=== PATIENT | female | born 1940 | race Caucasian/White ===

== ENCOUNTER → 2017-01-16 | Outpatient (CLI) | payer OTHER ==
[2017-01-16 20:17] LABS: CREATININE FOR GFR 1.25 MG/DL (0.55-1.02); GLOMERULAR FILTRATION RATE 44.5 (>39)
== END ==
LOC: M SMT 14:29
PROVIDERS: ATTEND Urology
DX: Z85.528 Personal history of other malignant neoplasm of kidney (principal)

== ENCOUNTER → 2017-02-27 | Outpatient (CLI) | payer OTHER ==
--- NOTE | 2017-02-28 10:35 | REP ---
PET/CT: HISTORY: Restaging renal carcinoma. Status post left nephrectomy 2012. 2 cm mass right lung. Question of thoracic spine lesion at T3. Comparison CT study chest, abdomen and pelvis January 29, 2017. Among the reported findings is a spiculated right upper lobe lung lesion. TECHNIQUE: 69 minutes following the intravenous injection of a 11.4 mCi dose of F-18 FDG, three-dimensional PET scintigraphy is acquired from the skull base to the proximal thighs. Triplanar noncontrast CT scanning is acquired through the same anatomic range for attenuation correction, and image registration with scan parameters optimized to minimize radiation exposure to the patient. PET scintigraphy and CT datasets were fused and displayed on a workstation with multiplanar and projection display capability. PET/CT FINDINGS: Head and neck FDG distribution pattern is unremarkable. The right upper lobe perihilar lung lesion shows no discernible at FDG accumulation, maximum standard uptake value is less than one. There is no abnormal hypermetabolic uptake in the thorax. The irregular right perihilar nodular density persists unchanged. There is a hiatal hernia. No abnormal adrenal uptake is seen. Normal hepatic, right renal, and gastrointestinal and bladder uptake are seen. No abnormal hypermetabolic focus is seen in the abdomen. No abnormal skeletal hypermetabolic uptake is seen. No focus of increased uptake is seen in the T3 vertebral body. The radiolucent area described on recent chest CT study shows no visible FDG accumulation. This area appears to contain fatty marrow on accompanying CT. IMPRESSION: Negative PET CT study. The patient status post left nephrectomy. The spiculated density in the right upper perihilar region shows no discernible PET activity. Follow-up chest CT study is recommended in 3-4 months. There is no evidence to suggest skeletal metastatic disease. Signed by Simone Holloway MD 02/28/2017 02:09 P
== END ==
LOC: M PLARAD 14:22
PROVIDERS: ATTEND Urology
DX: C64.9 Malignant neoplasm of unspecified kidney, except renal pelvis (principal); R91.1 Solitary pulmonary nodule
CPT/HCPCS: 78816; A9552

== ENCOUNTER → 2017-03-21 | Outpatient (CLI) | payer OTHER ==
--- NOTE | 2017-03-21 12:32 | REPMRS ---
Patient History The patient states she has not had a clinical breast exam in over a year. Patient is postmenopausal and has history of other cancer at age 72. Family history of prostate cancer in father at age 88. Digital Woman Screen Mammo: March 21, 2017 - Exam #: [id number] Bilateral CC and MLO view(s) were taken. Technologist: Chiara Renae, Technologist Prior study comparison: December 08, 2015, digital woman screen mammo performed at [facility] to [facility]. August 14, 2013, digital woman screen mammo performed at [facility] to [facility]. FINDINGS: There are scattered fibroglandular densities. There has been no change in the appearance of the mammogram from the prior studies. There is a mild amount of residual fibroglandular tissue which is fairly symmetric. There is no interval development of dominant mass, architectural distortion, or clustered microcalcification suggestive of malignancy. ASSESSMENT: BI-RADS/ACR category 1 mammogram. Negative. Recommendation Routine screening mammogram in 1 year (for women over age 40). This mammogram was interpreted with the aid of an FDA-approved computer-aided dectection system. Electronically Signed By: Edwin Magana MD 03/21/17 [id number]
--- NOTE | 2017-03-26 10:09 | DEXA ---
AP SPINE L1 - L4 1.214 0.2 1.9 LT FEMUR TOTAL 0.995 -0.1 1.7 RT FEMUR TOTAL 0.934 -0.6 1.2 TOTAL BODY TOTAL OTHER DUAL FEMUR FRAX* ASSESSMENT Risk factors: None. 10 year probability of fracture Major osteoporotic fracture 11.7 % Hip fracture 2.5 % COMMENTS: Normal bone densitometry of the spine. Normal bone densitometry of the left hip. There is low bone density of the right hip. The increased density of the spine does represent a significant change. The decreased density of the left hip does represent a significant change. The decreased density of the right hip does represent a significant change. The density of the spine has increased 5.7% since the initial exam on 1999. The spine density has increased 7.5% since the most recent exam on 01/04/2015. The density of the left hip has decreased 11.3% since the initial exam on 1999. The density of the left hip has decreased 3.4% since the most recent exam on . The density of the right hip has decreased 11.6% since the initial exam on 08/02. The density of the right hip has decreased 6.6% since the most recent exam on . FOLLOW-UP: Recommendation for the next bone density exam: 2 years. ROCIO
== END ==
LOC: M WHC 10:57
PROVIDERS: ATTEND Internal Medicine
DX: Z12.31 Encounter for screening mammogram for malignant neoplasm of breast (principal); Z13.820 Encounter for screening for osteoporosis; M85.80 Other specified disorders of bone density and structure, unspecified site; Z78.0 Asymptomatic menopausal state; Z85.9 Personal history of malignant neoplasm, unspecified; Z80.42 Family history of malignant neoplasm of prostate
CPT/HCPCS: 77080; G0202

== ENCOUNTER → 2017-08-20 | Outpatient (REF) | payer OTHER | LOC: M LAB REF 13:18 | PROVIDERS: ATTEND Internal Medicine | DX: E21.3 Hyperparathyroidism, unspecified (principal) ==

== ENCOUNTER 2017-11-14 12:02 | Day surgery (SDC) | payer OTHER ==
[2017-11-14] MEDS: NS 1,000 ML IV (12:15)
== END 2017-11-14 15:19 | disposition home or self-care (01) ==
LOC: M OPP 12:02
DX: Z12.11 Encounter for screening for malignant neoplasm of colon (principal); Z86.010 Personal history of colon polyps; K64.0 First degree hemorrhoids; K57.30 Diverticulosis of large intestine without perforation or abscess without bleeding; R10.13 Epigastric pain; R12 Heartburn; K44.9 Diaphragmatic hernia without obstruction or gangrene; I10 Essential (primary) hypertension; E78.5 Hyperlipidemia, unspecified; E21.3 Hyperparathyroidism, unspecified; K21.9 Gastro-esophageal reflux disease without esophagitis; M19.90 Unspecified osteoarthritis, unspecified site; Z78.0 Asymptomatic menopausal state; R09.82 Postnasal drip; R06.83 Snoring; Z85.528 Personal history of other malignant neoplasm of kidney; Z90.5 Acquired absence of kidney; Z87.19 Personal history of other diseases of the digestive system; Z88.8 Allergy status to other drugs, medicaments and biological substances; Z88.5 Allergy status to narcotic agent; Z88.1 Allergy status to other antibiotic agents; Z79.82 Long term (current) use of aspirin; Z79.899 Other long term (current) drug therapy; Z80.42 Family history of malignant neoplasm of prostate; Z80.7 Family history of other malignant neoplasms of lymphoid, hematopoietic and related tissues
CPT/HCPCS: G0105

== ENCOUNTER → 2018-02-11 | Outpatient (CLI) | payer OTHER ==
[2018-02-11 14:09] LABS: ANION GAP 6 MEQ/L (8-16); BLOOD UREA NITROGEN 27 MG/DL (7-18); CALCIUM LEVEL 10.5 MG/DL (8.8-10.2); CARBON DIOXIDE LEVEL 27 MEQ/L (21-32); CHLORIDE LEVEL 107 MEQ/L (98-107); CREATININE FOR GFR 1.16 MG/DL (0.55-1.30); GLOMERULAR FILTRATION RATE 48.4 (>39); GLUCOSE, FASTING 100 MG/DL (70-100); POTASSIUM SERUM 4.9 MEQ/L (3.5-5.1); SODIUM LEVEL 140 MEQ/L (136-145)
== END ==
LOC: M SMT 10:46
DX: Z85.528 Personal history of other malignant neoplasm of kidney (principal)
CPT/HCPCS: 80048

== ENCOUNTER → 2018-03-05 | Outpatient (REF) | payer OTHER ==
[2018-03-05 13:42] LABS: PTH INTACT 110.4 PG/ML (18.5-88.0)
== END ==
LOC: M LAB REF 12:40
DX: E21.3 Hyperparathyroidism, unspecified (principal)
CPT/HCPCS: 83970

== ENCOUNTER → 2018-05-16 | Outpatient (CLI) | payer OTHER | LOC: M WHC 08:06 | DX: Z12.31 Encounter for screening mammogram for malignant neoplasm of breast (principal); M85.80 Other specified disorders of bone density and structure, unspecified site | CPT/HCPCS: 77067 ==

== ENCOUNTER → 2018-06-13 | Outpatient (CLI) | payer OTHER | LOC: M WHC 13:52 | DX: M85.80 Other specified disorders of bone density and structure, unspecified site (principal); Z78.0 Asymptomatic menopausal state | CPT/HCPCS: 77080 ==

== ENCOUNTER → 2018-09-23 | Outpatient (REF) | payer OTHER ==
[~2018-09-23] MED LIST: ASPI1TAB PO; BRIN1OPH OU; FISH1000 PO; LATA5OPD OU; LEVO25TA5 PO; MULT1TAB10 PO; OMEP40CA2 PO; REFRSOL OP; SIMV40TA2 PO; TYLE325T5 PO; VALS80TA PO; VITA100067 PO; VITA500T PO
== END ==
LOC: M LAB REF 12:10
PROVIDERS: ATTEND Internal Medicine
DX: E21.3 Hyperparathyroidism, unspecified (principal)

== ENCOUNTER → 2018-09-25 | Outpatient (REF) | payer OTHER | LOC: M LAB REF 16:32 | PROVIDERS: ATTEND Internal Medicine | DX: D72.828 Other elevated white blood cell count (principal) ==

== ENCOUNTER → 2019-01-03 | Outpatient (REF) | payer OTHER ==
[2019-01-03 15:45] LABS: APPEARANCE, URINE CLEAR (CLEAR); BACTERIA, URINE AUTO NEGATIVE (NEGATIVE); BILIRUBIN, URINE AUTO NEGATIVE (NEGATIVE); BLOOD, URINE BLOOD NEGATIVE (NEGATIVE); COLOR, URINE YELLOW (YELLOW); GLUCOSE, URINE (UA) AUTO NEGATIVE (NEGATIVE); KETONE, URINE AUTO NEGATIVE (NEGATIVE); LEUKOCYTE ESTERASE, URINE AUTO NEGATIVE (NEGATIVE); NITRITE, URINE AUTO NEGATIVE (NEGATIVE); PROTEIN, URINE AUTO NEGATIVE (NEGATIVE); RBC, URINE AUTO 0 /HPF (0-3); SPECIFIC GRAVITY URINE AUTO 1.009 (1.002-1.035); SQUAMOUS EPITHELIAL CELL UR AU 0 /HPF (0-6); UROBILINOGEN, URINE AUTO 0.2 mg/dL (0.0-2.0); WBC, URINE AUTO 0 /HPF (0-3)
== END ==
LOC: M LAB REF 15:29
PROVIDERS: ATTEND Physician Assistant
DX: N39.0 Urinary tract infection, site not specified (principal)

== ENCOUNTER 2019-01-26 23:13 | Inpatient (IN) | payer MEDICARE ==
[~2019-01-26] VITALS: Ht 160 cm; Wt 65.1 kg
[~2019-01-26 23:13] MED LIST changes: -ASPI1TAB PO; +ASPI81TA26 PO; +LATA0.0013 OU; -LATA5OPD OU; -OMEP40CA2 PO; +OMEP40CA97 PO; -REFRSOL OP; +REFRSOL OU; -SIMV40TA2 PO; +SIMV40TA20 PO
[2019-01-27] VITALS (7 sets, daily range): BP systolic 116–147; BP diastolic 70–97
[2019-01-27] MEDS ORDERED: MORPHINE 4 MG/ML 1ML VIAL/SYRINGE (J2270) IV ONE (01:00)
[2019-01-27] MEDS ORDERED: NS 1,000 ML IV ONE (01:00)
[2019-01-27] MEDS ORDERED: ONDANSETRON 4MG/2ML VIAL (J2405) IV ONE (01:00)
[2019-01-27 01:22] LABS: BASO # 0.1 10^3/uL (0.0-0.2); BASO % 0.6 % (0.0-1.0); EOS # 0.2 10^3/uL (0.0-0.50); EOS % 0.9 % (0.0-3.0); HEMATOCRIT 49.4 % (36.0-47.0); HEMOGLOBIN 15.6 g/dl (12.0-15.5); LYMPH # 1.3 10^3/uL (1.5-4.5); LYMPH % 6.2 % (24.0-44.0); MEAN CORPUSCULAR HEMOGLOBIN 27.4 pg (27.0-33.0); MEAN CORPUSCULAR HGB CONC 31.6 g/dl (32.0-36.5); MEAN CORPUSCULAR VOLUME 86.8 fl (80.0-96.0); MONO # 0.8 10^3/uL (0.0-0.8); NEUTROPHILS # 18.1 10^3/uL (1.8-7.7); NEUTROPHILS % 87.8 % (36.0-66.0); PLATELET COUNT, AUTOMATED 500 10^3/uL (150-450); RED BLOOD COUNT 5.69 10^6/uL (4.00-5.40); WHITE BLOOD COUNT 20.7 10^3/uL (4.0-10.0)
[2019-01-27 02:06] LABS: ALBUMIN 4.6 GM/DL (3.2-5.2); BILIRUBIN,DIRECT 0.2 MG/DL (0.0-0.2); BILIRUBIN,TOTAL 1.2 MG/DL (0.2-1.0); CALCIUM LEVEL 10.8 MG/DL (8.8-10.2); CREATININE FOR GFR 1.08 MG/DL (0.55-1.30); GLOMERULAR FILTRATION RATE 52.4 (>39); POTASSIUM SERUM 4.5 MEQ/L (3.5-5.1); TOTAL PROTEIN 8.1 GM/DL (6.4-8.2)
[2019-01-27] MEDS ORDERED: ISOVUE-370 76% 100ML VIAL (Q9967) As Ordered ONE (02:15)
[2019-01-27] MEDS: HYDROMORPHONE HCL 0.5 MG/ 0.5 ML SYRINGE (J1170 PER 1) IV PRN ×4 (02:35→23:51)
--- NOTE | 2019-01-27 03:35 | REPVR ---
EXAM: CT Abdomen and Pelvis With Contrast EXAM DATE/TIME: 01/27/2019 2:16 AM CLINICAL HISTORY: 78 years old, female; Abdominal pain; Patient HX: Upper abd pain TECHNIQUE: Imaging protocol: Axial computed tomography images of the abdomen and pelvis with intravenous contrast. Coronal and sagittal reformatted images were created and reviewed. Radiation optimization: All CT scans at this facility use at least one of these dose optimization techniques: automated exposure control; mA and/or kV adjustment per patient size (includes targeted exams where dose is matched to clinical indication); or iterative reconstruction. Contrast material: ISO 370; Contrast volume: 100 ml; Contrast route: IV; COMPARISON: No relevant prior studies available. FINDINGS: Lungs: Atelectasis in the medial bilateral lower medial lungs, left greater than right likely secondary to large hiatal hernia protrusion of the stomach in the thoracic cavity. Heart: Heart appears to be shifted more anteriorly in the mediastinum and the stomach isn't abutting the posterior margin of the heart. ABDOMEN: Liver: Diffuse fatty infiltration of the liver. Gallbladder and bile ducts: Normal. No calcified stones. No ductal dilation. Pancreas: Normal. No ductal dilation. Spleen: Normal. No splenomegaly. Adrenals: Normal. No mass. Kidneys and ureters: Status post left nephrectomy. Left renal fossa is otherwise unremarkable. Right kidney is unremarkable. Stomach and bowel: Large hiatal hernia with most of the stomach in the thoracic cavity. Fluid filled distended stomach. Small bowel and colon are unremarkable. Appendix: No evidence of appendicitis. PELVIS: Bladder: Unremarkable as visualized. Reproductive: Unremarkable as visualized. ABDOMEN and PELVIS: Intraperitoneal space: Normal. No free air. No significant fluid collection. Bones/joints: Dextroscoliosis of the lumbar spine with degenerative changes. Soft tissues: Unremarkable. Vasculature: Atherosclerosis of aorta and its branches. Lymph nodes: Normal. No enlarged lymph nodes. IMPRESSION: Large hiatal hernia with most of the stomach in the thoracic cavity. Fluid filled distended stomach. Electronically signed by: Elisa Claudio On 01/27/2019 03:34:45 AM
[2019-01-27] MEDS ORDERED: fentaNYL 100 MCG/2 ML INJECTION (J3010) IV ONE (04:00)
[2019-01-27] MEDS ORDERED: METOCLOPRAMIDE INJ 10MG/2ML VIAL (J2765) IV ONE (04:00)
--- NOTE | 2019-01-27 04:37 | REPVR ---
EXAM: US Abdomen Limited, Right Upper Quadrant EXAM DATE/TIME: 01/27/2019 4:22 AM CLINICAL HISTORY: 78 years old, female; Abdominal pain; Acute; Additional info: Ruq, epigastric pain TECHNIQUE: Imaging protocol: Real-time ultrasound of the abdomen with image documentation. Examination was focused on the right upper quadrant. COMPARISON: CT ABD/PEL W/IV CONTRAST ONLY 01/27/2019 2:16 AM FINDINGS: Liver: Normal. No masses. Gallbladder: Normal. No gallstones. There is no gallbladder wall thickening. Common bile duct: Normal measuring 6.9 mm. No stones. No dilation. Pancreas: Not visualized secondary to overlying bowel gas shadow. Right kidney: Normal measuring 10.9 cm.. No mass. No hydronephrosis. IMPRESSION: No acute findings. Electronically signed by: Elisa Claudio On 01/27/2019 04:36:45 AM
[2019-01-27] MEDS ORDERED: MULT-40 PO (05:27)
[2019-01-27] MEDS ORDERED: ACE65ERTAB PO (05:27)
[2019-01-27] MEDS ORDERED: C 50TAB PO (05:27)
[2019-01-27] MEDS ORDERED: XALA0.007 OU (05:27)
[2019-01-27] MEDS ORDERED: VITA100016 PO (05:27)
[2019-01-27] MEDS ORDERED: LR 1,000 ML IV SCH (06:26)
[2019-01-27] MEDS ORDERED: MORPHINE 4 MG/ML 1ML VIAL/SYRINGE (J2270) IV PRN (06:30)
[2019-01-27] MEDS: MORPHINE 4 MG/ML 1ML VIAL/SYRINGE (J2270) IV PRN ×3 (07:39→12:02)
--- NOTE | 2019-01-27 07:55 | REP ---
Portable chest x-ray: Single view. History: Check NG tube position. Comparison is made with imaging from CT study done earlier this date. Findings: Nasogastric tube is seen entering the left upper quadrant of the abdomen. A very large hiatal hernia persists. Patient is rotated somewhat to the left. Pleural angles are sharp. No definite infiltrate. Impression: NG tube enters left upper quadrant of the abdomen. Large hiatal hernia. Electronically Signed by Simone Holloway MD 01/27/2019 07:48 A
[2019-01-27] MEDS: PANTOPRAZOLE 40MG INJ (PROTONIX) (C9113) IV SCH (08:36)
[2019-01-27] MEDS: LR 1,000 ML IV SCH ×2 (08:38→13:55)
[2019-01-27 10:39] LABS: BLOOD UREA NITROGEN 24 MG/DL (7-18); CALCIUM LEVEL 9.7 MG/DL (8.8-10.2); CARBON DIOXIDE LEVEL 27 MEQ/L (21-32); CHLORIDE LEVEL 111 MEQ/L (98-107); CREATININE FOR GFR 0.92 MG/DL (0.55-1.30); GLOMERULAR FILTRATION RATE > 60.0 (>39); GLUCOSE, FASTING 135 MG/DL (70-100); SODIUM LEVEL 144 MEQ/L (136-145)
[2019-01-27 10:44] LABS: BASO % 0.2 % (0.0-1.0); EOS % 0.1 % (0.0-3.0); HEMATOCRIT 44.6 % (36.0-47.0); HEMOGLOBIN 14.3 g/dl (12.0-15.5); LYMPH # 0.6 10^3/uL (1.5-4.5); LYMPH % 3.4 % (24.0-44.0); MEAN CORPUSCULAR HEMOGLOBIN 28.4 pg (27.0-33.0); MEAN CORPUSCULAR HGB CONC 32.1 g/dl (32.0-36.5); MEAN CORPUSCULAR VOLUME 88.5 fl (80.0-96.0); MONO # 0.4 10^3/uL (0.0-0.8); MONO % 2.4 % (0.0-5.0); NEUTROPHILS # 16.8 10^3/uL (1.8-7.7); NEUTROPHILS % 93.1 % (36.0-66.0); PLATELET COUNT, AUTOMATED 459 10^3/uL (150-450); RED BLOOD COUNT 5.04 10^6/uL (4.00-5.40)
[2019-01-27] MEDS: ONDANSETRON 4MG/2ML VIAL (J2405) IV PRN (12:39)
[2019-01-27] MEDS ORDERED: HYDROMORPHONE HCL 0.5 MG/ 0.5 ML SYRINGE (J1170 PER 1) IV PRN ×2 (13:45→15:45)
[2019-01-27] MEDS ORDERED: ACETAMINOPHEN *IV* 1,000 MG in IV 1 EA IV ONE (17:00)
[2019-01-27 20:03] LABS: HEMATOCRIT 51.2 % (36.0-47.0); HEMOGLOBIN 16.2 g/dl (12.0-15.5); MEAN CORPUSCULAR HEMOGLOBIN 28.3 pg (27.0-33.0); MEAN CORPUSCULAR HGB CONC 31.6 g/dl (32.0-36.5); MEAN CORPUSCULAR VOLUME 89.4 fl (80.0-96.0); PLATELET COUNT, AUTOMATED 503 10^3/uL (150-450); RED BLOOD COUNT 5.73 10^6/uL (4.00-5.40); WHITE BLOOD COUNT 18.2 10^3/uL (4.0-10.0)
[2019-01-27 20:24] LABS: ALBUMIN 3.5 GM/DL (3.2-5.2); BILIRUBIN,TOTAL 1.4 MG/DL (0.2-1.0); CALCIUM LEVEL 9.7 MG/DL (8.8-10.2); CREATININE FOR GFR 1.01 MG/DL (0.55-1.30); GLOMERULAR FILTRATION RATE 56.6 (>39); MB/CK RELATIVE INDEX 3.39 (< OR =4); TOTAL PROTEIN 6.5 GM/DL (6.4-8.2); TROPONIN I 0.02 NG/ML (< 0.10)
[2019-01-27] MEDS ORDERED: ALBUTEROL SULFATE 2.5 MG/0.5 ML INH NEB SOLN NEB ONE (21:15)
[2019-01-27 21:25] LABS: ABG BASE EXCESS -1.6 (-2.0-2.0); ABG O2 SATURATION 91.5 % (95.0-99.0); ABG PARTIAL PRESSURE CO2 43.6 mmHg (35.0-45.0); ABG PARTIAL PRESSURE O2 61.7 mmHg (75.0-100.0); ABG TOTAL CO2 25.4 MEQ/L (23.0-31.0); ABG pH (ARTERIAL) 7.359 UNITS (7.350-7.450)
--- NOTE | 2019-01-27 21:45 | REPVR ---
EXAM: XR Chest, 2 Views EXAM DATE/TIME: 01/27/2019 8:17 PM CLINICAL HISTORY: 78 years old, female; Signs and symptoms; Shortness of breath; Additional info: SOB TECHNIQUE: Imaging protocol: XR of the chest, 2 views. COMPARISON: CR Chest, 1 view 01/27/2019 7:14 AM FINDINGS: Tubes, catheters and devices: NG tube terminating in the stomach. Lungs: Bilateral lower lobe airspace opacities, right greater than left representing Pneumonia. Pleural space: Unremarkable. No pleural effusion. No pneumothorax. Heart/Mediastinum: Unremarkable. No cardiomegaly. Bones/joints: Unremarkable. Other findings: DJD. IMPRESSION: Bilateral lower lobe airspace opacities, right greater than left representing Pneumonia. Electronically signed by: Elisa Claudio On 01/27/2019 21:45:02 PM
--- NOTE | 2019-01-27 23:13 | REPVR ---
EXAM: US Duplex Bilateral Lower Extremity Veins EXAM DATE/TIME: 01/27/2019 11:07 PM CLINICAL HISTORY: 78 years old, female; Signs and symptoms; Other: SOB; Additional info: R/O dvt TECHNIQUE: Imaging protocol: Real-time duplex ultrasound of the Bilateral Lower Extremities with 2-D tillman scale, color Doppler flow and spectral waveform analysis. Complete exam focused on the bilateral lower extremity veins. COMPARISON: No relevant prior studies available. FINDINGS: Right deep veins: Unremarkable. The common femoral, femoral, proximal profunda femoral and popliteal veins are patent without thrombus. Normal Doppler waveforms. Normal compressibility and/or augmentation response. Right superficial veins: Saphenofemoral junction is patent without thrombus. Left deep veins: Unremarkable. The common femoral, femoral, proximal profunda femoral and popliteal veins are patent without thrombus. Normal Doppler waveforms. Normal compressibility and/or augmentation response. Left superficial veins: Saphenofemoral junction is patent without thrombus. Soft tissues: Unremarkable. IMPRESSION: No acute findings. No evidence of deep vein thrombosis. Electronically signed by: Elisa Claudio On 01/27/2019 23:13:21 PM
[2019-01-28] VITALS (12 sets, daily range): BP systolic 81–147; BP diastolic 55–93; O2SAT 87–93
[2019-01-28] MEDS: AMPICILLIN SOD/SULBACTAM SOD 3 GM in D5W MINI-BAG PLUS 100 ML IV SCH ×2 (00:17→05:19)
[2019-01-28] MEDS: propofoL 1,000 MG in IV 1 EA IV SCH (00:42)
[2019-01-28 02:30] LABS: MB/CK RELATIVE INDEX 3.42 (< OR =4); TROPONIN I 0.02 NG/ML (< 0.10)
[2019-01-28] MEDS: HYDROMORPHONE HCL 0.5 MG/ 0.5 ML SYRINGE (J1170 PER 1) IV PRN (02:54)
--- NOTE | 2019-01-28 05:00 | CR.PDOC ---
General Date of Consultation: Jan 27, 2019 Attending Physician: Jani Light Consultation REASON FOR CONSULTATION/CHIEF COMPLAINT: . Acute Hypoxia HISTORY OF PRESENT ILLNESS: . 78-year-old female with past medical history of hypertension, dyslipidemia, GERD, and hypothyroidism presented to the ER with a chief complaint of abdominal pain which started after dinner on 01/26/19. In the ER, she was found to have a large hiatal hernia with an acute gastric volvulus. The surgical service admitted the patient for further intervention and management. This evening (01/27/19) the patient developed worsening hypoxia and was noted to require 15 L of oxygen via a nonrebreather. The hospitalist service was consulted for further evaluation of hypoxia. ALLERGIES: Please see below. HOME MEDICATIONS: Please see below. PAST MEDICAL HISTORY: As noted above PHYSICAL EXAMINATION: VITAL SIGNS: Please see below. GENERAL APPEARANCE: . Awake, alert, in mild distress 2/2 abd pain HEENT: . Normocephalic, atraumatic, +NG Tube RESPIRATORY: . Diminished breath sounds bilaterally CARDIOVASCULAR: . Tachycardic, normal S1, S2 ABDOMEN: . Distended, tender to palpation in the supraumbilical area. EXTREMITIES: . No erythema, no tenderness LABORATORY DATA: Please see below. ASSESSMENT/PLAN: Hypoxic Respiratory Failure Multifactorial in Etiology; CXR notable for Bilateral lower lobe opacities guest experience representative of pneumonia. In addition, the patient also has a large hiatal hernia and gastric volvulus which is causing her pain/discomfort requiring dilaudid. Consequently this has caused the patient to have significant atelectasis with shunting. I did discuss the case and review the imaging with Dr. Rosario of Pulmonary via telephone as well---At this time we will start the patient on Unasyn for aspiration pneumonia coverage, lung expansive therapy with ez pap and incentive spirometry as tolerated. It is less likely that the patient has a pulmonary embolus. She is not stable enough for a CTA chest at this time in any case. U/S lower extremities negative for DVT. We have started the patient on Heparin SC for DVT prophylaxis. We will transfer the patient to PCU for closer monitoring--Dr. Hinojosa called and updated about the patient's clinical condition and recommendations. Large Hiatal Hernia with Acute Gastric Volvulus Management as per general surgery Hypothyroidism Levothyroxine IV ordered GERD IV Protonix Hx of HTN, Dyslipidemia Meds held 2/2 NPO status DVT Prophylaxis Heparin SC Vital Signs/I&O Vital Signs Date Time Temp Pulse Resp B/P (MAP) Pulse Ox O2 Delivery O2 Flow Rate FiO2 01/28/19 02:54 18 01/28/19 00:00 15.0 01/27/19 23:56 97.3 103 116/76 (89) 92 01/27/19 09:45 Nasal Cannula I&O- Last 24 Hours up to 6 AM 01/28/19 06:00 Intake Total 1520 ml Output Total 1375 ml Balance 145 ml Laboratory Data Labs 24H Laboratory Tests 2 01/27/19 10:03: Immature Granulocyte % (Auto) 0.8, White Blood Count 18.0H, Red Blood Count 5.04, Hemoglobin 14.3, Hematocrit 44.6, Mean Corpuscular Volume 88.5, Mean Corpuscular Hemoglobin 28.4, Mean Corpuscular Hemoglobin Concent 32.1, Red Cell Distribution Width 16.1H, Platelet Count 459H, Neutrophils (%) (Auto) 93.1H, Lymphocytes (%) (Auto) 3.4L, Monocytes (%) (Auto) 2.4, Eosinophils (%) (Auto) 0.1, Basophils (%) (Auto) 0.2, Neutrophils # (Auto) 16.8H, Lymphocytes # (Auto) 0.6L, Monocytes # (Auto) 0.4, Eosinophils # (Auto) 0.0, Basophils # (Auto) 0.0, Nucleated Red Blood Cells % (auto) 0.0, Anion Gap 6L, Glomerular Filtration Rate > 60.0, Lactic Acid Level 1.1, Blood Urea Nitrogen 24H, Creatinine 0.92, Sodium Level 144, Potassium Level 4.0, Chloride Level 111H, Carbon Dioxide Level 27, Calcium Level 9.7 01/27/19 19:46: Nucleated Red Blood Cells % (auto) 0.0, Anion Gap 5L, Glomerular Filtration Rate 56.6, Lactic Acid Level 1.8, Blood Urea Nitrogen 21H, Creatinine 1.01, Sodium Level 143, Potassium Level 4.0, Chloride Level 111H, Carbon Dioxide Level 27, Calcium Level 9.7, Aspartate Amino Transf (AST/SGOT) 26, Alanine Aminotransferase (ALT/SGPT) 23, Total Creatine Kinase 283H, Alkaline Phosphatase 96, Total Bilirubin 1.4H, Total Protein 6.5, Albumin 3.5#, Creatine Kinase MB 10.0H, Creatine Kinase MB Relative Index 3.39, Troponin I 0.02, AG-[id number]-[id number]-Type Natriuretic Peptide 1689H, Albumin/Globulin Ratio 1.17 01/27/19 21:08: Blood Gas Bicarbonate Standard 23.0, Arterial Blood pH 7.359, Arterial Blood Partial Pressure CO2 43.6, Arterial Blood Partial Pressure O2 61.7L, Arterial Blood Total CO2 25.4, Arterial Blood HCO3 24.0, Arterial Blood Base Excess -1.6, Arterial Blood Oxygen Saturation 91.5L 01/28/19 01:59: Total Creatine Kinase 316H, Creatine Kinase MB 11.0H, Creatine Kinase MB Relative Index 3.42, Troponin I 0.02 CBC/BMP Laboratory Tests 01/27/19 10:03 Red Blood Count 5.04, Mean Corpuscular Volume 88.5, Mean Corpuscular Hemoglobin 28.4, Mean Corpuscular Hemoglobin Concent 32.1, Red Cell Distribution Width 16.1 H, Neutrophils (%) (Auto) 93.1 H, Lymphocytes (%) (Auto) 3.4 L, Monocytes (%) (Auto) 2.4, Eosinophils (%) (Auto) 0.1, Basophils (%) (Auto) 0.2, Neutrophils # (Auto) 16.8 H, Lymphocytes # (Auto) 0.6 L, Monocytes # (Auto) 0.4, Eosinophils # (Auto) 0.0, Basophils # (Auto) 0.0, Calcium Level 9.7 01/27/19 19:46 Red Blood Count 5.73 H, Mean Corpuscular Volume 89.4, Mean Corpuscular Hemoglobin 28.3, Mean Corpuscular Hemoglobin Concent 31.6 L, Red Cell Distribution Width 16.6 H, Calcium Level 9.7, Aspartate Amino Transf (AST/SGOT) 26, Alanine Aminotransferase (ALT/SGPT) 23, Total Creatine Kinase 283 H, Alkaline Phosphatase 96, Total Bilirubin 1.4 H, Total Protein 6.5, Albumin 3.5 # Microbiology Microbiology 01/27/19 Urine Culture, Received Pending Allergies Coded Allergies: brimonidine (Verified Allergy, Unknown, 01/27/19) codeine (Verified Allergy, Unknown, 01/27/19) dorzolamide (Verified Allergy, Unknown, from cosopt, 01/27/19) erythromycin base (Verified Allergy, Unknown, 01/27/19) timolol (Verified Allergy, Unknown, 01/27/19) NSAIDS (Non-Steroidal Anti-Inflamma (Verified Adverse Reaction, Unknown, AVOID DUE TO ONE KIDNEY, 01/27/19) Home Medications Scheduled Ascorbic Acid (Vitamin C) 500 Mg Tablet, 500 MG PO DAILY, (Reported) Aspirin (Aspirin EC) 81 Mg Tab, 81 MG PO DAILY, (Reported) Brinzolamide (Azopt) 200 Drop/10 Ml Susp, 1 DROP OU BID, (Reported) Cholecalciferol (Vitamin D3) (Vitamin D3) 1,000 Unit Tablet, 2,000 UNIT PO DAILY, (Reported) Latanoprost (Xalatan) 2.5 Ml Drops, 1 DROP OU QPM, (Reported) Levothyroxine Sodium (Levothyroxine Sodium) 25 Mcg Tab, 25 MCG PO DAILY, (Reported) Multivitamin (Multivitamins) 1 Each Tablet, 1 TAB PO DAILY, (Reported) [place]-3 Fatty Acids/Fish Oil (Fish Oil 1,000 mg Capsule) 1,000 Mg Cap, 1,000 MG PO BID, (Reported) Omeprazole (Omeprazole) 40 Mg Cap, 40 MG PO DAILY, (Reported) Simvastatin (Simvastatin) 40 Mg Tab, 40 MG PO QHS, (Reported) Valsartan/Hydrochlorothiazide (Valsartan-Hctz 80-12.5 mg Tab) 1 Tab Tab, 1 TAB PO DAILY, (Reported) Scheduled PRN Acetaminophen (Acetaminophen ER) 650 Mg Tablet.er, 650 MG PO TID PRN for PAIN, (Reported) Carboxymethyl/Glycerin/Poly80 (Refresh Optive Advanced Drops) 1 Asya Asya, 1 DROP OU PRN PRN for DRY EYES, (Reported) JS KATHLEEN MD Jan 28, 2019 05:00
[2019-01-28] MEDS: HEPARIN SOD (PORCINE) 5000 UNITS/ML VIAL SQ SCH ×3 (05:18→20:49)
[2019-01-28] MEDS: LR 1,000 ML IV SCH (05:18)
[2019-01-28 06:13] LABS: HEMATOCRIT 49.4 % (36.0-47.0); HEMOGLOBIN 15.5 g/dl (12.0-15.5); MEAN CORPUSCULAR HEMOGLOBIN 28.1 pg (27.0-33.0); MEAN CORPUSCULAR HGB CONC 31.4 g/dl (32.0-36.5); MEAN CORPUSCULAR VOLUME 89.5 fl (80.0-96.0); PLATELET COUNT, AUTOMATED 465 10^3/uL (150-450); RED BLOOD COUNT 5.52 10^6/uL (4.00-5.40)
[2019-01-28 06:29] LABS: WHITE BLOOD COUNT 32.3 10^3/uL (4.0-10.0)
[2019-01-28 06:34] LABS: LYMPHOCYTES 3 % (16-52); METAMYELOCYTES 1 % (0-0); MONOCYTES 2 % (0-8); NEUTROPHILS 92 % (35-75); PLATELET ESTIMATE INCREASED (NORMAL)
[2019-01-28 06:35] LABS: ANISOCYTOSIS 1+
[2019-01-28 06:36] LABS: CALCIUM LEVEL 9.9 MG/DL (8.8-10.2); CREATININE FOR GFR 1.01 MG/DL (0.55-1.30); GLOMERULAR FILTRATION RATE 56.6 (>39); POTASSIUM SERUM 3.6 MEQ/L (3.5-5.1)
[2019-01-28 06:37] LABS: ALBUMIN 3.2 GM/DL (3.2-5.2); BILIRUBIN,TOTAL 1.4 MG/DL (0.2-1.0); TOTAL PROTEIN 6.2 GM/DL (6.4-8.2)
[2019-01-28] MEDS ORDERED: NS 1,000 ML IV SCH (07:30)
[2019-01-28] MEDS: ONDANSETRON 4MG/2ML VIAL (J2405) IV PRN (07:50)
--- NOTE | 2019-01-28 08:06 | REP ---
Portable chest x-ray: Single view. History: Leukocytosis. Comparison study: January 27, 2019. Findings: A very large hiatal hernia is seen. There is an infiltrate with air bronchograms in the right base. Pulmonary vasculature is cephalized. Marked cardiomegaly is again seen. There is blunting of the pleural angles indicating bilateral effusions. Impression: Fairly large right lower lobe infiltrate. Some increased density is suggested that on the left as well. Small bilateral effusions. Cardiomegaly and hiatal hernia. NG tube to the left upper quadrant. Electronically Signed by Simone Holloway MD 01/28/2019 09:00 A
--- NOTE | 2019-01-28 08:30 | HPE ---
DATE OF ADMISSION: 01/27/2019 REASON FOR CONSULTATION: Gastric volvulus. HISTORY OF PRESENT ILLNESS: The patient is a 78-year-old woman who presented to the emergency department at 11:13 p.m. on 01/26/2019 complaining of severe pain with some nausea. The patient reports that the discomfort had started shortly after eating dinner at about 5:30 in the evening. It had been worsening over the course of the evening into the night. She had significant nausea but has had only some fairly nonproductive episodes of dry heaves. She reports having a diagnosis of a hiatal hernia but has not had any problems with this previously. She does have her gallbladder. She was evaluated with some basic laboratory studies, which were fairly unrevealing, but did show an elevated white blood cell count up to 20,000. Her laboratory studies showed basically normal electrolytes with a BUN of 35 and a creatinine of 1.08. She had a CT scan of the abdomen and pelvis obtained. which revealed a very large hiatal hernia with much of the stomach up into the left lower chest. The examination suggested an approximately 180 degree rotation of the stomach along a transverse axis up into the chest. There appeared to be some compression of the gastric outlet. The stomach was fluid-filled and appeared quite distended. Her left kidney was surgically absent. There was no evidence of free fluid or free air. She had a gallbladder ultrasound obtained, which was normal. I was consulted and my impression is that the patient has an acute herniation of the stomach with some degree of gastric volvulus. A nasogastric tube was successfully placed in the emergency department to try to decompress the stomach. She is now admitted for continued management of her large hiatal hernia with what appears to be a gastric volvulus. ALLERGIES: The patient reports allergies to ERYTHROMYCIN and there are several eye drops that have been irritating. She lists NONSTEROIDAL ANTI-INFLAMMATORIES because she was advised to avoid regular use of these given that she has only one kidney. MEDICATIONS: On admission include: - acetaminophen 650 mg by mouth three times daily as needed for pain - vitamin C 500 mg by mouth daily - aspirin 81 mg daily - brinzolamide drops 1 drop in both eyes twice daily - Refresh Optive Advanced drops 1 drop in each eye as needed for dry eyes - vitamin D3 1000 unit tablets 2 tablets daily - Xalatan 2.5 eye drops 1 drop in both eyes daily at bedtime - levothyroxine 25 mcg by mouth daily - multivitamin daily - [place]-3 fatty acids 1000 mg capsules one twice a day - omeprazole 40 mg by mouth daily - simvastatin 40 mg daily at bedtime - valsartan/hydrochlorothiazide 80/12.5 mg tablets 1 tablet daily PAST SURGICAL HISTORY: The patient has had bilateral cataract extractions. She has had a number of endoscopic exams by Dr. Sarkar. Most recently, she had an esophagogastroduodenoscopy (EGD) and colonoscopy on 11/14/2017. The colonoscopy was for a history of colonic polyps and revealed diverticulosis and some nonbleeding internal hemorrhoids, but there were no new polyps seen. Her upper endoscopy reported a regular Z-line 33 cm in the incisors with a large hiatal hernia present. The patient reports having undergone a hysterectomy and believes her appendix was removed at the same time. She had a laparoscopic left nephrectomy for renal cell carcinoma in 2012. MEDICAL HISTORY: Her primary provider is Dr. Shahid Coker. She has a history of glaucoma. She has a history of hypertension and high cholesterol. She has had some gastroesophageal reflux disease. She does apparently have a history of hyperparathyroidism. FAMILY HISTORY: Noncontributory. SOCIAL HISTORY: The patient is a nonsmoker and denies any significant alcohol intake. REVIEW OF SYSTEMS: The patient denies any recent chest pain or palpitations. She has had no cough, wheezing or sputum production. She denies any history of transient ischemic attack (TIA) or stroke or seizure. She has had no history of deep venous thrombosis (DVT) or pulmonary embolus. She denies any dysuria or hematuria. She has had no melena or hematochezia. Before the evening of 01/27/2019, she was having no abdominal discomfort. She has no new bone or joint issues. PHYSICAL EXAMINATION: In the emergency department show that the patient's most recent vital signs revealed her to be afebrile with pulse of 87, blood pressure of 131/77, respirations of 18 and an oxygen saturation of 89-94. She appears quite uncomfortable, holding her upper abdomen. Skin is warm and dry. Sclerae are anicteric. Mucous membranes are moist. Neck is supple without mass or bruit. Heart exam shows a regular rhythm of about 90. The lungs are clear to auscultation bilaterally. The abdomen is somewhat obese. She is not particularly distended. She does have some tenderness high in the epigastrium. There is no definite mass appreciated. She does have some bowel sounds present, though they seem reduced. There is no evident hernia. The abdomen lower down is soft and without significant tenderness. Extremities show palpable radial and pedal pulses. Her laboratory studies reveal a white count of 21,000, hemoglobin of 16, hematocrit of 49 and platelet count of 500,000. Her differential shows 88% neutrophils, 6% lymphocytes and 4% monocytes. Chemistry profile showed a sodium of 143, potassium 4.5, chloride 107, CO2 of 28, BUN of 35, creatinine 1.08 and a glucose of 152. Her calcium is 10.8. Total bilirubin is slightly elevated at 1.2. Her alkaline phosphatase is 119 and her other LFTs are normal. She had a urinalysis that showed specific gravity 1.023 and was not strongly suggestive of a urinary tract infection. I reviewed her gallbladder ultrasound report, which indicated no acute gallbladder problem. Her abdominal CT I also reviewed personally. She has the majority of her stomach within the chest. This appears to be compressing some of the surrounding lung. There appears to be a rotation of approximately 180 degrees up into the chest. 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 The stomach is certainly distended. There is no evidence of free fluid or free air and the wall of the stomach does not appear particularly thickened. IMPRESSION: The patient has had acute onset of severe epigastric pain following a meal on the evening of 01/27/2019. Her CT scan shows a very large hiatal hernia containing much of her stomach with I believe some degree of volvulus. She does have an elevated white blood cell count but she is not tachycardiac. A lactic acid obtained after my exam was normal of 1.1. I do not believe there is any evidence of ischemia. PLAN: A nasogastric tube was inserted in the emergency department and has been draining small amounts of turbid fluid. She will receive analgesics as necessary. I have counseled the patient that there is no evidence for a gastric infarction but the nasogastric tube is required to try to decompress the stomach somewhat. I will monitor her closely for any signs of deterioration. I do not believe she requires antibiotics at this time. She has received a bolus of fluid and her IV fluid will be continued and her urine output monitored. My hope is that her stomach will decompress with the nasogastric (NG) tube and perhaps naturally as well, allowing the stomach to return largely to the abdomen. I do believe she should have surgery for her hiatal hernia prior to discharge from the hospital and I have informed her of this. ROCIO
[2019-01-28 08:36] LABS: CPK CREATINE PHOSPHOKINASE 320 U/L (26-192); MB/CK RELATIVE INDEX 3.19 (< OR =4); TROPONIN I < 0.02 NG/ML (< 0.10)
--- NOTE | 2019-01-28 09:03 | REP ---
CT abdomen without contrast: History: Possible gastric infarction. Findings: A nasogastric tube is seen entering A large hiatal hernia. Distal esophagus is dilated and fluid-filled and the GE junction appears to be patulous. The body of the stomach is noted to be within the hiatal hernia transmitted through a broad appearing diaphragmatic defect. The entire stomach is dilated and filled with fluid. The NG tube terminates in the abdominal portion of the stomach which appears to be a portion of the upper body. The gastroesophageal junction appears to be within the chest. The region of the pylorus and antrum are narrowed. The proximal duodenum is largely empty. There is no definite gastric wall pneumatosis. There is a small quantity of fluid adjacent to the superior spleen in the left sub diaphragmatic region. This is quite tiny. There are bilateral small pleural effusions. There are extensive infiltrates in the lower lobes of the lungs with air bronchograms. No hepatic or splenic lesion is seen. The gallbladder lumen is opacified by previously injected intravenous contrast. The left kidney appears to be surgically absent. The right kidney is unremarkable. No pancreatic abnormality is seen. There is no mid abdominal ascites. Resting: Very large hiatal hernia containing a good portion of the dilated stomach. The gastric outlet appears to be compressed at the diaphragmatic hernia defect. No gastric wall pneumatosis is seen. There is a very small quantity of ascitic fluid adjacent to the superior margin of the spleen. No other ascites. Bilateral lower lobe infiltrates are seen extensively. Status post left nephrectomy. Electronically Signed by Simone Holloway MD 01/28/2019 08:54 A
--- NOTE | 2019-01-28 09:17 | REP ---
CT CHEST WITHOUT CONTRAST: HISTORY: Possible gastric infarction. Comparison chest CT study is from February 15, 2018. CT FINDINGS: A nasogastric tube is seen coursing through a fluid dilated esophagus. A large hiatal hernia is seen containing much of the stomach which is also fluid distended. The gastric outlet appears compressed by the diaphragmatic hiatus. There are extensive bilateral lower lobe and right upper lobe infiltrates producing perihilar opacities with air bronchograms consistent with pneumonia. A small amount of left pleural fluid and very small amount of right pleural fluid are also evident. Mild cardiac enlargement is observed. The heart appears to be compressed somewhat by the hiatal hernia as well. There is a small quantity of pericardial fluid. Vascular calcification is seen in the left coronary artery distribution. IMPRESSION: Nasogastric tube seen in place. Despite this, the stomach and the esophagus remain fluid dilated. There is a large hiatal hernia containing much of the stomach within the chest. This appears to compress the gastric outlet as well as the heart. There is a small quantity of pericardial and left pleural fluid. Extensive bilateral lower lobe pneumonia is seen. There is some consolidation in the upper lobe on the right as well. Right middle lobe consolidation is also present. Electronically Signed by Simone Holloway MD 01/28/2019 08:25 P
[2019-01-28] MEDS: PIPERACILLIN/TAZOBACTAM SOD 3.375 GM in D5W MINI-BAG PLUS 50 ML IV SCH ×3 (09:51→21:52)
[2019-01-28] MEDS: LEVOTHYROXINE 100 MCG (0.1MG) VIAL IV SCH (09:51)
[2019-01-28] MEDS: PANTOPRAZOLE 40MG INJ (PROTONIX) (C9113) IV SCH (09:51)
[2019-01-28] MEDS ORDERED: BUPIVACAINE HCL 0.25% 30 ML VIAL As Ordered ONE (10:41)
--- NOTE | 2019-01-28 11:11 | IPN ---
DATE OF SERVICE: 01/28/2019 HISTORY: The patient was admitted yesterday with an incarcerated large hiatal hernia containing much of her stomach. She had epigastric pain, but it was possible to pass a nasogastric (NG) tube. Her electrolytes were normal, and her lactic acid was also normal. We elected to take a nonoperative approach to try to decompress her stomach in hopes that this would reduce spontaneously with a plan to correct her hernia surgically later this week. Overnight, she required increased oxygen. She continued to need narcotics for her pain, so she was moved to the progressive care unit, and a hospitalist consult was obtained. She was started on Zosyn for possible aspiration. VITAL SIGNS: The patient has remained afebrile throughout this period since hospitalization. Her pulse has ranged from the mid 80s to the low 100s overnight. Her blood pressure is good. Her oxygenation has ranged from the mid 80s to the low 90s on supplemental oxygen currently at 10-15 liters of oxygen (O2) by nasal cannula. INTAKE AND OUTPUT: She had 1000 of urine output yesterday but had nothing recorded this morning. Her NG tube had 375 yesterday and only 175 today. Her intravenous (IV) fluid is not well recorded. PHYSICAL EXAMINATION: The patient still appears somewhat anxious and uncomfortable. She is holding an emesis bag close at all times. Her NG tube has a small amount of dark material in the tubing and in the canister. She appears to be breathing acceptably. Heart examination shows her to have a pulse of about 90-100. Lung sounds are diminished at the bases. Her abdomen still has some bowel sounds, but she is tender still in the epigastrium. LABORATORY STUDIES: This morning show a white count of 32,000 with a differential count showing 92% neutrophils, 2 bands, and 3 lymphocytes. Hemoglobin is 16 with a hematocrit of 49, and the platelet count is 465,000. Her chemistry profile today showed sodium 145, potassium 3.6, chloride 112, CO2 of 25, BUN of 23, creatinine 1.0, and a glucose of 186. Total bilirubin is minimally elevated at 1.4. Other LFTs are normal. She had a cardiac injury profile this morning that showed a troponin of less than 0.02. I had a lactic acid level ordered and this came back mildly elevated at 2.8. I ordered a CT scan of the chest and abdomen today to reevaluate her gastric volvulus. This showed persistence of her very large hiatal hernia containing much of the stomach. The stomach remained quite dilated. There is no pneumatosis seen in the gastric wall. A small amount of fluid was noted free in the abdomen adjacent to the spleen. She had a very dense infiltrate in the right lower lobe and a lesser infiltrate in the left lower lobe of the lung. IMPRESSION: The patient this morning continues with significant epigastric pain. Feels nauseous persistently. Her white count is elevated significantly from yesterday with a marked left shift. Her lactic acid is also up today from normal yesterday. Her chemistries are quite normal. Her complete blood count (CBC) shows some hemoconcentration again despite her IV fluid. The CT scan shows persistence of her markedly distended stomach within her large hiatal hernia. I am impressed by the amount of pneumonia that we see on the CT scan of the chest. I did speak with Dr. Rosario of pulmonary, who apparently had been asked to review her chest x-ray last night for the hospitalist. She agreed to see the patient in consultation; and at this point, she has actually seen her and feels that the right lower lobe infiltrate is likely from aspiration and possibly the left lower lobe, as well. My concern is that she may have infarcted part of her stomach, and I believe that we must go look urgently and see if this is the case. Dr. Rosario seems to be in agreement with this plan. PLAN: The patient will be taken urgently to the operating room for laparoscopy, possible laparotomy. We may find that her stomach is partly or wholly ischemic, and she may require a significant gastric resection. The patient was counseled regarding this. Whether we will be able to repair her hiatal hernia, it may be problematic given the amount of distention of this area and the likely acute inflammation. I counseled the patient regarding the plan for surgery, and she is in agreement with the plan. ROCIO
[2019-01-28] MEDS ORDERED: PHENYLEPHRINE INJ 10MG/ML VIAL (J2370) As Ordered ONE (11:24)
[2019-01-28] MEDS ORDERED: ONDANSETRON 4MG/2ML VIAL (J2405) As Ordered ONE (12:37)
[2019-01-28] MEDS ORDERED: ROCURONIUM BROMIDE 50 MG/5 ML VIAL As Ordered ONE (12:37)
[2019-01-28] MEDS ORDERED: GLYCOPYRROLATE INJ 0.2 MG/ML 2 ML VIAL As Ordered ONE (12:37)
[2019-01-28] MEDS ORDERED: ETOMIDATE INJ 20MG/10ML VIAL As Ordered ONE (12:37)
[2019-01-28] MEDS ORDERED: KETOROLAC 60 MG/2 ML VIAL (J1885) As Ordered ONE (12:37)
[2019-01-28] MEDS ORDERED: LIDOCAINE 2% INJ 100 MG/5 ML SDV (FOR ANES.) As Ordered ONE (12:37)
[2019-01-28] MEDS ORDERED: propofoL 200 MG/20 ML VIAL As Ordered ONE (12:37)
[2019-01-28] MEDS ORDERED: NEOSTIGMINE 10 MG/10 ML VIAL (J2710) As Ordered ONE (12:37)
[2019-01-28] MEDS ORDERED: fentaNYL 250 MCG/5 ML INJECTION (J3010) As Ordered ONE (12:37)
[2019-01-28] MEDS ORDERED: dexameTHASONE 4 MG/ML 1ML VIAL (J1100) As Ordered ONE (12:37)
[2019-01-28] MEDS ORDERED: MIDAZOLAM INJ 2 MG/2 ML VIAL (J2250) As Ordered ONE ×2 (12:37→16:24)
[2019-01-28] MEDS ORDERED: METOCLOPRAMIDE INJ 10MG/2ML VIAL (J2765) As Ordered ONE (12:37)
[2019-01-28] MEDS ORDERED: CALCIUM CHLORIDE 10% 1 GM/10 ML SYR As Ordered ONE (12:44)
[2019-01-28] MEDS ORDERED: SODIUM BICARBONATE 8.4% INJ 50 ML SYRINGE As Ordered ONE (13:24)
[2019-01-28] MEDS ORDERED: VASOPRESSIN INJ 20 UNITS/ML VIAL As Ordered ONE (13:33)
[2019-01-28 15:43] LABS: ABG BASE EXCESS -0.8 (-2.0-2.0); ABG HCO3 24.8 MEQ/L (22.0-26.0); ABG O2 SATURATION 90.1 % (95.0-99.0); ABG PARTIAL PRESSURE CO2 44.4 mmHg (35.0-45.0); ABG PARTIAL PRESSURE O2 60.4 mmHg (75.0-100.0); ABG STANDARD HCO3 23.7 MEQ/L (22.0-26.0); ABG TOTAL CO2 26.2 MEQ/L (23.0-31.0); ABG pH (ARTERIAL) 7.365 UNITS (7.350-7.450)
[2019-01-28] MEDS ORDERED: REFRIGERATOR IV KEYS XX PRN (15:45)
[2019-01-28] MEDS ORDERED: MIDAZOLAM HCL 100 MG in D5W 80 ML IV SCH (15:45)
[2019-01-28] MEDS ORDERED: fentaNYL 100 MCG/2 ML INJECTION (J3010) As Ordered ONE (15:54)
[2019-01-28] MEDS: fentaNYL 100 MCG/2 ML INJECTION (J3010) IV PRN ×3 (15:56→16:53)
[2019-01-28] MEDS ORDERED: ONDANSETRON 4MG/2ML VIAL (J2405) IV PRN (16:00)
[2019-01-28] MEDS ORDERED: MEPERIDINE INJ 25 MG/ML VIAL (J2175) IV PRN (16:00)
[2019-01-28] MEDS ORDERED: PERCOCET 5MG/325MG TAB PO PRN (16:00)
[2019-01-28] MEDS ORDERED: LR 1,000 ML IV SCH (16:00)
[2019-01-28] MEDS ORDERED: METOCLOPRAMIDE INJ 10MG/2ML VIAL (J2765) IV PRN (16:00)
[2019-01-28 16:15] LABS: HEMATOCRIT 41.8 % (36.0-47.0); MEAN CORPUSCULAR HEMOGLOBIN 28.5 pg (27.0-33.0); MEAN CORPUSCULAR HGB CONC 31.8 g/dl (32.0-36.5); MEAN CORPUSCULAR VOLUME 89.5 fl (80.0-96.0); RED BLOOD COUNT 4.67 10^6/uL (4.00-5.40); WHITE BLOOD COUNT 12.4 10^3/uL (4.0-10.0)
[2019-01-28 16:29] LABS: BLOOD UREA NITROGEN 22 MG/DL (7-18); CALCIUM LEVEL 9.9 MG/DL (8.8-10.2); CARBON DIOXIDE LEVEL 28 MEQ/L (21-32); CHLORIDE LEVEL 113 MEQ/L (98-107); CPK CREATINE PHOSPHOKINASE 224 U/L (26-192); CREATININE FOR GFR 0.87 MG/DL (0.55-1.30); GLOMERULAR FILTRATION RATE > 60.0 (>39); GLUCOSE, FASTING 149 MG/DL (70-100); MB/CK RELATIVE INDEX 2.81 (< OR =4); POTASSIUM SERUM 3.7 MEQ/L (3.5-5.1); SODIUM LEVEL 147 MEQ/L (136-145); TROPONIN I 0.02 NG/ML (< 0.10)
[2019-01-28] MEDS ORDERED: MIDAZOLAM INJ 2 MG/2 ML VIAL (J2250) IV ONE (16:45)
[2019-01-28 16:59] LABS: HEMOGLOBIN 13.3 g/dl (12.0-15.5)
[2019-01-28 17:00] LABS: PLATELET COUNT, AUTOMATED 334 10^3/uL (150-450)
[2019-01-28 17:06] LABS: LYMPHOCYTES 2 % (16-52); METAMYELOCYTES 5 % (0-0); MONOCYTES 4 % (0-8); NEUTROPHILS 72 % (35-75)
[2019-01-28 17:16] LABS: PLATELET ESTIMATE NORMAL (NORMAL)
--- NOTE | 2019-01-28 18:06 | REP ---
REASON: Assess recent nasogastric tube placement. COMPARISON: 01/27/2019 A nasogastric tube is seen coursing the esophagus. The proximal port is at the level of the distal esophagus proximal to the gastroesophageal junction. The tip of the nasogastric tube is at the level of the gastroesophageal junction. There is an endotracheal tube now seen the tip of which is in satisfactory position at the level of the aortic knob. There are diffuse bilateral air space opacities, right greater than left and significantly worsened when compared to the prior examination of 01/28/2019 obtained at 7:01 am. The heart is not enlarged and there is no change in the osseous structure. IMPRESSION: 1. Nasogastric tube as described above. This should be advanced. 2. Endotracheal tube in satisfactory position. 3. Diffuse bilateral but right greater than left air space opacities. Followup is recommended. 4. Other findings as described above. Electronically Signed by Cortes Morgan DO 01/29/2019 11:56 A
[2019-01-28] MEDS: IPRATROPIUM 0.5MG/ALBUTEROL 2.5MG INH SOL UD 3ML (DUONEB)(J7620) NEB SCH ×2 (20:05→23:42)
[2019-01-28 20:37] LABS: ABG BASE EXCESS 3.2 (-2.0-2.0); ABG HCO3 27.1 MEQ/L (22.0-26.0); ABG O2 SATURATION 91.7 % (95.0-99.0); ABG PARTIAL PRESSURE O2 57.5 mmHg (75.0-100.0); ABG STANDARD HCO3 27.2 MEQ/L (22.0-26.0); ABG TOTAL CO2 28.3 MEQ/L (23.0-31.0)
[2019-01-28] MEDS: CHLORHEXIDINE GLUCONATE 0.12 % 15ML UDC (PERIDEX ORAL RINSE) MT SCH (20:49)
[2019-01-28] MEDS: MORPHINE 4 MG/ML 1ML VIAL/SYRINGE (J2270) IV PRN (20:50)
--- NOTE | 2019-01-28 21:19 | ECGEPIP ---
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
--- NOTE | 2019-01-28 21:34 | CCN ---
DATE: 01/28/2019 NOTE: Asked by Dr. Light to evaluate Ms. Humphrey for acute respiratory failure leading to mechanical ventilation. I met Ms. Humphrey this morning for an abnormal chest x-ray, which already showed signs of aspiration pneumonitis/pneumonia secondary to a large hiatal hernia. She went to surgery this morning and had a laparoscopic reduction and repair of her hiatal hernia/gastric volvulus with placement of a gastrostomy tube (G-tube). There was no obvious ischemia/infarction. However, she was found to have gastric contents in her airways after intubation, representing further aspiration. She did well intraoperatively and only briefly required phenylephrine. IV input was 350 mL of crystalloid, output was urine 800, 350 gastric, and 20 mL estimated blood loss. She did not require any transfusions. OBJECTIVE: PHYSICAL EXAMINATION: General: Ms. Humphrey is lying in bed in no acute distress. She is sedated. She is synchronous with the ventilator. Vital Signs: Temperature 96.8, pulse 95, respiratory rate 21, blood pressure 122/67 with a mean arterial pressure (MAP) of 85, SpO2 92% on a FiO2 of 0.7. HEENT: Anicteric. Pupils pinpoint. Nares: Patent bilaterally. Nasogastric (NG) tube in place. Oropharynx: Endotracheal (ET) tube in place. Moist mucosa. Neck: Supple, without jugular venous distention (JVD), without thyromegaly or masses. Trachea is midline. Lymphs: Without cervical or supraclavicular lymphadenopathy. Lungs: Symmetric excursion. Good air entry. Bilateral crackles, essentially all the way up on the right and in the base at the left. Normal I:E. No rhonchi or wheeze. No accessory muscle usage or retractions. Cardiovascular: Regular rate and rhythm with a normal S1, S2. No murmur, rub, or gallop appreciated. Abdomen: Absent bowel sounds, soft, dressing clean and dry, G-tube in place and draining. Extremities: Cool but good perfusion. Without clubbing, cyanosis or edema. Palpable pedal pulses bilaterally. LABORATORY DATA: Her last intraoperative arterial blood gas was 7.365/44/60 with a measured saturation of 90%, base excess of 0.8. I do not know how much oxygen that was drawn on. Chemistry showed sodium 147, potassium 3.7, chloride 113, bicarbonate 28, anion gap 6, BUN 22, creatinine 0.8, glucose 149, calcium 9.9, CK 224, CK-MB 6.0, troponin I 0.02, lactate 3.0. CBC showed a hemoglobin of 13.3, hematocrit 41.8, platelet count 334,000, white blood cell count 12,400 with a differential of 72% neutrophils, 17% bands, 2% lymphocytes. I reviewed her chest x-ray postoperatively. That showed a significant increase in right-sided air space disease. There was also increased air space disease on the left, including the left upper lobe region. The diaphragms were sharp. The ET tube was in acceptable position. The NG tube proximal port was in the esophagus (I spoke to Dr. Light, and it has been advanced). IMPRESSION: 1. Hypoxemic respiratory failure secondary to aspiration pneumonia/pneumonitis leading to mechanical ventilation. 2. Bilateral infiltrates secondary to aspiration pneumonitis/pneumonia. I am concerned with the potential for developing acute respiratory distress syndrome. 3. Postoperative day 0 status post laparoscopic reduction and repair of intrathoracic hiatal hernia/gastric volvulus with placement of G-tube. 4. Hypertension at baseline. 5. Hypothyroidism. 6. One kidney. RECOMMENDATIONS: 1. Will continue supportive care. 2. She is currently on a tidal volume of 400, and I would reduce that to 370 which is her 7 mL per kg predicted weight tidal volume. I want to take her to the lung protective strategy. 3. At bedside, I tried PEEP of 5, 8 and 10. Going up on the PEEP actually decreased her SpO2 likely because of the asymmetry of the infiltrates. 4. Will use propofol for sedation with as needed Versed and morphine. 5. Given her infiltrates and my concern for worsening lung injury, will need to be very diligent about maintaining lung protective strategy, including possible permissive hypercapnia and permissive hypoxemia. I discussed this with Dr. Light. Her 4 mL per kg tidal volume would be 210 mL, her 5 mL would be 262 mL, her 6 mL is 314 mL, her 7 mL is 367 mL, and her 8 mL per kg predicted weight tidal volume is 419 mL per the lung protective strategy. CRITICAL CARE TIME: 35 minutes not including procedure time. [facility]
--- NOTE | 2019-01-28 21:47 | IPNPDOC ---
Date Seen The patient was seen on 01/28/19. Progress Note SUBJECTIVE: Dr. Rosario was consulted by surgery due to her high requirement of oxygen therapy prior to surgery. Patient underwent evaluation by pulmonary finished goods inspector. Patient planned for surgical intervention by the surgical team. Patient stable and agreeable to the plan mentioned above during my encounter earlier today. OBJECTIVE PHYSICAL EXAMINATION: VITAL SIGNS: Please see below. GENERAL APPEARANCE: Awake, alert, in mild distress 2/2 abd pain HEENT: Normocephalic, atraumatic, +NG Tube RESPIRATORY: Diminished breath sounds bilaterally CARDIOVASCULAR: Tachycardic, normal S1, S2 ABDOMEN: Distended, tender to palpation in the supraumbilical area. EXTREMITIES: No erythema, no tenderness LABORATORY DATA, IMAGING STUDIES, MICROBIOLOGY: Please see below. ASSESSMENT AND PLAN: 78-year-old female with past medical history of hypertension, dyslipidemia, GERD, and hypothyroidism presented to the ER with a chief complaint of abdominal pain which started after dinner on 01/26/19. In the ER, she was found to have a large hiatal hernia with an acute gastric volvulus. The surgical service admitted the patient for further intervention and management. This evening (01/27/19) the patient developed worsening hypoxia and was noted to require 15 L of oxygen via a nonrebreather. The hospitalist service was consulted for further evaluation of hypoxia. Hypoxic Respiratory Failure -aspiration pneumonia/pneumonitis leading to mechanical ventilation and Bilateral infiltrates secondary to aspiration pneumonitis/pneumonia -Further treatment as per ICU Dr. Rosario, intubated post surgery -abx as per ICU Large hiatal hernia and acute gastric volvulus -laparoscopy and possible laparotomy with Dr. Light Hypothyroidism Levothyroxine GERD IV Protonix Hx of HTN, Dyslipidemia Resume Meds as needed DVT Prophylaxis per sx DISPOSITION: [when acute issues resolve]. VS, I&O, 24H, Fishbone Vital Signs/I&O Vital Signs Date Time Temp Pulse Resp B/P (MAP) Pulse Ox O2 Delivery O2 Flow Rate FiO2 01/28/19 21:00 96 122/60 (87) 91 70 81/74 01/28/19 20:50 32 01/28/19 20:00 99.3 01/28/19 08:00 15.0 01/28/19 05:00 Nasal Cannula I&O- Last 24 Hours up to 6 AM0 01/28/19 06:00 Intake Total 1720 ml Output Total 1375 ml Balance 345 ml Laboratory Data 24H LABS Laboratory Tests 2 01/28/19 01:59: Total Creatine Kinase 316H, Creatine Kinase MB 11.0H, Creatine Kinase MB Relative Index 3.42, Troponin I 0.02, Procalcitonin 5.03 01/28/19 05:29: White Blood Count 32.3*H, Red Blood Count 5.52H, Hemoglobin 15.5, Hematocrit 49.4H, Mean Corpuscular Volume 89.5, Mean Corpuscular Hemoglobin 28.1, Mean Corpuscular Hemoglobin Concent 31.4L, Red Cell Distribution Width 16.6H, Platelet Count 465H, Neutrophils # (Auto) , Nucleated Red Blood Cells % (auto) 0.0, Neutrophils 92H, Band Neutrophils 2, Lymphocytes (Manual) 3L, Monocytes (Manual) 2, Metamyelocytes 1H, Platelet Estimate INCREASED, Anisocytosis 1+, Anion Gap 8, Glomerular Filtration Rate 56.6, Blood Urea Nitrogen 23H, Creatinine 1.01, Sodium Level 145, Potassium Level 3.6, Chloride Level 112H, Carbon Dioxide Level 25, Calcium Level 9.9, Aspartate Amino Transf (AST/SGOT) 30, Alanine Aminotransferase (ALT/SGPT) 22, Alkaline Phosphatase 76, Total Bilirubin 1.4H, Total Protein 6.2L, Albumin 3.2, Albumin/Globulin Ratio 1.07 01/28/19 07:39: Total Creatine Kinase 320H, Creatine Kinase MB 10.0H, Creatine Kinase MB Relative Index 3.19, Troponin I < 0.02, Lactic Acid Level 2.8*H 01/28/19 15:17: Blood Gas Bicarbonate Standard 23.7, Arterial Blood pH 7.365, Arterial Blood Partial Pressure CO2 44.4, Arterial Blood Partial Pressure O2 60.4L, Arterial Blood Total CO2 26.2, Arterial Blood HCO3 24.8, Arterial Blood Base Excess -0.8, Arterial Blood Oxygen Saturation 90.1L 01/28/19 15:50: Nucleated Red Blood Cells % (auto) 0.2H, Neutrophils 72, Band Neutrophils 17H, Lymphocytes (Manual) 2L, Monocytes (Manual) 4, Metamyelocytes 5H, Platelet Estimate NORMAL, Red Blood Cell Morphology NORMAL, Anion Gap 6L, Glomerular Filtration Rate > 60.0, Lactic Acid Level 3.0*H, Blood Urea Nitrogen 22H, Creatinine 0.87, Sodium Level 147H, Potassium Level 3.7, Chloride Level 113H, Carbon Dioxide Level 28, Calcium Level 9.9, Total Creatine Kinase 224H, Creatine Kinase MB 6.0H, Creatine Kinase MB Relative Index 2.81, Troponin I 0.02 01/28/19 20:07: Blood Gas Bicarbonate Standard 27.2H, Arterial Blood pH 7.460H, Arterial Blood Partial Pressure CO2 39.0, Arterial Blood Partial Pressure O2 57.5L, Arterial Blood Total CO2 28.3, Arterial Blood HCO3 27.1H, Arterial Blood Base Excess 3.2H, Arterial Blood Oxygen Saturation 91.7L 01/28/19 20:21: Lactic Acid Followup at 4 Hours 3.7*H CBC/BMP Laboratory Tests 01/28/19 05:29 Red Blood Count 5.52 H, Mean Corpuscular Volume 89.5, Mean Corpuscular Hemog lobin 28.1, Mean Corpuscular Hemoglobin Concent 31.4 L, Red Cell Distribution Width 16.6 H, Neutrophils # (Auto) , Calcium Level 9.9, Aspartate Amino Transf (AST/SGOT) 30, Alanine Aminotransferase (ALT/SGPT) 22, Alkaline Phosphatase 76, Total Bilirubin 1.4 H, Total Protein 6.2 L, Albumin 3.2 01/28/19 15:50 Red Blood Count 4.67, Mean Corpuscular Volume 89.5, Mean Corpuscular Hemoglobin 28.5, Mean Corpuscular Hemoglobin Concent 31.8 L, Red Cell Distribution Width 16.6 H, Calcium Level 9.9, Total Creatine Kinase 224 H Microbiology Microbiology 01/27/19 Urine Culture - Final, Complete ESTRADA RANKIN MD Jan 28, 2019 21:47
[2019-01-28] MEDS: MIDAZOLAM INJ 2 MG/2 ML VIAL (J2250) IV PRN ×2 (22:15→23:31)
[2019-01-29] VITALS (26 sets, daily range): BP systolic 86–135; BP diastolic 46–69; O2SAT 91–96
[2019-01-29] MEDS: MIDAZOLAM INJ 2 MG/2 ML VIAL (J2250) IV PRN ×3 (00:17→23:02)
[2019-01-29 00:45] LABS: MB/CK RELATIVE INDEX 2.14 (< OR =4); TROPONIN I 0.12 NG/ML (< 0.10)
[2019-01-29] MEDS: LR 1,000 ML IV SCH ×4 (01:56→19:48)
[2019-01-29] MEDS: MORPHINE 4 MG/ML 1ML VIAL/SYRINGE (J2270) IV PRN ×8 (02:37→23:03)
[2019-01-29] MEDS: IPRATROPIUM 0.5MG/ALBUTEROL 2.5MG INH SOL UD 3ML (DUONEB)(J7620) NEB SCH ×5 (03:55→20:15)
[2019-01-29] MEDS: HEPARIN SOD (PORCINE) 5000 UNITS/ML VIAL SQ SCH (05:12)
[2019-01-29] MEDS: PIPERACILLIN/TAZOBACTAM SOD 3.375 GM in D5W MINI-BAG PLUS 50 ML IV SCH ×4 (05:12→22:55)
[2019-01-29 05:22] LABS: HEMATOCRIT 36.9 % (36.0-47.0); HEMOGLOBIN 11.7 g/dl (12.0-15.5); MEAN CORPUSCULAR HEMOGLOBIN 27.9 pg (27.0-33.0); MEAN CORPUSCULAR HGB CONC 31.7 g/dl (32.0-36.5); MEAN CORPUSCULAR VOLUME 88.1 fl (80.0-96.0); PLATELET COUNT, AUTOMATED 342 10^3/uL (150-450); RED BLOOD COUNT 4.19 10^6/uL (4.00-5.40); WHITE BLOOD COUNT 14.8 10^3/uL (4.0-10.0)
[2019-01-29 05:41] LABS: CALCIUM LEVEL 9.3 MG/DL (8.8-10.2); CREATININE FOR GFR 1.02 MG/DL (0.55-1.30); GLOMERULAR FILTRATION RATE 55.9 (>39); POTASSIUM SERUM 3.2 MEQ/L (3.5-5.1)
[2019-01-29 06:45] LABS: ABG HCO3 28.2 MEQ/L (22.0-26.0); ABG O2 SATURATION 94.8 % (95.0-99.0); ABG PARTIAL PRESSURE CO2 40.7 mmHg (35.0-45.0); ABG PARTIAL PRESSURE O2 72.8 mmHg (75.0-100.0); ABG TOTAL CO2 29.4 MEQ/L (23.0-31.0); ABG pH (ARTERIAL) 7.458 UNITS (7.350-7.450)
[2019-01-29] MEDS ORDERED: KCL 10MEQ/100ML SWI (KRUN) 10 MEQ in IV 1 EA IV SCH (08:00)
--- NOTE | 2019-01-29 08:01 | REP ---
Portable chest x-ray: Single view. History: intubated patient. Aspiration pneumonia. Comparison chest x-ray January 28, 2019. Findings: Endotracheal tube is seen in good position. An NG tube enters left upper quadrant of the abdomen. EKG electrodes are seen. Extensive bilateral perihilar infiltrates are again seen. There is some pleural opacity developing on the left. The infiltrates a may be slightly less opaque. There are quite extensive. The patient is rotated somewhat to the right for the current exposure. Impression: Extensive bilateral air space opacification consistent with infiltrates and/or pulmonary edema. Developing effusion on the left. Electronically Signed by Simone Holloway MD 01/29/2019 07:53 A
[2019-01-29] MEDS: CHLORHEXIDINE GLUCONATE 0.12 % 15ML UDC (PERIDEX ORAL RINSE) MT SCH ×2 (08:41→20:17)
[2019-01-29] MEDS: LEVOTHYROXINE 100 MCG (0.1MG) VIAL IV SCH (08:42)
[2019-01-29] MEDS: PANTOPRAZOLE 40MG INJ (PROTONIX) (C9113) IV SCH (08:43)
[2019-01-29] MEDS: KCL 10MEQ/100ML SWI (KRUN) 10 MEQ in IV 1 EA IV SCH ×2 (08:58→10:46)
--- NOTE | 2019-01-29 09:17 | CR ---
DATE OF CONSULTATION: 01/28/2019 CHIEF COMPLAINT: Asked by Dr. Light to evaluate Ms. Humphrey for an abnormal chest x-ray/chest CT. HISTORY OF PRESENT ILLNESS: Ms. Humphrey is a 78-year-old female who presented to the emergency department on the evening of 01/26/2019 with abdominal pain and emesis. She reports that she had abdominal pain perhaps a week prior to that with some emesis but the pain resolved. Shortly after eating Easter dinner, she again developed discomfort in the mid sternal region. This time it persisted. She also started having emesis of liquid, not solid food particles. When she proceeded to the emergency department, she was found to have a very large hiatal hernia with some degree of volvulus. The lactic acid at that time was 1.1, and it was not felt she had any evidence of ischemia. The plan had been to admit her, place a nasogastric (NG) tube and try to decompress the stomach prior to proceeding for surgery. Last evening, I was actually contacted by the hospitalist to review a chest x-ray. Apparently around 6 p.m., she became acutely hypoxic and tachycardic. She remained normotensive. Workup at that time included a chest x-ray, which showed a new or at least evolving right lower lobe infiltrate with air bronchograms. There was a left lower lobe finding but that was most likely to be atelectasis secondary to the presence of the stomach in the chest cavity. I had spoken to the hospitalist at that time and he was starting her on antibiotics. This morning she was evaluated by Dr. Light, and he felt he should pursue surgery today and asked me to evaluate her prior surgery. Since her admission, Ms. Humphrey has continued to have time periods when she will have emesis of dark brown liquid despite having the NG tube in place. She also has a cough that is productive of brownish sputum. No hemoptysis. She continues to note pain in the mid epigastric region. No significant shortness of breath. No wheezing. No paroxysmal nocturnal dyspnea (PND) or orthopnea. No lower extremity edema or history of deep venous thrombosis (DVT). She is anxious to have these difficulties surgically corrected. ALLERGIES: NONSTEROIDALS secondary single kidney more so than allergies/adverse reaction. She also had adverse reaction to BRIMONIDINE, CODEINE, DORZOLAMIDE, ERYTHROMYCIN, and TIMOLOL. I do not know what the reactions are to these medications. MEDICATIONS: On admission: - acetaminophen 650 mg by mouth three times daily as needed - vitamin C 500 mg by mouth every day - aspirin 81 mg every day - Azopt 1 drop both eyes twice a day - carboxymethyl/glycerine/poly 80 1 drop both eyes as needed - vitamin D3 2000 unit by mouth every day - Xalatan 1 drop both eyes every evening - levothyroxine 25 mcg by mouth every day - multivitamin one by mouth every day - Tavernier-3 fatty acids 1000 mg by mouth twice a day - omeprazole 40 mg by mouth every day - simvastatin 40 mg by mouth nightly - valsartan/hydrochlorothiazide one by mouth every day PAST MEDICAL HISTORY: 1. Hypertension. 2. Dyslipidemia. 3. Gastroesophageal reflux disease (GERD). 4. Hypothyroidism. 5. Glaucoma. 6. Status post tonsillectomy. 7. Status post hysterectomy. 8. Arthritis. 9. Status post nephrectomy for renal cell cancer. SOCIAL HISTORY: Ms. Humphrey is a nonsmoker. Rare alcohol usage. FAMILY HISTORY: No family history of lung disease. REVIEW OF SYSTEMS: Per history of present illness (HPI). Remainder of pertinent review of systems are negative. PHYSICAL EXAMINATION: General: Ms. Humphrey is lying in bed, in no acute distress. She can complete full sentences. No cough at the evaluation. She does appear uncomfortable. Vital Signs: Temperature 96.9, pulse 97, respiratory rate 18, blood pressure 128/88 with a mean arterial pressure (MAP) of 101, SpO2 93% on a nonrebreather at 15 liters. Maximum temperature (Tmax) was 97.7. HEENT: Anicteric, pupils equal and reactive to light (VIN). NG tube in place. Oropharynx clear. No lesions. Neck: Supple, without jugular venous distention (JVD), without thyromegaly or masses. Trachea is midline. Lymphs: Without cervical or supraclavicular lymphadenopathy. Lungs: Symmetric excursion. Good air entry. There are crackles at the right base approximately a third of the way up, and lesser crackles at the left base. No rhonchi or wheezes. Normal I:E. No accessory muscle usage or retractions. Cardiovascular: Regular rate and rhythm with a normal S1, S2. No murmur, rub or gallop appreciated. Abdomen: Distended, soft, positive bowel sounds. I did not press hard on her abdomen. Extremities: Warm and well perfused, without clubbing, cyanosis or edema. Palpable pedal pulses bilaterally. Skin: No rashes on her face or extremities. Neurologic: Awake, alert and oriented times three. Psychiatric: Affect appropriate. LABORATORY DATA: CBC showed a hemoglobin of 15.5, hematocrit 49.4, platelet count 465,000, white blood cell count 32,300 with a differential of 92% neutrophils, 2% bands, and 3% lymphocytes. Chemistries showed sodium 145, potassium 3.6, chloride 113, bicarbonate 25, anion gap 8, BUN 23, creatinine 1.0, glucose 186, calcium 9.9, total bilirubin 1.4, AST 30, ALT 22, alkaline phosphatase 76, total protein 6.2, albumin 3.2, troponin I less than 0.02, CK 320, lactic acid 2.8. I reviewed her chest x-ray as well as the report from last evening. That x-ray showed bilateral infiltrates with air bronchograms on the right. The findings on the left appear compressive on top of the cornua. Normal appearing cardiac silhouette. Normal inflation. I reviewed her chest CT scan as well as the report from this morning. That CT scan showed normal appearing cardiac silhouette and pulmonary vascular shadows. No mediastinal or hilar adenopathy. There was a large hiatal hernia. There are bilateral infiltrates. The left again appeared it was most likely atelectasis though cannot exclude infection. The right had air bronchograms and there was also some ground-glass opacities in the right mid lung likely pneumonitis. IMPRESSION: 1. Abnormal chest x-ray/CT scan. I feel that at least the findings on the right lower lobe are most concerning for a pneumonic process. The right mid lung is concerning for pneumonitis, possibly related to aspiration. The left lower lobe could be pneumonic process but also could be compressive atelectasis. 2. Acute hypoxemic respiratory failure secondary to pneumonic process and large hiatal hernia. At the present time, appropriately replaced requiring 15 liter nonrebreather. 3. Large hiatal hernia with volvulus. 4. Hypertension, at baseline. 5. Hypothyroidism. RECOMMENDATIONS: 1. I spoke with Dr. Light, and I agree that she should be taken to surgery today. All of the findings in the lung are consequence of her hiatal hernia. 2. Agree with coverage with antibiotics. 3. She is on appropriate oxygen replacement at this time, though I anticipate that she will remain intubated post surgery. Thank you for this consultation. Will continue to follow with you. ROCIO
--- NOTE | 2019-01-29 13:37 | IPNPDOC ---
Date Seen The patient was seen on 01/29/19. Progress Note SUBJECTIVE: Intubated but easily responds to verbal stimuli this morning. She does not seem to be in pain. S/p laparoscopy sx 01/28/19. Electrolyte abnml, replaced. OBJECTIVE PHYSICAL EXAMINATION: VITAL SIGNS: Please see below. GENERAL APPEARANCE: Awake HEENT: Normocephalic, atraumatic RESPIRATORY: Diminished breath sounds bilaterally, intubated CARDIOVASCULAR: normal S1, S2; tachycardic ABDOMEN: Soft, S/p laparoscopy sx 01/28/19. EXTREMITIES: No erythema, no tenderness LABORATORY DATA, IMAGING STUDIES, MICROBIOLOGY: Please see below. ASSESSMENT AND PLAN: 78-year-old female with past medical history of hypertension, dyslipidemia, GERD, and hypothyroidism presented to the ER with a chief complaint of abdominal pain which started after dinner on 01/26/19. In the ER, she was found to have a large hiatal hernia with an acute gastric volvulus. The surgical service admitted the patient for further intervention and management. This evening (01/27/19) the patient developed worsening hypoxia and was noted to require 15 L of oxygen via a nonrebreather. The hospitalist service was consulted for further evaluation of hypoxia. Hypoxic Respiratory Failure -aspiration pneumonia/pneumonitis leading to mechanical ventilation and Bilateral infiltrates secondary to aspiration pneumonitis/pneumonia -Further treatment as per ICU Dr. Rosario, intubated post surgery -abx as per ICU Large hiatal hernia and acute gastric volvulus -laparoscopy with Dr. Light 01/28/19 Electrical abnml -monitor and replace Hypothyroidism -Levothyroxine GERD -IV Protonix Hx of HTN, Dyslipidemia -Resume Meds as needed DVT Prophylaxis per sx DISPOSITION: [when acute issues resolve]. A-FIB/CHADSVASC A-FIB History Current/History of A-Fib/PAF?: No VS, I&O, 24H, Fishbone Vital Signs/I&O Vital Signs Date Time Temp Pulse Resp B/P (MAP) Pulse Ox O2 Delivery O2 Flow Rate FiO2 01/29/19 12:38 112 32 90 01/29/19 10:50 127/60 50 01/29/19 06:00 Ventilator 01/29/19 04:00 99.4 01/28/19 08:00 15.0 I&O- Last 24 Hours up to 6 AM 01/29/19 06:00 Intake Total 5127.4 ml Output Total 1775 ml Balance 3352.4 ml Laboratory Data 24H LABS Laboratory Tests 2 01/28/19 15:17: Blood Gas Bicarbonate Standard 23.7, Arterial Blood pH 7.365, Arterial Blood Partial Pressure CO2 44.4, Arterial Blood Partial Pressure O2 60.4L, Arterial Blood Total CO2 26.2, Arterial Blood HCO3 24.8, Arterial Blood Base Excess -0.8, Arterial Blood Oxygen Saturation 90.1L 01/28/19 15:50: Nucleated Red Blood Cells % (auto) 0.2H, Neutrophils 72, Band Neutrophils 17H, Lymphocytes (Manual) 2L, Monocytes (Manual) 4, Metamyelocytes 5H, Platelet Estimate NORMAL, Red Blood Cell Morphology NORMAL, Anion Gap 6L, Glomerular Filtration Rate > 60.0, Lactic Acid Level 3.0*H, Blood Urea Nitrogen 22H, Creatinine 0.87, Sodium Level 147H, Potassium Level 3.7, Chloride Level 113H, Carbon Dioxide Level 28, Calcium Level 9.9, Total Creatine Kinase 224H, Creatine Kinase MB 6.0H, Creatine Kinase MB Relative Index 2.81, Troponin I 0.02 01/28/19 20:07: Blood Gas Bicarbonate Standard 27.2H, Arterial Blood pH 7.460H, Arterial Blood Partial Pressure CO2 39.0, Arterial Blood Partial Pressure O2 57.5L, Arterial Blood Total CO2 28.3, Arterial Blood HCO3 27.1H, Arterial Blood Base Excess 3.2H, Arterial Blood Oxygen Saturation 91.7L 01/28/19 20:21: Lactic Acid Followup at 4 Hours 3.7*H 01/28/19 23:57: Total Creatine Kinase 154, Creatine Kinase MB 3.0, Creatine Kinase MB Relative Index 2.14, Troponin I 0.12#H 01/29/19 05:07: Nucleated Red Blood Cells % (auto) 0.0, Anion Gap 5L, Glomerular Filtration Rate 55.9, Blood Urea Nitrogen 23H, Creatinine 1.02, Sodium Level 146H, Potassium Level 3.2L, Chloride Level 113H, Carbon Dioxide Level 28, Calcium Level 9.3 01/29/19 06:30: Blood Gas Bicarbonate Standard 28.0H, Arterial Blood pH 7.458H, Arterial Blood Partial Pressure CO2 40.7, Arterial Blood Partial Pressure O2 72.8L, Arterial Blood Total CO2 29.4, Arterial Blood HCO3 28.2H, Arterial Blood Base Excess 4.0H, Arterial Blood Oxygen Saturation 94.8L CBC/BMP Laboratory Tests 01/28/19 15:50 Red Blood Count 4.67, Mean Corpuscular Volume 89.5, Mean Corpuscular Hemoglobin 28.5, Mean Corpuscular Hemoglobin Concent 31.8 L, Red Cell Distribution Width 16.6 H, Calcium Level 9.9, Total Creatine Kinase 224 H 01/29/19 05:07 Red Blood Count 4.19, Mean Corpuscular Volume 88.1, Mean Corpuscular Hemoglobin 27.9, Mean Corpuscular Hemoglobin Concent 31.7 L, Red Cell Distribution Width 16.6 H, Calcium Level 9.3 Microbiology Microbiology 01/28/19 Gram Stain - Final, Resulted 01/28/19 Sputum Culture, Resulted Pending 01/28/19 Respiratory Virus Panel (PCR) (JAMIE) - Final, Complete 01/27/19 Urine Culture - Final, Complete ESTRADA RANKIN MD Jan 29, 2019 13:37
[2019-01-29] MEDS: ENOXAPARIN 40 MG/0.4 ML SYRINGE (J1650) SC SCH (16:09)
--- NOTE | 2019-01-29 17:15 | CCN ---
DATE: 01/29/2019 Ms. Humphrey remains critically ill with acute hypoxemic respiratory failure secondary to aspiration pneumonitis/pneumonia leading to mechanical ventilation. She has done well overnight. Her FiO2 has been able to be decreased to 0.5. No hemodynamic instability. She continues to have significant nasogastric (NG) drainage. Minimal drainage from the gastrostomy (G) tube. On her sedation holiday she is following commands and indicates no discomfort. She has had a small amount of secretions that are slightly blood-tinged. OBJECTIVE: PHYSICAL EXAMINATION: GENERAL: Ms. Humphrey is lying in bed, synchronous with the ventilator. VITAL SIGNS: Temperature 99.4, which is her maximal temperature, respiratory rate 21-22, pulse 106, SpO2 of 91% on FiO2 of 0.5, blood pressure 111/55 with a mean arterial pressure (MAP) of 79. HEENT: Anicteric, pupils equal, round, and reactive to light (PERRL). Nares: Nasogastric (NG) tube in place. Oropharynx: Endotracheal (ET) tube in place. NECK: Supple without thyromegaly or masses. Trachea is midline. LYMPH: Without cervical or supraclavicular lymphadenopathy. LUNGS: Symmetric excursion. Good air entry. No rhonchi or wheeze. Scattered end-inspiratory crackles with the greatest amount at the right base but also has crackles in the right upper lobe region. Minimal left lower lobe crackles. Normal inspiratory to expiratory (I-to-E). No accessory muscle usage or retractions. CARDIOVASCULAR: Tachycardic, regular rhythm. Normal S1, S2. No murmur, rub, or gallop appreciated. ABDOMEN: I did not appreciate any bowel sounds, but I was told that others have heard diminished bowel sounds. Soft, nondistended. Dressings clean and dry. G tube site clean. EXTREMITIES: Warm and well perfused, without clubbing, cyanosis, or edema. Normal capillary refill. LABORATORY DATA: CBC shows a hemoglobin 11.7, hematocrit 36.9, platelet count 342,000, white blood cell count 14,800. Chemistries show sodium 146, potassium 3.2, chloride 113, bicarbonate 28, anion gap 5, BUN 23, creatinine 1.0, glucose 156, calcium 9.3. Repeat troponin around midnight was 0.12. Arterial blood gas this morning on pressure-regulated volume control (PRVC) with a tidal volume of 370, rate 16, positive end-expiratory pressure (PEEP) 5, and FiO2 of 0.7 was 7.46/41/74 with a measured saturation of 4. I reviewed her chest x-ray as well as the report from earlier today. That x-ray showed normal-appearing cardiac silhouette, pulmonary vascular shadows. Normal-appearing mediastinal region. There are bilateral alveolar infiltrates, greater on the right but present bilaterally. I feel they are slightly improved compared to yesterday, though radiology feels they are unchanged. ET tube is in good position. Yesterday's intake and output were 4585 in and 1195 out, making her positive 3390. Thus far today, 842 in and 835 out, making her positive 7. IMPRESSION: 1. Acute hypoxemic respiratory failure secondary to aspiration pneumonia/pneumonitis leading to mechanical ventilation. 2. Postoperative day #1, status post laparoscopic reduction and repair of intrathoracic hiatal hernia/gastric volvulus with placement of G tube. 3. Hypothyroidism. 4. Hypertension at baseline. 5. One kidney (status post left nephrectomy in the secondary to renal cancer). 6. Deep vein thrombosis (DVT) prophylaxis with enoxaparin. 7. Stress ulcer prophylaxis with proton pump inhibitor. 8. Infectious disease, on Zosyn. 9. Nutrition. Currently nothing by mouth. RECOMMENDATIONS: 1. Will continue ventilatory support. She is not weanable at this time. 2. Will decrease her tidal volume to around 315 mL, which is her 6 mL/kg predicted body weight tidal volume. I feel that given her potential for worsening that we need to do the best we can to keep her in the lung protective strategy. Her plateau pressure is acceptable at 16. 3. Accept SpO2 88% or higher at this time. 4. Will defer consideration of total parenteral nutrition (TPN) to the surgical service. CRITICAL CARE TIME: 35 minutes, not including procedure time. ROCIO
[2019-01-29] MEDS: propofoL 1,000 MG in IV 1 EA IV SCH (17:48)
[2019-01-30] VITALS (24 sets, daily range): BP systolic 102–171; BP diastolic 56–86; O2SAT 92
[2019-01-30] MEDS: IPRATROPIUM 0.5MG/ALBUTEROL 2.5MG INH SOL UD 3ML (DUONEB)(J7620) NEB SCH ×4 (00:14→12:24)
[2019-01-30] MEDS: LR 1,000 ML IV SCH ×2 (01:36→15:09)
[2019-01-30] MEDS: MORPHINE 4 MG/ML 1ML VIAL/SYRINGE (J2270) IV PRN ×6 (03:50→22:58)
[2019-01-30] MEDS: MIDAZOLAM INJ 2 MG/2 ML VIAL (J2250) IV PRN (03:51)
[2019-01-30] MEDS: PIPERACILLIN/TAZOBACTAM SOD 3.375 GM in D5W MINI-BAG PLUS 50 ML IV SCH ×4 (04:15→22:57)
[2019-01-30] MEDS: propofoL 1,000 MG in IV 1 EA IV SCH (04:33)
[2019-01-30 05:01] LABS: HEMATOCRIT 34.7 % (36.0-47.0); MEAN CORPUSCULAR HEMOGLOBIN 27.8 pg (27.0-33.0); MEAN CORPUSCULAR HGB CONC 31.7 g/dl (32.0-36.5); MEAN CORPUSCULAR VOLUME 87.8 fl (80.0-96.0); PLATELET COUNT, AUTOMATED 343 10^3/uL (150-450); RED BLOOD COUNT 3.95 10^6/uL (4.00-5.40); WHITE BLOOD COUNT 13.6 10^3/uL (4.0-10.0)
[2019-01-30 05:25] LABS: BLOOD UREA NITROGEN 22 MG/DL (7-18); CALCIUM LEVEL 9.3 MG/DL (8.8-10.2); CARBON DIOXIDE LEVEL 29 MEQ/L (21-32); CHLORIDE LEVEL 112 MEQ/L (98-107); CREATININE FOR GFR 0.74 MG/DL (0.55-1.30); GLOMERULAR FILTRATION RATE > 60.0 (>39); GLUCOSE, FASTING 91 MG/DL (70-100); POTASSIUM SERUM 3.3 MEQ/L (3.5-5.1); SODIUM LEVEL 147 MEQ/L (136-145)
[2019-01-30 05:38] LABS: BASOPHILS 1 % (0-4); EOSINOPHILS 2 % (0-5); LYMPHOCYTES 3 % (16-52); MONOCYTES 6 % (0-8); NEUTROPHILS 87 % (35-75); PLATELET ESTIMATE NORMAL (NORMAL)
[2019-01-30 05:39] LABS: ANISOCYTOSIS 1+
[2019-01-30] MEDS ORDERED: MAG SULF 1GM/100ML (MAG RUN) 1 GM in IV 1 EA IV ONE (08:00)
[2019-01-30] MEDS: PANTOPRAZOLE 40MG INJ (PROTONIX) (C9113) IV SCH (08:35)
[2019-01-30] MEDS: LEVOTHYROXINE 100 MCG (0.1MG) VIAL IV SCH (08:35)
--- NOTE | 2019-01-30 08:45 | REP ---
Portable chest x-ray: Single view. History: Intubated patient. Comparison study: January 29, 2019. Findings: Endotracheal tube is seen in good position at the level of the transverse aorta. An NG tube enters left upper quadrant. EKG electrodes are seen. Oxygen delivery tubing overlies the left chest. There are patchy areas of pulmonary parenchymal infiltrate bilaterally similar to yesterday's radiograph consistent with pneumonia. Heart is not felt to be enlarged. There is however some pleural opacity in the bases bilaterally consistent with small bilateral pleural effusions. Impression: Bilateral infiltrates fairly extensively. Small bilateral pleural effusions. Electronically Signed by Simone Holloway MD 01/30/2019 08:59 A
[2019-01-30] MEDS: CHLORHEXIDINE GLUCONATE 0.12 % 15ML UDC (PERIDEX ORAL RINSE) MT SCH (10:05)
[2019-01-30] MEDS: KCL 10MEQ/100ML SWI (KRUN) 10 MEQ in IV 1 EA IV SCH ×2 (10:05→11:11)
[2019-01-30 10:29] LABS: ABG BASE EXCESS 5.4 (-2.0-2.0); ABG HCO3 29.9 MEQ/L (22.0-26.0); ABG O2 SATURATION 93.1 % (95.0-99.0); ABG PARTIAL PRESSURE CO2 43.2 mmHg (35.0-45.0); ABG PARTIAL PRESSURE O2 64.8 mmHg (75.0-100.0); ABG STANDARD HCO3 29.3 MEQ/L (22.0-26.0); ABG TOTAL CO2 31.2 MEQ/L (23.0-31.0); ABG pH (ARTERIAL) 7.458 UNITS (7.350-7.450)
--- NOTE | 2019-01-30 12:23 | CCN ---
DATE: 01/30/2019 SUBJECTIVE: Patient remains critically ill with acute hypoxemic respiratory failure secondary to aspiration pneumonitis/pneumonia requiring mechanical ventilation. She seems to have done well overnight. Her FiO2 has remained at 50%. She remains hemodynamically stable. She does continue to have significant nasogastric drainage. However, there is minimal respiratory secretions. She has minimal drainage to her gastrostomy tube. She does complain of some pain at her G tube site, however it is manageable. She has been receiving intravenous (IV) morphine for this pain. She is on minimal sedation with propofol and follows commands. OBJECTIVE: PHYSICAL EXAMINATION: VITAL SIGNS: Temperature 97.4, pulse 98, respiratory rate 24, blood pressure 120/71, pulse oximetry 72, currently intubated. GENERAL: Patient is lying in bed, currently intubated of mechanical ventilation. She does not appear in any acute distress. She is alert and awake. She does follow commands appropriately. She does not appear anxious. She does remain critically ill. HEENT: Eyes are nonicteric. Pupils equal, round, reactive to light . Mucous membranes appear pink and moist. Minimal respiratory secretions. The endotracheal tube is in place appropriately. NECK: Supple. No thyromegaly. Trachea is midline. RESPIRATORY: Slightly rhonchorous bilaterally with scattered crackles continued in the right base as well as the right upper lobe. No accessory muscle use or retractions. Symmetric chest rise. CARDIOVASCULAR: Patient remains tachycardic with regular rhythm, normal S1, S2. No clicks, rubs or murmurs are noted on examination. No jugular venous distention (JVD) and no carotid bruits. ABDOMINAL: Slightly hypoactive bowel sounds. Abdomen is soft, nondistended. Dressings are clean and dry. G-tube is in place with minimal drainage. Site appears clean of erythema. Minimal tenderness to palpation of all four quadrants. EXTREMITIES: Lower extremities are void of any edema. Normal capillary refill. Hands have rheumatoid arthritis present bilaterally. LABORATORY DATA: HEMATOLOGY: White blood cell 13.6, hemoglobin 11, hematocrit 34.7, platelet count 343,000. CHEMISTRY: Sodium 147, potassium 3.3, chloride 112, CO2 29, anion gap 6, BUN 22, creatinine 0.74, fasting glucose 91, calcium 9.3. ARTERIAL BLOOD GAS: pH 7.458, CO2 43.2, pO2 64.8, HCO3 29.9, oxygen saturation 93.1. IMAGING: Chest x-ray demonstrates continued bilateral infiltrates extensively, although slightly improved from previously, and small bilateral pleural effusions. IMPRESSION: 1. Acute hypoxemic respiratory failure secondary to aspiration pneumonia/pneumonitis requiring mechanical ventilation: Patient remains intubated secondary to acute hypoxic respiratory failure. She has had aspiration likely leading to either pneumonia and/or pneumonitis. 2. Postoperative day #2 status post laparoscopic reduction and repair of intrathoracic hiatal hernia and gastric volvulus with placement of G-tube. 3. Deep vein thrombosis prophylaxis: On lovenox. 4. Stress ulcer prophylaxis with proton pump inhibitor: 5. ID: She is currently receiving Zosyn. 6. Nutrition: Patient is currently nothing by mouth. RECOMMENDATIONS: 1. Continue current antibiotics. 2. Will defer initiation of nutrition to surgery. 3. Will assess for weaning. 4. If extubatable, will need aggressive therapy to enhance cough and good pain control. ADDENDUM: Patient received a weaning trial from mechanical ventilation. Her rapid shallow breathing index on PS 5 and PEEP 5 wa in the 80's which predicts success. Her arterial blood gas was 7.46 / 43 / 65. She has demonstrated minimal respiratory secretions. She was able on inspiration to produce a tidal volume of 730. Patient was extubated and demonstrated a saturation 88% on nonrebreather. At this time, we will place her on Vapotherm. She will have repeat arterial blood gas (ABG). Patient has SpO2 of 88%. We will keep her at this goal at this point in time. Previously she was not a candidate for continuous positive airway pressure (CPAP) due to her paraesophageal hernia and the risk of gastric distention from positive airway pressure. However, at this point, this has been surgically corrected. If needed, the patient may be placed on CPAP. CRITICAL CARE TIME: 45 minutes, not including procedure time. ADDENDUM: I, Dr. Dakotah Rosario, was present for the history and performed a physical examination. I discussed the assessment and plan with the resident and agree with the above documentation. edited: 02/06/2019 1121 tkf MTDD
--- NOTE | 2019-01-30 14:15 | IPN ---
DATE: 01/29/2019 HISTORY: The patient is now postop day #1 from a laparoscopic reduction and repair of an incarcerated hiatal hernia with preoperative and probably intubation related aspiration. She is in the intensive care unit currently on a ventilator. Dr. Rosario is managing the ventilator and sedation. She is receiving a small amount of propofol and some maintenance IV fluid. Currently, she is on 50% oxygen with a rate of 16, 5 of PEEP. Vital signs show that she has been afebrile since surgery. Her pulse has ranged from the 90s up into the 110s. Her blood pressure is good and her pulse oximetry is running in the 90-93 range generally. Intake and output shows that yesterday she had 4600 in with 1200 out. Her nasogastric (NG) tube had 625 out. She has not really been draining much from her gastrostomy tube. PHYSICAL EXAM: The patient is actually awake and alert and responsive. Sclerae are anicteric. The skin is warm and dry. She appears fairly comfortable at rest. Heart exam shows a regular rhythm of about 100. She has some abnormal breath sounds bilaterally with some crackles and course breath sounds. She does appear to have pretty good air movement. Abdomen is nondistended. The dressings are dry. Her gastrostomy (G) tube has a small amount of brownish fluid within the tubing. Likewise, her NG tube has been draining some material that looks like old partially digested bloody fluid. She does have a few bowel sounds present within the abdomen. Laboratory studies this morning show a white count of 15, hemoglobin 12, hematocrit of 37 and a platelet count of 342,000. Differential was not done today. Chemistry profile showed a sodium of 146, potassium 3.2, chloride 113, CO2 of 28, BUN of 23, creatinine 1.0 and a glucose of 156. She had a blood gas early this morning that showed a pH of 7.458, a CO2 of 41 and oxygen of 73. Chest x-ray today showed extensive infiltrates in both lungs, more so on the right. The NG tube was seen in place and the endotracheal tube appeared to be in good position. There was a suggestion of some slight effusion on the left, although the hiatal hernia was not seen. IMPRESSION: The patient remains quite stable at present. I am heartened to see that she has been turned down from 70% oxygen to 50% oxygen today. She is alert and seems fairly comfortable. She has shown no signs of developing sepsis or impairment of her renal function. There has been no cardiac instability. PLAN: We will continue with all supportive cares. I will continue her Zosyn for antibiotic coverage. Dr. Rosario will continue to manage the ventilator and work toward extubation as possible. If this goes on for several days, then we will either need to consider starting some enteral feedings through her G-tube or we could place her on parenteral nutrition with total parenteral nutrition. I will change her heparin subcu to Lovenox to cut out two injections a day. I did speak with the patient and inform her of the results of her surgery and reassured her that things seem to be going well at this point. ROCIO
[2019-01-30] MEDS: ENOXAPARIN 40 MG/0.4 ML SYRINGE (J1650) SC SCH (14:26)
[2019-01-30] MEDS: ALBUTEROL SULFATE 2.5 MG/0.5 ML INH NEB SOLN NEB SCH ×2 (16:15→20:34)
--- NOTE | 2019-01-30 16:22 | IPNPDOC ---
Date Seen The patient was seen on 01/30/19. Progress Note SUBJECTIVE: Patient still Intubated and again easily responds to verbal stimuli this morning. No overt signs of pain. Defer extubation preparation plan to Intensive team. Electrolyte replaced today. Use TPN PRN if not extubated this week and G tube not utilized. FS and hypoglycemic protocol. OBJECTIVE PHYSICAL EXAMINATION: VITAL SIGNS: Please see below. GENERAL APPEARANCE: Awake HEENT: Normocephalic, atraumatic RESPIRATORY: Diminished breath sounds bilaterally, intubated CARDIOVASCULAR: normal S1, S2; tachycardic ABDOMEN: Soft, S/p laparoscopy sx 01/28/19. EXTREMITIES: No erythema, no tenderness LABORATORY DATA, IMAGING STUDIES, MICROBIOLOGY: Please see below. ASSESSMENT AND PLAN: 78-year-old female with past medical history of hypertension, dyslipidemia, GERD, and hypothyroidism presented to the ER with a chief complaint of abdominal pain which started after dinner on 01/26/19. In the ER, she was found to have a large hiatal hernia with an acute gastric volvulus. The surgical service admitted the patient for further intervention and management. This evening (01/27/19) the patient developed worsening hypoxia and was noted to require 15 L of oxygen via a nonrebreather. The hospitalist service was consulted for further evaluation of hypoxia. Hypoxic Respiratory Failure -aspiration pneumonia/pneumonitis leading to mechanical ventilation and Bilateral infiltrates secondary to aspiration pneumonitis/pneumonia -Further treatment as per ICU Dr. Rosario, intubated post surgery -abx as per ICU Large hiatal hernia and acute gastric volvulus -laparoscopic reduction and repair of an incarcerated hiatal hernia with Dr. Light 01/28/19 -G tube placed by sx Electrical abnml -monitor and replace -Use TPN PRN if not extubated this week and G tube not utilized. -FS and hypoglycemic protocol while npo. Hypothyroidism -Levothyroxine GERD -IV Protonix Hx of HTN, Dyslipidemia -Resume Meds as needed DVT Prophylaxis per sx DISPOSITION: [when acute issues resolve].]. A-FIB/CHADSVASC A-FIB History Current/History of A-Fib/PAF?: No VS, I&O, 24H, Fishbone Vital Signs/I&O Vital Signs Date Time Temp Pulse Resp B/P (MAP) Pulse Ox O2 Delivery O2 Flow Rate FiO2 01/30/19 15:10 28 01/30/19 14:01 106 127/84 (99) 91 35.0 55 01/30/19 12:01 98.4 01/30/19 00:00 Ventilator I&O- Last 24 Hours up to 6 AM 01/30/19 06:00 Intake Total 3387 ml Output Total 1105 ml Balance 2282 ml Laboratory Data 24H LABS Laboratory Tests 2 01/30/19 04:22: Nucleated Red Blood Cells % (auto) 0.0, Neutrophils 87H, Band Neutrophils 1, Lymphocytes (Manual) 3L, Monocytes (Manual) 6, Eosinophils (Manual) 2, Basophils (Manual) 1, Platelet Estimate NORMAL, Anisocytosis 1+, Anion Gap 6L, Glomerular Filtration Rate > 60.0, Blood Urea Nitrogen 22H, Creatinine 0.74, Sodium Level 147H, Potassium Level 3.3L, Chloride Level 112H, Carbon Dioxide Level 29, Calcium Level 9.3 01/30/19 10:18: Blood Gas Bicarbonate Standard 29.3H, Arterial Blood pH 7.458H, Arterial Blood Partial Pressure CO2 43.2, Arterial Blood Partial Pressure O2 64.8L, Arterial Blood Total CO2 31.2H, Arterial Blood HCO3 29.9H, Arterial Blood Base Excess 5.4H, Arterial Blood Oxygen Saturation 93.1L CBC/BMP Laboratory Tests 01/30/19 04:22 Red Blood Count 3.95 L, Mean Corpuscular Volume 87.8, Mean Corpuscular Hemoglobin 27.8, Mean Corpuscular Hemoglobin Concent 31.7 L, Red Cell Distribution Width 16.6 H, Calcium Level 9.3 Microbiology Microbiology 01/28/19 Gram Stain - Final, Resulted 01/28/19 Sputum Culture, Resulted Pending 01/28/19 Respiratory Virus Panel (PCR) (JAMIE) - Final, Complete 01/27/19 Urine Culture - Final, Complete ESTRADA RANKIN MD Jan 30, 2019 16:22
[2019-01-30] MEDS ORDERED: GLUCAGON FOR INJ 1 MG VIAL (J1610) SC PRN (16:30)
[2019-01-30] MEDS ORDERED: GLUCOSE 4 GM CHEW TABLET PO PRN (16:30)
[2019-01-30] MEDS ORDERED: DEXTROSE 50% 50 ML SYRINGE IV PRN (16:30)
[2019-01-30] MEDS: SODIUM CHLORIDE HYPERTONIC 3% 15ML NEB SOL INH SCH ×2 (16:54→20:34)
--- NOTE | 2019-01-30 22:00 | RO ---
DATE OF PROCEDURE: 01/28/2019 PREOPERATIVE DIAGNOSES: 1. Incarcerated hiatal hernia with possible gastric volvulus. 2. Aspiration pneumonitis. POSTOPERATIVE DIAGNOSES: 1. Incarcerated paraesophageal hiatal hernia with gastric outlet obstruction but no gastric necrosis. 2. Aspiration pneumonitis. PROCEDURE PERFORMED: Laparoscopic reduction and repair of large incarcerated paraesophageal hernia with gastric volvulus with placement of gastrostomy. SURGEON: Dr. Jani Light ARCHITECTURAL ENGINEER: KASSY Laguerre ANESTHESIA: General. INDICATIONS FOR PROCEDURE: The patient is a 78-year-old woman who presented on January 27, 2019 with severe epigastric pain and was found to have a large hiatal hernia. A nasogastric tube was placed to try to decompress her hiatal hernia. Her labs remained quite stable. On the morning of January 28, 2019, she remained in a great deal of distress. She had reported small amounts of emesis, and there appeared to be some old coffee-ground type material from her NG tube. CT scan showed an extensive infiltrate in the right lower lobe and partially in the right upper lobe, as well as infiltrate in the left lower lobe. I was concerned that she might have actual ischemia of the stomach versus just outlet obstruction, but there also appeared to be evidence for aspiration pneumonitis. She is now for an urgent exploration, which we will attempt laparoscopically to reduce her hernia. If necessary, a gastric resection will be performed. DESCRIPTION OF PROCEDURE: The patient was brought to the operating room and placed on the table in a supine position. She was placed under general endotracheal anesthesia. It was noted that she had some blackish fluid in her mouth and coming from her endotracheal tube after intubation. This was suctioned by anesthesia as thoroughly as possible. Thromboembolism deterrents (TEDs) sequentials were utilized. A catheter had been inserted prior to transport to the operating room. Her small nasogastric tube was initially left in place and subsequently replaced with a larger tube. The patient had an arterial line placed in the right radial position by Dr. Baker of anesthesia. She was moved into a low lithotomy position with the legs in padded leg holders. The patient's abdomen was prepped and draped in a sterile fashion. Initial entry into the abdomen was in the right upper quadrant slightly to the left of the midline. Local anesthesia was infiltrated, 0.25% Marcaine was infiltrated at the trocar sites as needed. A short incision was made and a Veress needle was inserted. After a positive hanging drop test, the abdomen was insufflated with carbon dioxide gas. A 5 mm port was placed over the scope and advanced through the abdominal wall without difficulty. Initial examination showed normal appearing right and left lobes of the liver. The gallbladder appeared normal. Visualized loops of the small and large bowel appeared normal. There did not appear to be any significant acute inflammatory fluid within the abdomen. A portion of the stomach was visible high in the left upper quadrant. A second 5 mm trocar was placed slightly above the level of the umbilicus and to the right of the midline 2-3 cm. Another 5 mm trocar was placed approximately 8-10 cm to the right of the umbilicus and slightly higher and then a fourth 5 mm trocar was placed far in the left side of the abdomen. A final 5 mm trocar was placed in the right upper quadrant just below the costal margin. The patient was tilted slightly to a reverse Trendelenburg position. A flexible liver retractor was inserted and used to elevate the left lobe of the liver through the far right-sided port. The camera was placed in the port just above and to the left of the umbilicus. An workforce development assistant grasper was placed to the far left lateral port and the other two ports were used as the surgical operating ports. The stomach was identified, and this appeared to be just a portion of the distal body and antrum of the stomach with the rest through the diaphragm. The stomach was grasped with graspers and with continuous careful traction, the stomach was gradually worked down out of the chest. There were a few slightly hemorrhagic fibrofatty tags along the stomach that were identified as the stomach was reduced into the abdomen. The stomach itself appeared viable. The stomach had some adhesions along the left and posterior aspects of the diaphragmatic hiatus. There was a filmy hernia sac identified with some adhesions of the lesser omentum along the right side. These were lysed using the Harmonic scalpel. The inferior vena cava was clearly identified. The diaphragmatic hiatus was dilated to perhaps 7-8 cm at least. The attachments of the stomach along the edge of the diaphragmatic hiatus were divided using the Harmonic scalpel. The hernia sac was peeled away from the inside of the large hernia cavity in the mediastinum. Care was taken to avoid any injury of the aorta or the esophagus. The hernia sac extended up into the chest, perhaps 8-10 cm. The hernia sac was peeled away and was largely kept intact as it was peeled from within the mediastinum. This was set aside for later removal. The left and right autumn of the crura of the diaphragm were clearly identified. The esophagogastric junction appeared to lie just about at the level of the diaphragmatic hiatus. The right and left crura were then approximated with interrupted simple sutures of #2-0 Ethibond using endoscopic needle holders and a knot pusher for an extracorporeal tie. Three to four sutures were placed in the crura. Following this, several additional sutures were placed in the anterolateral aspect of the diaphragmatic hiatus closing part of the lateral aspect of this. The hiatus was closed significantly down to a point where the edges of the hiatus were loosely touching the edges of the gastroesophageal junction. A single #2-0 Ethibond was placed to tack the stomach at the cardia to the edge of the diaphragmatic hiatus. I elected to place a gastrostomy tube both to drain the stomach, possibly give a site for enteral feedings, and also to provide an anchor point of the stomach to the anterior abdominal wall. Therefore, two #0 Ethibond sutures were placed to tack the anterior wall of the stomach to the anterior abdominal wall. A small incision was made between these two sutures on the abdominal wall and a trocar from the 5 mm port was passed through the abdominal wall to create an opening. A #20-Divehi gastrostomy tube was inserted through this opening. A small gastrotomy was created between the sutures, and the tube was inserted into the stomach. There was a minimal amount of spillage of gastric contents as this part of the procedure was performed and this was all then irrigated. The balloon of the G-tube was inflated. The two sutures were then tied down, tacking the stomach to the anterior abdominal wall above and below the entry site of the G-tube. The tube was pulled up to the anterior abdominal wall to hold the gastric wall to the abdominal wall. At this point, final inspection revealed that there was no evident bleeding. The larger NG tube had been passed by anesthesia previously. The abdomen was then deflated, and the trocars were all removed. I would note that the left upper quadrant trocar site had in the course of the suturing been converted from a 5 to a 12 mm port to facilitate placement of the sutures. Prior to removing all the trocars, the 12 mm port was removed and the Bernabe-Esperanza device was used to close this with a #1-0 Vicryl. After the trocars were all removed, the skin incisions were all closed with buried Vicryl and Steri-Strips. A drain sponge was placed beneath the external retention bar of the G-tube. The patient tolerated the procedure surprisingly well. Because of her known preoperative aspiration, the decision was made to keep her intubated and transport her to the recovery room in this manner. She was, therefore, not awakened, but was transported to the Post Anesthesia Care Unit in stable but sedated condition. ROCIO
[2019-01-31] VITALS (16 sets, daily range): BP systolic 128–167; BP diastolic 60–81; O2SAT 95
[2019-01-31] MEDS: LR 1,000 ML IV SCH ×3 (00:52→20:52)
[2019-01-31] MEDS: SODIUM CHLORIDE HYPERTONIC 3% 15ML NEB SOL INH SCH ×6 (01:02→21:32)
[2019-01-31] MEDS: ALBUTEROL SULFATE 2.5 MG/0.5 ML INH NEB SOLN NEB SCH ×6 (01:02→21:31)
[2019-01-31] MEDS: MORPHINE 4 MG/ML 1ML VIAL/SYRINGE (J2270) IV PRN ×8 (01:21→23:23)
[2019-01-31 04:47] LABS: HEMATOCRIT 38.8 % (36.0-47.0); HEMOGLOBIN 12.4 g/dl (12.0-15.5); MEAN CORPUSCULAR HEMOGLOBIN 27.9 pg (27.0-33.0); MEAN CORPUSCULAR VOLUME 87.4 fl (80.0-96.0); PLATELET COUNT, AUTOMATED 424 10^3/uL (150-450); RED BLOOD COUNT 4.44 10^6/uL (4.00-5.40); WHITE BLOOD COUNT 21.3 10^3/uL (4.0-10.0)
[2019-01-31] MEDS: PIPERACILLIN/TAZOBACTAM SOD 3.375 GM in D5W MINI-BAG PLUS 50 ML IV SCH ×4 (04:53→23:14)
[2019-01-31 05:03] LABS: BLOOD UREA NITROGEN 23 MG/DL (7-18); CALCIUM LEVEL 9.3 MG/DL (8.8-10.2); CARBON DIOXIDE LEVEL 27 MEQ/L (21-32); CHLORIDE LEVEL 112 MEQ/L (98-107); CREATININE FOR GFR 0.71 MG/DL (0.55-1.30); GLOMERULAR FILTRATION RATE > 60.0 (>39); GLUCOSE, FASTING 98 MG/DL (70-100); POTASSIUM SERUM 3.8 MEQ/L (3.5-5.1); SODIUM LEVEL 146 MEQ/L (136-145)
--- NOTE | 2019-01-31 08:14 | REP ---
Portable chest x-ray: Single view. History: Intubated patient. Comparison study: January 30, 2019. Findings: Small bilateral pleural effusions are seen blunting the pleural angles. There is improvement in the left perihilar opacities. Right upper lobe infiltrate persists probably unchanged allowing differences in projection. The endotracheal tube has been removed. An NG tube persists in the left upper quadrant. EKG electrodes are seen. No new infiltrate. Electronically Signed by Simone Holloway MD 01/31/2019 09:25 A
[2019-01-31 09:48] LABS: ABG BASE EXCESS 0.9 (-2.0-2.0); ABG HCO3 25.4 MEQ/L (22.0-26.0); ABG PARTIAL PRESSURE CO2 39.9 mmHg (35.0-45.0); ABG PARTIAL PRESSURE O2 73.4 mmHg (75.0-100.0); ABG STANDARD HCO3 25.2 MEQ/L (22.0-26.0); ABG TOTAL CO2 26.6 MEQ/L (23.0-31.0); ABG pH (ARTERIAL) 7.421 UNITS (7.350-7.450)
[2019-01-31] MEDS: LEVOTHYROXINE 100 MCG (0.1MG) VIAL IV SCH (09:59)
[2019-01-31] MEDS: PANTOPRAZOLE 40MG INJ (PROTONIX) (C9113) IV SCH (10:04)
--- NOTE | 2019-01-31 11:59 | CCN ---
DATE: 01/31/2019 SUBJECTIVE: Patient continues to remain critically ill. She was extubated yesterday and placed on Vapotherm. The patient has had some desaturations in her oxygen overnight and was placed on BiPAP. She has done fairly well. She does continue to cough. With coughing she does have desaturations as well. Her G tube has been clamped. Her NG tube continues to have output. She does complain of some left quadrant pain which is around the site of the G tube. The G tube site is nonerythematous. The patient continues to have hypoactive bowel sounds and is not producing any gas. OBJECTIVE: VITAL SIGNS: Temperature 98.7, pulse 94, respiratory rate 24, blood pressure 142/69, pulse oximetry 92 on Vapotherm, FiO2 of 40% with 30 liters. GENERAL: Patient is awake, alert, and oriented. She currently has BiPAP in place. She does appear critically ill, however, she is in no acute distress. HEENT: Normocephalic, atraumatic. Eyes are nonicteric. Mucous membranes are pink and moist. Trache is midline. RESPIRATORY: Continued rhonchi bilaterally with scattered crackles in the right upper lobe. No accessory muscle use. Symmetric chest rise bilaterally. CARDIOVASCULAR: Patient has a normal rate and rhythm, normal S1, S2. No clicks, rubs or murmurs are noted on examination. No jugular venous distention (JVD) and no carotid bruits. ABDOMINAL: Patient continues with hypoactive bowel sounds. She has not produced any gas. Her abdomen is soft, nondistended. Her laparoscopic incisions remain clean, non erythematous. Her G tube was clamped and it shows no sign of infection. Site appears clean, no erythema. She continues to have mild tenderness to palpation of all four quadrants. EXTREMITIES: Lower extremities are void of any edema. Normal capillary refill. The patient does have arthritis present bilaterally. LABORATORY DATA: HEMATOLOGY: White blood cell 21.3, hemoglobin 12.4, hematocrit 38.8, platelet count 424,000. CHEMISTRY: Sodium 146, potassium 3.8, chloride 112, BUN 23, creatinine 0.71, fasting glucose 98, calcium 9.3. ARTERIAL BLOOD GAS: pH 7.42, pCO2 39.9, pO2 73.4, bicarb 25.4, oxygen saturation 95. IMAGING: Chest x-ray demonstrated small bilateral pleural effusions, but improvement in left perihilar opacities. She does have a continued right upper lobe infiltrate, but no new infiltrates. ASSESSMENT/PLAN: 1. Hypoxia: The patient continues to have hypoxia. She is currently on high flow nasal cannula with an oxygenation goal greater than 88%. We have weaned her off of BiPAP therapy. She had a repeat ABG which has shown improvement. She has not been hypoxemic. Will continue to wean down. 2. Aspiration pneumonia: Patient came in with a paraesophageal hernia and a gastric volvulus which likely attributed to a degree of aspiration into her lungs. She is currently on Zosyn for this. She had a slight increase in her white blood cell count to 21.3, although this may be secondary to her extubation yesterday. Will continue to trend. She has remained afebrile. She does have a cough, however she is not producing any changes in sputum. 3. Deep vein thrombosis prophylaxis: Patient currently on Lovenox, will continue. 4. Stress ulcer prophylaxis: Patient is currently on Protonix, will continue. 5. Nutrition: Patient continues to be nothing by mouth pending surgical recommendations. ADDENDUM: Ami Rod independently examined the patient, took a history. I reviewed the case with Dr. Waters. I am in agreement with his assessment of hypoxia and probable aspiration. Goal for today is to attempt to wean off bilevel noninvasive therapy and convert to oxygen therapy. Chest x-ray is improved. After adequate oxygenation ensured, mobilization of the patient out of bed would be recommended. She has deep vein thrombosis (DVT) and gastrointestinal (GI) prophylaxis. Addendum dictated: Arpit Rod DO 01/31/2019 0920 Addendum transcribed: wandy 01/31/2019 0944 MTDD
--- NOTE | 2019-01-31 13:23 | IPNPDOC ---
Date Seen The patient was seen on 01/31/19. Progress Note SUBJECTIVE: Patient started on Vapotherm after extubation but did not tolerate and therefore was placed on BiPAP overnight. Patient tolerated BiPAP and this morning showed no signs of acute respiratory failure. Patient does have leukocytosis but no fever. Chest x-ray this morning showed no new infiltrates. Patient to be on finger stick monitoring while nothing by mouth. OBJECTIVE PHYSICAL EXAMINATION: VITAL SIGNS: Please see below. GENERAL APPEARANCE: Awake HEENT: Normocephalic, atraumatic RESPIRATORY: Diminished breath sounds bilaterally, on BiPAP CARDIOVASCULAR: normal S1, S2; tachycardic ABDOMEN: Soft, S/p laparoscopy sx 01/28/19. EXTREMITIES: No erythema, no tenderness LABORATORY DATA, IMAGING STUDIES, MICROBIOLOGY: Please see below. ASSESSMENT AND PLAN: 78-year-old female with past medical history of hypertension, dyslipidemia, GERD, and hypothyroidism presented to the ER with a chief complaint of abdominal pain which started after dinner on 01/26/19. In the ER, she was found to have a large hiatal hernia with an acute gastric volvulus. The surgical service admitted the patient for further intervention and management. This evening (01/27/19) the patient developed worsening hypoxia and was noted to require 15 L of oxygen via a nonrebreather. The hospitalist service was consulted for further evaluation of hypoxia. Patient was taken to surgery as mentioned below and was intubated and transferred to ICU after procedure. Patient had a trial of Vapotherm therapy after extubation but require BiPAP therapy. Hypoxic Respiratory Failure -aspiration pneumonia/pneumonitis leading to mechanical ventilation and Bilateral infiltrates secondary to aspiration pneumonitis/pneumonia -Further treatment as per ICU Dr. Rosario/Dr. Rod, intubated for surgery 01/28/2019 and extubated on 01/30/2019. -Patient required BiPAP therapy after extubation -abx as per ICU Leukocytosis, possibly reactive -no fever -Chest x-ray this morning showed no new infiltrates. -Abdomen evaluation as per surgery Large hiatal hernia and acute gastric volvulus -laparoscopic reduction and repair of an incarcerated hiatal hernia with Dr. Light 01/28/19 -G tube placed by sx, clamped Electrical abnml -monitor and replace -Use TPN PRN if not extubated this week and G tube not utilized. -FS and hypoglycemic protocol while npo. Hypothyroidism -Levothyroxine GERD -IV Protonix Hx of HTN, Dyslipidemia -Resume Meds as needed DVT Prophylaxis per sx DISPOSITION: [when acute issues resolve] A-FIB/CHADSVASC A-FIB History Current/History of A-Fib/PAF?: No VS, I&O, 24H, Fishbone Vital Signs/I&O Vital Signs Date Time Temp Pulse Resp B/P (MAP) Pulse Ox O2 Delivery O2 Flow Rate FiO2 01/31/19 12:00 30.0 40 01/31/19 09:50 26 01/31/19 09:26 98 01/31/19 08:00 98.7 94 142/69 (99) 01/30/19 00:00 Ventilator I&O- Last 24 Hours up to 6 AM 01/31/19 06:00 Intake Total 2461.3 ml Output Total 1950 ml Balance 511.3 ml Laboratory Data 24H LABS Laboratory Tests 2 01/30/19 18:34: Bedside Glucose (Misc Panel) 99 01/31/19 04:34: Nucleated Red Blood Cells % (auto) 0.0, Anion Gap 7L, Glomerular Filtration Rate > 60.0, Blood Urea Nitrogen 23H, Creatinine 0.71, Sodium Level 146H, Potassium Level 3.8, Chloride Level 112H, Carbon Dioxide Level 27, Calcium Level 9.3 01/31/19 09:35: Blood Gas Bicarbonate Standard 25.2, Arterial Blood pH 7.421, Arterial Blood Partial Pressure CO2 39.9, Arterial Blood Partial Pressure O2 73.4L, Arterial Blood Total CO2 26.6, Arterial Blood HCO3 25.4, Arterial Blood Base Excess 0.9, Arterial Blood Oxygen Saturation 95.0 01/31/19 12:59: Bedside Glucose (Misc Panel) 82L CBC/BMP Laboratory Tests 01/31/19 04:34 Red Blood Count 4.44, Mean Corpuscular Volume 87.4, Mean Corpuscular Hemoglobin 27.9, Mean Corpuscular Hemoglobin Concent 32.0, Red Cell Distribution Width 16.8 H, Calcium Level 9.3 Microbiology Microbiology 01/28/19 Gram Stain - Final, Complete 01/28/19 Sputum Culture - Final, Complete Yeast Like Organism 01/28/19 Respiratory Virus Panel (PCR) (JAMIE) - Final, Complete 01/27/19 Urine Culture - Final, Complete ESTRADA RANKIN MD Jan 31, 2019 13:23
[2019-01-31] MEDS: ENOXAPARIN 40 MG/0.4 ML SYRINGE (J1650) SC SCH (13:30)
--- NOTE | 2019-01-31 14:55 | IPN ---
DATE: 01/30/2019 HISTORY: The patient is now postoperative day #2 from laparoscopic reduction and repair of a very large incarcerated hiatal hernia with gastric volvulus. She had developed aspiration related to gastric outlet obstruction. She has been on the ventilator since surgery but was extubated early this morning by Dr. Rosario. Vital signs: The patient's been afebrile over the past 24 hours. Her pulse has ranged between 92 and 110 roughly. Her blood pressure has come up some today after extubation. Her pulse oximetry has been acceptable on her current oxygen settings. Intake and output show that yesterday she had 3500 in with 1400 out. She had 900 mL of urine yesterday and 450 from her nasogastric tube. Today her NG output seems to have decreased. Her urine output has improved somewhat. PHYSICAL EXAMINATION The patient is responsive. Skin is warm and dry. Heart exam shows a regular mild tachycardia. Lung sounds show some crackles and coarse sounds bilaterally. Her abdomen is nondistended. Her G tube site is clean. Her incisions look good and she does have some faint bowel sounds. Laboratory studies show today that she has a white count of 14,000 with a hemoglobin of 11, hematocrit of 35 and platelet count of 343,000. Her differential count shows 87% neutrophils, 1 band, 3 lymphocytes and 6 monocytes. Her chemistry profile shows a sodium of 147, potassium 3.3, chloride 112, CO2 of 29, BUN of 22, creatinine 0.7 and glucose of 91. She had a blood gas that showed a pH of 7.458, pCO2 of 43 and an O2 of 65. Base excess was 5.4. Chest x-ray still shows diffuse somewhat patchy infiltrates bilaterally, more so on the right than the left. The left diaphragm seems somewhat obscured and the right less so. Her ET tube and NG tube appear to be in good position at the time of the x-ray. IMPRESSION: Patient is making good progress following her aspiration pneumonitis. She has been extubated and seems to the doing well on her current oxygen settings per Dr. Rosario. I will keep her NG tube in for today and keep her nothing by mouth. PLAN: We will reassess her lab work in the morning. If her NG output drops off, then we may wish to consider starting some enteral feedings via her G tube at a slow rate and see how she tolerates these. If she tolerates enteral feedings, then this would obviate the need for any sort of central line and TPN. I will continue her Zosyn for now. MTDD
[2019-01-31] MEDS: methylPREDNISolone INJ 40 MG/1 ML VIAL (J2920) IV SCH ×2 (17:10→23:14)
[2019-01-31] MEDS: ALBUTEROL SULFATE 2.5 MG/0.5 ML INH NEB SOLN NEB PRN (17:23)
[2019-02-01] VITALS (14 sets, daily range): BP systolic 131–184; BP diastolic 67–83; O2SAT 94–98
[2019-02-01] MEDS: ALBUTEROL SULFATE 2.5 MG/0.5 ML INH NEB SOLN NEB SCH ×7 (00:14→23:31)
[2019-02-01] MEDS: SODIUM CHLORIDE HYPERTONIC 3% 15ML NEB SOL INH SCH ×7 (00:14→23:33)
[2019-02-01 01:27] LABS: ABG BASE EXCESS -1.8 (-2.0-2.0); ABG HCO3 22.3 MEQ/L (22.0-26.0); ABG O2 SATURATION 94.6 % (95.0-99.0); ABG PARTIAL PRESSURE CO2 35.9 mmHg (35.0-45.0); ABG PARTIAL PRESSURE O2 74.8 mmHg (75.0-100.0); ABG STANDARD HCO3 22.9 MEQ/L (22.0-26.0); ABG TOTAL CO2 23.4 MEQ/L (23.0-31.0); ABG pH (ARTERIAL) 7.411 UNITS (7.350-7.450)
[2019-02-01] MEDS ORDERED: FUROSEMIDE 40 MG/4 ML VIAL (J1940) As Ordered ONE (01:28)
[2019-02-01] MEDS: ALBUTEROL SULFATE 2.5 MG/0.5 ML INH NEB SOLN NEB PRN (01:37)
[2019-02-01] MEDS: MORPHINE 4 MG/ML 1ML VIAL/SYRINGE (J2270) IV PRN ×5 (02:06→18:38)
--- NOTE | 2019-02-01 02:29 | REPVR ---
EXAM: XR Chest, 1 View EXAM DATE/TIME: 02/01/2019 1:15 AM CLINICAL HISTORY: 78 years old, female; Shortness of breath TECHNIQUE: Imaging protocol: XR of the chest, 1 view. COMPARISON: CR PORTABLE CHEST X-RAY 01/31/2019 6:59 AM FINDINGS: Lungs: There are persistent right upper lobe interstitial opacities, which are fairly similar in appearance compared to the prior chest x-ray on 01/31/2019. Pleural space: There are small left greater than right pleural effusions, which are similar in size compared to the prior chest x-ray on 01/31/2019. No pneumothorax is identified. Heart/Mediastinum: The cardiac silhouette is similar in size compared to the prior chest x-ray on 01/31/2019. Vasculature: There are atherosclerotic calcifications of the aortic arch. Bones/joints: There are degenerative changes of both glenohumeral joints. Subcortical cystic changes are noted in the right greater tuberosity. There is a levoscoliosis at the thoracolumbar junction. IMPRESSION: Persistent interstitial opacities in the right upper lobe and small left larger than right pleural effusions, which are similar in appearance compared to the prior chest x-ray on 01/31/2019. Electronically signed by: Rolo Galdamez On 02/01/2019 02:28:48 AM
[2019-02-01 04:59] LABS: BASO # 0.1 10^3/uL (0.0-0.2); BASO % 0.3 % (0.0-1.0); HEMATOCRIT 36.9 % (36.0-47.0); HEMOGLOBIN 11.9 g/dl (12.0-15.5); LYMPH # 0.6 10^3/uL (1.5-4.5); MEAN CORPUSCULAR HEMOGLOBIN 27.5 pg (27.0-33.0); MEAN CORPUSCULAR HGB CONC 32.2 g/dl (32.0-36.5); MEAN CORPUSCULAR VOLUME 85.4 fl (80.0-96.0); MONO # 0.4 10^3/uL (0.0-0.8); MONO % 2.2 % (0.0-5.0); NEUTROPHILS # 18.4 10^3/uL (1.8-7.7); NEUTROPHILS % 91.2 % (36.0-66.0); PLATELET COUNT, AUTOMATED 420 10^3/uL (150-450); RED BLOOD COUNT 4.32 10^6/uL (4.00-5.40); WHITE BLOOD COUNT 20.2 10^3/uL (4.0-10.0)
[2019-02-01] MEDS: PIPERACILLIN/TAZOBACTAM SOD 3.375 GM in D5W MINI-BAG PLUS 50 ML IV SCH ×4 (04:59→22:42)
[2019-02-01] MEDS: methylPREDNISolone INJ 40 MG/1 ML VIAL (J2920) IV SCH ×4 (04:59→22:41)
[2019-02-01 05:21] LABS: ALBUMIN 2.1 GM/DL (3.2-5.2); ALT/SGPT 25 U/L (12-78); BILIRUBIN,TOTAL 1.5 MG/DL (0.2-1.0); BLOOD UREA NITROGEN 29 MG/DL (7-18); CALCIUM LEVEL 9.3 MG/DL (8.8-10.2); CARBON DIOXIDE LEVEL 27 MEQ/L (21-32); CHLORIDE LEVEL 110 MEQ/L (98-107); GLOMERULAR FILTRATION RATE > 60.0 (>39); GLUCOSE, FASTING 152 MG/DL (70-100); POTASSIUM SERUM 3.1 MEQ/L (3.5-5.1); SODIUM LEVEL 146 MEQ/L (136-145); TOTAL PROTEIN 5.9 GM/DL (6.4-8.2)
--- NOTE | 2019-02-01 07:57 | IPN ---
DATE: 01/31/2019 HISTORY: Patient is now postop day #3 from a laparoscopic reduction and repair of a large incarcerated hiatal hernia with gastric volvulus. She developed aspiration because of the gastric outlet obstruction. Her surgery was uncomplicated. However, she had significant aspiration of bilateral lungs and was on the ventilator for 2 days. She was extubated yesterday and has been maintained on some bilevel positive airway pressure (BiPAP) last night and then today, she has been on 40% oxygen via a high-flow warmed oxygen device. Vital signs show that she has been afebrile. Pulse has ranged in the 90s to low 100s and her blood pressure is good. Her pulse oximetry is being targeted for greater than 88 and she has been in the low 90s on most determinations. Intake and output shows that yesterday she had 2500 in with 1600 out. She had 1375 of urine output and only 200 in her nasogastric (NG) output. Today, she had only 200 mL out overnight from her NG and less than 100 so far today. Patient on physical exam is awake and alert. Her breathing is somewhat labored. She has an active cough. Heart exam shows a pulse in the low 100s. Her lungs show some scattered wheezes and coarse sounds. Abdomen is soft. She has a lot of transmitted lung sounds to the abdomen, but I do believe she has some bowel sounds. The abdomen is without significant tenderness to palpation. The gastrostomy (G) tube is plugged. Laboratory studies today, she had a white count of 21,000, hemoglobin 12, hematocrit 39 and a platelet count of 424,000. Her chemistry profile today showed a sodium of 146, potassium 3.8, chloride 112, CO2 of 27, BUN of 23, creatinine 0.7 and a glucose of 98. She had a blood gas this morning that was 7.42, 40 and 73. Chest x-ray today I believe looks somewhat better with some clearing of the infiltrate, particularly on the left-hand side. IMPRESSION: Patient appears to be doing somewhat better. Her breathing is still somewhat labored but on 40% oxygen she has acceptable oxygenation. She has a good cough effort. Her x-ray looks I think a little better particularly on the left. PLAN: Patient's NG tube output has diminished, and I believe she does have some bowel sounds though she has not had any flatus or bowel movement yet. I will remove her NG tube at this point. We do have the G-tube if necessary. Taking out the NG may help her respiratory status somewhat. If she tolerates this, we can consider either letting her try some liquids tomorrow or perhaps start some feeds through her G-tube. ROCIO
--- NOTE | 2019-02-01 08:22 | REP ---
Chest one-view HISTORY: Intubation Comparison: 01:10 a.m. 02/01/2019 Patchy density is present in the right upper lobe consistent with an infiltrate that is unchanged compared to the previous study. Small bilateral pleural effusions are present unchanged compared to the previous study. The heart is normal in size. The pulmonary vasculature is normal in appearance. Impression: 1. Right upper lobe infiltrate unchanged compared to the previous study. 2. Small bilateral pleural effusions unchanged compared to the previous study. Electronically Signed by Carlos Marquez MD 02/01/2019 08:14 A
[2019-02-01] MEDS: LEVOTHYROXINE 100 MCG (0.1MG) VIAL IV SCH (08:49)
[2019-02-01] MEDS: PANTOPRAZOLE 40MG INJ (PROTONIX) (C9113) IV SCH (08:50)
[2019-02-01] MEDS: KCL 10MEQ/100ML SWI (KRUN) 10 MEQ in IV 1 EA IV SCH ×3 (08:50→12:34)
[2019-02-01] MEDS ORDERED: FUROSEMIDE 40 MG/4 ML VIAL (J1940) IV SCH (09:00)
[2019-02-01] MEDS ORDERED: MAG SULF 1GM/100ML (MAG RUN) 1 GM in IV 1 EA IV ONE (09:00)
--- NOTE | 2019-02-01 09:32 | CCN ---
DATE OF SERVICE: 02/01/2019 Critical care time was 1 hour. This excludes all procedures. I was called urgently to the bedside of this patient for worsening hypoxia and respiratory distress just after 1 a.m.. This afternoon the patient did have difficulty with breathing, had some increased tachypnea and was having wheezing. At that point in time, this afternoon she was started on steroids as there was a thought to be a component of bronchospasm and she was placed on bilevel, which improved her respirations, decreased her respiratory rate and she appeared more comfortable without requiring additional oxygen therapy. She had been on bilevel up until just before my arrival. She had acute onset of increased shortness of breath. She became tachypneic. Prior to my arrival, she was taken off the bilevel positive airway pressure (BiPAP) and placed on Vapotherm and was continuing to have difficulty with oxygen saturations 80%. On my arrival, she was on Vapotherm 90% at 30 liters. She had an elevated respiratory rate but was not using accessory muscle use at that time. On auscultation, she was rhonchorous. I had given a verbal order obtain a chest x-ray as I came into the hospital to view the patient. The chest x-ray actually showed some improvement of the infiltrate that showed continued vascular congestion. Therefore, I discontinued the IV fluids, administered IV Lasix. She had good urine output that was very light in color and after receiving the Lasix. I also assisted the patient with additional nebulized therapy, added an Acapella device and was at the bedside instructing on coughing. With coaching the patient was able to cough up some large amounts of mucus, some thick yellow mucus at times. After this, the patient's oxygen saturation improved. Was able to go down on the Vapotherm to 60% maintaining oxygen saturation 94%. Her respiratory rate also improved to 18-20. After monitoring the patient for some time, she became more comfortable. Oxygen saturations remained 94-95%. Before I left the room, the patient was actually able to now sleep with adequate oxygen saturation. Heart rate did not go above 75. Blood pressure slightly elevated at 166 systolic on my arrival now down to 150 systolic after the addition of Lasix. Overall, I think the patient had mucus plugging, may have had some drying effects from the bilevel. I have instructed the patient on good pulmonary toilet. She now has an Acapella device. Will continue therapy for mucociliary clearance and monitoring of fluid status.
--- NOTE | 2019-02-01 10:50 | IPNPDOC ---
Date Seen The patient was seen on 02/01/19. Progress Note SUBJECTIVE: Overnight patient had respiratory distress when she was taken off her BiPAP and started on Vapotherm. Contour Grinder evaluated the patient and provided Lasix and IV fluid discontinued. But overall felt patient's checks x- ray improved. Patient was kept on Vapotherm and encouraged pulmonary toiletry as it was believed the patient had mucus plugging. Patient more of positive. This morning. Patient is on Vapotherm and no longer requiring BiPAP. Patient denies of any acute complaint during my encounter. Daughter at the bedside. Based on surgical note it seems like patient may be getting clear liquid tomorrow or some feces through the G-tube. In the meantime, correct electrolyte the IV. Monitor fingerstick while nothing by mouth and on hypoglycemic protocol. OBJECTIVE PHYSICAL EXAMINATION: VITAL SIGNS: Please see below. GENERAL APPEARANCE: Awake HEENT: Normocephalic, atraumatic RESPIRATORY: Diminished breath sounds bilaterally, on Vapotherm CARDIOVASCULAR: normal S1, S2; tachycardic ABDOMEN: Soft, S/p laparoscopy sx 01/28/19. EXTREMITIES: No erythema, no tenderness LABORATORY DATA, IMAGING STUDIES, MICROBIOLOGY: Please see below. ASSESSMENT AND PLAN: 78-year-old female with past medical history of hypertension, dyslipidemia, GERD, and hypothyroidism presented to the ER with a chief complaint of abdominal pain which started after dinner on 01/26/19. In the ER, she was found to have a large hiatal hernia with an acute gastric volvulus. The surgical service admitted the patient for further intervention and management. This evening (01/27/19) the patient developed worsening hypoxia and was noted to require 15 L of oxygen via a nonrebreather. The hospitalist service was consulted for further evaluation of hypoxia. Patient was taken to surgery as mentioned below and was intubated and transferred to ICU after procedure. Patient had a trial of Vapotherm therapy after extubation but require BiPAP therapy. Hypoxic Respiratory Failure -aspiration pneumonia/pneumonitis leading to mechanical ventilation and Bilateral infiltrates secondary to aspiration pneumonitis/pneumonia -Further treatment as per ICU Dr. Rosario/Dr. Rod, intubated for surgery 01/28/2019 and extubated on 01/30/2019. -After extubation patient utilized BiPAP, Vapotherm -Pulmonary toiletry -abx as per ICU Leukocytosis, possibly reactive -no fever -Chest x-ray no new infiltrates. -Abdomen evaluation as per surgery Large hiatal hernia and acute gastric volvulus -laparoscopic reduction and repair of an incarcerated hiatal hernia with Dr. Light 01/28/19 -G tube placed by sx, clamped Electrical abnml -monitor and replace -Use TPN PRN if not extubated this week and G tube not utilized. -FS and hypoglycemic protocol while npo. Hypothyroidism -Levothyroxine GERD -IV Protonix Hx of HTN, Dyslipidemia -Resume Meds as needed DVT Prophylaxis per sx DISPOSITION: [when acute issues resolve] A-FIB/CHADSVASC A-FIB History Current/History of A-Fib/PAF?: No VS, I&O, 24H, Fishbone Vital Signs/I&O Vital Signs Date Time Temp Pulse Resp B/P (MAP) Pulse Ox O2 Delivery O2 Flow Rate FiO2 02/01/19 08:00 30.0 55 02/01/19 08:00 98.6 83 17 147/67 (96) 02/01/19 07:19 94 02/01/19 03:34 Nasal Cannula I&O- Last 24 Hours up to 6 AM 02/01/19 06:00 Intake Total 2210 ml Output Total 3315 ml Balance -1105 ml Laboratory Data 24H LABS Laboratory Tests 2 01/31/19 12:59: Bedside Glucose (Misc Panel) 82L 01/31/19 16:45: Bedside Glucose (Misc Panel) 80L 01/31/19 23:35: Bedside Glucose (Misc Panel) 113H 02/01/19 01:22: Blood Gas Bicarbonate Standard 22.9, Arterial Blood pH 7.411, Arterial Blood Partial Pressure CO2 35.9, Arterial Blood Partial Pressure O2 74.8L, Arterial Blood Total CO2 23.4, Arterial Blood HCO3 22.3, Arterial Blood Base Excess -1.8, Arterial Blood Oxygen Saturation 94.6L 02/01/19 04:44: Immature Granulocyte % (Auto) 3.3H, White Blood Count 20.2H, Red Blood Count 4.32, Hemoglobin 11.9L, Hematocrit 36.9, Mean Corpuscular Volume 85.4, Mean Corpuscular Hemoglobin 27.5, Mean Corpuscular Hemoglobin Concent 32.2, Red Cell Distribution Width 16.5H, Platelet Count 420, Neutrophils (%) (Auto) 91.2H, Lymphocytes (%) (Auto) 3.0L, Monocytes (%) (Auto) 2.2, Eosinophils (%) (Auto) 0.0, Basophils (%) (Auto) 0.3, Neutrophils # (Auto) 18.4H, Lymphocytes # (Auto) 0.6L, Monocytes # (Auto) 0.4, Eosinophils # (Auto) 0.0, Basophils # (Auto) 0.1, Nucleated Red Blood Cells % (auto) 0.1H, Anion Gap 9, Glomerular Filtration Rate > 60.0, Blood Urea Nitrogen 29H, Creatinine 0.70, Sodium Level 146H, Potassium Level 3.1L, Chloride Level 110H, Carbon Dioxide Level 27, Calcium Level 9.3, Aspartate Amino Transf (AST/SGOT) 15, Alanine Aminotransferase (ALT/SGPT) 25, Alkaline Phosphatase 159H, Total Bilirubin 1.5H, Total Protein 5.9L, Albumin 2.1L, Albumin/Globulin Ratio 0.55L CBC/BMP Laboratory Tests 02/01/19 04:44 Red Blood Count 4.32, Mean Corpuscular Volume 85.4, Mean Corpuscular Hemoglobin 27.5, Mean Corpuscular Hemoglobin Concent 32.2, Red Cell Distribution Width 16.5 H, Neutrophils (%) (Auto) 91.2 H, Lymphocytes (%) (Auto) 3.0 L, Monocytes (%) (Auto) 2.2, Eosinophils (%) (Auto) 0.0, Basophils (%) (Auto) 0.3, Neutrophils # (Auto) 18.4 H, Lymphocytes # (Auto) 0.6 L, Monocytes # (Auto) 0.4, Eosinophils # (Auto) 0.0, Basophils # (Auto) 0.1, Calcium Level 9.3, Aspartate Amino Transf (AST/SGOT) 15, Alanine Aminotransferase (ALT/SGPT) 25, Alkaline Phosphatase 159 H, Total Bilirubin 1.5 H, Total Protein 5.9 L, Albumin 2.1 L Microbiology Microbiology 01/28/19 Gram Stain - Final, Complete 01/28/19 Sputum Culture - Final, Complete Yeast Like Organism 01/28/19 Respiratory Virus Panel (PCR) (JAMIE) - Final, Complete 01/27/19 Urine Culture - Final, Complete ESTRADA RANKIN MD Feb 01, 2019 10:50
--- NOTE | 2019-02-01 11:20 | CCN ---
DATE OF SERVICE: 02/01/2019 At bedside this morning, oxygen desaturation is less. She is requiring less than 55% FiO2, which is a significant improvement from earlier this morning. She also remains with a tenuous respiratory status. She is producing more mucus and is less tachypneic. She states she feels that she is less short of breath. She was hyperkalemic this morning likely from recent diuresis. She has already been prescribed potassium replacement by her primary physician. She is using Acapella to assist with mucociliary clearance. Urine output continues to be more than adequate and light in color. PHYSICAL EXAM: Temperature is 98.6, pulse is 83, respiratory rate 17, blood pressure is 147/67 with mean arterial pressure of 96, oxygen saturation is 94% on 0.50 FiO2 on 30 liters. She is net negative 2 liters over the past 24 hours. General: Awake, alert and oriented. Affect and mood are appropriate. Nutrition and hygiene are fair. She is able to speak complete sentences with less dyspnea. HEENT: Sclerae clear and anicteric. Pupils equal, react to light. Mucous membranes are moist without lesions. Oropharynx without erythema or exudate. Neck is supple. No tracheal deviation or mass. Lymph: No cervical, supraclavicular or axillary adenopathy. Cardiac: Difficult to hear cardiac sounds over her respiratory sounds. No murmur, rub or gallop. No significant systemic edema. Pulmonary: Diffuse expiratory rhonchi, less wheeze than yesterday. There is a prolonged expiratory phase. There is no accessory muscle use at this point in time. Abdomen: Soft, nontender. I do not auscultate any bowel sounds. She has negative flatus. Extremities: No cyanosis, clubbing or edema. Thromboembolism deterrents (TEDs) are in place. Laboratory evaluation shows an elevated white count of 20.2, hemoglobin 11.9, platelet count of 420. Sodium is 146, potassium 3.1, chloride 110, bicarbonate of 27, BUN of 29, creatinine 0.7 with a glucose 152. Arterial blood gas shows a pH 7.41, pCO2 of 36 and a pAO2 of 75, which is similar to last evening when she was on 90%, now she is only on 50% FiO2. Chest x-ray shows better aeration of the left lower lobe, still some bilateral costophrenic angle blunting, increased infiltrate without dense consolidation in the right upper lobe. Overall continues to improve. IMPRESSION: Hypoxic respiratory failure likely from recent event with concern for aspiration, possible initial acute respiratory distress syndrome (ARDS) like picture. Patient definitely has rhonchi and difficulty with mucociliary clearance. This will be the focus of today's treatment good pulmonary toilet. I did start Solu-Medrol yesterday because of the expiratory wheeze and the prolongation expiratory phase, although the patient has no prior history of asthma. IV fluids are on hold currently as there was concern for vascular congestion. Trickle feeds are being initiated. Will continue to closely monitor respiratory status.
[2019-02-01] MEDS: ENOXAPARIN 40 MG/0.4 ML SYRINGE (J1650) SC SCH (13:21)
--- NOTE | 2019-02-01 22:21 | IPNPDOC ---
Text Note Date of Service The patient was seen on 02/01/19. NOTE No acute events overnight. She is off the vent, and tolerating the NGT being removed. Denies nausea, emesis fevers, shortness of breath, or bowel movements. VSSAF NAD abd - soft, TTP appropriate, nd, incisions c/d/i, gastrostomy in the LU[facility] A) 78y/o female s/p hiatal hernia repair with G-tube placement aspiration pneumonia P) start tube feeds ambulate PT Andrey Hinojosa DO A-FIB/CHADSVASC A-FIB History Current/History of A-Fib/PAF?: No VS,Fishbone, I+O VS, Fishbone, I+O Laboratory Tests 02/01/19 04:44 Red Blood Count 4.32, Mean Corpuscular Volume 85.4, Mean Corpuscular Hemoglobin 27.5, Mean Corpuscular Hemoglobin Concent 32.2, Red Cell Distribution Width 16.5 H, Neutrophils (%) (Auto) 91.2 H, Lymphocytes (%) (Auto) 3.0 L, Monocytes (%) (Auto) 2.2, Eosinophils (%) (Auto) 0.0, Basophils (%) (Auto) 0.3, Neutrophils # (Auto) 18.4 H, Lymphocytes # (Auto) 0.6 L, Monocytes # (Auto) 0.4, Eosinophils # (Auto) 0.0, Basophils # (Auto) 0.1, Calcium Level 9.3, Aspartate Amino Transf (AST/SGOT) 15, Alanine Aminotransferase (ALT/SGPT) 25, Alkaline Phosphatase 159 H, Total Bilirubin 1.5 H, Total Protein 5.9 L, Albumin 2.1 L Vital Signs Date Time Temp Pulse Resp B/P (MAP) Pulse Ox O2 Delivery O2 Flow Rate FiO2 02/01/19 20:20 77 167/81 (117) 95 02/01/19 20:11 Nasal Cannula 30.0 45 02/01/19 20:00 97.6 18 I&O- Last 24 Hours up to 6 AM 02/01/19 05:59 Intake Total 2360 ml Output Total 2965 ml Balance -605 ml VELMA HINOJOSA DO Feb 01, 2019 22:21
[2019-02-02] VITALS (11 sets, daily range): BP systolic 138–171; BP diastolic 72–79; O2SAT 89–96
[2019-02-02] MEDS: ALBUTEROL SULFATE 2.5 MG/0.5 ML INH NEB SOLN NEB SCH ×6 (03:55→23:58)
[2019-02-02] MEDS: SODIUM CHLORIDE HYPERTONIC 3% 15ML NEB SOL INH SCH ×6 (03:55→23:58)
[2019-02-02] MEDS: methylPREDNISolone INJ 40 MG/1 ML VIAL (J2920) IV SCH ×4 (04:52→23:12)
[2019-02-02] MEDS: PIPERACILLIN/TAZOBACTAM SOD 3.375 GM in D5W MINI-BAG PLUS 50 ML IV SCH ×4 (04:53→23:12)
[2019-02-02 05:23] LABS: HEMATOCRIT 37.7 % (36.0-47.0); HEMOGLOBIN 12.1 g/dl (12.0-15.5); MEAN CORPUSCULAR HEMOGLOBIN 27.6 pg (27.0-33.0); MEAN CORPUSCULAR HGB CONC 32.1 g/dl (32.0-36.5); MEAN CORPUSCULAR VOLUME 86.1 fl (80.0-96.0); PLATELET COUNT, AUTOMATED 441 10^3/uL (150-450); RED BLOOD COUNT 4.38 10^6/uL (4.00-5.40); WHITE BLOOD COUNT 23.8 10^3/uL (4.0-10.0)
[2019-02-02 05:52] LABS: BLOOD UREA NITROGEN 36 MG/DL (7-18); CARBON DIOXIDE LEVEL 28 MEQ/L (21-32); CHLORIDE LEVEL 110 MEQ/L (98-107); CREATININE FOR GFR 0.72 MG/DL (0.55-1.30); GLOMERULAR FILTRATION RATE > 60.0 (>39); GLUCOSE, FASTING 159 MG/DL (70-100); POTASSIUM SERUM 3.9 MEQ/L (3.5-5.1); SODIUM LEVEL 144 MEQ/L (136-145)
--- NOTE | 2019-02-02 08:06 | REP ---
Chest one-view HISTORY: Intubation Comparison: 02/01/2019 Patchy density is present in the right upper lobe consistent with an infiltrate that is unchanged compared to the previous study. Parenchymal density is present in the left lower lobe consistent with atelectasis or infiltrate. There is blunting of the costophrenic angles due to small pleural effusions unchanged compared to the previous study. The heart is normal in size. The pulmonary vasculature is normal in appearance. Impression: 1. Right upper lobe infiltrate unchanged compared to the previous study. 2. Left lower lobe atelectasis or infiltrate. 3. Small bilateral pleural effusions unchanged compared to the previous study. Electronically Signed by Carlos Marquez MD 02/02/2019 07:57 A
[2019-02-02] MEDS: LEVOTHYROXINE 100 MCG (0.1MG) VIAL IV SCH (08:32)
[2019-02-02] MEDS: PANTOPRAZOLE 40MG INJ (PROTONIX) (C9113) IV SCH (08:32)
--- NOTE | 2019-02-02 08:57 | IPNPDOC ---
Text Note Date of Service The patient was seen on 02/02/19. NOTE No acute events overnight. Denies nausea, emesis fevers, shortness of breath, or bowel movements. She is tolerating TF at 10/hr and ice chips. VSSAF NAD abd - soft, TTP appropriate, nd, incisions c/d/i, gastrostomy in the LU[facility] Labs - below wbc - 20.2>25.8 A) 78y/o female s/p hiatal hernia repair with G-tube placement aspiration pneumonia leukocytosis likely secondary to steroids P) advance TF ambulate PT pulmonary toilet Andrey Hinojosa DO A-FIB/CHADSVASC A-FIB History Current/History of A-Fib/PAF?: No VS,Fishbone, I+O VS, Fishbone, I+O Laboratory Tests 02/02/19 05:10 Red Blood Count 4.38, Mean Corpuscular Volume 86.1, Mean Corpuscular Hemoglobin 27.6, Mean Corpuscular Hemoglobin Concent 32.1, Red Cell Distribution Width 16.6 H, Calcium Level 10.0 Vital Signs Date Time Temp Pulse Resp B/P (MAP) Pulse Ox O2 Delivery O2 Flow Rate FiO2 02/02/19 07:25 94 30.0 45 02/02/19 04:00 96.8 74 20 153/72 (103) 02/02/19 03:58 Nasal Cannula I&O- Last 24 Hours up to 6 AM 02/02/19 06:00 Intake Total 670 ml Output Total 2010 ml Balance -1340 ml VELMA HINOJOSA DO Feb 02, 2019 08:57
--- NOTE | 2019-02-02 09:28 | ECHO ---
DATE OF STUDY: 02/01/2019 REFERRING PROVIDER: Arpit Rod DO PATIENT LOCATION: Room 3208. REASON FOR THE ECHOCARDIOGRAM: Edema. 2D MEASUREMENTS: IVS: 0.8 cm LV: 3.9 cm LVPW: 0.8 cm LA: 2.7 Aorta: 3.1 cm IVC: 1.9 cm DOPPLER MEASUREMENTS: Peak velocity across the aortic valve: 1.1 m/s Peak velocity across the LVOT: 0.9 m/s Mitral E: 0.80 Mitral A: 1.1 with a ratio of 0.7 Maximum tricuspid valve velocity: 3.1 m/s 2D COMMENTS: 1. Normal left ventricular size, wall thickness, and normal global left ventricular systolic function. The estimated global left ventricular systolic ejection fraction is 65% to 70%. 2. Normal left atrium. The right atrium appeared to be mildly enlarged in limited views. The right ventricle was not well visualized but also appeared to be mildly enlarged. 3. The atrial septum appeared to be normal without evidence of defect or shunt. 4. Normal aortic root. 5. Small pericardial effusion noted. No evidence of cardiac tamponade. Bilateral pleural effusion also noted. 6. Mildly calcified aortic valve with normal leaflet excursion. Normal mitral valve and tricuspid valve. The pulmonic valve and proximal pulmonary artery branches were not well visualized. 7. The inferior vena cava was normal in size, and there was good respiratory variation. Central venous pressure appeared normal. DOPPLER: It detects trace to mild aortic regurgitation, trace mitral regurgitation, and probably severe tricuspid regurgitation. The calculated pulmonary artery systolic pressure varies between 40-50 mmHg. Abnormal relaxation pattern was noted across the mitral valve leaflets, as well as the mitral valve annulus consistent with some features of grade I left ventricular diastolic dysfunction, impaired relaxation. IMPRESSION: 1. Normal global left ventricular systolic function. There are some features of grade I left ventricular diastolic dysfunction, impaired relaxation. 2. Aortic valve sclerosis with trace to mild aortic regurgitation but no aortic stenosis. 3. Trace mitral regurgitation. 4. Probably severe tricuspid regurgitation with dilated right heart chambers and moderate pulmonary hypertension. Could not rule out more severe pulmonary hypertension, probably underestimated. 5. A small pericardial effusion noted, no evidence of cardiac tamponade. 6. Bilateral pleural effusion was noted. MTDD
--- NOTE | 2019-02-02 10:28 | IPNPDOC ---
Date Seen The patient was seen on 02/02/19. Progress Note SUBJECTIVE: Patient started on G-tube feed overnight. This morning patient continues to progress in the positive direction with denial of acute distress or comfort this morning. OBJECTIVE PHYSICAL EXAMINATION: VITAL SIGNS: Please see below. GENERAL APPEARANCE: Awake HEENT: Normocephalic, atraumatic RESPIRATORY: Diminished breath sounds bilaterally, on Vapotherm CARDIOVASCULAR: normal S1, S2; tachycardic ABDOMEN: Soft, S/p laparoscopy sx 01/28/19. EXTREMITIES: No erythema, no tenderness LABORATORY DATA, IMAGING STUDIES, MICROBIOLOGY: Please see below. ASSESSMENT AND PLAN: 78-year-old female with past medical history of hypertension, dyslipidemia, GERD, and hypothyroidism presented to the ER with a chief complaint of abdominal pain which started after dinner on 01/26/19. In the ER, she was found to have a large hiatal hernia with an acute gastric volvulus. The surgical service admit mel the patient for further intervention and management. This evening (01/27/19) the patient developed worsening hypoxia and was noted to require 15 L of oxygen via a nonrebreather. The hospitalist service was consulted for further evaluation of hypoxia. Patient was taken to surgery as mentioned below and was intubated and transferred to ICU after procedure. Patient had a trial of Vapotherm therapy after extubation but require BiPAP therapy. Hypoxic Respiratory Failure -aspiration pneumonia/pneumonitis leading to mechanical ventilation and Bilateral infiltrates secondary to aspiration pneumonitis/pneumonia -Further treatment as per ICU Dr. Rosario/Dr. Rod, intubated for surgery 01/28/2019 and extubated on 01/30/2019. -After extubation patient utilized BiPAP, Vapotherm -Echo: nml Lt vent sys fxn. grade 1 lt vent diastolic dysfxn, AV sclerosis with trace AR but no . Trace MR. 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 small pericardial effusion noted, no evidence of cardiac tamponade. Bilateral pleural effusion was noted. -Pulmonary toiletry -abx as per ICU Leukocytosis, possibly reactive and steroid -no fever -Pulm as per ICU -Abdomen evaluation as per surgery Large hiatal hernia and acute gastric volvulus -laparoscopic reduction and repair of an incarcerated hiatal hernia with Dr. Light 01/28/19 -G tube placed by sx, clamped Electrical abnml -monitor and replace -Gtube feed as per surgery Hypothyroidism -Levothyroxine GERD -IV Protonix Hx of HTN, Dyslipidemia -Resume Meds as needed DVT Prophylaxis per sx DISPOSITION: [when acute issues resolve]. VS, I&O, 24H, Fishbone Vital Signs/I&O Vital Signs Date Time Temp Pulse Resp B/P (MAP) Pulse Ox O2 Delivery O2 Flow Rate FiO2 02/02/19 08:00 30.0 45 02/02/19 08:00 97.4 68 24 149/74 (101) 97 02/02/19 03:58 Nasal Cannula I&O- Last 24 Hours up to 6 AM 02/02/19 06:00 Intake Total 670 ml Output Total 2010 ml Balance -1340 ml Laboratory Data 24H LABS Laboratory Tests 2 02/01/19 12:43: Bedside Glucose (Misc Panel) 150H 02/01/19 17:28: Bedside Glucose (Misc Panel) 140H 02/02/19 00:19: Bedside Glucose (Misc Panel) 164H 02/02/19 05:10: Nucleated Red Blood Cells % (auto) 0.3H, Anion Gap 6L, Glomerular Filtration Rate > 60.0, Blood Urea Nitrogen 36H, Creatinine 0.72, Sodium Level 144, Potassium Level 3.9#, Chloride Level 110H, Carbon Dioxide Level 28, Calcium Level 10.0 CBC/BMP Laboratory Tests 02/02/19 05:10 Red Blood Count 4.38, Mean Corpuscular Volume 86.1, Mean Corpuscular Hemoglobin 27.6, Mean Corpuscular Hemoglobin Concent 32.1, Red Cell Distribution Width 16.6 H, Calcium Level 10.0 Microbiology Microbiology 01/28/19 Gram Stain - Final, Complete 01/28/19 Sputum Culture - Final, Complete Yeast Like Organism 01/28/19 Respiratory Virus Panel (PCR) (JAMIE) - Final, Complete 01/27/19 Urine Culture - Final, Complete ESTRADA RANKIN MD Feb 02, 2019 10:28
[2019-02-02] MEDS: ENOXAPARIN 40 MG/0.4 ML SYRINGE (J1650) SC SCH (14:12)
[2019-02-02] MEDS: MORPHINE 4 MG/ML 1ML VIAL/SYRINGE (J2270) IV PRN (16:51)
--- NOTE | 2019-02-02 17:49 | CCN ---
DATE: 02/02/2019 Yari is at bedside this morning with decreased shortness of breath and remains on high level of oxygen, but has been titrated down to 48% at 25 liters flow via Vapotherm. Oxygen saturations are 96%, even with movement. She continues to have a cough, but this is improved. No hemoptysis. She did feel quite tired this morning, stating this was due to frequent awakenings. She has had no fever or chills. Patient believes she had a minimal amount of flatus. Temperature currently is 97.4, pulse is 68, respiratory rate of 24, blood pressure is 149/74, oxygen saturation 96% on 40% at 25 liters. GENERAL: Awake, alert, oriented. Affect and mood are appropriate. Nutrition and hygiene are fair. HEENT: Sclerae clear and anicteric. Pupils are equal and reactive to light. The patient believe she had a minimal amount of lattice. PULMONARY: Better air entry, less rhonchi. No wheeze. No dullness to percussion. ABDOMEN: Abdominal exam is limited due to her recent postoperative state. EXTREMITIES: No cyanosis or clubbing. No significant lower extremity edema. LABORATORY EVALUATION: Shows a leukocytosis of 23.8, hemoglobin of 12.1, platelet count of 441. Sodium is 144, potassium 3.9, chlorides 110, bicarbonate of 28, BUN of 36, creatinine 0.72. IMPRESSION: Hypoxic respiratory failure. Slow to improve, but overall able to titrate oxygen therapy. Will continue Solu-Medrol for the next couple of days, as she did have bronchospasm. I believe the leukocytosis seen on this morning's complete blood count (CBC) is secondary to the Solu-Medrol. She remains on Zosyn for the probability of aspiration pneumonitis. Will continue to follow from a pulmonary aspect.
[2019-02-03] VITALS (26 sets, daily range): BP systolic 143–178; BP diastolic 65–81; O2SAT 85–96
[2019-02-03] MEDS: ALBUTEROL SULFATE 2.5 MG/0.5 ML INH NEB SOLN NEB SCH ×6 (02:39→23:56)
[2019-02-03] MEDS: SODIUM CHLORIDE HYPERTONIC 3% 15ML NEB SOL INH SCH ×6 (02:39→23:56)
[2019-02-03] MEDS ORDERED: FUROSEMIDE 40 MG/4 ML VIAL (J1940) IV ONE (03:15)
[2019-02-03] MEDS: methylPREDNISolone INJ 40 MG/1 ML VIAL (J2920) IV SCH ×4 (04:39→23:57)
[2019-02-03] MEDS: PIPERACILLIN/TAZOBACTAM SOD 3.375 GM in D5W MINI-BAG PLUS 50 ML IV SCH (04:39)
[2019-02-03 05:06] LABS: HEMATOCRIT 37.7 % (36.0-47.0); MEAN CORPUSCULAR HEMOGLOBIN 27.3 pg (27.0-33.0); MEAN CORPUSCULAR HGB CONC 31.8 g/dl (32.0-36.5); MEAN CORPUSCULAR VOLUME 85.7 fl (80.0-96.0); WHITE BLOOD COUNT 23.8 10^3/uL (4.0-10.0)
[2019-02-03 05:12] LABS: PLATELET COUNT, AUTOMATED 566 10^3/uL (150-450)
[2019-02-03 05:30] LABS: BLOOD UREA NITROGEN 45 MG/DL (7-18); CALCIUM LEVEL 10.5 MG/DL (8.8-10.2); CARBON DIOXIDE LEVEL 31 MEQ/L (21-32); CHLORIDE LEVEL 109 MEQ/L (98-107); CREATININE FOR GFR 0.84 MG/DL (0.55-1.30); GLOMERULAR FILTRATION RATE > 60.0 (>39); GLUCOSE, FASTING 176 MG/DL (70-100); POTASSIUM SERUM 3.4 MEQ/L (3.5-5.1); SODIUM LEVEL 146 MEQ/L (136-145)
[2019-02-03] MEDS ORDERED: MAG SULF 1GM/100ML (MAG RUN) 1 GM in IV 1 EA IV ONE (07:45)
[2019-02-03] MEDS ORDERED: KCL 10MEQ/100ML SWI (KRUN) 10 MEQ in IV 1 EA IV ONE (09:00)
--- NOTE | 2019-02-03 09:13 | REP ---
CHEST, PORTABLE: AP portable view of the chest was performed. COMPARISON: 02/02/2019 PORTABLE CHEST: AP portable view of the chest was performed. Cardiomediastinal silhouette is unchanged with left ventricular prominence. There are bilateral pleural effusions and infiltrates which appear essentially unchanged. IMPRESSION: Stable exam. Electronically Signed by Edwin Magana MD 02/03/2019 04:20 P
[2019-02-03] MEDS: LEVOTHYROXINE 100 MCG (0.1MG) VIAL IV SCH (09:32)
[2019-02-03] MEDS: PANTOPRAZOLE 40MG INJ (PROTONIX) (C9113) IV SCH (09:32)
--- NOTE | 2019-02-03 10:55 | CCN ---
DATE: 02/03/2019 Overnight, I received a phone call that she was have oxygen desaturations and decreased breath sounds on the left. I had ordered nebulized therapy and chest physical therapy (PT). Her oxygen requirements improved with nebulization and production of mucus. I suspect she has ongoing mucus plugging. This morning, she continues to produce brown sputum. Overall, she states her shortness of breath has improved. She is quite hypertensive at bedside this morning with a systolic blood pressure of 175. She has not been placed on her usual antihypertensives. She states she is on a combination of an ARB, hydrochlorothiazide at home. Will initiate hydrochlorothiazide. She did receive diuretics overnight. She has no headache or chest pain. She continues to have a cough which is still was mostly productive. No wheezing. She is compliant with the use of her Acapella device. She continues on Vapotherm currently at 55% with 30 liters flow. I reduced it to 25 liters flow and 0.45 FIO2 at bedside with oxygen saturations remaining at 94%. On physical exam, temperature ranged 69-77 with a blood pressure of 163-175 systolic, diastolics in the 70s,respiratory rate of 24, oxygen saturation as mentioned above. She has excellent urine output, over 200 mL in the past couple hours. General: Awake, alert and oriented. Affect and mood are appropriate. Nutrition and hygiene are good. Mucous membranes are moist. Oropharynx without erythema or exudate. HEENT: Sclerae clear and anicteric. Pupils equal, react to light. Mucous membranes are moist without lesion. Tongue is midline. Neck is supple. No tracheal deviation or mass. Lymphs: No cervical, supraclavicular or axillary adenopathy. Cardiac: Regular S1 and S2, distant, without audible murmur, rub or gallop. No discernible elevated jugular venous pulse (JVP). Pedal edema without pretibial or ankle edema. Abdomen is a postop abdomen without any distention. There are hypoactive bowel sounds. Pulmonary: Upper breath sounds in the posterior thorax are significantly improved, clear to about the top 2/3 of her lung olivarez. The bottom 1/3 of the lung olivarez are decreased without good air entry, but there are no rales, rhonchi or wheezes. No dullness. Extremities: Edema as mentioned above. No cyanosis or clubbing. Musculoskeletal: Some muscle weakness. No unilateral asymmetric weakness. No tremor. Laboratory evaluation shows a sodium of 146, potassium 3.4, chloride 109, bicarb of 31. BUN has increased slightly to 45 with a creatinine of 0.84. Calcium is 10.5. White blood cell count is 23.8 with a glucose of 176, hemoglobin of 12, hematocrit of 37, and platelet count of 566. IMPRESSION: 1. Hypoxia secondary to recent aspiration pneumonia, possible volume overload. Currently titrating down on oxygen promoting chest expansion. I believe she likely has significant atelectasis. Last chest x-ray shows significant improvement. She is having difficulty with mucus plugging. She has normal saline for her nebulization along with albuterol. Will reduce Solu-Medrol to by mouth prednisone. She has no further evidence of bronchospasm. 2. Probable aspiration pneumonia. Will change Zosyn to Augmentin for another 4 days. 3. Hypertension. I have added back hydrochlorothiazide. Would recommend continued blood pressure management by the hospitalist service. 4. Glaucoma. The patient has not been receiving her glaucoma drops; therefore, I have written for them today. 5. Gastrointestinal (GI) prophylaxis. Currently on Protonix. Will continue this until the patient is able to tolerate a normal diet.
[2019-02-03] MEDS: hydroCHLOROthiazide 25 MG TAB PO SCH (11:10)
--- NOTE | 2019-02-03 11:59 | IPNPDOC ---
Date Seen The patient was seen on 02/03/19. Progress Note SUBJECTIVE: Patient denies of shortness of breath, no acute pain, and today surgery is planning on oral feed trial. OBJECTIVE PHYSICAL EXAMINATION: VITAL SIGNS: Please see below. GENERAL APPEARANCE: Awake HEENT: Normocephalic, atraumatic RESPIRATORY: Diminished breath sounds bilaterally, on Vapotherm CARDIOVASCULAR: normal S1, S2; tachycardic ABDOMEN: Soft, S/p laparoscopy sx 01/28/19. EXTREMITIES: No erythema, no tenderness LABORATORY DATA, IMAGING STUDIES, MICROBIOLOGY: Please see below. ASSESSMENT AND PLAN: 78-year-old female with past medical history of hypertension, dyslipidemia, GERD, and hypothyroidism presented to the ER with a chief complaint of abdominal pain which started after dinner on 01/26/19. In the ER, she was found to have a large hiatal hernia with an acute gastric volvulus. The surgical service admitted the patient for further intervention and management. This evening (01/27/19) the patient developed worsening hypoxia and was noted to require 15 L of oxygen via a nonrebreather. The hospitalist service was consulted for further evaluation of hypoxia. Patient was taken to surgery as mentioned below and was intubated and transferred to ICU after procedure. Patient had a trial of Vapotherm therapy after extubation but require BiPAP therapy. Subsequently she was place on vapotherm and gtube feeding stafrted by sx. She continue to improve. Hypoxic Respiratory Failure -aspiration pneumonia/pneumonitis leading to mechanical ventilation and Bilateral infiltrates secondary to aspiration pneumonitis/pneumonia -Further treatment as per ICU Dr. Rosario/Dr. Rod, intubated for surgery 01/28/2019 and extubated on 01/30/2019. -After extubation patient utilized BiPAP, Vapotherm -Echo: nml Lt vent sys fxn. grade 1 lt vent diastolic dysfxn, AV sclerosis with trace AR but no . Trace MR. 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 small pericardial effusion noted, no evidence of cardiac tamponade. Bilateral pleural effusion was noted. -Pulmonary toiletry -Nasopharynx Resp virus panel: neg -Sputum culture: yeast -abx as per ICU Leukocytosis, possibly reactive and steroid -no fever -Pulm as per ICU -Abdomen evaluation as per surgery Large hiatal hernia and acute gastric volvulus -laparoscopic reduction and repair of an incarcerated hiatal hernia with Dr. Light 01/28/19 -G tube placed by sx, clamped Electrical abnml -monitor and replace -Gtube feed as per surgery, trial oral feed planned for today by sx 02/03/19 Hypothyroidism -Levothyroxine GERD -IV Protonix Hx of HTN, Dyslipidemia -Resume Meds as needed DVT Prophylaxis per sx DISPOSITION: [when acute issues resolve].. A-FIB/CHADSVASC A-FIB History Current/History of A-Fib/PAF?: No VS, I&O, 24H, Fishbone Vital Signs/I&O Vital Signs Date Time Temp Pulse Resp B/P (MAP) Pulse Ox O2 Delivery O2 Flow Rate FiO2 02/03/19 11:20 93 25.0 45 02/03/19 06:00 Nasal Cannula 02/03/19 04:00 98.0 69 24 163/77 (110) I&O- Last 24 Hours up to 6 AM 02/03/19 06:00 Intake Total 920 ml Output Total 2980 ml Balance -2060 ml Laboratory Data 24H LABS Laboratory Tests 2 02/03/19 04:44: Nucleated Red Blood Cells % (auto) 0.5H, Anion Gap 6L, Glomerular Filtration Rate > 60.0, Blood Urea Nitrogen 45H, Creatinine 0.84, Sodium Level 146H, Pot assium Level 3.4L, Chloride Level 109H, Carbon Dioxide Level 31, Calcium Level 10.5H CBC/BMP Laboratory Tests 02/03/19 04:44 Red Blood Count 4.40, Mean Corpuscular Volume 85.7, Mean Corpuscular Hemoglobin 27.3, Mean Corpuscular Hemoglobin Concent 31.8 L, Red Cell Distribution Width 16.5 H, Calcium Level 10.5 H Microbiology Microbiology 01/28/19 Gram Stain - Final, Complete 01/28/19 Sputum Culture - Final, Complete Yeast Like Organism 01/28/19 Respiratory Virus Panel (PCR) (JAMIE) - Final, Complete 01/27/19 Urine Culture - Final, Complete ESTRADA RANKIN MD Feb 03, 2019 11:59
[2019-02-03] MEDS: BRINZOLAMIDE 1 % OPHTH SUSP (AZOPT) 10ML OU SCH ×2 (13:24→20:45)
[2019-02-03] MEDS: AUGMENTIN 875 MG TAB PO SCH ×2 (13:25→20:45)
[2019-02-03] MEDS: ENOXAPARIN 40 MG/0.4 ML SYRINGE (J1650) SC SCH (15:12)
[2019-02-03] MEDS: LATANOPROST 0.005% OPHTH SOLN 2.5 ML OU SCH (20:45)
[2019-02-03] MEDS ORDERED: PERCOCET 5MG/325MG TAB PO ONE (21:45)
[2019-02-04] VITALS (22 sets, daily range): BP systolic 116–159; BP diastolic 61–75; O2SAT 92–96
[2019-02-04] MEDS: methylPREDNISolone INJ 40 MG/1 ML VIAL (J2920) IV SCH (04:15)
[2019-02-04] MEDS: SODIUM CHLORIDE HYPERTONIC 3% 15ML NEB SOL INH SCH ×5 (04:42→19:47)
[2019-02-04] MEDS: ALBUTEROL SULFATE 2.5 MG/0.5 ML INH NEB SOLN NEB SCH ×5 (04:42→19:47)
[2019-02-04 05:42] LABS: HEMATOCRIT 34.9 % (36.0-47.0); HEMOGLOBIN 11.1 g/dl (12.0-15.5); MEAN CORPUSCULAR HEMOGLOBIN 27.8 pg (27.0-33.0); MEAN CORPUSCULAR HGB CONC 31.8 g/dl (32.0-36.5); MEAN CORPUSCULAR VOLUME 87.5 fl (80.0-96.0); PLATELET COUNT, AUTOMATED 480 10^3/uL (150-450); RED BLOOD COUNT 3.99 10^6/uL (4.00-5.40); WHITE BLOOD COUNT 25.1 10^3/uL (4.0-10.0)
[2019-02-04 06:00] LABS: BLOOD UREA NITROGEN 44 MG/DL (7-18); CALCIUM LEVEL 9.3 MG/DL (8.8-10.2); CARBON DIOXIDE LEVEL 31 MEQ/L (21-32); CHLORIDE LEVEL 107 MEQ/L (98-107); CREATININE FOR GFR 0.74 MG/DL (0.55-1.30); GLOMERULAR FILTRATION RATE > 60.0 (>39); GLUCOSE, FASTING 193 MG/DL (70-100); POTASSIUM SERUM 3.4 MEQ/L (3.5-5.1); SODIUM LEVEL 145 MEQ/L (136-145)
--- NOTE | 2019-02-04 07:24 | REP ---
Clinical: Intubation. Followup. Comparison: 02/03/2019. Findings: Bibasilar atelectasis/infiltrates and small layering effusions are again suspected and appear relatively unchanged. Visualized mediastinum and cardiac silhouette stable and within normal limits for portable technique. Osseous structures grossly intact. Impression: Bibasilar opacities suggesting atelectasis/infiltrates and small effusions similar to prior examination. Electronically Signed by Schuyler Dangelo MD 02/04/2019 07:15 A
[2019-02-04 08:15] LABS: MAGNESIUM LEVEL 2.1 MG/DL (1.8-2.4)
[2019-02-04] MEDS ORDERED: POTASSIUM CHLORIDE 10 MEQ SR TABLET PO ONE (08:45)
--- NOTE | 2019-02-04 08:58 | IPNPDOC ---
Date Seen The patient was seen on 02/04/19. Progress Note SUBJECTIVE: Patient was seen and examined at the bedside. Chart has been reviewed. Pt denies any nausea, vomiting, fever or chills. some cough nonproductive, trial of po diet. Per pulmonary, if needs downgrading only to PCU not medsurg as pt is still tenuous. OBJECTIVE PHYSICAL EXAMINATION: VITAL SIGNS: Please see below. GENERAL APPEARANCE: Awake HEENT: Normocephalic, atraumatic RESPIRATORY: Diminished breath sounds bilaterally, on Vapotherm CARDIOVASCULAR: normal S1, S2; tachycardic ABDOMEN: Soft, S/p laparoscopy sx 01/28/19. EXTREMITIES: No erythema, no tenderness LABORATORY DATA, IMAGING STUDIES, MICROBIOLOGY: Please see below. ASSESSMENT AND PLAN: 78-year-old female with past medical history of hypertension, dyslipidemia, GERD, and hypothyroidism presented to the ER with a chief complaint of abdominal pain which started after dinner on 01/26/19. In the ER, she was found to have a large hiatal hernia with an acute gastric volvulus. The surgical service admitted the patient for further intervention and management. This evening (01/27/19) the patient developed worsening hypoxia and was noted to require 15 L of oxygen via a nonrebreather. The hospitalist service was consulted for further evaluation of hypoxia. Patient was taken to surgery as mentioned below and was intubated and transferred to ICU after procedure. Patient had a trial of Vapotherm therapy after extubation but require BiPAP therapy. Subsequently she was place on vapotherm and gtube feeding stafrted by sx. She continue to improve. Hypoxic Respiratory Failure -aspiration pneumonia/pneumonitis leading to mechanical ventilation and Bilateral infiltrates secondary to aspiration pneumonitis/pneumonia -Further treatment as per ICU Dr. Rosario/Dr. Rod, intubated for surgery 01/28/2019 and extubated on 01/30/2019. -After extubation patient utilized BiPAP, Vapotherm -Echo: nml Lt vent sys fxn. grade 1 lt vent diastolic dysfxn, AV sclerosis with trace AR but no . Trace MR. 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 small pericardial effusion noted, no evidence of cardiac tamponade. Bilateral pleural effusion was noted. -Pulmonary toiletry -Nasopharynx Resp virus panel: neg -Sputum culture: yeast -abx as per ICU Leukocytosis, possibly reactive and steroid -no fever -Pulm as per ICU -Abdomen evaluation as per surgery Large hiatal hernia and acute gastric volvulus -laparoscopic reduction and repair of an incarcerated hiatal hernia with Dr. Light 01/28/19 -G tube placed by sx, clamped Electrical abnml -monitor and replace -Gtube feed as per surgery, trial oral feed planned for today by sx 02/03/19 Hypothyroidism -Levothyroxine GERD -IV Protonix Hx of HTN, Dyslipidemia -Resume Meds as needed DVT Prophylaxis per sx DISPOSITION: [when acute issues resolve].. A-FIB/CHADSVASC A-FIB History Current/History of A-Fib/PAF?: No Current Oral Anticoagulant The: No VS, I&O, 24H, Fishbone Vital Signs/I&O Vital Signs Date Time Temp Pulse Resp B/P (MAP) Pulse Ox O2 Delivery O2 Flow Rate FiO2 02/04/19 06:00 83 139/63 (88) 95 25.0 45 02/04/19 04:00 98.1 20 02/03/19 06:00 Nasal Cannula I&O- Last 24 Hours up to 6 AM 02/04/19 06:00 Intake Total 1740 ml Output Total 2910 ml Balance -1170 ml Laboratory Data 24H LABS Laboratory Tests 2 02/04/19 05:24: Nucleated Red Blood Cells % (auto) 0.4H, Anion Gap 7L, Glomerular Filtration Rate > 60.0, Blood Urea Nitrogen 44H, Creatinine 0.74, Sodium Level 145, Pota ssium Level 3.4L, Chloride Level 107, Carbon Dioxide Level 31, Calcium Level 9.3, Magnesium Level 2.1 CBC/BMP Laboratory Tests 02/04/19 05:24 Red Blood Count 3.99 L, Mean Corpuscular Volume 87.5, Mean Corpuscular Hemoglobin 27.8, Mean Corpuscular Hemoglobin Concent 31.8 L, Red Cell Distribution Width 16.8 H, Calcium Level 9.3 Microbiology Microbiology 01/28/19 Gram Stain - Final, Complete 01/28/19 Sputum Culture - Final, Complete Yeast Like Organism 01/28/19 Respiratory Virus Panel (PCR) (JAMIE) - Final, Complete 01/27/19 Urine Culture - Final, Complete JOHANNA GIL MD Feb 04, 2019 08:58
[2019-02-04] MEDS ORDERED: KCL 10MEQ/100ML SWI (KRUN) 10 MEQ in IV 1 EA IV ONE ×2 (09:00→11:00)
[2019-02-04] MEDS: PANTOPRAZOLE 40MG INJ (PROTONIX) (C9113) IV SCH (09:53)
[2019-02-04] MEDS: BRINZOLAMIDE 1 % OPHTH SUSP (AZOPT) 10ML OU SCH ×2 (09:54→20:11)
[2019-02-04] MEDS: LEVOTHYROXINE 100 MCG (0.1MG) VIAL IV SCH (09:54)
[2019-02-04] MEDS: hydroCHLOROthiazide 25 MG TAB PO SCH (09:55)
[2019-02-04] MEDS: AUGMENTIN 875 MG TAB PO SCH ×2 (09:55→20:11)
--- NOTE | 2019-02-04 10:03 | CCN ---
DATE: 02/04/2019 Yari has been slowly decreasing her oxygen requirements overnight. At bedside, I turned her down to 30% FiO2 with a flow of 15 liters. While sitting upright, she is maintaining an oxygen saturation 92%. She is partially auto diuresing. I did add hydrochlorothiazide to her antihypertensive management yesterday. She continues to have a productive cough, which is expected given the severity of her pneumonia. She has no headache. She does have some belching. She did have a bowel movement yesterday. PHYSICAL EXAMINATION: Temperature 98.1, pulse 83, respiratory rate is 20, blood pressure is 139/63 with an oxygen saturation of 95% on 25 liters at 0.45 FiO2. In the room, I turned the oxygen down and after ambulation and sitting in a chair, oxygen saturation was 92% on 15 liter flow at 30%. Input and output: She is net 2 liters out yesterday. GENERAL: Awake, alert and oriented. Affect and mood are appropriate. Mentation and hygiene are good. HEENT: Oral and nasal mucosa pink and moist without lesions. Tongue is midline. NECK: Supple. No tracheal deviation or mass. LYMPHS: No cervical, supraclavicular, or axillary adenopathy. CARDIAC: Regular S1, S2 without audible murmur, rub or gallop. No elevated jugular venous pressure. Much improved edema. PULMONARY: Mostly clear. Very few bibasilar rales. No accessory muscle use. No dullness to percussion. The previously heard rhonchi and bronchospasm has resolved. ABDOMEN: Soft, nontender for the most part. No surrounding erythema or exudate with normoactive bowel sounds. EXTREMITIES: No cyanosis, clubbing or edema. MUSCULOSKELETAL: Fairly normal muscle tone for stated age. No evidence of joint effusion. There is evidence of osteoarthritic changes of the hands. LABORATORY EVALUATION: Sodium 145, potassium 3.4, chloride 107, bicarbonate 31, BUN 44, creatinine 0.74. White blood cell count is 25.1, hemoglobin is 11.1 with a hematocrit of 34.9 and a platelet count of 480. No new blood gas this morning. Chest x-ray from this morning shows a heating pad has not been removed from the right chest area. There are some increased vascular markings with blunting of the costophrenic angles bilaterally. No significant change in the mediastinum. No free air under the diaphragm. IMPRESSION: 1. Hypoxia from pneumonia, partially also volume overload. The patient auto diuresing at this point in time. Therefore, I would not add any additional diuretics. I did add hydrochlorothiazide, as she is on this as an outpatient. We will continue to titrate her oxygen, continue mobilization of secretions, Acapella and nebulized therapy. 2. Hypertension. Added hydrochlorothiazide yesterday. Blood pressure is adequate with a systolic blood pressure ranging in the 130s. DISPOSITION: We will likely sign off in the next 24 hours as this patient is recovering. She can be converted to the progressive care unit (PCU) today and if continues to do well, to the floor the next day.
[2019-02-04] MEDS ORDERED: ACETAMINOPHEN TAB 650MG DOSE (2X325MG) PO PRN (10:45)
[2019-02-04] MEDS: ENOXAPARIN 40 MG/0.4 ML SYRINGE (J1650) SC SCH (14:45)
--- NOTE | 2019-02-04 15:14 | IPN ---
DATE: 02/03/2019 HISTORY The patient is now postop day #6 from laparoscopic repair of a large incarcerated hiatal hernia with gastric volvulus. She suffered significant aspiration before the procedure and probably also during intubation. She was on the ventilator for about 2 days and has remained in the intensive care unit receiving care from the pulmonary and critical care physicians. Over the weekend, the patient was started on some Solu-Medrol. She has received support with some BiPap and more recently has been on high-flow, high concentration nasal cannula oxygen. She appears much more comfortable today than when I had last seen her on Sunday. Vital signs: Show that the patient's pulse is now in the 60s to low 80s. Her blood pressure is good and her pulse oximetry is now up into the low to mid 90s on 45% oxygen. Intake and output shows that yesterday she had 660 in with 1655 out. She has been receiving tube feeds through her gastrostomy tube. She has had no nausea or vomiting. PHYSICAL EXAMINATION The patient is lying quietly in the hospital bed appearing to breathe much more easily today. She is able to converse and is alert and oriented. Skin is warm and dry. Sclerae are anicteric. Heart exam shows a regular rhythm. The lungs show some coarse breath sounds. The abdomen is mildly protuberant, but soft and she has active bowel sounds. Her incisions are all clean. Laboratory studies show white count of 24,000 with a hemoglobin of 12, hematocrit of 38 and a platelet count of 566,000. Chemistry profile shows a sodium of 146, potassium 3.4, chloride 109, CO2 of 31, BUN of 45, creatinine 0.8 and a glucose of 176. Calcium is 10.5. IMPRESSION The patient appears to be doing much better from the pulmonary standpoint. She has had her oxygen percentage reduced to 45%. Her respiratory rate is reduced and her tachycardia is resolved. She has not yet had a bowel movement and has been tolerating her tube feeds for the last 2 days and has active bowel sounds. She reports passage of flatus. PLAN: I discussed with Dr. Rod the patient's antibiotic coverage and Dr. Rod believes that she should remain on antibiotic coverage and will adjust these as she sees fit. I will start the patient on some clear liquids and if she tolerates these well we will stop her tube feedings and advance her diet as tolerated. Her oxygenation and her various respiratory treatments will be adjusted as necessary by Dr. Rod. Physical therapy has been consulted and the patient can be out of bed as tolerated. MTDD
[2019-02-04] MEDS: ACETAMINOPHEN 325 MG TAB PO PRN (19:52)
[2019-02-04] MEDS: LATANOPROST 0.005% OPHTH SOLN 2.5 ML OU SCH (20:11)
[2019-02-05] VITALS (19 sets, daily range): BP systolic 119–144; BP diastolic 60–73; O2SAT 90–97
[2019-02-05] MEDS: SODIUM CHLORIDE HYPERTONIC 3% 15ML NEB SOL INH SCH ×7 (00:03→23:37)
[2019-02-05] MEDS: ALBUTEROL SULFATE 2.5 MG/0.5 ML INH NEB SOLN NEB SCH ×7 (00:03→23:37)
[2019-02-05] MEDS ORDERED: PERCOCET 5MG/325MG TAB PO ONE (01:45)
[2019-02-05 06:14] LABS: HEMATOCRIT 33.6 % (36.0-47.0); HEMOGLOBIN 10.8 g/dl (12.0-15.5); MEAN CORPUSCULAR HEMOGLOBIN 27.4 pg (27.0-33.0); MEAN CORPUSCULAR HGB CONC 32.1 g/dl (32.0-36.5); MEAN CORPUSCULAR VOLUME 85.3 fl (80.0-96.0); PLATELET COUNT, AUTOMATED 418 10^3/uL (150-450); RED BLOOD COUNT 3.94 10^6/uL (4.00-5.40); WHITE BLOOD COUNT 25.3 10^3/uL (4.0-10.0)
[2019-02-05] MEDS: LEVOTHYROXINE 25MCG TABLET (0.025MG) PO SCH (06:27)
[2019-02-05 06:36] LABS: BLOOD UREA NITROGEN 35 MG/DL (7-18); CALCIUM LEVEL 9.8 MG/DL (8.8-10.2); CARBON DIOXIDE LEVEL 29 MEQ/L (21-32); CHLORIDE LEVEL 109 MEQ/L (98-107); CREATININE FOR GFR 0.72 MG/DL (0.55-1.30); GLOMERULAR FILTRATION RATE > 60.0 (>39); GLUCOSE, FASTING 137 MG/DL (70-100); POTASSIUM SERUM 3.7 MEQ/L (3.5-5.1); SODIUM LEVEL 144 MEQ/L (136-145)
--- NOTE | 2019-02-05 07:34 | REP ---
Clinical: Intubation. Comparison: 02/04/2019 Findings: Bilateral pleural effusions and bibasilar atelectasis are essentially unchanged. No pneumothorax. Mediastinum and cardiac silhouette are stable. Skeletal structures intact. Impression: Stable bibasilar pleural effusions and atelectasis. Electronically Signed by Schuyler Dangelo MD 02/05/2019 07:26 A
[2019-02-05] MEDS: BRINZOLAMIDE 1 % OPHTH SUSP (AZOPT) 10ML OU SCH ×2 (08:58→20:19)
[2019-02-05] MEDS: PANTOPRAZOLE 40MG TAB (PROTONIX) PO SCH (08:58)
[2019-02-05] MEDS: AUGMENTIN 875 MG TAB PO SCH ×2 (08:58→20:19)
[2019-02-05] MEDS: hydroCHLOROthiazide 25 MG TAB PO SCH (08:58)
[2019-02-05] MEDS: ACETAMINOPHEN 325 MG TAB PO PRN ×2 (13:11→20:19)
[2019-02-05] MEDS: ENOXAPARIN 40 MG/0.4 ML SYRINGE (J1650) SC SCH (14:55)
[2019-02-05] MEDS: LATANOPROST 0.005% OPHTH SOLN 2.5 ML OU SCH (20:19)
[2019-02-05] MEDS: SLF 3 ML SYR IV SCH (21:02)
--- NOTE | 2019-02-05 22:08 | IPN ---
DATE: 02/05/2019 HISTORY The patient is now postoperative day #8 from repair of her incarcerated hiatal hernia with gastric volvulus and obstruction. She suffered significant aspiration with aspiration pneumonitis. Has been making good progress over the last few days with reduced requirement for oxygen. Vital signs: Today the patient has been afebrile. Pulse is in the 70s generally and her blood pressure is good. She is down to a regular nasal cannula with low oxygen flows an excellent oxygen saturations. Intake and output shows that yesterday she had 1450 in with 2500 out. She has had bowel movements. PHYSICAL EXAMINATION The patient is sitting up in a chair at the bedside when I went in to see her this morning. She is alert and appears more comfortable. Skin is warm and dry. The sclerae are anicteric. Heart exam shows a regular rhythm. The lungs show some coarse breath sounds bilaterally. The abdomen is soft. Her incisions are all healing nicely. Her G tube appears to be under some tension and I loosened the external retention bar and as I did so there was some purulent appearing fluid released from the opening in the skin around the G-tube. This material was expressed as thoroughly as possible and a new dressing was applied. LABS: Laboratory studies today show a white count of 25,000 which is stable from yesterday. Hemoglobin is 11 with a hematocrit of 34 and the platelet count is down slightly to 418,000. Chemistry profile shows a sodium of 144, potassium 3.7, chloride 109, CO2 of 29, BUN of 35 which is down somewhat and a creatinine of 0.7. Glucose is 137. IMPRESSION Patient has made excellent progress with significantly decreased need for oxygen. She continues to have some coughing productive of some sputum at times. She has some mild abdominal discomfort with coughing. She did note some discomfort around the G-tube and hopefully this will improve now that there has been some drainage from around the tube. PLAN The patient has made good progress and pulmonary medicine has signed off. The hospitalist is taking over management of the medical issues. The patient will be moved to the progressive care unit when a bed becomes available. Physical therapy, occupational therapy will be continued. I will change her Protonix to oral and all of her other medications have been converted to oral forms. Hopefully she will gain strength readily. Her diet appears adequate. [facility]
[2019-02-06] VITALS (8 sets, daily range): BP systolic 104–122; BP diastolic 55–66; O2SAT 92–93
[2019-02-06] MEDS: SODIUM CHLORIDE HYPERTONIC 3% 15ML NEB SOL INH SCH ×5 (03:26→20:00)
[2019-02-06] MEDS: ALBUTEROL SULFATE 2.5 MG/0.5 ML INH NEB SOLN NEB SCH ×5 (03:26→19:46)
[2019-02-06] MEDS: SLF 3 ML SYR IV SCH ×3 (05:19→21:02)
[2019-02-06] MEDS: LEVOTHYROXINE 25MCG TABLET (0.025MG) PO SCH (05:19)
[2019-02-06] MEDS: AUGMENTIN 875 MG TAB PO SCH ×2 (08:46→21:01)
[2019-02-06] MEDS: hydroCHLOROthiazide 25 MG TAB PO SCH (08:46)
[2019-02-06] MEDS: PANTOPRAZOLE 40MG TAB (PROTONIX) PO SCH (08:47)
[2019-02-06] MEDS: BRINZOLAMIDE 1 % OPHTH SUSP (AZOPT) 10ML OU SCH ×2 (08:47→21:02)
[2019-02-06] MEDS: ACETAMINOPHEN 325 MG TAB PO PRN (10:17)
--- NOTE | 2019-02-06 10:19 | IPNPDOC ---
Date Seen The patient was seen on 02/05/19. Progress Note SUBJECTIVE: Patient was seen and examined at the bedside. Chart has been reviewed. Pulmonary signed off. Dr. Rod approved transfer to [facility] as respiratory status is stable on nasal cannula. Overnight, pt had very little sleep due to abdominal pain at the gastrostomy tube site not alleviated with tylenol. RN noticed black discharge in the gastrostomy tube. OBJECTIVE PHYSICAL EXAMINATION: VITAL SIGNS: Please see below. GENERAL APPEARANCE: Awake HEENT: Normocephalic, atraumatic RESPIRATORY: Diminished breath sounds bilaterally, on Vapotherm CARDIOVASCULAR: normal S1, S2; tachycardic ABDOMEN: Soft, S/p laparoscopy sx 01/28/19. left gastrostomy tube without erythema with black discharge in the tube. EXTREMITIES: No erythema, no tenderness LABORATORY DATA, IMAGING STUDIES, MICROBIOLOGY: Please see below. ASSESSMENT AND PLAN: 78-year-old female with past medical history of hypertension, dyslipidemia, GERD, and hypothyroidism presented to the ER with a chief complaint of abdominal pain which started after dinner on 01/26/19. In the ER, she was found to have a large hiatal hernia with an acute gastric volvulus. The surgical service admitted the patient for further intervention and management. This evening (01/27/19) the patient developed worsening hypoxia and was noted to require 15 L of oxygen via a nonrebreather. The hospitalist service was consulted for further evaluation of hypoxia. Patient was taken to surgery as mentioned below and was intubated and transferred to ICU after procedure. Patient had a trial of Vapotherm therapy after extubation but require BiPAP therapy. Subsequently she was place on vapotherm and gtube feeding stafrted by sx. She continue to improve. Hypoxic Respiratory Failure , resolving now on 2liters nasal cannula -aspiration pneumonia/pneumonitis leading to mechanical ventilation and Bilateral infiltrates secondary to aspiration pneumonitis/pneumonia -Further treatment as per ICU Dr. Rosario/Dr. Rod, intubated for surgery 01/28/2019 and extubated on 01/30/2019. -After extubation patient utilized BiPAP, Vapotherm -Echo: nml Lt vent sys fxn. grade 1 lt vent diastolic dysfxn, AV sclerosis with trace AR but no . Trace MR. 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 small pericardial effusion noted, no evidence of cardiac tamponade. Bilateral pleural effusion was noted. -Pulmonary toiletry -Nasopharynx Resp virus panel: neg -Sputum culture: yeast -abx as per ICU Leukocytosis, possibly reactive and steroid -no fever -Pulm as per ICU -Abdomen evaluation as per surgery Large hiatal hernia and acute gastric volvulus -laparoscopic reduction and repair of an incarcerated hiatal hernia with Dr. Light 01/28/19 -G tube placed by sx, clamped -postop pain management per surgery Electrical abnml -monitor and replace -Gtube feed as per surgery, trial oral feed planned for today by sx 02/03/19 Hypothyroidism -Levothyroxine GERD -IV Protonix Hx of HTN, Dyslipidemia -Resume Meds as needed DVT Prophylaxis per sx DISPOSITION:working well with physical therapy. awaiting ARU approval. A-FIB/CHADSVASC A-FIB History Current/History of A-Fib/PAF?: No Current Oral Anticoagulant The: No VS, I&O, 24H, Fishbone Vital Signs/I&O Vital Signs Date Time Temp Pulse Resp B/P (MAP) Pulse Ox O2 Delivery O2 Flow Rate FiO2 02/05/19 10:00 74 21 96 2.0 02/05/19 08:00 98.0 131/60 (83) 02/05/19 08:00 Nasal Cannula 02/05/19 07:00 30 I&O- Last 24 Hours up to 6 AM 02/05/19 06:00 Intake Total 1600 ml Output Total 2675 ml Balance -1075 ml Laboratory Data 24H LABS Laboratory Tests 2 02/05/19 06:02: Nucleated Red Blood Cells % (auto) 0.2H, Anion Gap 6L, Glomerular Filtration Rate > 60.0, Blood Urea Nitrogen 35H, Creatinine 0.72, Sodium Level 144, Potassium Level 3.7, Chloride Level 109H, Carbon Dioxide Level 29, Calcium Level 9.8 CBC/BMP Laboratory Tests 02/05/19 06:02 Red Blood Count 3.94 L, Mean Corpuscular Volume 85.3, Mean Corpuscular Hemoglobin 27.4, Mean Corpuscular Hemoglobin Concent 32.1, Red Cell Distribution Width 16.6 H, Calcium Level 9.8 Microbiology Microbiology 01/28/19 Gram Stain - Final, Complete 01/28/19 Sputum Culture - Final, Complete Yeast Like Organism 01/28/19 Respiratory Virus Panel (PCR) (JAMIE) - Final, Complete 01/27/19 Urine Culture - Final, Complete JOHANNA GIL MD February 05, 2019 12:14
[2019-02-06] MEDS: ENOXAPARIN 40 MG/0.4 ML SYRINGE (J1650) SC SCH (15:10)
[2019-02-06] MEDS: NORCO, ANEXSIA 5/325MG TABLET (HYDROcodone/ACETAMINOPHEN) PO PRN (21:01)
[2019-02-06] MEDS: LATANOPROST 0.005% OPHTH SOLN 2.5 ML OU SCH (21:02)
--- NOTE | 2019-02-06 21:52 | IPN ---
DATE: 02/06/2019 HISTORY: The patient is now postop day #9 from a laparoscopic reduction and repair of her large incarcerated hiatal hernia and gastric volvulus. A G-tube was placed at that time. She has continued to make excellent progress. She has been weaned off all oxygen and is now on room air. She remained somewhat weak. She was to be moved to the progressive care unit (PCU), but there have been no beds available, so she remains in the intensive care unit. She is tolerating regular food. She continues with her incentive spirometry. She is completing her antibiotics. She has been draining some fluid around her G-tube today. Vital signs: Show that she has been afebrile over the past 24 hours. Her pulse is in the 70s generally with a good blood pressure, and her room air oxygen saturation is in the mid 90s. Intake and output shows that yesterday she had 1000 in with 2500 out. PHYSICAL EXAMINATION: The patient is sitting up in a chair at the bedside. She is alert and oriented but appears quite tired. Sclerae are anicteric. Skin: Is warm and dry. Heart exam shows a regular rhythm. She has good breath sounds bilaterally with some coarse features. The abdomen is soft and without significant tenderness. With palpation around her G-tube site, she does have a small amount of either murky black fluid or sometimes clear fluid that drains on to the surrounding dressing. There is not significant redness or induration around the site. The patient did not have any labs or x-ray today. IMPRESSION: Patient has been continuing to make great progress with her respiratory status and is now on room air. She will continue with physical therapy. PLAN: I will obtain a CT scan of the abdomen tomorrow with some oral contrast. I think it is most likely that she is just having some leakage of gastric fluid around the G-tube through the site. I do not believe that the G-tube has become dislodged or any other problem like that. I will check her labs in the morning. She still is for transfer to the progressive care unit. [facility]
[2019-02-07 00:05] VITALS: BP 109/60
[2019-02-07] MEDS: ALBUTEROL SULFATE 2.5 MG/0.5 ML INH NEB SOLN NEB SCH ×7 (00:10→23:26)
[2019-02-07] MEDS: SODIUM CHLORIDE HYPERTONIC 3% 15ML NEB SOL INH SCH ×7 (00:10→23:25)
[2019-02-07 03:03] VITALS: BP 102/54
[2019-02-07] MEDS: LEVOTHYROXINE 25MCG TABLET (0.025MG) PO SCH (06:31)
[2019-02-07] MEDS: SLF 3 ML SYR IV SCH ×3 (06:32→20:31)
[2019-02-07] MEDS: GASTROGRAFIN SOLUTION 30ML PO SCH ×2 (06:33→06:34)
[2019-02-07 07:52] LABS: BASO # 0.1 10^3/uL (0.0-0.2); BASO % 0.2 % (0.0-1.0); EOS # 0.4 10^3/uL (0.0-0.50); EOS % 1.2 % (0.0-3.0); HEMOGLOBIN 10.8 g/dl (12.0-15.5); LYMPH # 1.5 10^3/uL (1.5-4.5); LYMPH % 4.8 % (24.0-44.0); MEAN CORPUSCULAR HEMOGLOBIN 27.3 pg (27.0-33.0); MEAN CORPUSCULAR HGB CONC 31.8 g/dl (32.0-36.5); MEAN CORPUSCULAR VOLUME 86.1 fl (80.0-96.0); MONO # 1.9 10^3/uL (0.0-0.8); PLATELET COUNT, AUTOMATED 462 10^3/uL (150-450); RED BLOOD COUNT 3.95 10^6/uL (4.00-5.40)
[2019-02-07 08:00] VITALS: BP 102/60
[2019-02-07 08:16] LABS: ALBUMIN 2.4 GM/DL (3.2-5.2); ALT/SGPT 21 U/L (12-78); BLOOD UREA NITROGEN 33 MG/DL (7-18); CALCIUM LEVEL 9.9 MG/DL (8.8-10.2); CARBON DIOXIDE LEVEL 28 MEQ/L (21-32); CHLORIDE LEVEL 106 MEQ/L (98-107); GLOMERULAR FILTRATION RATE > 60.0 (>39); GLUCOSE, FASTING 136 MG/DL (70-100); POTASSIUM SERUM 3.7 MEQ/L (3.5-5.1); SODIUM LEVEL 140 MEQ/L (136-145); TOTAL PROTEIN 5.1 GM/DL (6.4-8.2)
[2019-02-07 08:35] LABS: NEUTROPHILS # 26.8 10^3/uL (1.8-7.7)
[2019-02-07 08:38] LABS: WHITE BLOOD COUNT 31.5 10^3/uL (4.0-10.0)
[2019-02-07] MEDS: PANTOPRAZOLE 40MG TAB (PROTONIX) PO SCH (09:59)
[2019-02-07] MEDS: BRINZOLAMIDE 1 % OPHTH SUSP (AZOPT) 10ML OU SCH ×2 (10:00→20:30)
[2019-02-07] MEDS: hydroCHLOROthiazide 25 MG TAB PO SCH (10:00)
--- NOTE | 2019-02-07 10:18 | REP ---
Chest one-view HISTORY: Shortness of breath Comparison: 02/05/2019 Parenchymal densities are present in the lower lobes consistent with atelectasis and decreased compared to the previous study. Patchy density is present in the left suprahilar area consistent with atelectasis or infiltrate. Small bilateral pleural effusions are present decreased on the left compared to the previous study. The heart is normal in size. The pulmonary vasculature is normal in appearance. Impression: 1. Left suprahilar atelectasis or infiltrate. 2. Bibasilar atelectasis decreased compared to the previous study. 3. Small bilateral pleural effusions decreased on the left compared to the previous study. Electronically Signed by Carlos Marquez MD 02/07/2019 10:10 A
[2019-02-07 12:00] VITALS: BP 120/58
[2019-02-07] MEDS ORDERED: SIMETHICONE 80 MG CHEW TAB PO ONE (12:30)
[2019-02-07] MEDS ORDERED: GI COCKTAIL 50ML BTL(HYOSCYAMINE/MAALOX/LIDOCAINE VISCOUS)(1:3:1) PO PRN (12:30)
[2019-02-07] MEDS: NORCO, ANEXSIA 5/325MG TABLET (HYDROcodone/ACETAMINOPHEN) PO PRN ×2 (13:02→19:23)
[2019-02-07] MEDS: ENOXAPARIN 40 MG/0.4 ML SYRINGE (J1650) SC SCH (14:02)
--- NOTE | 2019-02-07 14:15 | IPNPDOC ---
Date Seen The patient was seen on 02/07/19. Progress Note SUBJECTIVE:c/o burping, heartburn radiating from epigastrium up the throat. no fever or chills. off zosyn, with increased wbc s/p steroids. repeat CT abd report pending. pt c/o some nausea no vomiting, dysuria, urgency, frequency. slight pain at the gastrostomy tube site, but tolerable OBJECTIVE PHYSICAL EXAMINATION: VITAL SIGNS: Please see below. GENERAL APPEARANCE: Awake HEENT: Normocephalic, atraumatic RESPIRATORY: Diminished breath sounds bilaterally, on Vapotherm CARDIOVASCULAR: normal S1, S2; tachycardic ABDOMEN: Soft, S/p laparoscopy sx 01/28/19. left gastrostomy tube without erythem a with black discharge in the tube. EXTREMITIES: No erythema, no tenderness LABORATORY DATA, IMAGING STUDIES, MICROBIOLOGY: Please see below. ASSESSMENT AND PLAN: 78-year-old female with past medical history of hypertension, dyslipidemia, GERD, and hypothyroidism presented to the ER with a chief complaint of abdominal pain which started after dinner on 01/26/19. In the ER, she was found to have a large hiatal hernia with an acute gastric volvulus. The surgical service admitted the patient for further intervention and management. This evening (01/27/19) the patient developed worsening hypoxia and was noted to require 15 L of oxygen via a nonrebreather. The hospitalist service was consulted for further evaluation of hypoxia. Patient was taken to surgery as mentioned below and was intubated and transferred to ICU after procedure. Patient had a trial of Vapotherm therapy after extubation but require BiPAP therapy. Subsequently she was place on vapotherm and gtube feeding stafrted by sx. She continue to improve. Hypoxic Respiratory Failure , resolving now on 2liters nasal cannula -aspiration pneumonia/pneumonitis leading to mechanical ventilation and Bilateral infiltrates secondary to aspiration pneumonitis/pneumonia -Further treatment as per ICU Dr. Rosario/Dr. Rod, intubated for surgery 01/28/2019 and extubated on 01/30/2019. -After extubation patient utilized BiPAP, Vapotherm -Echo: nml Lt vent sys fxn. grade 1 lt vent diastolic dysfxn, AV sclerosis with trace AR but no . Trace MR. 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 small pericardial effusion noted, no evidence of cardiac tamponade. Bilateral pleural effusion was noted. -Pulmonary toiletry -Nasopharynx Resp virus panel: neg -Sputum culture: yeast -abx as per ICU Leukocytosis, possibly reactive and steroid -no fever -no fever or chills. off zosyn, with increased wbc s/p steroids. repeat CT abd report pending. pt c/o some nausea no vomiting, dysuria, urgency, frequency. slight pain at the gastrostomy tube site, but tolerable -no empiric abx. ID Dr. Monge consulted. repeat cxr improved. Large hiatal hernia and acute gastric volvulus -laparoscopic reduction and repair of an incarcerated hiatal hernia with Dr. Light 01/28/19 -G tube placed by sx, clamped -postop pain management per surgery Electrical abnml -monitor and replace -Gtube feed as per surgery, trial oral feed planned for today by sx 02/03/19 Hypothyroidism -Levothyroxine GERD -IV Protonix Hx of HTN, Dyslipidemia -Resume Meds as needed DVT Prophylaxis per sx DISPOSITION:working well with physical therapy. awaiting ARU approval. A-FIB/CHADSVASC A-FIB History Current/History of A-Fib/PAF?: No Current Oral Anticoagulant The: No VS, I&O, 24H, Fishbone Vital Signs/I&O Vital Signs Date Time Temp Pulse Resp B/P (MAP) Pulse Ox O2 Delivery O2 Flow Rate FiO2 02/07/19 13:32 18 02/07/19 12:00 98.2 88 120/58 (78) 95 02/06/19 11:00 1.0 02/06/19 04:00 Nasal Cannula 02/05/19 07:00 30 I&O- Last 24 Hours up to 6 AM 02/07/19 06:00 Intake Total 1045 ml Output Total 770 ml Balance 275 ml Laboratory Data 24H LABS Laboratory Tests 2 02/07/19 07:28: Immature Granulocyte % (Auto) 2.8, White Blood Count 31.5*H, Red Blood Count 3.95L, Hemoglobin 10.8L, Hematocrit 34.0L, Mean Corpuscular Volume 86.1, Mean Corpuscular Hemoglobin 27.3, Mean Corpuscular Hemoglobin Concent 31.8L, Red Cell Distribution Width 17.1H, Platelet Count 462H, Neutrophils (%) (Auto) 85.0H, Lymphocytes (%) (Auto) 4.8L, Monocytes (%) (Auto) 6.0H, Eosinophils (%) (Auto) 1 .2, Basophils (%) (Auto) 0.2, Neutrophils # (Auto) 26.8H, Lymphocytes # (Auto) 1.5, Monocytes # (Auto) 1.9H, Eosinophils # (Auto) 0.4, Basophils # (Auto) 0.1, Nucleated Red Blood Cells % (auto) 0.0, Anion Gap 6L, Glomerular Filtration Rate > 60.0, Blood Urea Nitrogen 33H, Creatinine 0.90, Sodium Level 140, Potassium Level 3.7, Chloride Level 106, Carbon Dioxide Level 28, Calcium Level 9.9, Aspartate Amino Transf (AST/SGOT) 13, Alanine Aminotransferase (ALT/SGPT) 21, Alkaline Phosphatase 101, Total Bilirubin 1.0, Total Protein 5.1L, Albumin 2.4L, Albumin/Globulin Ratio 0.89L 02/07/19 09:37: Erythrocyte Sedimentation Rate 48H, Lactic Acid Level 1.1, C-Reactive Protein, Quantitative 12.10H CBC/BMP Laboratory Tests 02/07/19 07:28 Red Blood Count 3.95 L, Mean Corpuscular Volume 86.1, Mean Corpuscular Hemoglobin 27.3, Mean Corpuscular Hemoglobin Concent 31.8 L, Red Cell Distribution Width 17.1 H, Neutrophils (%) (Auto) 85.0 H, Lymphocytes (%) (Auto) 4.8 L, Monocytes (%) (Auto) 6.0 H, Eosinophils (%) (Auto) 1.2, Basophils (%) (Auto) 0.2, Neutrophils # (Auto) 26.8 H, Lymphocytes # (Auto) 1.5, Monocytes # (Auto) 1.9 H, Eosinophils # (Auto) 0.4, Basophils # (Auto) 0.1, Calcium Level 9.9, Aspartate Amino Transf (AST/SGOT) 13, Alanine Aminotransferase (ALT/SGPT) 21, Alkaline Phosphatase 101, Total Bilirubin 1.0, Total Protein 5.1 L, Albumin 2.4 L Microbiology Microbiology 02/07/19 Blood Culture, Received Pending 02/07/19 Blood Culture, Received Pending 4/23/19 Gram Stain - Final, Complete 01/28/19 Sputum Culture - Final, Complete Yeast Like Organism 01/28/19 Respiratory Virus Panel (PCR) (JAMIE) - Final, Complete JOHANNA GIL MD February 07, 2019 14:15
[2019-02-07] MEDS ORDERED: GI COCKTAIL 50ML BTL(HYOSCYAMINE/MAALOX/LIDOCAINE VISCOUS)(1:3:1) PO ONE (15:00)
[2019-02-07] MEDS ORDERED: VANCOMYCIN HCL 1,000 MG in IV FLUID PLACE HOLDER 1 EA IV SCH (15:45)
--- NOTE | 2019-02-07 15:53 | REP ---
HISTORY: Status post G-tube placement. COMPARISON: 01/28/2019 prior to G-tube placement. The lung bases show bilateral pleural effusions. These are small to moderate. The liver, gallbladder, spleen, pancreas, adrenal glands and right kidney are unchanged. The left kidney is absent. The stomach has been decompressed with a G-tube. The nasogastric tube has been removed. The G-tube balloon affixer appears applied to the internal left anterior abdominal wall. No abnormal air density or fluid is seen surrounding the G-tube tract. There is soft tissue density surrounding the G-tube tract which could be merely secondary to recent placement and inflammation. This should be correlated clinically. There is no abnormal oral contrast extravasation around the stomach or G-tube or within the abdomen whatsoever. The bowel loops are unremarkable. The osseous structures are unchanged. IMPRESSION: 1. Bilateral pleural effusions and evidence of a small pericardial effusion. The pericardial effusion appears to have increased slightly from the prior exam. 2. G-tube and related findings as described above. Electronically Signed by Cortes Morgan DO 02/07/2019 04:39 P
[2019-02-07 16:00] VITALS: BP 127/60
--- NOTE | 2019-02-07 16:36 | CR.PDOC ---
General Date of Consultation: February 07, 2019 Referring Provider: JOHANNA GIL MD Primary Care Physician: JORDAN STARKIV Attending Physician: Sallie Monge MD Consultation REASON FOR CONSULTATION/CHIEF COMPLAINT: Management of leukocytosis HISTORY OF PRESENT ILLNESS: Patient is 78-year-old female admitted with complaint of nausea, and vomiting and abdominal pain. Initial evaluation revealed a large hiatal hernia. Surgery was consulted for surgical management of hernia. On the first night of patient's hospital stay, patient became hypoxic overnight, requiring 15 L of oxygen. Hospitalist team was consulted for management of hypoxemia. Patient was started on Zosyn, due to the possibility aspiration pneumonia secondary to hiatal hernia. Patient underwent surgical correction of the by Dr. Light on 01/29/19, Laparoscopic reduction and repair of large incarcerated paraesophageal hernia with gastric volvulus with placement of gastrostomy. Following surgery. Patient had difficult obtaining proper O2 sat due to her aspiration pneumonia. She was transferred to the ICU and intubated for hypoxic respiratory failure and then successfully extubated on 01/30/2019. While in ICU, patient received Solu-Medrol, that was discontinued on February 04. On 02/03/2019. Patient's Zosyn was discontinued and patient was placed on Augmentin until 02/06/2019. Throughout her stay, patient remained afebrile, urine culture was also negative, sputum culture was positive for yeast-like organism. Blood cultures showed no growth. On initial presentation patient had a WBC of 20.7. Throughout her stay. Her white count oscillated. Highest documented WBC was 32.3 on 01/28/2019. Today, her WBC is 31.5. Infectious disease was consulted for management of leukocytosis. On interview patient reports that she feels fine. Has no acute complaints. Admits to mild cough that is nonproductive. Denies any abdominal pain, unless palpated. Denies any diarrhea. Denies any nausea, denies any vomiting. Denies any urinary dysuria. Although she does admit to urinary frequency. ALLERGIES: Please see below. HOME MEDICATIONS: Please see below. PAST MEDICAL HISTORY: Hypertension, dyslipidemia, GERD, hypothyroidism, hiatal hernia, glaucoma, renal cell carcinoma PAST SURGICAL HISTORY: Cataract extraction, EGD, hysterectomy, appendicectomy, laparoscopic left nephrotomy for renal cell carcinoma, Laparoscopic reduction and repair of large incarcerated paraesophageal hernia with gastric volvulus with placement of gastrostomy. FAMILY HISTORY: Noncontributory SOCIAL HISTORY: Lives with her daughter, no pets, no drugs, no alcohol, no tobacco ROS CONSTITUTIONAL: No fevers, denies chills, denies weight loss, denies lethargy, admits to night sweats HEENT: No rhinorrhea, no itchy eyes, no congesion, CARDIOVASCULAR: No murmurs no palpitations and arrhythmias RESPIRATORY: Positive for dry nonproductive cough, SOB, GASTROINTESTINAL: No nausea, no vomiting, no difficulty swallowing, no pain with eating, no diarrhea HEMATOLOGICAL: No bleeding GENITOURINARY:No Issues HEMATOLOGIC/LYMPHATIC: No swelling PE VITALS: See Below GENERAL APPEARANCE: Alert no acute distress. , Nontoxic-appearing female SKIN: Warm, well perfused. No skin breakdown LUNGS: Clear to auscultation bilaterally. HEART: Normal S1, S2. No murmurs, no rubs, no gallops ABDOMEN: Soft. No masses. Bowel sounds are present. 5 surgical scar from patient's most recent laparoscopic surgery is noted, surgical scar appears clean, no erythema, no purulent drainage, patient's gastric tube has brown and bloody discharge, expressible with palpation, patient also reports pain to palpation, foul-smelling discharges also noted expressible around gastric tube. TRUNK/SPINE:Straight. EXTREMITIES: Moves all extremities equally. No gross deformities. PULSES: 2+ upper and lower extremity . LABORATORY DATA: Please see below. MICRO: Abscess culture pending ASSESSMENT/PLAN: Patient's a 78-year-old female, status post Laparoscopic reduction and repair of large incarcerated paraesophageal hernia with gastric volvulus with placement of gastrostomy, and status post intubation for hypoxic respiratory failure second lo to aspiration pneumonia, secondary to large hiatal hernia, status post repair. Since admission patient has had continued leukocytosis. Infectious disease was consulted for management of leukocytosis. Based on the purulent, foul odor, drainage emanating from patient's gastric site, she most likely has a subcutaneous abscess. Will attempt to cover gram-positive, as well as gram- negative bacteria with vancomycin and meropenem. We'll de-escalate as necessary. Wound culture has also been ordered for the abscess. We'll adjust antibiotics as necessary. Patient has ready completed 2 courses, including Zosyn and Augmentin for her aspiration pneumonia. Vital Signs/I&O Vital Signs Date Time Temp Pulse Resp B/P (MAP) Pulse Ox O2 Delivery O2 Flow Rate FiO2 02/07/19 13:32 18 02/07/19 12:00 98.2 88 120/58 (78) 95 02/06/19 11:00 1.0 02/06/19 04:00 Nasal Cannula 02/05/19 07:00 30 I&O- Last 24 Hours up to 6 AM 02/07/19 06:00 Intake Total 1045 ml Output Total 770 ml Balance 275 ml Laboratory Data Labs 24H Laboratory Tests 2 02/07/19 07:28: Immature Granulocyte % (Auto) 2.8, White Blood Count 31.5*H, Red Blood Count 3.95L, Hemoglobin 10.8L, Hematocrit 34.0L, Mean Corpuscular Volume 86.1, Mean Corpuscular Hemoglobin 27.3, Mean Corpuscular Hemoglobin Concent 31.8L, Red Cell Distribution Width 17.1H, Platelet Count 462H, Neutrophils (%) (Auto) 85.0H, Lymphocytes (%) (Auto) 4.8L, Monocytes (%) (Auto) 6.0H, Eosinophils (%) (Auto) 1.2, Basophils (%) (Auto) 0.2, Neutrophils # (Auto) 26.8H, Lymphocytes # (Auto) 1.5, Monocytes # (Auto) 1.9H, Eosinophils # (Auto) 0.4, Basophils # (Auto) 0.1, Nucleated Red Blood Cells % (auto) 0.0, Anion Gap 6L, Glomerular Filtration Rate > 60.0, Blood Urea Nitrogen 33H, Creatinine 0.90, Sodium Level 140, Potassium Level 3.7, Chloride Level 106, Carbon Dioxide Level 28, Calcium Level 9.9, Aspartate Amino Transf (AST/SGOT) 13, Alanine Aminotransferase (ALT/SGPT) 21, Alkaline Phosphatase 101, Total Bilirubin 1.0, Total Protein 5.1L, Albumin 2.4L, Albumin/Globulin Ratio 0.89L 02/07/19 09:37: Erythrocyte Sedimentation Rate 48H, Lactic Acid Level 1.1, C-Reactive Protein, Quantitative 12.10H CBC/BMP Laboratory Tests 02/07/19 07:28 Red Blood Count 3.95 L, Mean Corpuscular Volume 86.1, Mean Corpuscular Hemoglobin 27.3, Mean Corpuscular Hemoglobin Concent 31.8 L, Red Cell Distribution Width 17.1 H, Neutrophils (%) (Auto) 85.0 H, Lymphocytes (%) (Auto) 4.8 L, Monocytes (%) (Auto) 6.0 H, Eosinophils (%) (Auto) 1.2, Basophils (%) (Auto) 0.2, Neutrophils # (Auto) 26.8 H, Lymphocytes # (Auto) 1.5, Monocytes # (Auto) 1.9 H, Eosinophils # (Auto) 0.4, Basophils # (Auto) 0.1, Calcium Level 9.9, Aspartate Amino Transf (AST/SGOT) 13, Alanine Aminotransferase (ALT/SGPT) 21, Alkaline Phosphatase 101, Total Bilirubin 1.0, Total Protein 5.1 L, Albumin 2.4 L Microbiology Microbiology 02/07/19 Blood Culture, Received Pending 02/07/19 Blood Culture, Received Pending 01/28/19 Gram Stain - Final, Complete 01/28/19 Sputum Culture - Final, Complete Yeast Like Organism 01/28/19 Respiratory Virus Panel (PCR) (JAMIE) - Final, Complete 02/07/19 Abscess Culture, Received Pending Allergies Coded Allergies: brimonidine (Verified Allergy, Unknown, 01/27/19) codeine (Verified Allergy, Unknown, 01/27/19) dorzolamide (Verified Allergy, Unknown, from cosopt, 01/27/19) erythromycin base (Verified Allergy, Unknown, 01/27/19) timolol (Verified Allergy, Unknown, 01/27/19) NSAIDS (Non-Steroidal Anti-Inflamma (Verified Adverse Reaction, Unknown, AVOID DUE TO ONE KIDNEY, 01/27/19) Home Medications Scheduled Ascorbic Acid (Vitamin C) 500 Mg Tablet, 500 MG PO DAILY, (Reported) Aspirin (Aspirin EC) 81 Mg Tab, 81 MG PO DAILY, (Reported) Brinzolamide (Azopt) 200 Drop/10 Ml Susp, 1 DROP OU BID, (Reported) Cholecalciferol (Vitamin D3) (Vitamin D3) 1,000 Unit Tablet, 2,000 UNIT PO DAILY, (Reported) Latanoprost (Xalatan) 2.5 Ml Drops, 1 DROP OU QPM, (Reported) Levothyroxine Sodium (Levothyroxine Sodium) 25 Mcg Tab, 25 MCG PO DAILY, (Reported) Multivitamin (Multivitamins) 1 Each Tablet, 1 TAB PO DAILY, (Reported) [place]-3 Fatty Acids/Fish Oil (Fish Oil 1,000 mg Capsule) 1,000 Mg Cap, 1,000 MG PO BID, (Reported) Omeprazole (Omeprazole) 40 Mg Cap, 40 MG PO DAILY, (Reported) Simvastatin (Simvastatin) 40 Mg Tab, 40 MG PO QHS, (Reported) Valsartan/Hydrochlorothiazide (Valsartan-Hctz 80-12.5 mg Tab) 1 Tab Tab, 1 TAB PO DAILY, (Reported) Scheduled PRN Acetaminophen (Acetaminophen ER) 650 Mg Tablet.er, 650 MG PO TID PRN for PAIN, (Reported) Carboxymethyl/Glycerin/Poly80 (Refresh Optive Advanced Drops) 1 Asya Asya, 1 DROP OU PRN PRN for DRY EYES, (Reported) GME ATTESTATION GME ATTESTATION My faculty preceptor for this patient encounter was physically present during the encounter and was fully available. All aspects of the patient interview, examination, medical decision making process, and medical care plan development were reviewed and approved by the faculty preceptor. The faculty preceptor is aware and concurs with the plan as stated in the body of this note and will attest to such by his/her cosignature. MARTY DAMIAN DO February 07, 2019 16:36
[2019-02-07] MEDS: MEROPENEM INJ 1 GM in IV 1 EA IV SCH (17:11)
[2019-02-07] MEDS ORDERED: VANCOMYCIN HCL 1,000 MG, VIAL MATE ADAPTER 1 EACH in D5W 250 ML IV ONE (18:45)
[2019-02-07 20:00] VITALS: BP 116/64
[2019-02-07] MEDS: LATANOPROST 0.005% OPHTH SOLN 2.5 ML OU SCH (20:30)
[2019-02-08] VITALS (7 sets, daily range): BP systolic 94–128; BP diastolic 55–74
[2019-02-08] MEDS: MEROPENEM INJ 1 GM in IV 1 EA IV SCH ×3 (01:24→17:02)
[2019-02-08] MEDS: NORCO, ANEXSIA 5/325MG TABLET (HYDROcodone/ACETAMINOPHEN) PO PRN ×4 (02:05→20:08)
[2019-02-08] MEDS: SODIUM CHLORIDE HYPERTONIC 3% 15ML NEB SOL INH SCH ×5 (03:34→19:48)
[2019-02-08] MEDS: ALBUTEROL SULFATE 2.5 MG/0.5 ML INH NEB SOLN NEB SCH ×5 (03:34→19:48)
[2019-02-08] MEDS: LEVOTHYROXINE 25MCG TABLET (0.025MG) PO SCH (06:05)
[2019-02-08] MEDS: VANCOMYCIN HCL 1,000 MG, VIAL MATE ADAPTER 1 EACH in D5W 250 ML IV SCH ×2 (06:05→17:51)
[2019-02-08] MEDS: SLF 3 ML SYR IV SCH ×3 (06:05→20:10)
--- NOTE | 2019-02-08 08:58 | IPNPDOC ---
Date Seen The patient was seen on 02/08/19. Progress Note SUBJECTIVE: Pt remains afebrile. on vanco and meropenem with cxr: left sided infiltrate and b/l pleural effusions. ct abd/pelvis: slight increased pericardial effusion. no c/o chills.Yesterday c/o bloating, burping, heartburn , and gas. s/p simethicone and gi cocktail prn. Today, heartburn improved. G-tube site irritated even with gauze. Pt requesting some ointment to protect skin. OBJECTIVE PHYSICAL EXAMINATION: VITAL SIGNS: Please see below. GENERAL APPEARANCE: Awake HEENT: Normocephalic, atraumatic RESPIRATORY: Diminished breath sounds bilaterally, on Vapotherm CARDIOVASCULAR: normal S1, S2; tachycardic ABDOMEN: Soft, S/p laparoscopy sx 01/28/19. left gastrostomy tube without erythema with black discharge in the tube. EXTREMITIES: No erythema, no tenderness LABORATORY DATA, IMAGING STUDIES, MICROBIOLOGY: Please see below. ASSESSMENT AND PLAN: 78-year-old female with past medical history of hypertension, dyslipidemia, GERD, and hypothyroidism presented to the ER with a chief complaint of abdominal pain which started after dinner on 01/26/19. In the ER, she was found to have a large hiatal hernia with an acute gastric volvulus. The surgical service admitted the patient for further intervention and management. This evening (01/27/19) the patient developed worsening hypoxia and was noted to require 15 L of oxygen via a nonrebreather. The hospitalist service was consulted for further evaluation of hypoxia. Patient was taken to surgery as mentioned below and was intubated and transferred to ICU after procedure. Patient had a trial of Vapotherm therapy after extubation but require BiPAP therapy. Subsequently she was place on vapotherm and gtube feeding stafrted by sx. She continue to improve. Hypoxic Respiratory Failure , resolvied now on 2liters nasal cannula -aspiration pneumonia/pneumonitis leading to mechanical ventilation and Bilateral infiltrates secondary to aspiration pneumonitis/pneumonia -Further treatment as per ICU Dr. Rosario/Dr. Rod, intubated for surgery 01/28/2019 and extubated on 01/30/2019. -After extubation patient utilized BiPAP, Vapotherm -Echo: nml Lt vent sys fxn. grade 1 lt vent diastolic dysfxn, AV sclerosis with trace AR but no . Trace MR. 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 small pericardial effusion noted, no evidence of cardiac tamponade. Bilateral pleural effusion was noted. -Pulmonary toiletry -Nasopharynx Resp virus panel: neg -Sputum culture: yeast -abx as per ICU Aspiration pneumonia completed course of antibiotics off zosyn, with increased wbc s/p steroids. repeat CT abd report reviewed pt c/o some nausea no vomiting, dysuria, urgency, frequency. slight pain at the gastrostomy tube site, but tolerable -ID Dr. Monge consulted. repeat cxr slight increase in pericardial effusion -on vanco and meropenem 02/08/19 Large hiatal hernia and acute gastric volvulus -laparoscopic reduction and repair of an incarcerated hiatal hernia with Dr. Light 01/28/19 -G tube placed by sx, clamped -postop pain management per surgery -repeat ct abd unchanged with b/l pleural effusions, gtube, pericardial effusion Electrical abnml -monitor and replace -Gtube feed as per surgery, trial oral feed planned for today by sx 02/03/19 Hypothyroidism -Levothyroxine GERD -IV Protonix Hx of HTN, Dyslipidemia -Resume Meds as needed DVT Prophylaxis per sx DISPOSITION:working well with physical therapy. A-FIB/CHADSVASC A-FIB History Current/History of A-Fib/PAF?: No Current Oral Anticoagulant The: No VS, I&O, 24H, Fishbone Vital Signs/I&O Vital Signs Date Time Temp Pulse Resp B/P (MAP) Pulse Ox O2 Delivery O2 Flow Rate FiO2 02/08/19 04:00 98.3 89 17 108/63 (78) 93 02/06/19 11:00 1.0 02/06/19 04:00 Nasal Cannula 02/05/19 07:00 30 I&O- Last 24 Hours up to 6 AM 02/08/19 06:00 Intake Total 980 ml Output Total 2550 ml Balance -1570 ml Laboratory Data 24H LABS Laboratory Tests 2 02/07/19 07:28: Immature Granulocyte % (Auto) 2.8, White Blood Count 31.5*H, Red Blood Count 3.95L, Hemoglobin 10.8L, Hematocrit 34.0L, Mean Corpuscular Volume 86.1, Mean Corpuscular Hemoglobin 27.3, Mean Corpuscular Hemoglobin Concent 31.8L, Red Cell Distribution Width 17.1H, Platelet Count 462H, Neutrophils (%) (Auto) 85.0H, Lymphocytes (%) (Auto) 4.8L, Monocytes (%) (Auto) 6.0H, Eosinophils (%) (Auto) 1.2, Basophils (%) (Auto) 0.2, Neutrophils # (Auto) 26.8H, Lymphocytes # (Auto) 1.5, Monocytes # (Auto) 1.9H, Eosinophils # (Auto) 0.4, Basophils # (Auto) 0.1, Nucleated Red Blood Cells % (auto) 0.0, Anion Gap 6L, Glomerular Filtration Rate > 60.0, Blood Urea Nitrogen 33H, Creatinine 0.90, Sodium Level 140, Potassium Level 3.7, Chloride Level 106, Carbon Dioxide Level 28, Calcium Level 9.9, Aspartate Amino Transf (AST/SGOT) 13, Alanine Aminotransferase (ALT/SGPT) 21, Alkaline Phosphatase 101, Total Bilirubin 1.0, Total Protein 5.1L, Albumin 2.4L, Albumin/Globulin Ratio 0.89L 02/07/19 09:37: Erythrocyte Sedimentation Rate 48H, Lactic Acid Level 1.1, C-Reactive Protein, Quantitative 12.10H 02/07/19 17:19: Urine Color YELLOW, Urine Appearance CLEAR, Urine pH 7.0, Urine Specific [place] 1.012, Urine Protein NEGATIVE, Urine Glucose (UA) NEGATIVE, Urine Ketones NEGATIVE, Urine Blood NEGATIVE, Urine Nitrite NEGATIVE, Urine Bilirubin NEGATIVE, Urine Urobilinogen 4.0H, Urine Leukocyte Esterase NEGATIVE, Urine WBC (Auto) 2, Urine RBC (Auto) 2, Urine Hyaline Casts (Auto) 0, Urine Bacteria (Auto) NEGATIVE, Urine Squamous Epithelial Cells 1, Urine Transitional Epithelial Cells <1, Urine Amorphous Sediment SMALLH, Urine Sperm (Auto) CBC/BMP Laboratory Tests 02/07/19 07:28 Red Blood Count 3.95 L, Mean Corpuscular Volume 86.1, Mean Corpuscular Hemoglobin 27.3, Mean Corpuscular Hemoglobin Concent 31.8 L, Red Cell Distribution Width 17.1 H, Neutrophils (%) (Auto) 85.0 H, Lymphocytes (%) (Auto) 4.8 L, Monocytes (%) (Auto) 6.0 H, Eosinophils (%) (Auto) 1.2, Basophils (%) (Au to) 0.2, Neutrophils # (Auto) 26.8 H, Lymphocytes # (Auto) 1.5, Monocytes # (Auto) 1.9 H, Eosinophils # (Auto) 0.4, Basophils # (Auto) 0.1, Calcium Level 9.9, Aspartate Amino Transf (AST/SGOT) 13, Alanine Aminotransferase (ALT/SGPT) 21, Alkaline Phosphatase 101, Total Bilirubin 1.0, Total Protein 5.1 L, Albumin 2.4 L Microbiology Microbiology 02/07/19 Blood Culture, Received Pending 02/07/19 Blood Culture, Received Pending 02/07/19 Abscess Culture, Received Pending JOHANNA GIL MD February 08, 2019 06:16
[2019-02-08] MEDS: NYSTATIN 500,000 U/5 ML SUSP UDC SS SCH ×4 (09:04→20:09)
[2019-02-08] MEDS: hydroCHLOROthiazide 25 MG TAB PO SCH (09:05)
[2019-02-08] MEDS: DIAPER RELIEF PASTE (DESITIN) 60GM TOP SCH ×4 (09:05→20:10)
[2019-02-08] MEDS: PANTOPRAZOLE 40MG TAB (PROTONIX) PO SCH (09:05)
[2019-02-08] MEDS: BRINZOLAMIDE 1 % OPHTH SUSP (AZOPT) 10ML OU SCH ×2 (09:05→20:09)
[2019-02-08 09:07] LABS: BASO # 0.1 10^3/uL (0.0-0.2); BASO % 0.3 % (0.0-1.0); EOS # 0.4 10^3/uL (0.0-0.50); EOS % 1.6 % (0.0-3.0); LYMPH # 1.7 10^3/uL (1.5-4.5); LYMPH % 7.2 % (24.0-44.0); MEAN CORPUSCULAR HEMOGLOBIN 27.8 pg (27.0-33.0); MEAN CORPUSCULAR HGB CONC 32.3 g/dl (32.0-36.5); MEAN CORPUSCULAR VOLUME 86.1 fl (80.0-96.0); MONO % 8.7 % (0.0-5.0); NEUTROPHILS # 19.2 10^3/uL (1.8-7.7); PLATELET COUNT, AUTOMATED 501 10^3/uL (150-450); WHITE BLOOD COUNT 24.1 10^3/uL (4.0-10.0)
[2019-02-08 09:25] LABS: BLOOD UREA NITROGEN 30 MG/DL (7-18); CALCIUM LEVEL 9.3 MG/DL (8.8-10.2); CARBON DIOXIDE LEVEL 26 MEQ/L (21-32); CHLORIDE LEVEL 105 MEQ/L (98-107); CREATININE FOR GFR 0.81 MG/DL (0.55-1.30); GLOMERULAR FILTRATION RATE > 60.0 (>39); GLUCOSE, FASTING 129 MG/DL (70-100); POTASSIUM SERUM 3.5 MEQ/L (3.5-5.1); SODIUM LEVEL 138 MEQ/L (136-145)
[2019-02-08 09:38] LABS: MONO # 2.1 10^3/uL (0.0-0.8)
--- NOTE | 2019-02-08 12:08 | PHACANCOPD ---
PHARMACY VANCOMYCIN DOSING Pt Demographics Demographics Patient Age:78 , Weight:70.600 , Gender: female Adjusted Body Weight Date: 02/08/19, Adjusted Body Weight: Kg Events Past 24 Hours Events Past 24 Hours: YES: Fever, Elevation in WBC; NO: Dialysis, Diuretic Therapy, Change in CrCl, Pending Diagnostics, Pending Procedures, Other Vancomycin Vancomycin Target Ranges: 15-20 mcg/ml Vancomycin Load Y/N: Yes Load Dose Date Time Vancomycin Load Dose: 1000MG Date: 02/07 Time: 19:30 Vancomycin Dose Date: 02/08/19. Current Vancomycin Dose: [1g IV q12h @06] Intermittent Dosing?: No Labs Labs Item Value Date Time White Blood Count 24.1 10^3/uL H 02/08/19 0826 White Blood Count 31.5 10^3/uL *H 02/07/19 0728 Creatinine 0.90 MG/DL 02/07/19 0728 Creatinine 0.81 MG/DL 02/08/19 0826 C-Reactive Protein, Quantitative 12.10 MG/DL H 02/07/19 0937 Erythrocyte Sedimentation Rate 48 mm/hr H 02/07/19 0937 Micro Microbiology 02/07/19 Blood Culture - Preliminary, Resulted No growth after 24 hours . All specim... 02/07/19 Blood Culture - Preliminary, Resulted No growth after 24 hours . All specim... 02/07/19 Abscess Culture - Preliminary, Resulted Yeast Like Organism Creatinine Clearance Date:02/07/19. Creatinine Clearance: [47 ml/min]. Pending Labs Vanco trough scheduled 02/09 @05:00 Assessment and Plan Maintaining Current Dose?: Yes Reason for dose change: No Dose Change Pharmacist Note Pharmacist Note Date: 02/08/19. Pharmacist note: pt has been started on meropenem and vancomycin. She has not been on vancomycin at our facility in the past. Inflammatory markers have been trending up. I have started her on vancomycin 1g yesterday evening followed by 1g IV q12h @06, ~10 hours later. I have a trough scheduled for tomorrow morning. We will continue to monitor and follow up with the level in the morning. Eleazar Capone Pharm.D. February 08, 2019 12:08
[2019-02-08] MEDS: ENOXAPARIN 40 MG/0.4 ML SYRINGE (J1650) SC SCH (13:17)
[2019-02-08] MEDS: LATANOPROST 0.005% OPHTH SOLN 2.5 ML OU SCH (20:10)
[2019-02-09] MEDS: NORCO, ANEXSIA 5/325MG TABLET (HYDROcodone/ACETAMINOPHEN) PO PRN ×4 (00:30→13:42)
[2019-02-09] MEDS: MEROPENEM INJ 1 GM in IV 1 EA IV SCH ×3 (00:30→17:23)
[2019-02-09] MEDS: SIMETHICONE 80 MG CHEW TAB PO PRN (03:10)
[2019-02-09] MEDS: SODIUM CHLORIDE HYPERTONIC 3% 15ML NEB SOL INH SCH ×7 (03:57→23:28)
[2019-02-09] MEDS: ALBUTEROL SULFATE 2.5 MG/0.5 ML INH NEB SOLN NEB SCH ×7 (03:57→23:28)
[2019-02-09 04:00] VITALS: BP 117/57
[2019-02-09 05:22] LABS: BASO # 0.1 10^3/uL (0.0-0.2); BASO % 0.2 % (0.0-1.0); EOS # 0.3 10^3/uL (0.0-0.50); EOS % 1.2 % (0.0-3.0); HEMATOCRIT 31.7 % (36.0-47.0); HEMOGLOBIN 10.1 g/dl (12.0-15.5); LYMPH # 1.4 10^3/uL (1.5-4.5); LYMPH % 6.5 % (24.0-44.0); MEAN CORPUSCULAR HEMOGLOBIN 27.6 pg (27.0-33.0); MEAN CORPUSCULAR HGB CONC 31.9 g/dl (32.0-36.5); MEAN CORPUSCULAR VOLUME 86.6 fl (80.0-96.0); MONO % 9.6 % (0.0-5.0); NEUTROPHILS # 16.9 10^3/uL (1.8-7.7); NEUTROPHILS % 80.5 % (36.0-66.0); PLATELET COUNT, AUTOMATED 547 10^3/uL (150-450); RED BLOOD COUNT 3.66 10^6/uL (4.00-5.40)
[2019-02-09 05:44] LABS: ALBUMIN 2.2 GM/DL (3.2-5.2); ALT/SGPT 19 U/L (12-78); BLOOD UREA NITROGEN 22 MG/DL (7-18); C REACTIVE PROTEIN QUANTITATIV 9.19 MG/DL (0.00-0.30); CALCIUM LEVEL 9.5 MG/DL (8.8-10.2); CARBON DIOXIDE LEVEL 30 MEQ/L (21-32); CHLORIDE LEVEL 103 MEQ/L (98-107); CREATININE FOR GFR 0.81 MG/DL (0.55-1.30); GLOMERULAR FILTRATION RATE > 60.0 (>39); GLUCOSE, FASTING 123 MG/DL (70-100); POTASSIUM SERUM 3.2 MEQ/L (3.5-5.1); SODIUM LEVEL 137 MEQ/L (136-145); TOTAL PROTEIN 5.8 GM/DL (6.4-8.2)
--- NOTE | 2019-02-09 06:09 | PHACANCOPD ---
PHARMACY VANCOMYCIN DOSING Pt Demographics Demographics Patient Age:78 , Weight:68.200 , Gender: female Adjusted Body Weight Date: 02/08/19, Adjusted Body Weight: Kg Vancomycin Vancomycin Target Ranges: 15-20 mcg/ml Vancomycin Load Y/N: Yes Load Dose Date Time Vancomycin Load Dose: 1000MG Date: 02/07 Time: 19:30 Vancomycin Dose Date: 02/08/19. Current Vancomycin Dose: (750MG IV q12h @06] Intermittent Dosing?: No Labs Micro Microbiology 02/07/19 Blood Culture - Preliminary, Resulted No growth after 24 hours . All specim... 02/07/19 Blood Culture - Preliminary, Resulted No growth after 24 hours . All specim... 02/07/19 Abscess Culture - Preliminary, Resulted Yeast Like Organism Creatinine Clearance Date:02/07/19. Creatinine Clearance: [47 ml/min]. Assessment and Plan Maintaining Current Dose?: No Reason for dose change: Trough too high Pharmacist Note Pharmacist Note Date: 02/09/19. Pharmacist note:Vancomycin trough drawn this morning@5:06 reported as 19.0.SCR is stable,but will change dose D/T age to Vancomycin 750mg IV [id number] to begin this morning.Trough scheduled 02/10@1700-will continue to follow Date: 02/08/19. Pharmacist note: pt has been started on meropenem and vancomycin. She has not been on vancomycin at our facility in the past. Inflammatory markers have been trending up. I have started her on vancomycin 1g yesterday evening followed by 1g IV q12h @06, ~10 hours later. I have a trough scheduled for tomorrow morning. We will continue to monitor and follow up with the level in the morning. ANA [facility] February 09, 2019 06:09
[2019-02-09] MEDS: LEVOTHYROXINE 25MCG TABLET (0.025MG) PO SCH (06:15)
[2019-02-09] MEDS: VANCOMYCIN HCL 750 MG, VIAL MATE ADAPTER 1 EACH in D5W 250 ML IV SCH ×2 (06:15→18:11)
[2019-02-09] MEDS: SLF 3 ML SYR IV SCH ×3 (06:15→21:01)
[2019-02-09 06:25] LABS: ERYTHROCYTE SEDIMENTATION RATE 61 mm/hr (0-30)
[2019-02-09 08:00] VITALS: BP 97/51
[2019-02-09] MEDS: NYSTATIN 500,000 U/5 ML SUSP UDC SS SCH ×4 (08:59→21:00)
[2019-02-09] MEDS: BRINZOLAMIDE 1 % OPHTH SUSP (AZOPT) 10ML OU SCH ×2 (08:59→21:00)
[2019-02-09] MEDS: hydroCHLOROthiazide 25 MG TAB PO SCH (09:00)
[2019-02-09] MEDS: PANTOPRAZOLE 40MG TAB (PROTONIX) PO SCH (09:00)
[2019-02-09] MEDS: DIAPER RELIEF PASTE (DESITIN) 60GM TOP SCH ×4 (09:10→21:01)
[2019-02-09] MEDS ORDERED: POTASSIUM CHLORIDE 10 MEQ SR TABLET PO ONE (09:15)
[2019-02-09 12:00] VITALS: BP 103/58
--- NOTE | 2019-02-09 13:34 | IPNPDOC ---
Date Seen The patient was seen on 02/09/19. Progress Note SUBJECTIVE: Pt c/o worsening skin excoriations at the G tube site that is painful. Despite q2hr, dressing changes, skin remains irritated even with dessitin cream. Pt is requiring every 4hour pain meds. no fever, chills, and remains on vanco and meropenem with decreasing white count. OBJECTIVE PHYSICAL EXAMINATION: VITAL SIGNS: Please see below. GENERAL APPEARANCE: Awake HEENT: Normocephalic, atraumatic RESPIRATORY: Diminished breath sounds bilaterally, on Vapotherm CARDIOVASCULAR: normal S1, S2; tachycardic ABDOMEN: Soft, S/p laparoscopy sx 01/28/19. left gastrostomy tube without erythema with black discharge in the tube. EXTREMITIES: No erythema, no tenderness LABORATORY DATA, IMAGING STUDIES, MICROBIOLOGY: Please see below. ASSESSMENT AND PLAN: 78-year-old female with past medical history of hypertension, dyslipidemia, GERD, and hypothyroidism presented to the ER with a chief complaint of abdominal pain which started after dinner on 01/26/19. In the ER, she was found to have a large hiatal hernia with an acute gastric volvulus. The surgical service admitted the patient for further intervention and management. This evening (01/27/19) the patient developed worsening hypoxia and was noted to require 15 L of oxygen via a nonrebreather. The hospitalist service was consulted for further evaluation of hypoxia. Patient was taken to surgery as mentioned below and was intubated and transferred to ICU after procedure. Patient had a trial of Vapotherm therapy after extubation but require BiPAP therapy. Subsequently she was place on vapotherm and gtube feeding stafrted by sx. She continue to improve. Hypoxic Respiratory Failure , resolvied now on 2liters nasal cannula -aspiration pneumonia/pneumonitis leading to mechanical ventilation and Bilateral infiltrates secondary to aspiration pneumonitis/pneumonia -Further treatment as per ICU Dr. Rosario/Dr. Rod, intubated for surgery 01/28/2019 and extubated on 01/30/2019. -After extubation patient utilized BiPAP, Vapotherm -Echo: nml Lt vent sys fxn. grade 1 lt vent diastolic dysfxn, AV sclerosis with trace AR but no . Trace MR. 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 small pericardial effusion noted, no evidence of cardiac tamponade. Bilateral pleural effusion was noted. -Pulmonary toiletry -Nasopharynx Resp virus panel: neg -Sputum culture: yeast -abx as per ICU Aspiration pneumonia completed course of antibiotics off zosyn, with increased wbc s/p steroids. repeat CT abd report reviewed pt c/o some nausea no vomiting, dysuria, urgency, frequency. slight pain at the gastrostomy tube site, but tolerable -ID Dr. Monge consulted. repeat cxr slight increase in pericardial effusion -on vanco and meropenem 02/08/19 Large hiatal hernia and acute gastric volvulus -laparoscopic reduction and repair of an incarcerated hiatal hernia with Dr. Light 01/28/19 -G tube placed by sx, clamped -postop pain management per surgery -repeat ct abd unchanged with b/l pleural effusions, gtube, pericardial effusion Electrical abnml -monitor and replace -Gtube feed as per surgery, trial oral feed planned for today by sx 02/03/19 Hypothyroidism -Levothyroxine GERD -IV Protonix Hx of HTN, Dyslipidemia -Resume Meds as needed DVT Prophylaxis per sx DISPOSITION:working well with physical therapy. A-FIB/CHADSVASC SCREEN A-FIB/CHADSVASC A-FIB History Current/History of A-Fib/PAF?: No Current Oral Anticoagulant The: No A-FIB/CHADSVASC A-FIB History Current/History of A-Fib/PAF?: No Current Oral Anticoagulant The: No VS, I&O, 24H, Fishbone Vital Signs/I&O Vital Signs Date Time Temp Pulse Resp B/P (MAP) Pulse Ox O2 Delivery O2 Flow Rate FiO2 02/09/19 05:24 18 02/09/19 04:00 97.4 84 117/57 (77) 93 02/06/19 11:00 1.0 02/06/19 04:00 Nasal Cannula 02/05/19 07:00 30 I&O- Last 24 Hours up to 6 AM 02/09/19 06:00 Intake Total 1110 ml Output Total 1225 ml Balance -115 ml Laboratory Data 24H LABS Laboratory Tests 2 02/08/19 08:26: Immature Granulocyte % (Auto) 2.2, White Blood Count 24.1H, Red Blood Count 3.60L, Hemoglobin 10.0L, Hematocrit 31.0L, Mean Corpuscular Volume 86.1, Mean Corpuscular Hemoglobin 27.8, Mean Corpuscular Hemoglobin Concent 32.3, Red Cell Distribution Width 17.1H, Platelet Count 501H, Neutrophils (%) (Auto) 80.0H, Lymphocytes (%) (Auto) 7.2L, Monocytes (%) (Auto) 8.7H, Eosinophils (%) (Auto) 1.6, Basophils (%) (Auto) 0.3, Neutrophils # (Auto) 19.2H, Lymphocytes # (Auto) 1.7, Monocytes # (Auto) 2.1H, Eosinophils # (Auto) 0.4, Basophils # (Auto) 0.1, Nucleated Red Blood Cells % (auto) 0.1H, Anion Gap 7L, Glomerular Filtration Rate > 60.0, Blood Urea Nitrogen 30H, Creatinine 0.81, Sodium Level 138, Potassi um Level 3.5, Chloride Level 105, Carbon Dioxide Level 26, Calcium Level 9.3 02/09/19 05:06: Immature Granulocyte % (Auto) 2.0, White Blood Count 21.0H, Red Blood Count 3.66L, Hemoglobin 10.1L, Hematocrit 31.7L, Mean Corpuscular Volume 86.6, Mean Corpuscular Hemoglobin 27.6, Mean Corpuscular Hemoglobin Concent 31.9L, Red Cell Distribution Width 16.9H, Platelet Count 547H, Neutrophils (%) (Auto) 80.5H, Lymphocytes (%) (Auto) 6.5L, Monocytes (%) (Auto) 9.6H, Eosinophils (%) (Auto) 1.2, Basophils (%) (Auto) 0.2, Neutrophils # (Auto) 16.9H, Lymphocytes # (Auto) 1.4L, Monocytes # (Auto) 2.0H, Eosinophils # (Auto) 0.3, Basophils # (Auto) 0.1, Nucleated Red Blood Cells % (auto) 0.0, Anion Gap 4L, Glomerular Filtration Rate > 60.0, Blood Urea Nitrogen 22H, Creatinine 0.81, Sodium Level 137, Potassium Level 3.2L, Chloride Level 103, Carbon Dioxide Level 30, Calcium Level 9.5, Erythrocyte Sedimentation Rate 61H, Aspartate Amino Transf (AST/SGOT) 9, Alanine Aminotransferase (ALT/SGPT) 19, Alkaline Phosphatase 88, Total Bilirubin 1.0, Total Protein 5.8L, Albumin 2.2L, C-Reactive Protein, Quantitative 9.19H, Albumin/Globulin Ratio 0.61L, Vancomycin Level Trough 19.0 CBC/BMP Laboratory Tests 02/08/19 08:26 Red Blood Count 3.60 L, Mean Corpuscular Volume 86.1, Mean Corpuscular Hemoglobin 27.8, Mean Corpuscular Hemoglobin Concent 32.3, Red Cell Distribution Width 17.1 H, Neutrophils (%) (Auto) 80.0 H, Lymphocytes (%) (Auto) 7.2 L, Monocytes (%) (Auto) 8.7 H, Eosinophils (%) (Auto) 1.6, Basophils (%) (Auto) 0.3, Neutrophils # (Auto) 19.2 H, Lymphocytes # (Auto) 1.7, Monocytes # (Auto) 2.1 H, Eosinophils # (Auto) 0.4, Basophils # (Auto) 0.1, Calcium Level 9.3 02/09/19 05:06 Red Blood Count 3.66 L, Mean Corpuscular Volume 86.6, Mean Corpuscular Hemoglobin 27.6, Mean Corpuscular Hemoglobin Concent 31.9 L, Red Cell Distribution Width 16.9 H, Neutrophils (%) (Auto) 80.5 H, Lymphocytes (%) (Auto) 6.5 L, Monocytes (%) (Auto) 9.6 H, Eosinophils (%) (Auto) 1.2, Basophils (%) (Auto) 0.2, Neutrophils # (Auto) 16.9 H, Lymphocytes # (Auto) 1.4 L, Monocytes # (Auto) 2.0 H, Eosinophils # (Auto) 0.3, Basophils # (Auto) 0.1, Calcium Level 9.5, Aspartate Amino Transf (AST/SGOT) 9, Alanine Aminotransferase (ALT/SGPT) 19, Alkaline Phosphatase 88, Total Bilirubin 1.0, Total Protein 5.8 L, Albumin 2.2 L Microbiology Microbiology 02/07/19 Blood Culture - Preliminary, Resulted No growth after 24 hours . All specim... 02/07/19 Blood Culture - Preliminary, Resulted No growth after 24 hours . All specim... 02/07/19 Abscess Culture - Preliminary, Resulted Yeast Like Organism JOHANNA GIL MD February 09, 2019 07:08
[2019-02-09] MEDS: ENOXAPARIN 40 MG/0.4 ML SYRINGE (J1650) SC SCH (13:42)
[2019-02-09 16:00] VITALS: BP 97/56
[2019-02-09] MEDS: ACETAMINOPHEN 500 MG TAB PO PRN (19:39)
[2019-02-09 20:00] VITALS: BP 109/55
[2019-02-09] MEDS: LATANOPROST 0.005% OPHTH SOLN 2.5 ML OU SCH (21:01)
[2019-02-09 23:59] VITALS: BP 108/54
[2019-02-10] MEDS: MEROPENEM INJ 1 GM in IV 1 EA IV SCH ×3 (00:35→17:48)
[2019-02-10] MEDS: ALBUTEROL SULFATE 2.5 MG/0.5 ML INH NEB SOLN NEB SCH ×5 (03:19→20:00)
[2019-02-10] MEDS: SODIUM CHLORIDE HYPERTONIC 3% 15ML NEB SOL INH SCH ×5 (03:19→20:00)
[2019-02-10 04:00] VITALS: BP 104/54
[2019-02-10 05:04] LABS: BASO % 0.2 % (0.0-1.0); EOS # 0.3 10^3/uL (0.0-0.50); EOS % 1.7 % (0.0-3.0); HEMATOCRIT 29.6 % (36.0-47.0); HEMOGLOBIN 9.5 g/dl (12.0-15.5); LYMPH # 1.7 10^3/uL (1.5-4.5); LYMPH % 9.9 % (24.0-44.0); MEAN CORPUSCULAR HGB CONC 32.1 g/dl (32.0-36.5); MEAN CORPUSCULAR VOLUME 87.3 fl (80.0-96.0); MONO % 12.2 % (0.0-5.0); NEUTROPHILS # 12.6 10^3/uL (1.8-7.7); NEUTROPHILS % 74.1 % (36.0-66.0); PLATELET COUNT, AUTOMATED 583 10^3/uL (150-450); RED BLOOD COUNT 3.39 10^6/uL (4.00-5.40)
[2019-02-10 05:24] LABS: ALBUMIN 2.2 GM/DL (3.2-5.2); ALT/SGPT 21 U/L (12-78); BILIRUBIN,TOTAL 0.7 MG/DL (0.2-1.0); BLOOD UREA NITROGEN 20 MG/DL (7-18); CALCIUM LEVEL 9.5 MG/DL (8.8-10.2); CARBON DIOXIDE LEVEL 28 MEQ/L (21-32); CHLORIDE LEVEL 104 MEQ/L (98-107); CREATININE FOR GFR 0.82 MG/DL (0.55-1.30); GLOMERULAR FILTRATION RATE > 60.0 (>39); GLUCOSE, FASTING 107 MG/DL (70-100); POTASSIUM SERUM 3.4 MEQ/L (3.5-5.1); SODIUM LEVEL 136 MEQ/L (136-145); TOTAL PROTEIN 5.7 GM/DL (6.4-8.2)
[2019-02-10] MEDS: SLF 3 ML SYR IV SCH ×3 (05:32→21:21)
[2019-02-10] MEDS: VANCOMYCIN HCL 750 MG, VIAL MATE ADAPTER 1 EACH in D5W 250 ML IV SCH (05:32)
[2019-02-10] MEDS: LEVOTHYROXINE 25MCG TABLET (0.025MG) PO SCH (05:32)
[2019-02-10 05:52] LABS: MONO # 2.1 10^3/uL (0.0-0.8)
[2019-02-10 05:54] LABS: ERYTHROCYTE SEDIMENTATION RATE 60 mm/hr (0-30)
--- NOTE | 2019-02-10 05:58 | IPN ---
DATE OF VISIT: 02/09/2019 HISTORY: The patient is now postoperative day number 12 from laparoscopic reduction and repair of a large incarcerated hiatal hernia with gastric volvulus. A gastric (G-tube) was placed at the time of the procedure. She had significant problems with aspiration both before and possibly during her surgery. She required ventilation for about two days and has then had gradually clearing of her respiratory status. Several days ago she started draining some fluid around her G tube and it was noted that she had some purulent appearing material coming from around the tube. She was seen by Dr. Monge of infectious disease yesterday who started her on antibiotics with meropenem and vancomycin. The patient has been eating small amounts and having some pain around the G-tube site. VITAL SIGNS: Vital signs show that she has been afebrile over the past 24 hours. Her pulse is in the 70s and 80s. Blood pressure has been generally fairly stable for the last several days. Intake and output show that yesterday she had 13 50 recorded in with 1750 recorded out, all of it urine. Her weight is remaining 68-70 kg routinely. PHYSICAL EXAMINATION: GENERAL: The patient is lying quietly in the hospital bed. She appears tired but otherwise does not appear to be in great discomfort. HEENT: Sclerae are anicteric. HEART: Heart exam shows a regular rate and rhythm. LUNGS: The lungs show generally clear breath sounds bilaterally. ABDOMEN: The abdomen is nondistended. She has active bowel sounds. Her surgical incisions are all healing well with Steri-Strips still in place. The abdomen is soft and without significant tenderness. Her G-tube site has a bulky bandage around it and as it is adjusted there is a small amount of old reddish brown fluid that drains around the entry site of the tube. LABORATORY DATA: Studies show that today her white blood cell count is down to 21,000 from 31,000 on 02/07. Her hemoglobin is 10 with a hematocrit of 32 and the platelet count is 547,000. The differential count shows 80% neutrophils, 7% lymphocytes and 10% monocytes. Chemistry profile shows a sodium of 137, potassium 3.2, chloride 103, CO2 of 30, BUN of 22, creatinine 0.89, glucose of 123. A C-reactive protein today is 9.2 and was 12 on the 02/07. Microbiology shows that the culture from her G-tube site is growing a heavy growth of a yeastlike organism but this is still a preliminary report. IMPRESSION: The patient appears overall stable. Her respiratory status is good. Her dietary intake is not so good right at this time. She has some drainage around her gastric (G) tube though I think this is less than it had been and is more liquid and less purulent in appearance. Her CT scan the other day did not show a large undrained collection. PLAN: The patient will remain on the antibiotics for now. I encouraged her to eat as she is able. We will continue with the frequent dressing changes at the G-tube site in hopes that this will continue to heal. We will continue her physical therapy as she can tolerate it. ROCIO
[2019-02-10] MEDS ORDERED: POTASSIUM CHLORIDE 10 MEQ SR TABLET PO ONE (07:00)
[2019-02-10 07:02] VITALS: BP 106/56
[2019-02-10 07:16] LABS: MAGNESIUM LEVEL 1.8 MG/DL (1.8-2.4)
[2019-02-10] MEDS: NYSTATIN 500,000 U/5 ML SUSP UDC SS SCH ×3 (09:00→17:00)
[2019-02-10] MEDS: PANTOPRAZOLE 40MG TAB (PROTONIX) PO SCH (09:05)
[2019-02-10] MEDS: DIAPER RELIEF PASTE (DESITIN) 60GM TOP SCH ×4 (09:06→21:00)
[2019-02-10] MEDS: BRINZOLAMIDE 1 % OPHTH SUSP (AZOPT) 10ML OU SCH ×2 (09:06→21:20)
--- NOTE | 2019-02-10 09:36 | IPNPDOC ---
Date Seen The patient was seen on 02/10/19. Progress Note SUBJECTIVE: K remains low despite daily supplementation. Per PFS, still waiting for a rehab bed. Pt does NOT want to go to [facility] or [facility]. "I don't know if they can take care of this-pointing to her G tube. I want to stay here-[facility]." PFS informed. Pt c/o worsening skin excoriations at the G tube site that is painful. Despite q2hr, dressing changes, skin remains irritated even with dessitin cream. Pt is requiring every 4hour pain meds. no fever, chills, and remains on vanco and meropenem with decreasing white count. OBJECTIVE PHYSICAL EXAMINATION: VITAL SIGNS: Please see below. GENERAL APPEARANCE: Awake HEENT: Normocephalic, atraumatic RESPIRATORY: Diminished breath sounds bilaterally, on Vapotherm CARDIOVASCULAR: normal S1, S2; tachycardic ABDOMEN: Soft, S/p laparoscopy sx 01/28/19. left gastrostomy tube without erythema with black discharge in the tube. EXTREMITIES: No erythema, no tenderness LABORATORY DATA, IMAGING STUDIES, MICROBIOLOGY: Please see below. ASSESSMENT AND PLAN: 78-year-old female with past medical history of hypertension, dyslipidemia, GERD, and hypothyroidism presented to the ER with a chief complaint of abdominal pain which started after dinner on 01/26/19. In the ER, she was found to have a large hiatal hernia with an acute gastric volvulus. The surgical service admitted the patient for further intervention and management. This evening (01/07 11/26) the patient developed worsening hypoxia and was noted to require 15 L of oxygen via a nonrebreather. The hospitalist service was consulted for further evaluation of hypoxia. Patient was taken to surgery as mentioned below and was intubated and transferred to ICU after procedure. Patient had a trial of Vapotherm therapy after extubation but require BiPAP therapy. Subsequently she was place on vapotherm and gtube feeding stafrted by sx. She continue to improve. Hypoxic Respiratory Failure , resolvied now on 2liters nasal cannula -aspiration pneumonia/pneumonitis leading to mechanical ventilation and Bilateral infiltrates secondary to aspiration pneumonitis/pneumonia -Further treatment as per ICU Dr. Rosario/Dr. Rod, intubated for surgery 01/28/2019 and extubated on 01/30/2019. -After extubation patient utilized BiPAP, Vapotherm -Echo: nml Lt vent sys fxn. grade 1 lt vent diastolic dysfxn, AV sclerosis with trace AR but no . Trace MR. 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 small pericardial effusion noted, no evidence of cardiac tamponade. Bilateral pleural effusion was noted. -Pulmonary toiletry -Nasopharynx Resp virus panel: neg -Sputum culture: yeast -abx as per ICU Aspiration pneumonia completed course of antibiotics off zosyn, with increased wbc s/p steroids. repeat CT abd report reviewed pt c/o some nausea no vomiting, dysuria, urgency, frequency. slight pain at the gastrostomy tube site, but tolerable -ID Dr. Monge consulted. repeat cxr slight increase in pericardial effusion -on vanco and meropenem 02/08/19 Large hiatal hernia and acute gastric volvulus -laparoscopic reduction and repair of an incarcerated hiatal hernia with Dr. Light 01/28/19 -G tube placed by sx, clamped -postop pain management per surgery -repeat ct abd unchanged with b/l pleural effusions, gtube, pericardial effusion Electrical abnml-hypokalemia -monitor and replace -Gtube feed as per surgery, tolerating oral feed 02/03/19 Hypothyroidism -Levothyroxine GERD -IV Protonix Hx of HTN, Dyslipidemia -Resume Meds as needed DVT Prophylaxis per sx DISPOSITION:working well with physical therapy. A-FIB/CHADSVASC A-FIB History Current/History of A-Fib/PAF?: No Current Oral Anticoagulant The: No VS, I&O, 24H, Fishbone Vital Signs/I&O Vital Signs Date Time Temp Pulse Resp B/P (MAP) Pulse Ox O2 Delivery O2 Flow Rate FiO2 02/10/19 04:00 97.9 82 18 104/54 (71) 94 02/06/19 11:00 1.0 02/06/19 04:00 Nasal Cannula 02/05/19 07:00 30 I&O- Last 24 Hours up to 6 AM 02/10/19 06:00 Intake Total 510 ml Output Total 1100 ml Balance -590 ml Laboratory Data 24H LABS Laboratory Tests 2 02/10/19 04:32: Immature Granulocyte % (Auto) 1.9, White Blood Count 17.0H, Red Blood Count 3.39L, Hemoglobin 9.5L, Hematocrit 29.6L, Mean Corpuscular Volume 87.3, Mean Corpuscular Hemoglobin 28.0, Mean Corpuscular Hemoglobin Concent 32.1, Red Cell Distribution Width 17.1H, Platelet Count 583H, Neutrophils (%) (Auto) 74.1H, Lymphocytes (%) (Auto) 9.9L, Monocytes (%) (Auto) 12.2H, Eosinophils (%) (Auto) 1.7, Basophils (%) (Auto) 0.2, Neutrophils # (Auto) 12.6H, Lymphocytes # (Auto) 1.7, Monocytes # (Auto) 2.1H, Eosinophils # (Auto) 0.3, Basophils # (Auto) 0.0, Nucleated Red Blood Cells % (auto) 0.1H, Erythrocyte Sedimentation Rate 60H, Anion Gap 4L, Glomerular Filtration Rate > 60.0, Blood Urea Nitrogen 20H, Creatinine 0.82, Sodium Level 136, Potassium Level 3.4L, Chloride Level 104, Carbon Dioxide Level 28, Calcium Level 9.5, Aspartate Amino Transf (AST/SGOT) 15, Alanine Aminotransferase (ALT/SGPT) 21, Alkaline Phosphatase 92, Total Bilirubin 0.7, Total Protein 5.7L, Albumin 2.2L, C-Reactive Protein, Quantitative 10.30H, Albumin/Globulin Ratio 0.63L CBC/BMP Laboratory Tests 02/10/19 04:32 Red Blood Count 3.39 L, Mean Corpuscular Volume 87.3, Mean Corpuscular Hemoglobin 28.0, Mean Corpuscular Hemoglobin Concent 32.1, Red Cell Distribution Width 17.1 H, Neutrophils (%) (Auto) 74.1 H, Lymphocytes (%) (Auto) 9.9 L, Monocytes (%) (Auto) 12.2 H, Eosinophils (%) (Auto) 1.7, Basophils (%) (Auto) 0.2, Neutrophils # (Auto) 12.6 H, Lymphocytes # (Auto) 1.7, Monocytes # (Auto) 2.1 H, Eosinophils # (Auto) 0.3, Basophils # (Auto) 0.0, Calcium Level 9.5, Aspartate Amino Transf (AST/SGOT) 15, Alanine Aminotransferase (ALT/SGPT) 21, Alkaline Phosphatase 92, Total Bilirubin 0.7, Total Protein 5.7 L, Albumin 2.2 L Microbiology Microbiology 02/07/19 Blood Culture - Preliminary, Resulted No Growth after 48 hours. All Specime... 02/07/19 Blood Culture - Preliminary, Resulted No Growth after 48 hours. All Specime... 02/07/19 Abscess Culture - Preliminary, Resulted Yeast Like Organism JOHANNA GIL MD February 10, 2019 06:59
[2019-02-10 12:00] VITALS: BP 118/59
[2019-02-10] MEDS: ACETAMINOPHEN 500 MG TAB PO PRN (14:28)
[2019-02-10] MEDS: ENOXAPARIN 40 MG/0.4 ML SYRINGE (J1650) SC SCH (14:28)
[2019-02-10 16:00] VITALS: BP 121/61
[2019-02-10] MEDS ORDERED: FLUCONAZOLE 100 MG TAB PO ONE (18:00)
--- NOTE | 2019-02-10 19:12 | IPN ---
DATE: 02/10/2019 HISTORY: The patient is now postop day 13 from surgery for her incarcerated hiatal hernia with gastric volvulus. She had suffered significant aspiration, and her condition required ventilatory support for several days. Her respiratory status has improved markedly. She remains quite weak. Her appetite is not good, and she is having some leakage of fluid around her G-tube site. Vital signs: The patient has been afebrile over the past 24 hours. Her pulse is in the 80s to 90. Her respiratory rate is 18 and her blood pressure is good. Intake and output shows that she has had yesterday 510 mL only recorded in with 1225 of urine output. PHYSICAL EXAMINATION: The patient is alert and oriented. She appears not to be in pain so much as uncomfortable and tired. Heart exam shows a regular rhythm. The lungs are clear. The abdomen is soft and without significant tenderness. On palpation around her G-tube, she does drain a small amount of murky dark fluid followed by some clear fluid. Laboratory studies show that today the patient's white count is down to 17 from a peak of 32,000 on February 07, 2019. Her hemoglobin is 10 with a hematocrit of 30 and her platelet count is 583,000. Differential count showed 74% neutrophils, 10% lymphocytes, and 12% monocytes. Chemistry profile showed her potassium was slightly low, but her BUN is 20 with a creatinine of 0.8. Her liver function tests are fine. A C-reactive protein was 10.3 with 9.2 yesterday, and her protein is 5.7 with an albumin of 2.2. Her culture results from the G-tube site have grown only heavy growth of yeast and Dr. Monge in consultation has started the patient on some fluconazole. The vancomycin has been discontinued. IMPRESSION: The patient's white count is falling nicely, and I believe the drainage around her G-tube has decreased somewhat. PLAN I applied an ostomy appliance around her G-tube site in hopes that this would allow it to drain as necessary, but collect it so that it did not irritate her skin. I did also tighten the tension on her tube slightly in hopes that this would help to seal the site without causing erosion through the gastric wall. We will continue otherwise with all of our supportive care. ROCIO
[2019-02-10 20:00] VITALS: BP 95/54
[2019-02-10] MEDS: LATANOPROST 0.005% OPHTH SOLN 2.5 ML OU SCH (21:20)
--- NOTE | 2019-02-10 22:42 | IPN ---
DATE: 02/10/2019 Mrs. Humphrey seems to be doing fairly well except that she feels exhausted by the end of the day. She has no nausea, vomiting or diarrhea. She still has a significant amount of drainage from around her G-tube. There is blackish mucoid drainage from around the G-tube, but there is also clear liquid that also drains in copious amounts. On physical exam, temperature is 98.4, pulse 96, respirations 19, blood pressure 95/54, oxygen saturation 93% on room air. Heart: Normal S1, S2. No murmurs. Lungs are clear. No wheezes, rales or rhonchi. Abdomen is soft, mildly tender in the left upper quadrant with G-tube in place. In the G-tube, there has been mucus drainage. Around the G tube, there is brownish-blackish large amount of mucus drainage and gastric secretions. There is also a rash around the G-tube. Wound cultures are positive for yeast-like organism. Final culture is still pending. Blood cultures from 02/07/2019 are no growth. White count is 17, hemoglobin 9.5, hematocrit 29.6, platelets 583. Her white count has decreased from 31.5 three days ago. Sodium 136, potassium 3.4, chloride 105, bicarbonate 28, BUN 20, creatinine 0.82, glucose 107, calcium 9.5, AST 15, ALT 21, alkaline phosphatase 92, CRP 10.3. Albumin 2.2. IMPRESSION: 1. Postoperative wound infection with a subcutaneous abscess around the G-tube with culture positive for yeast-like organism. Her white count has come down from 31,000 to 17,000 on vancomycin and Zosyn. I suspect also in the culture there will be some anaerobic bacteria, but since there is no evidence of methicillin-resistant Staphylococcus aureus (MRSA), vancomycin will be discontinued. 2. Rash around the G-tube. Suspect it is related to irritation from gastric acid. I have called Dr. Light to discuss the case recommended to the nurse to apply a lot of Desitin cream to decrease skin irritation. PLAN: Discontinue IV vancomycin. Continue IV Zosyn for gram-negative anaerobic coverage pending results of final cultures. Add fluconazole 200 mg by mouth daily with a loading dose of 400 mg by mouth today MTDD
[2019-02-11] VITALS: BP 109/59
[2019-02-11] MEDS: MEROPENEM INJ 1 GM in IV 1 EA IV SCH ×3 (01:46→17:24)
[2019-02-11] MEDS: SODIUM CHLORIDE HYPERTONIC 3% 15ML NEB SOL INH SCH ×2 (03:17)
[2019-02-11] MEDS: ALBUTEROL SULFATE 2.5 MG/0.5 ML INH NEB SOLN NEB SCH ×2 (03:18)
[2019-02-11 03:55] LABS: BASO # 0.1 10^3/uL (0.0-0.2); BASO % 0.3 % (0.0-1.0); EOS # 0.2 10^3/uL (0.0-0.50); EOS % 1.2 % (0.0-3.0); HEMOGLOBIN 9.5 g/dl (12.0-15.5); LYMPH # 1.6 10^3/uL (1.5-4.5); LYMPH % 8.9 % (24.0-44.0); MEAN CORPUSCULAR HEMOGLOBIN 27.8 pg (27.0-33.0); MEAN CORPUSCULAR HGB CONC 31.7 g/dl (32.0-36.5); MEAN CORPUSCULAR VOLUME 87.7 fl (80.0-96.0); MONO % 13.2 % (0.0-5.0); NEUTROPHILS # 13.2 10^3/uL (1.8-7.7); NEUTROPHILS % 75.2 % (36.0-66.0); PLATELET COUNT, AUTOMATED 618 10^3/uL (150-450); RED BLOOD COUNT 3.42 10^6/uL (4.00-5.40); WHITE BLOOD COUNT 17.6 10^3/uL (4.0-10.0)
[2019-02-11 03:56] LABS: MONO # 2.3 10^3/uL (0.0-0.8)
[2019-02-11 04:00] VITALS: BP 116/58
[2019-02-11 04:19] LABS: ALBUMIN 2.1 GM/DL (3.2-5.2); ALT/SGPT 22 U/L (12-78); BILIRUBIN,TOTAL 0.7 MG/DL (0.2-1.0); BLOOD UREA NITROGEN 16 MG/DL (7-18); CALCIUM LEVEL 9.5 MG/DL (8.8-10.2); CARBON DIOXIDE LEVEL 27 MEQ/L (21-32); CHLORIDE LEVEL 105 MEQ/L (98-107); CREATININE FOR GFR 0.88 MG/DL (0.55-1.30); GLOMERULAR FILTRATION RATE > 60.0 (>39); GLUCOSE, FASTING 105 MG/DL (70-100); POTASSIUM SERUM 3.9 MEQ/L (3.5-5.1); SODIUM LEVEL 139 MEQ/L (136-145); TOTAL PROTEIN 5.8 GM/DL (6.4-8.2)
[2019-02-11] MEDS: SLF 3 ML SYR IV SCH ×3 (06:00→21:15)
[2019-02-11] MEDS: LEVOTHYROXINE 25MCG TABLET (0.025MG) PO SCH (06:44)
[2019-02-11 08:00] VITALS: BP 106/63
[2019-02-11] MEDS: SIMETHICONE 80 MG CHEW TAB PO PRN ×2 (08:18→15:07)
[2019-02-11] MEDS: FLUCONAZOLE 100 MG TAB PO SCH (08:18)
[2019-02-11] MEDS: PANTOPRAZOLE 40MG TAB (PROTONIX) PO SCH (08:18)
[2019-02-11] MEDS: BRINZOLAMIDE 1 % OPHTH SUSP (AZOPT) 10ML OU SCH ×2 (08:22→21:13)
[2019-02-11] MEDS: DIAPER RELIEF PASTE (DESITIN) 60GM TOP SCH ×4 (09:00→21:00)
--- NOTE | 2019-02-11 09:55 | REP ---
PORTABLE CHEST X-RAY: Sitting AP view. HISTORY: Decreased breath sounds on the left. COMPARISON STUDY: February 07, 2019. Comparison CT study of the chest January 28, 2019. FINDINGS: There is fullness along the aortic knob and AP window region of the left heart border. This suggests some atelectatic change or consolidation in the adjacent left upper lobe. There is no evidence of mediastinal adenopathy on recent chest CT. There is increased density in the left base suggesting some degree of left pleural effusion. Right pleural angles are sharp. There is air and fluid density overlying the right heart suggesting a hiatal hernia. No new infiltrate is seen in the lung olivarez. IMPRESSION: Atelectasis or infiltrate suspected adjacent to the mediastinum in the left upper lobe. Left pleural effusion and hiatal hernia noted. Electronically Signed by Simone Holloway MD 02/11/2019 10:45 A
[2019-02-11] MEDS: ACETAMINOPHEN 500 MG TAB PO PRN ×2 (11:18→17:25)
[2019-02-11 12:00] VITALS: BP 114/55
--- NOTE | 2019-02-11 13:17 | IPNPDOC ---
Date Seen The patient was seen on 02/11/19. Progress Note SUBJECTIVE: Patient was seen and examined this morning. She states that her pain is improving around the G tube site. She does not complain of worsening in her breathing. She denies any wheezing or chest pain OBJECTIVE PHYSICAL EXAMINATION: VITAL SIGNS: Please see below. GENERAL: Awake, alert, and oriented. She appears in no acute distress. Lying comfortably in bed HEENT: Atraumatic, normocephalic. Eyes are non-icteric. Trachea is midline. Mucous membranes are pink and moist CARDIOVASCULAR: Normal S1, S2. Regular rate and rhythm. No clicks, rubs or murmurs RESPIRATORY: Diminished breath sounds on the left base. No wheezing. Good respiratory effort. Mild crackles in the right base ABDOMINAL: Soft, nondistended, nontender to palpation. No rebound tenderness or guarding. G-tube is in place and draining. Area around the insertion site of G- tube is slightly erythematous EXTREMITIES: No edema. Full and equal pulses in bilateral upper and lower extremities NEUROLOGICAL: No focal neurological deficits noted PSYCHOLOGICAL: Mood and affect appropriate LABORATORY DATA, IMAGING STUDIES, MICROBIOLOGY: Please see below. 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 The patient had a laproscopic reduction. The patient was unable to be weaned off ventilator after her surgery due to worsening hypoxia. She was found to have an aspiration pneumonia. Patient did improve and was extubated and placed on BiPAP. She was subsequently placed on vapotherm. PROBLEMS: 1. s/p Hypoxic Respiratory failure -Currently resolved. Patient is on currently on room air -Patient has been treated for possible aspiration pneumonia -Patient continued on pulmonary hygiene -Sputum culture showing yeast 2. Aspiration pneumonia -Patient has completed her antibiotics -Currently on Meropenem 02/08/19 followed by ID 3. Left sided pleural effusion -Patient has a left sided pleural effusion. Chest x-ray from today demonstrates persistent effusion although not significantly changed from previous. She does have atelectasis or infiltrate adjacent to the mediastinum in the left upper lobe 4. Large hiatal hernia and acute gastric volvulus -Currently stable. -Patient is followed by surgery 5. Post-operative wound infection w/ subcutaneous abscess around the G-tube -Patient is followed by ID. -Currently on meropenem -Culture positive for yeast like organism. Patient is currently on Fluconazole 6. GERD -Protonix 7. Hypothyroidism -Synthroid 8. DVT prophylaxis -Lovenox DISPOSITION: Patient will need placement into rehab A-FIB/CHADSVASC A-FIB History Current/History of A-Fib/PAF?: No VS, I&O, 24H, Fishbone Vital Signs/I&O Vital Signs Date Time Temp Pulse Resp B/P (MAP) Pulse Ox O2 Delivery O2 Flow Rate FiO2 02/11/19 08:00 96.8 96 16 106/63 (77) 94 02/06/19 11:00 1.0 02/06/19 04:00 Nasal Cannula 02/05/19 07:00 30 I&O- Last 24 Hours up to 6 AM 02/11/19 06:00 Intake Total 600 ml Output Total 850 ml Balance -250 ml Laboratory Data 24H LABS Laboratory Tests 2 02/11/19 03:44: Immature Granulocyte % (Auto) 1.2, White Blood Count 17.6H, Red Blood Count 3. 42L, Hemoglobin 9.5L, Hematocrit 30.0L, Mean Corpuscular Volume 87.7, Mean Corpuscular Hemoglobin 27.8, Mean Corpuscular Hemoglobin Concent 31.7L, Red Cell Distribution Width 17.4H, Platelet Count 618H, Neutrophils (%) (Auto) 75.2H, Lymphocytes (%) (Auto) 8.9L, Monocytes (%) (Auto) 13.2H, Eosinophils (%) (Auto) 1.2, Basophils (%) (Auto) 0.3, Neutrophils # (Auto) 13.2H, Lymphocytes # (Auto) 1.6, Monocytes # (Auto) 2.3H, Eosinophils # (Auto) 0.2, Basophils # (Auto) 0.1, Nucleated Red Blood Cells % (auto) 0.2H, Anion Gap 7L, Glomerular Filtration Rate > 60.0, Blood Urea Nitrogen 16, Creatinine 0.88, Sodium Level 139, Potassium Level 3.9, Chloride Level 105, Carbon Dioxide Level 27, Calcium Level 9.5, Aspartate Amino Transf (AST/SGOT) 17, Alanine Aminotransferase (ALT/SGPT) 22, Alkaline Phosphatase 96, Total Bilirubin 0.7, Total Protein 5.8L, Albumin 2.1L, C-Reactive Protein, Quantitative 14.10H, Albumin/Globulin Ratio 0.57L CBC/BMP Laboratory Tests 02/11/19 03:44 Red Blood Count 3.42 L, Mean Corpuscular Volume 87.7, Mean Corpuscular Hemoglobin 27.8, Mean Corpuscular Hemoglobin Concent 31.7 L, Red Cell Distribution Width 17.4 H, Neutrophils (%) (Auto) 75.2 H, Lymphocytes (%) (Auto) 8.9 L, Monocytes (%) (Auto) 13.2 H, Eosinophils (%) (Auto) 1.2, Basophils (%) (Auto) 0.3, Neutrophils # (Auto) 13.2 H, Lymphocytes # (Auto) 1.6, Monocytes # (Auto) 2.3 H, Eosinophils # (Auto) 0.2, Basophils # (Auto) 0.1, Calcium Level 9.5, Aspartate Amino Transf (AST/SGOT) 17, Alanine Aminotransferase (ALT/SGPT) 22, Alkaline Phosphatase 96, Total Bilirubin 0.7, Total Protein 5.8 L, Albumin 2.1 L Microbiology Microbiology 02/07/19 Blood Culture - Preliminary, Resulted No Growth after 72 hours. All specime... 02/07/19 Blood Culture - Preliminary, Resulted No Growth after 72 hours. All specime... 02/07/19 Abscess Culture - Preliminary, Resulted Yeast Like Organism GME ATTESTATION GME ATTESTATION My faculty preceptor for this patient encounter was physically present during th e encounter and was fully available. All aspects of the patient interview, examination, medical decision making process, and medical care plan development were reviewed and approved by the faculty preceptor. The faculty preceptor is aware and concurs with the plan as stated in the body of this note and will attest to such by his/her cosignature. ATTENDING NOTE I, Dariana Dee, have both independently examined this patient as well as reviewed the documentation. I have discussed in detail with the resident the findings and plan of treatment as documented by the resident. I agree with their findings and treatment plan. I will continue to follow the patient and offer further guidance to the patients care as necessary during this hospital stay. MICHAEL AYON DO February 11, 2019 13:17 DARIANA DEE MD February 11, 2019 15:27
[2019-02-11] MEDS: ENOXAPARIN 40 MG/0.4 ML SYRINGE (J1650) SC SCH (15:07)
[2019-02-11 16:00] VITALS: BP 126/60
[2019-02-11] MEDS ORDERED: MOM 30ML SUSPENSION UDC PO PRN (18:45)
[2019-02-11 20:00] VITALS: BP 115/67
[2019-02-11] MEDS: LATANOPROST 0.005% OPHTH SOLN 2.5 ML OU SCH (21:15)
[2019-02-11] MEDS: NORCO, ANEXSIA 5/325MG TABLET (HYDROcodone/ACETAMINOPHEN) PO PRN (23:02)
[2019-02-12] VITALS (7 sets, daily range): BP systolic 96–128; BP diastolic 58–65
[2019-02-12] MEDS: MEROPENEM INJ 1 GM in IV 1 EA IV SCH ×3 (01:09→17:55)
[2019-02-12 05:50] LABS: BASO # 0.1 10^3/uL (0.0-0.2); BASO % 0.3 % (0.0-1.0); EOS # 0.2 10^3/uL (0.0-0.50); EOS % 0.9 % (0.0-3.0); HEMATOCRIT 28.7 % (36.0-47.0); HEMOGLOBIN 9.2 g/dl (12.0-15.5); LYMPH # 1.1 10^3/uL (1.5-4.5); LYMPH % 5.4 % (24.0-44.0); MEAN CORPUSCULAR HEMOGLOBIN 28.1 pg (27.0-33.0); MEAN CORPUSCULAR HGB CONC 32.1 g/dl (32.0-36.5); MEAN CORPUSCULAR VOLUME 87.8 fl (80.0-96.0); MONO % 11.1 % (0.0-5.0); NEUTROPHILS % 81.3 % (36.0-66.0); PLATELET COUNT, AUTOMATED 614 10^3/uL (150-450); RED BLOOD COUNT 3.27 10^6/uL (4.00-5.40)
[2019-02-12] MEDS: SLF 3 ML SYR IV SCH ×3 (06:00→22:00)
[2019-02-12 06:21] LABS: ALT/SGPT 20 U/L (12-78); BILIRUBIN,TOTAL 0.8 MG/DL (0.2-1.0); BLOOD UREA NITROGEN 17 MG/DL (7-18); CALCIUM LEVEL 9.6 MG/DL (8.8-10.2); CARBON DIOXIDE LEVEL 25 MEQ/L (21-32); CHLORIDE LEVEL 108 MEQ/L (98-107); CREATININE FOR GFR 0.83 MG/DL (0.55-1.30); GLOMERULAR FILTRATION RATE > 60.0 (>39); GLUCOSE, FASTING 106 MG/DL (70-100); POTASSIUM SERUM 3.6 MEQ/L (3.5-5.1); SODIUM LEVEL 137 MEQ/L (136-145); TOTAL PROTEIN 5.5 GM/DL (6.4-8.2)
[2019-02-12 06:36] LABS: MONO # 2.3 10^3/uL (0.0-0.8)
[2019-02-12 06:37] LABS: ERYTHROCYTE SEDIMENTATION RATE 68 mm/hr (0-30)
[2019-02-12] MEDS: LEVOTHYROXINE 25MCG TABLET (0.025MG) PO SCH (06:56)
[2019-02-12] MEDS: NORCO, ANEXSIA 5/325MG TABLET (HYDROcodone/ACETAMINOPHEN) PO PRN ×2 (07:04→23:18)
[2019-02-12] MEDS: ACETYLCYSTEINE 20% 4 ML VIAL (200MG/ML) INH SCH ×2 (08:00→19:38)
[2019-02-12] MEDS: DIAPER RELIEF PASTE (DESITIN) 60GM TOP SCH ×4 (09:00→21:00)
[2019-02-12] MEDS: PANTOPRAZOLE 40MG TAB (PROTONIX) PO SCH (09:45)
[2019-02-12] MEDS: FLUCONAZOLE 100 MG TAB PO SCH (09:45)
[2019-02-12] MEDS: BRINZOLAMIDE 1 % OPHTH SUSP (AZOPT) 10ML OU SCH ×2 (09:45→21:20)
--- NOTE | 2019-02-12 10:24 | REP ---
CT CHEST WITHOUT CONTRAST: HISTORY: Decreased breath sounds on the left. Pleuritic pain. Comparison chest CT study January 28, 2019. CT FINDINGS: Esophagus is dilated and contains retained ingested material. A hiatal hernia is again seen containing a fluid-filled portion of the distal stomach similar previous although less dilated. There is pericardial effusion and there are small bilateral pleural effusions left greater than right. The pleural effusions are somewhat larger than on January 28, 2019 and there is a little more pericardial fluid as well. Left coronary artery vascular calcification is seen. No mass or adenopathy is observed in the mediastinum. There is improved aeration in the lung olivarez, particularly on the right, although there is minimal compressive atelectasis in the right base. On the left, there is collapse of much of the left upper lobe posteriorly with abrupt termination of the air column in the upper lobe bronchus. There is a calcified granuloma in the collapsed right upper lobe. Question mucous plugging. There is improved aeration in the lower lobe. There is a small peribronchovascular nodule in the left lower lobe superiorly. This measures 5 mm in diameter and is displayed on today's CT study page 32 of 103 in series 201. IMPRESSION: Improved aeration and improved infiltrates on the right. There is new lobar collapse in the left upper lobe. There are small bilateral pleural effusions and a small pericardial effusion. These have increased somewhat. A large hiatal hernia containing much of the stomach persists with air and food-filled dilated thoracic esophagus. There is abrupt termination of the air column in the left upper lobe bronchus suggesting mucous plugging. A 5 mm left lower lobe nodule is visible today. Electronically Signed by Simone Holloway MD 02/12/2019 03:39 P
--- NOTE | 2019-02-12 12:19 | IPNPDOC ---
Date Seen The patient was seen on 02/12/19. Progress Note SUBJECTIVE: Patient was seen and examined this morning. She currently mentions increased pain on her left side anterior rib cage that is worth with deep breaths. She denies chest pain. She denies any increased shortness of breath. She denies any diarrhea. She denies any fevers or chills. OBJECTIVE PHYSICAL EXAMINATION: VITAL SIGNS: Please see below. GENERAL: awake, alert, and oriented. Appears in no acute distress. Lying in bed HEENT: Atrumatic, normocephalic. Eyes are nonicteric. Trachea is midline. CARDIOVASCULAR: Normal S1, S2. Regular rate and rhythm no clicks rubs or murmurs RESPIRATORY: Scattered crackles throughout. Decreased breath sounds on left. No accessory muscle use. ABDOMINAL: Soft, nondistended. Slight tenderness to palpation of left upper quadrants at G-tube site. No rebound tenderness or guarding. Positive bowel sounds EXTREMITIES: No edema. Full and equal pulses in bilateral upper and lower extremities NEUROLOGICAL: No focal neurological deficits PSYCHOLOGICAL: Mood and affect appears appropriate LABORATORY DATA, IMAGING STUDIES, MICROBIOLOGY: Please see below. 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 The patient had a laproscopic reduction. The patient was unable to be weaned off ventilator after her surgery due to worsening hypoxia. She was found to have an aspiration pneumonia. Patient did improve and was extubated and placed on BiPAP. She was subsequently placed on vapotherm. PROBLEMS: 1. s/p Hypoxic Respiratory failure -Currently resolved. Patient is on currently on room air -Patient has been treated for possible aspiration pneumonia -Patient continued on pulmonary hygiene -Sputum culture showing yeast 2. Aspiration pneumonia -Patient has completed her antibiotics -Currently on Meropenem 02/08/19 followed by ID 3. Left sided pleural effusion -Patient has a left sided pleural effusion. -Chest CT demonstrating improved aeration and improved infiltrates on the right. New lobar collapse in left upper lobe likely 2/2 mucous plugging. Small bilateral pleural and pericardial effusions somewhat increased. -Chest PT and Mucomyst for mucous plugging. 4. Large hiatal hernia and acute gastric volvulus -Currently stable. -Patient is followed by surgery 5. Post-operative wound infection w/ subcutaneous abscess around the G-tube -Patient is followed by ID. -Currently on meropenem -Culture positive for yeast like organism. Patient is currently on Fluconazole 6. GERD -Protonix 7. Hypothyroidism -Synthroid 8. DVT prophylaxis -Lovenox DISPOSITION: Patient will need placement into rehab A-FIB/CHADSVASC A-FIB History Current/History of A-Fib/PAF?: No VS, I&O, 24H, Fishbone Vital Signs/I&O Vital Signs Date Time Temp Pulse Resp B/P (MAP) Pulse Ox O2 Delivery O2 Flow Rate FiO2 02/12/19 08:00 97.9 74 20 112/58 (76) 90 02/06/19 11:00 1.0 02/06/19 04:00 Nasal Cannula I&O- Last 24 Hours up to 6 AM 02/12/19 06:00 Intake Total 460 ml Output Total 1435 ml Balance -975 ml Laboratory Data 24H LABS Laboratory Tests 2 02/12/19 05:34: Immature Granulocyte % (Auto) 1.0, White Blood Count 21.0H, Red Blood Count 3.27L, Hemoglobin 9.2L, Hematocrit 28.7L, Mean Corpuscular Volume 87.8, Mean Cor puscular Hemoglobin 28.1, Mean Corpuscular Hemoglobin Concent 32.1, Red Cell Distribution Width 17.2H, Platelet Count 614H, Neutrophils (%) (Auto) 81.3H, Lymphocytes (%) (Auto) 5.4L, Monocytes (%) (Auto) 11.1H, Eosinophils (%) (Auto) 0.9, Basophils (%) (Auto) 0.3, Neutrophils # (Auto) 17.0H, Lymphocytes # (Auto) 1.1L, Monocytes # (Auto) 2.3H, Eosinophils # (Auto) 0.2, Basophils # (Auto) 0.1, Nucleated Red Blood Cells % (auto) 0.0, Erythrocyte Sedimentation Rate 68H, Anion Gap 4L, Glomerular Filtration Rate > 60.0, Blood Urea Nitrogen 17, Creatinine 0.83, Sodium Level 137, Potassium Level 3.6, Chloride Level 108H, Carbon Dioxide Level 25, Calcium Level 9.6, Aspartate Amino Transf (AST/SGOT) 1 7, Alanine Aminotransferase (ALT/SGPT) 20, Alkaline Phosphatase 98, Total Bilirubin 0.8, Total Protein 5.5L, Albumin 2.0L, C-Reactive Protein, Quantitative 23.80H, Albumin/Globulin Ratio 0.57L CBC/BMP Laboratory Tests 02/12/19 05:34 Red Blood Count 3.27 L, Mean Corpuscular Volume 87.8, Mean Corpuscular Hemoglobin 28.1, Mean Corpuscular Hemoglobin Concent 32.1, Red Cell Distribution Width 17.2 H, Neutrophils (%) (Auto) 81.3 H, Lymphocytes (%) (Auto) 5.4 L, Monocytes (%) (Auto) 11.1 H, Eosinophils (%) (Auto) 0.9, Basophils (%) (Auto) 0.3, Neutrophils # (Auto) 17.0 H, Lymphocytes # (Auto) 1.1 L, Monocytes # (Auto) 2.3 H, Eosinophils # (Auto) 0.2, Basophils # (Auto) 0.1, Calcium Level 9.6, Aspartate Amino Transf (AST/SGOT) 17, Alanine Aminotransferase (ALT/SGPT) 20, Alkaline Phosphatase 98, Total Bilirubin 0.8, Total Protein 5.5 L, Albumin 2.0 L Microbiology Microbiology 02/07/19 Blood Culture - Final, Complete NO GROWTH AFTER 5 DAYS 02/07/19 Blood Culture - Final, Complete NO GROWTH AFTER 5 DAYS 02/07/19 Abscess Culture - Final, Complete Naima Albicans GME ATTESTATION GME ATTESTATION My faculty preceptor for this patient encounter was physically present during t he encounter and was fully available. All aspects of the patient interview, examination, medical decision making process, and medical care plan development were reviewed and approved by the faculty preceptor. The faculty preceptor is aware and concurs with the plan as stated in the body of this note and will attest to such by his/her cosignature. ATTENDING NOTE I, Dariana Dee, have both independently examined this patient as well as reviewed the documentation. I have discussed in detail with the resident the findings and plan of treatment as documented by the resident. I agree with their findings and treatment plan. I will continue to follow the patient and offer further guidance to the patients care as necessary during this hospital stay. MICHAEL AYON DO February 12, 2019 12:07 DARIANA DEE MD February 12, 2019 14:34
[2019-02-12] MEDS: ENOXAPARIN 40 MG/0.4 ML SYRINGE (J1650) SC SCH (13:42)
[2019-02-12] MEDS: ALBUTEROL SULFATE 2.5 MG/0.5 ML INH NEB SOLN NEB PRN (19:38)
[2019-02-12] MEDS: LATANOPROST 0.005% OPHTH SOLN 2.5 ML OU SCH (21:20)
[2019-02-13] VITALS (8 sets, daily range): BP systolic 104–132; BP diastolic 55–76
[2019-02-13] MEDS: MEROPENEM INJ 1 GM in IV 1 EA IV SCH ×3 (01:59→18:03)
[2019-02-13 05:04] LABS: BASO % 0.2 % (0.0-1.0); EOS # 0.2 10^3/uL (0.0-0.50); HEMATOCRIT 29.4 % (36.0-47.0); HEMOGLOBIN 9.1 g/dl (12.0-15.5); LYMPH # 1.2 10^3/uL (1.5-4.5); LYMPH % 6.9 % (24.0-44.0); MEAN CORPUSCULAR HEMOGLOBIN 27.7 pg (27.0-33.0); MEAN CORPUSCULAR VOLUME 89.4 fl (80.0-96.0); MONO % 11.7 % (0.0-5.0); NEUTROPHILS # 13.5 10^3/uL (1.8-7.7); PLATELET COUNT, AUTOMATED 634 10^3/uL (150-450); RED BLOOD COUNT 3.29 10^6/uL (4.00-5.40)
[2019-02-13 05:46] LABS: ALBUMIN 1.7 GM/DL (3.2-5.2); ALT/SGPT 17 U/L (12-78); BILIRUBIN,TOTAL 0.6 MG/DL (0.2-1.0); BLOOD UREA NITROGEN 19 MG/DL (7-18); CALCIUM LEVEL 10.1 MG/DL (8.8-10.2); CARBON DIOXIDE LEVEL 27 MEQ/L (21-32); CHLORIDE LEVEL 107 MEQ/L (98-107); CREATININE FOR GFR 0.82 MG/DL (0.55-1.30); GLOMERULAR FILTRATION RATE > 60.0 (>39); GLUCOSE, FASTING 109 MG/DL (70-100); POTASSIUM SERUM 3.7 MEQ/L (3.5-5.1); SODIUM LEVEL 140 MEQ/L (136-145); TOTAL PROTEIN 5.7 GM/DL (6.4-8.2)
[2019-02-13] MEDS: SLF 3 ML SYR IV SCH ×3 (06:00→20:52)
[2019-02-13] MEDS: LEVOTHYROXINE 25MCG TABLET (0.025MG) PO SCH (06:41)
[2019-02-13] MEDS: ALBUTEROL SULFATE 2.5 MG/0.5 ML INH NEB SOLN NEB PRN (07:35)
[2019-02-13] MEDS: ACETYLCYSTEINE 20% 4 ML VIAL (200MG/ML) INH SCH ×2 (07:40→20:00)
--- NOTE | 2019-02-13 08:10 | IPN ---
DATE: 02/12/2019 HISTORY: The patient is postop day 15 from a laparoscopic repair of a very large incarcerated hiatal hernia with gastric volvulus and obstruction. She had developed significant aspiration pneumonitis bilaterally developing preoperatively. Most recently, her problem has been easy fatiguability, a poor appetite and some leakage of fluid around her gastrostomy tube. Vital signs show that she has been afebrile over the past 24 hours. Her pulse has generally ranged between 66-100. Blood pressure has been good with good oxygen saturation. Intake and output shows that yesterday she had 550 in with 1535 out. Her ostomy bag around the G-tube site has put out 735 mL. Her urine output was 800 yesterday. PHYSICAL EXAMINATION: The patient is alert and sitting up in a chair. She still appears quite tired. Heart exam shows a regular rhythm. The lungs show fairly clear breath sounds bilaterally. Abdomen is soft and without significant tenderness. She appears to be having less drainage around her G-tube site today. There is no redness. LABORATORY STUDIES: Today show that her white blood cell count has gone up slightly to 21,000. Hemoglobin of 9 with a hematocrit of 29 and her platelet count is 614,000. Differential count shows 81% neutrophils, 5% lymphocytes and 11% monocytes. Her ESR was 68. Chemistry profile showed normal electrolytes with the exception of a chloride of 108. BUN is 17 with a creatinine of 0.8 and glucose of 106. She had a CRP that was 23.8 which is significantly up from 9 on the . Protein is 5.5 with an albumin of 2.0 which is down slightly over the last couple days. IMAGING: The patient had a CT of the chest obtained today on the order of a Dr. aWters. The CT scan shows a lobar collapse in the left lung. There is a suggestion of some left-sided effusion. IMPRESSION: The patient's G tube drainage seems to have decreased somewhat. She now has evidence for significant lung collapse on the left by CT. Her white blood cell count and CRP are both up slightly today. PLAN: Antibiotics will be continued. Her appetite is I think poor and this may be a significant problem nutritionally going forward. I would have hoped that she would have been home by now. I am thinking about performing an endoscopy on the to assess her stomach and possibly to change her G-tube to a feeding type tube. I will see how she looks tomorrow. She has been started on more rigorous respiratory treatments by the hospitalist. ROCIO
[2019-02-13] MEDS: FLUCONAZOLE 100 MG TAB PO SCH (08:58)
[2019-02-13] MEDS: BRINZOLAMIDE 1 % OPHTH SUSP (AZOPT) 10ML OU SCH ×2 (08:58→20:52)
[2019-02-13] MEDS: DIAPER RELIEF PASTE (DESITIN) 60GM TOP SCH (08:58)
[2019-02-13] MEDS: PANTOPRAZOLE 40MG TAB (PROTONIX) PO SCH (08:59)
[2019-02-13] MEDS ORDERED: ISOVUE-370 76% 100ML VIAL (Q9967) As Ordered ONE (09:32)
[2019-02-13] MEDS: MORPHINE 4 MG/ML 1ML VIAL/SYRINGE (J2270) IV PRN (09:41)
[2019-02-13] MEDS ORDERED: LR 1,000 ML IV ONE (10:00)
--- NOTE | 2019-02-13 10:52 | REP ---
CT CHEST WITH IV CONTRAST: TECHNIQUE: Axial contrast enhanced images from the thoracic inlet to the upper abdomen using 100 mL Isovue 370 intravenous contrast material with multiplanar reformations. COMPARISON: 02/12/2019 Moderate amount of right posterior mediastinal or pleural fluid inferiorly is unchanged with adjacent mild atelectasis/infiltrate in the right lung base. Moderate left effusion is also unchanged. There is consolidative opacity involving the left upper and lower lobes which appear stable. Subcentimeter nodular opacity in the left lower lobe is again note d unchanged. A few scattered calcified granulomas are seen throughout the right lung. Esophagus is distended with fluid material diffusely and there is a hiatal hernia again noted. Heart is not enlarged. There is mild to moderate pericardial fluid unchanged. There is no evidence of significant mediastinal, hilar, or chest wall lymphadenopathy. IMPRESSION: Left pleural effusion and areas of left upper and lower lobe consolidation, and pericardial effusion are all unchanged. Moderate amount of right posterior mediastinal or pleural fluid inferiorly is unchanged with adjacent mild atelectasis/infiltrate in the right lung base. Electronically Signed by Edwin Magana MD 02/13/2019 04:20 P
--- NOTE | 2019-02-13 11:12 | REP ---
CT ABDOMEN AND PELVIS WITH ORAL AND IV CONTRAST: TECHNIQUE: Axial contrast enhanced images from the lung bases to the pubic symphysis using 100 mL Isovue 370 intravenous contrast material with multiplanar reformations. COMPARISON: 02/07/2019. The liver, spleen, adrenals, pancreas, and right kidney are unremarkable in appearance. There is no left kidney present. No mass is seen in the left renal fossa. There is atherosclerotic calcification of the abdominal aorta without aneurysm. I see no adenopathy, free air or free fluid. A gastrostomy tube is noted. There is a small amount of air and fluid surrounding this tube in the abdominal wall. This is unchanged in appearance compared to prior CT 02/07/3019. Small amount of air is seen in the urinary bladder which is mildly distended. No pelvic mass is seen. The patient appears to have had a hysterectomy. IMPRESSION: Small amount of air and fluid surrounds the gastrostomy tube in the abdominal wall. This is stable. No acute findings in the abdomen or pelvis. Electronically Signed by Edwin Magana MD 02/13/2019 04:20 P
--- NOTE | 2019-02-13 11:33 | IPNPDOC ---
Date Seen The patient was seen on 02/13/19. Progress Note SUBJECTIVE: Patient was seen and examined this morning. She currently states that her breathing hasn't gotten worse. She denies shortness of breath. She continues to complain of lower left sided pain at the site of the G-tube. She has had decreased drainage from her G-tube. OBJECTIVE PHYSICAL EXAMINATION: VITAL SIGNS: Please see below. GENERAL: Awake, alert, and oriented. Appears in no acute distress. Lying comfortably in bed. HEENT: Atrumatic normocephalic. Eyes are nonicteric. Trachea is midline. Mucous membranes are pink and moist. CARDIOVASCULAR: Normal S1, S2. Regular rate and rhythm. No clicks, rubs, or murmurs RESPIRATORY: Continued decreased breath sounds on the left. No accessory muscle use. No wheezing, no crackles, no rhonci ABDOMINAL: Soft, nondistended. Diffuse tenderness to palpation localized more on the left upper quadrant at G-tube insertion site. Site appears clear. There is drainage into the G-tube. No rebound tenderness or guarding. Positive bowel sounds EXTREMITIES: No edema. Full and equal pulses bilateral upper and lower extremities NEUROLOGICAL: No focal neurological deficits PSYCHOLOGICAL: Mood and affect appear appropriate LABORATORY DATA, IMAGING STUDIES, MICROBIOLOGY: Please see below. 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 The patient had a laproscopic reduction. The patient was unable to be weaned off ventilator after her surgery due to wor sening hypoxia. She was found to have an aspiration pneumonia. Patient did improve and was extubated and placed on BiPAP. She was subsequently placed on vapotherm. PROBLEMS: 1. s/p Hypoxic Respiratory failure -Currently resolved. Patient is on currently on room air -Patient has been treated for possible aspiration pneumonia -Patient continued on pulmonary hygiene -Sputum culture showing yeast 2. Aspiration pneumonia -Patient has completed her antibiotics -Currently on Meropenem 02/08/19 followed by ID 3. Left sided pleural effusion -Patient has a left sided pleural effusion. -Chest CT demonstrating improved aeration and improved infiltrates on the right. New lobar collapse in left upper lobe likely 2/2 mucous plugging. Small bilateral pleural and pericardial effusions somewhat increased. -Chest PT and Mucomyst for mucous plugging. Patient has refused mucomyst as she feels it smells bad. Will continue with respiratory treatments 4. Large hiatal hernia and acute gastric volvulus -Currently stable. -Patient is followed by surgery -Patient has had decreased G-tube output. Likely placement of feeding tube. 5. Post-operative wound infection w/ subcutaneous abscess around the G-tube -Patient is followed by ID. -Currently on meropenem -Culture positive for yeast like organism. Patient is currently on Fluconazole -PICC line placement -Possible OR intervention with Dr. Light 6. GERD -Protonix 7. Hypothyroidism -Synthroid 8. DVT prophylaxis -Lovenox A-FIB/CHADSVASC A-FIB History Current/History of A-Fib/PAF?: No VS, I&O, 24H, Fishbone Vital Signs/I&O Vital Signs Date Time Temp Pulse Resp B/P (MAP) Pulse Ox O2 Delivery O2 Flow Rate FiO2 02/13/19 09:51 18 02/13/19 08:00 96.8 99 126/62 (83) 91 I&O- Last 24 Hours up to 6 AM 02/13/19 06:00 Intake Total 690 ml Output Total 590 ml Balance 100 ml Laboratory Data 24H LABS Laboratory Tests 2 02/13/19 04:44: Immature Granulocyte % (Auto) 1.2, White Blood Count 17.0H, Red Blood Count 3.29L, Hemoglobin 9.1L, Hematocrit 29.4L, Mean Corpuscular Volume 89.4, Mean Corpuscular Hemoglobin 27.7, Mean Corpuscular Hemoglobin Concent 31.0L, Red Cell Distribution Width 17.3H, Platelet Count 634H, Neutrophils (%) (Auto) 79.0H, Lymphocytes (%) (Auto) 6.9L, Monocytes (%) (Auto) 11.7H, Eosinophils (%) (Auto) 1.0, Basophils (%) (Auto) 0.2, Neutrophils # (Auto) 13.5H, Lymphocytes # (Auto) 1.2L, Monocytes # (Auto) 2.0H, Eosinophils # (Auto) 0.2, Basophils # (Auto) 0.0, Nucleated Red Blood Cells % (auto) 0.1H, Anion Gap 6L, Glomerular Filtration Rate > 60.0, Blood Urea Nitrogen 19H, Creatinine 0.82, Sodium Level 140, Potassium Level 3.7, Chloride Level 107, Carbon Dioxide Level 27, Calcium Level 10.1, Aspartate Amino Transf (AST/SGOT) 9, Alanine Aminotransferase (ALT/SGPT) 17, Alkaline Phosphatase 110, Total Bilirubin 0.6, Total Protein 5.7L, Albumin 1.7L, C-Reactive Protein, Quantitative 25.50H, Albumin/Globulin Ratio 0.43L CBC/BMP Laboratory Tests 02/13/19 04:44 Red Blood Count 3.29 L, Mean Corpuscular Volume 89.4, Mean Corpuscular Hemoglobin 27.7, Mean Corpuscular Hemoglobin Concent 31.0 L, Red Cell Distribution Width 17.3 H, Neutrophils (%) (Auto) 79.0 H, Lymphocytes (%) (Auto) 6.9 L, Monocytes (%) (Auto) 11.7 H, Eosinophils (%) (Auto) 1.0, Basophils (%) (Auto) 0.2, Neutrophils # (Auto) 13.5 H, Lymphocytes # (Auto) 1.2 L, Monocytes # (Auto) 2.0 H, Eosinophils # (Auto) 0.2, Basophils # (Auto) 0.0, Calcium Level 10.1, Aspartate Amino Transf (AST/SGOT) 9, Alanine Aminotransferase (ALT/SGPT) 17, Alkaline Phosphatase 110, Total Bilirubin 0.6, Total Protein 5.7 L, Albumin 1.7 L Microbiology Microbiology 02/07/19 Blood Culture - Final, Complete NO GROWTH AFTER 5 DAYS 02/07/19 Blood Culture - Final, Complete NO GROWTH AFTER 5 DAYS 02/07/19 Abscess Culture - Final, Complete Naima Albicans GME ATTESTATION GME ATTESTATION My faculty preceptor for this patient encounter was physically present during the encounter and was fully available. All aspects of the patient interview, examination, medical decision making process, and medical care plan development were reviewed and approved by the faculty preceptor. The faculty preceptor is aware and concurs with the plan as stated in the body of this note and will attest to such by his/her cosignature. ATTENDING NOTE I, Dariana Dee, have both independently examined this patient as well as reviewed the documentation. I have discussed in detail with the resident the findings and plan of treatment as documented by the resident. I agree with their findings and treatment plan. I will continue to follow the patient and offer further guidance to the patients care as necessary during this hospital stay. MICHAEL AYON DO February 13, 2019 11:33 DARIANA DEE MD February 13, 2019 14:02
[2019-02-13] MEDS ORDERED: LIDOCAINE 2% INJ 100 MG/5 ML SDV (FOR ANES.) As Ordered ONE (12:23)
[2019-02-13] MEDS ORDERED: SUCCINYLCHOLINE 100 MG/5 ML SYRINGE (J0330) As Ordered ONE (12:23)
[2019-02-13] MEDS ORDERED: fentaNYL 100 MCG/2 ML INJECTION (J3010) As Ordered ONE ×2 (12:23→14:14)
[2019-02-13] MEDS ORDERED: ONDANSETRON 4MG/2ML VIAL (J2405) As Ordered ONE (12:23)
[2019-02-13] MEDS ORDERED: ROCURONIUM BROMIDE 50 MG/5 ML VIAL As Ordered ONE (12:23)
[2019-02-13] MEDS ORDERED: propofoL 200 MG/20 ML VIAL As Ordered ONE (12:23)
[2019-02-13] MEDS ORDERED: dexameTHASONE 4 MG/ML 1ML VIAL (J1100) As Ordered ONE (12:23)
[2019-02-13] MEDS ORDERED: PHENYLephrine HCL 500 MCG/5 ML (100MCG/ML) SYRINGE (J2370) As Ordered ONE ×3 (12:24→12:55)
[2019-02-13] MEDS ORDERED: SUGAMMADEX SODIUM 500 MG/5 ML VIAL (BRIDION) As Ordered ONE (12:30)
[2019-02-13] MEDS ORDERED: ePHEDrine SULFATE 25 MG/5 ML(5MG/ML) SYRINGE As Ordered ONE (12:41)
[2019-02-13] MEDS: fentaNYL 100 MCG/2 ML INJECTION (J3010) IV PRN ×2 (14:20→14:31)
[2019-02-13] MEDS ORDERED: METOCLOPRAMIDE INJ 10MG/2ML VIAL (J2765) IV PRN (14:30)
[2019-02-13] MEDS ORDERED: PERCOCET 5MG/325MG TAB PO PRN (14:30)
[2019-02-13] MEDS ORDERED: ONDANSETRON 4MG/2ML VIAL (J2405) IV PRN (14:30)
[2019-02-13] MEDS ORDERED: LR 1,000 ML IV SCH (14:30)
--- NOTE | 2019-02-13 15:41 | REP ---
KUB: Single view. History: Check jejunal tube location. Comparison is made with CT study of the abdomen from 10:07 a.m. on this date. Findings: There is a tube in the left upper quadrant which appears to course through the stomach into the right upper quadrant terminating to the right of midline overlying the right renal pelvis consistent with position in the descending duodenum. There is some oral CT contrast in what appear to be left colonic loops. The previously administered intravenous contrast is opacifying the urinary bladder and right renal collecting system. Impression: Gastrojejunostomy tube tip in the right upper quadrant suggesting position in the descending duodenum. Electronically Signed by Simone Holloway MD 02/13/2019 04:07 P
[2019-02-13] MEDS ORDERED: LIDOCAINE 1% MDV 20ML VIAL As Ordered ONE (16:29)
[2019-02-13] MEDS: ENOXAPARIN 40 MG/0.4 ML SYRINGE (J1650) SC SCH (18:03)
[2019-02-13] MEDS: PANTOPRAZOLE 40MG INJ (PROTONIX) (C9113) IV SCH (18:03)
[2019-02-13] MEDS: LR 1,000 ML IV SCH ×2 (18:04→20:37)
[2019-02-13] MEDS: FLUCONAZOLE 200 MG in IV 1 EA IV SCH (18:43)
--- NOTE | 2019-02-13 18:53 | REP ---
CT-GUIDED MEDIASTINAL FLUID COLLECTION DRAIN The procedure was performed under the personal supervision of Dr. Magana. The patient has a history of a moderate amount of right posterior mediastinal or pleural fluid inferiorly seen on a previous CT scan performed earlier today. The risks and benefits of the procedure were explained to the patient and informed consent was obtained. Using CT guidance, a 22-gauge needle was inserted and advanced into the fluid collection. 100 ml of clear yellow fluid was withdrawn and sent to lab for analysis. The patient tolerated the procedure well and there were no immediate complications. After the appropriate amount of monitored convalescence the patient was discharged from the department. Reviewed by MADIHA Funk 02/13/2019 05:27 P Electronically Signed by Edwin Magana MD 02/13/2019 06:45 P
[2019-02-13] MEDS: LATANOPROST 0.005% OPHTH SOLN 2.5 ML OU SCH (20:52)
[2019-02-14] MEDS: MEROPENEM INJ 1 GM in IV 1 EA IV SCH ×3 (01:00→17:53)
[2019-02-14 04:00] VITALS: BP 14/56
[2019-02-14] MEDS: LEVOTHYROXINE 25MCG TABLET (0.025MG) PO SCH (06:00)
[2019-02-14] MEDS: SLF 3 ML SYR IV SCH ×3 (06:00→22:00)
[2019-02-14] MEDS: ACETYLCYSTEINE 20% 4 ML VIAL (200MG/ML) INH SCH ×2 (07:55→19:39)
[2019-02-14 08:00] VITALS: BP 120/60
[2019-02-14 08:05] LABS: BASO % 0.1 % (0.0-1.0); EOS % 0.1 % (0.0-3.0); HEMATOCRIT 26.7 % (36.0-47.0); HEMOGLOBIN 8.3 g/dl (12.0-15.5); LYMPH # 0.8 10^3/uL (1.5-4.5); LYMPH % 5.1 % (24.0-44.0); MEAN CORPUSCULAR HEMOGLOBIN 27.2 pg (27.0-33.0); MEAN CORPUSCULAR HGB CONC 31.1 g/dl (32.0-36.5); MEAN CORPUSCULAR VOLUME 87.5 fl (80.0-96.0); MONO # 0.7 10^3/uL (0.0-0.8); MONO % 4.4 % (0.0-5.0); NEUTROPHILS # 13.5 10^3/uL (1.8-7.7); NEUTROPHILS % 88.7 % (36.0-66.0); PLATELET COUNT, AUTOMATED 608 10^3/uL (150-450); RED BLOOD COUNT 3.05 10^6/uL (4.00-5.40); WHITE BLOOD COUNT 15.3 10^3/uL (4.0-10.0)
[2019-02-14 08:28] LABS: ALBUMIN 1.7 GM/DL (3.2-5.2); ALT/SGPT 17 U/L (12-78); BILIRUBIN,TOTAL 0.4 MG/DL (0.2-1.0); BLOOD UREA NITROGEN 18 MG/DL (7-18); CARBON DIOXIDE LEVEL 27 MEQ/L (21-32); CHLORIDE LEVEL 110 MEQ/L (98-107); CREATININE FOR GFR 0.68 MG/DL (0.55-1.30); GLOMERULAR FILTRATION RATE > 60.0 (>39); GLUCOSE, FASTING 110 MG/DL (70-100); POTASSIUM SERUM 4.1 MEQ/L (3.5-5.1); SODIUM LEVEL 142 MEQ/L (136-145); TOTAL PROTEIN 5.4 GM/DL (6.4-8.2)
[2019-02-14] MEDS: BRINZOLAMIDE 1 % OPHTH SUSP (AZOPT) 10ML OU SCH ×2 (09:05→22:17)
[2019-02-14] MEDS: PANTOPRAZOLE 40MG INJ (PROTONIX) (C9113) IV SCH (09:05)
--- NOTE | 2019-02-14 09:10 | IPN ---
DATE: 02/13/2019 HISTORY: The patient is now 16 days postop from repair of her gastric volvulus and incarcerated hiatal hernia. She had suffered aspiration and required significant pulmonary support. She has not made good progress, taking only a small amount of food and having persistent left upper quadrant discomfort. She has lobar collapse in the left lung identified on chest CT yesterday or the day before. Vital signs: Show that she has been afebrile over the past 24 hours. Her pulse is generally been in the 80s and 90s. Blood pressure is good and her oxygen saturation is in the low 90s on low levels of oxygen by nasal cannula. Intake and output shows that yesterday she had only 720 recorded in with 190 of output from her G-tube site and 400 of urine output. PHYSICAL EXAMINATION: The patient looks quite tired. She is alert and oriented. Heart exam shows a regular rhythm. The lungs are clear anteriorly. The abdomen is nondistended. Her incisions are all nicely healed. G-tube site has a small amount of drainage around it. Calves are nontender. LABORATORY STUDIES: Show a white count of 17,000 with a hemoglobin of 9, hematocrit of 29 and platelet count of 634,000. Differential count shows 79% neutrophils, 7% lymphocytes, and 12% monocytes. Chemistry profile shows sodium of 140, potassium 3.7, chloride 107, CO2 of 27, BUN of 19, creatinine 0.8 and a glucose of 109. Her C-reactive protein is slightly higher at 25.5. Liver function tests are normal. IMPRESSION: The patient is not making expected progress now 16 days postop. She has had some persistent drainage around her G tube and has no appetite and has not been eating well. She feels full and has left upper quadrant discomfort. It is unclear if she may have suffered some degree of ischemia of her stomach. She has had some drainage out of her G tube at times or around the G tube that suggests some old blood. PLAN: A CT scan of the chest, abdomen and pelvis with contrast was obtained today. This shows a persistent fluid collection in the lower mediastinum in the area where her hiatal hernia had been incarcerated. The G tube appears to be in good position. There are no other acute inflammatory findings. The patient was taken to the operating room where an EGD was performed. This revealed that her stomach had a large amount of food residue even though she had been appropriately nothing by mouth suggesting poor gastric motility with poor emptying. She also was found to have some old apparently healing ulcerations in the fundus and body of the stomach. These were not large, but were consistent with some ischemic areas that were now healing. A CT-guided aspiration of the lower mediastinal fluid was performed by radiology and it was reported that some clear straw-colored fluid was returned. A sample was sent for Gram stain and culture and sensitivity, but a drain was not placed. The patient tolerated all these issues. I also note that at the time of her endoscopy her simple gastrostomy tube was replaced with a Peralta gastrostomy tube through the pylorus and so that we could begin enteral feedings. Initial followup x-ray suggested that the tube was only slightly into the duodenum. Hopefully this will advance spontaneously over the next 24 hours and a repeat KUB will be checked. ROSE MARYD
[2019-02-14] MEDS: LR 1,000 ML IV SCH ×2 (09:57→18:43)
--- NOTE | 2019-02-14 10:29 | IPNPDOC ---
Date Seen The patient was seen on 02/14/19. Progress Note SUBJECTIVE: Patient was seen and examined this morning. She has gotten a a CT guided aspiration of her lower mediastinal fluid. She has also had her gastrostomy tube replaced with Peralta Gastrostomy tube so she could begin enteral feeds. Patient is planned to have a PICC line placed. She has remained afebrile. She states that her pain is improving as well as her breathing. She denies any nausea or vomiting. She has been passing gas. OBJECTIVE PHYSICAL EXAMINATION: VITAL SIGNS: Please see below. GENERAL: Awake, alert, and oriented. She does not appear in acute distress. She is lying comfortably in bed. HEENT: Atrumatic normocephalic. Trachea is midline. Mucous membranes are pink and moist. Dentition is fair. Nasal cannula in place CARDIOVASCULAR: Normal S1, S2. Regular rate and rhythm. No clicks rubs or murmurs. RESPIRATORY: Diminished breath sounds on the left. No wheezes, crackles. ABDOMINAL: Soft, nondistended. Diffuse tenderness to palpation more so on the left. No rebound tenderness or guarding. Positive bowel sounds throughout. Gastrotomy tube in place. Site is clear and nonerythematous EXTREMITIES: No edema. Full and equal pulses in bilateral upper and lower extremities NEUROLOGICAL: No focal neurological deficits PSYCHOLOGICAL: Mood and affect seem appropriate LABORATORY DATA, IMAGING STUDIES, MICROBIOLOGY: Please see below. 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 The patient had a laproscopic reduction. The patient was unable to be weaned off ventilator after her surgery due to worsening hypoxia. She was found to have an aspiration pneumonia. Patient did improve and was extubated and placed on BiPAP. She was subsequently placed on vapotherm. PROBLEMS: 1. s/p Hypoxic Respiratory failure -Currently resolved. Patient is on currently on room air -Patient has been treated for possible aspiration pneumonia -Patient continued on pulmonary hygiene -Sputum culture showing yeast 2. Aspiration pneumonia -Patient has completed her antibiotics -Currently on Meropenem 02/08/19 followed by ID 3. Left sided pleural effusion -Patient has a left sided pleural effusion. -Chest CT demonstrating improved aeration and improved infiltrates on the right. New lobar collapse in left upper lobe likely 2/2 mucous plugging. Small bilateral pleural and pericardial effusions somewhat increased. -Chest PT and Mucomyst for mucous plugging. Patient has refused mucomyst as she feels it smells bad. Will continue with respiratory treatments 4. Large hiatal hernia and acute gastric volvulus -Currently stable. -Patient is followed by surgery -Patient has had decreased G-tube output. Likely placement of feeding tube. 5. Post-operative wound infection w/ subcutaneous abscess around the G-tube -Patient is followed by ID. -Currently on meropenem -Culture positive for yeast like organism. Patient is currently on Fluconazole -Peralta G-tube placed yesterday will begin TPN before starting Enteral feeds -PICC line placement today 6. GERD -Protonix 7. Hypothyroidism -Synthroid 8. DVT prophylaxis -Lovenox A-FIB/CHADSVASC A-FIB History Current/History of A-Fib/PAF?: No VS, I&O, 24H, Fishbone Vital Signs/I&O Vital Signs Date Time Temp Pulse Resp B/P (MAP) Pulse Ox O2 Delivery O2 Flow Rate FiO2 02/14/19 08:00 96.9 83 18 120/60 (80) 90 1.0 I&O- Last 24 Hours up to 6 AM 02/14/19 06:00 Intake Total 1275 ml Output Total 600 ml Balance 675 ml Laboratory Data 24H LABS Laboratory Tests 2 02/14/19 07:48: Immature Granulocyte % (Auto) 1.6, White Blood Count 15.3H, Red Blood Count 3.05L, Hemoglobin 8.3L, Hematocrit 26.7L, Mean Corpuscular Volume 87.5, Mean Corpuscular Hemoglobin 27.2, Mean Corpuscular Hemoglobin Concent 31.1L, Red Cell Distribution Width 17.4H, Platelet Count 608H, Neutrophils (%) (Auto) 88.7H, Lymphocytes (%) (Auto) 5.1L, Monocytes (%) (Auto) 4.4, Eosinophils (%) (Auto) 0.1, Basophils (%) (Auto) 0.1, Neutrophils # (Auto) 13.5H, Lymphocytes # (Auto) 0.8L, Monocytes # (Auto) 0.7, Eosinophils # (Auto) 0.0, Basophils # (Auto) 0.0, Nucleated Red Blood Cells % (auto) 0.1H, Anion Gap 5L, Glomerular Filtration Rat e > 60.0, Blood Urea Nitrogen 18, Creatinine 0.68, Sodium Level 142, Potassium Level 4.1, Chloride Level 110H, Carbon Dioxide Level 27, Calcium Level 10.0, Aspartate Amino Transf (AST/SGOT) 13, Alanine Aminotransferase (ALT/SGPT) 17, Alkaline Phosphatase 104, Total Bilirubin 0.4, Total Protein 5.4L, Albumin 1.7L, Magnesium Level 2.0, C-Reactive Protein, Quantitative 17.20H, Albumin/Globulin Ratio 0.46L CBC/BMP Laboratory Tests 02/14/19 07:48 Red Blood Count 3.05 L, Mean Corpuscular Volume 87.5, Mean Corpuscular Hemoglobin 27.2, Mean Corpuscular Hemoglobin Concent 31.1 L, Red Cell Distribution Width 17.4 H, Neutrophils (%) (Auto) 88.7 H, Lymphocytes (%) (Auto) 5.1 L, Monocytes (%) (Auto) 4.4, Eosinophils (%) (Auto) 0.1, Basophils (%) (Auto) 0.1, Neutrophils # (Auto) 13.5 H, Lymphocytes # (Auto) 0.8 L, Monocytes # (Auto) 0.7, Eosinophils # (Auto) 0.0, Basophils # (Auto) 0.0, Calcium Level 10.0, Aspartate Amino Transf (AST/SGOT) 13, Alanine Aminotransferase (ALT/SGPT) 17, Alkaline Phosphatase 104, Total Bilirubin 0.4, Total Protein 5.4 L, Albumin 1.7 L Microbiology Microbiology 02/07/19 Blood Culture - Final, Complete NO GROWTH AFTER 5 DAYS 02/07/19 Blood Culture - Final, Complete NO GROWTH AFTER 5 DAYS 02/13/19 Gram Stain - Final, Resulted 02/13/19 Abscess Culture, Resulted Pending 02/13/19 Anaerobic Culture, Resulted Pending 02/07/19 Abscess Culture - Final, Complete Naima Albicans GME ATTESTATION GME ATTESTATION My faculty preceptor for this patient encounter was physically present during the encounter and was fully available. All aspects of the patient interview, examination, medical decision making process, and medical care plan development were reviewed and approved by the faculty preceptor. The faculty preceptor is aware and concurs with the plan as stated in the body of this note and will attest to such by his/her cosignature. ATTENDING NOTE I, Dariana Dee, have both independently examined this patient as well as reviewed the documentation. I have discussed in detail with the resident the findings and plan of treatment as documented by the resident. I agree with their findings and treatment plan. I will continue to follow the patient and offer further guidance to the patients care as necessary during this hospital stay. MICHAEL AYON DO February 14, 2019 10:29 DARIANA DEE MD February 14, 2019 16:37
[2019-02-14] MEDS ORDERED: LIDOCAINE 2% MDV 20 ML VIAL As Ordered ONE (11:29)
[2019-02-14 13:30] VITALS: BP 122/63
[2019-02-14] MEDS: ALBUTEROL SULFATE 2.5 MG/0.5 ML INH NEB SOLN NEB PRN ×2 (14:27→19:39)
[2019-02-14] MEDS: FLUCONAZOLE 200 MG in IV 1 EA IV SCH (14:38)
[2019-02-14] MEDS: ENOXAPARIN 40 MG/0.4 ML SYRINGE (J1650) SC SCH (14:38)
--- NOTE | 2019-02-14 15:11 | REP ---
REASON: Assess J tube. COMPARISON: 02/13/2019 Radiographic contrast opacifies the bowel and increased from the prior exam. It is predominantly colonic and seen in the rectum. Contrast opacifies the urinary bladder likely secondary to previously CT obtained yesterday. There is no evidence of free intraperitoneal air. IMPRESSION: Bowel opacification as described above. Electronically Signed by Cortes Morgan DO 02/14/2019 03:22 P
[2019-02-14 16:00] VITALS: BP 126/58
[2019-02-14] MEDS: HumaLOG INSULIN (NovoLOG) PER UNIT SC SCH (17:58)
[2019-02-14] MEDS: SODIUM CHLORIDE 0.9% INJ 10 ML SYR IV SCH (18:00)
[2019-02-14] MEDS ORDERED: AMINO AC/ELECTROLYTE/DEX/CALC 2,000 ML IV SCH (18:00)
[2019-02-14] MEDS ORDERED: FAT EMULSION IV 20% 500 ML IV SCH (18:00)
--- NOTE | 2019-02-14 18:24 | IPN ---
DATE: 02/14/2019 HISTORY: Patient is postoperative day #17 from repair of an incarcerated large hiatal hernia with gastric volvulus obstruction. She had aspiration as a result of the obstruction. Surgery went well, but she has been slow to progress recently. I performed an esophagogastroduodenoscopy (EGD) yesterday that showed what appeared to be a few healing ischemic areas in her fundus and body of the stomach. She had some old food which had been there for at least a day or longer, so I believe her gastric function is poor. Her regular gastrostomy (G) tube was changed to a Peralta tube and I tried to advance this into the pylorus with the scope. 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 She has been hydrated the last day or two. VITAL SIGNS: Show that her temperature has been afebrile. Her pulse is in the 70s and 80s and blood pressure is good. Her oxygen saturations are in the 90-95 range on low doses of oxygen by nasal cannula. INTAKE AND OUTPUT: Yesterday showed 1275 in with 600 out. PHYSICAL EXAMINATION: Patient is alert and oriented. She appears fairly comfortable. She says that her left-sided abdominal pain seems somewhat less. HEART EXAM: Shows a regular rate and rhythm at about 80. LUNGS: Show clear breath sounds anteriorly. ABDOMEN: Is mildly obese, but soft and nontender. Her G-tube site has a small amount of drainage on the drain sponge. The tube is connected to low intermittent suction through the gastric port. LABORATORY STUDIES: Today show a white count of 15,000, with a hemoglobin of 8, hematocrit of 27 and a platelet count of 608,000. Her differential count shows 89% neutrophils, 5% lymphocytes and 4% monocytes. Her chemistry profile shows a sodium of 142, potassium 4.1, chloride 110, CO2 of 27, BUN of 18, creatinine 0.68, and a glucose of 110. Her C-reactive protein is 17.2, which is significantly down from yesterday, when was 25. Kidneys, ureter, bladder (KUB) today shows that her Peralta tube has slipped back up into the stomach and is not down into the duodenum. IMPRESSION: Patient looks a little perkier today and whether this represents any final response to her antibiotics or improvement in her lobar collapse or decompression of her stomach is not clear. PLAN: I have recommended that we keep her stomach emptied by making her nothing by mouth except perhaps for a few sips of clear liquids. I will leave the G-tube to suction. I am going to start her on some total parenteral nutrition (TPN) and she had a peripherally inserted central catheter (PICC) line placed this morning for that purpose. She needs nutrition at this point as she has not been able to eat for quite some time. We will start with the TPN and if she begins to heal her G-tube site better, we can consider manipulating the tube to try to advance this down into the duodenum to do enteral feeds. We will continue her current antibiotics. ROCIO
[2019-02-14 20:00] VITALS: BP 133/68
--- NOTE | 2019-02-14 20:25 | IPNPDOC ---
Text Note Date of Service The patient was seen on 02/14/19. NOTE SUBJECTIVE: She was examined at bedside. She was admitted by family. She is s tatus post G-tube replacement with loss gastrotomy. She is also status post CT guided aspiration drainage of mediastinal fluid. Patient stated she feels fine. She looked happy, and in less distress this afternoon. OBJECTIVE: PHYSICAL EXAMINATION: GENERAL APPEARANCE: Alert no acute distress. SKIN: Warm, well perfused. ENT: Palate intact, tillman tympanic membrane no bulging, no erythema, Neck supple, no thyromegaly THORAX: Symmetrical. LUNGS: Clear to auscultation bilaterally. HEART: Normal S1, S2. No murmurs, no rubs, no gallops ABDOMEN: Soft. New gastrotomy tube in place, small yellow drainage around tube, no present drainage, no signs of irritation, no foul-smelling detectable from G-tube TRUNK/SPINE:Straight. Small bandage over patients CT-guided mediastinal fluid drainage site of needle injections. PULSES: 2+ upper and lower extremity . LABORATORY DATA: Please see below. 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 With suspected subcutaneous abscess from G-tube placement. Continue Zosyn, meropenem , and fluconazole for antibacterial and antifungal coverage. On 02/13/2019 patient was taken to the OR where EGD was performed. This showed that patient had poor gastric mobility in emptying, as evidence of food was seen in the stomach. Patient was also known to have healed ulceration in the fundus and body of the stomach, consistent with ischemic areas that were not healing. CT of the abdomen also showed lower mediastinal fluid. The fluid was drained by interventional radiology, Gram stain and culture still pending. While in the operating room her simple gastrotomy tube was replaced with the most gastrotomy tube through the pylorus with intention to begin TPN. Patient was made nothing by mouth as a result. Continue current antibiotics regimen. Pending mediastinal fluid Gram stain and culture to begin antibiotic de- escalation. Overall, patient appears to be improving clinically. Her white count continues to decrease. She has been afebrile. We'll continue current regiment and de- escalate antibiotics as necessary. Thanks for consultation. VS,Fishbone, I+O VS, Fishbone, I+O Laboratory Tests 02/14/19 07:48 Red Blood Count 3.05 L, Mean Corpuscular Volume 87.5, Mean Corpuscular Hemoglobin 27.2, Mean Corpuscular Hemoglobin Concent 31.1 L, Red Cell Distribution Width 17.4 H, Neutrophils (%) (Auto) 88.7 H, Lymphocytes (%) (Auto) 5.1 L, Monocytes (%) (Auto) 4.4, Eosinophils (%) (Auto) 0.1, Basophils (%) (Auto) 0.1, Neutrophils # (Auto) 13.5 H, Lymphocytes # (Auto) 0.8 L, Monocytes # (Auto) 0.7, Eosinophils # (Auto) 0.0, Basophils # (Auto) 0.0, Calcium Level 10 .0, Aspartate Amino Transf (AST/SGOT) 13, Alanine Aminotransferase (ALT/SGPT) 17, Alkaline Phosphatase 104, Total Bilirubin 0.4, Total Protein 5.4 L, Albumin 1.7 L Vital Signs Date Time Temp Pulse Resp B/P (MAP) Pulse Ox O2 Delivery O2 Flow Rate FiO2 02/14/19 16:00 0.0 02/14/19 16:00 97.2 85 18 126/58 (80) 91 I&O- Last 24 Hours up to 6 AM 02/14/19 06:00 Intake Total 1275 ml Output Total 600 ml Balance 675 ml GME ATTESTATION GME ATTESTATION My faculty preceptor for this patient encounter was physically present during the encounter and was fully available. All aspects of the patient interview, examination, medical decision making process, and medical care plan development were reviewed and approved by the faculty preceptor. The faculty preceptor is aware and concurs with the plan as stated in the body of this note and will attest to such by his/her cosignature. MARTY DAMIAN DO February 14, 2019 20:25
[2019-02-14] MEDS: LATANOPROST 0.005% OPHTH SOLN 2.5 ML OU SCH (22:17)
[2019-02-14] MEDS: MORPHINE 4 MG/ML 1ML VIAL/SYRINGE (J2270) IV PRN (22:18)
[2019-02-15] VITALS: BP 124/65
[2019-02-15] MEDS: MEROPENEM INJ 1 GM in IV 1 EA IV SCH ×3 (00:42→17:20)
[2019-02-15] MEDS: HumaLOG INSULIN (NovoLOG) PER UNIT SC SCH ×4 (00:47→17:52)
[2019-02-15 04:00] VITALS: BP 125/68
[2019-02-15 05:14] LABS: BASO % 0.1 % (0.0-1.0); EOS % 0.3 % (0.0-3.0); HEMATOCRIT 25.7 % (36.0-47.0); LYMPH # 1.1 10^3/uL (1.5-4.5); LYMPH % 7.3 % (24.0-44.0); MEAN CORPUSCULAR HEMOGLOBIN 27.1 pg (27.0-33.0); MEAN CORPUSCULAR HGB CONC 31.1 g/dl (32.0-36.5); MEAN CORPUSCULAR VOLUME 87.1 fl (80.0-96.0); MONO # 1.2 10^3/uL (0.0-0.8); MONO % 7.9 % (0.0-5.0); NEUTROPHILS # 12.2 10^3/uL (1.8-7.7); PLATELET COUNT, AUTOMATED 612 10^3/uL (150-450); RED BLOOD COUNT 2.95 10^6/uL (4.00-5.40); WHITE BLOOD COUNT 14.7 10^3/uL (4.0-10.0)
[2019-02-15 05:40] LABS: ALBUMIN 1.6 GM/DL (3.2-5.2); ALT/SGPT 13 U/L (12-78); BILIRUBIN,TOTAL 0.3 MG/DL (0.2-1.0); BLOOD UREA NITROGEN 23 MG/DL (7-18); C REACTIVE PROTEIN QUANTITATIV 9.69 MG/DL (0.00-0.30); CALCIUM LEVEL 10.4 MG/DL (8.8-10.2); CARBON DIOXIDE LEVEL 29 MEQ/L (21-32); CHLORIDE LEVEL 110 MEQ/L (98-107); CREATININE FOR GFR 0.75 MG/DL (0.55-1.30); GLOMERULAR FILTRATION RATE > 60.0 (>39); GLUCOSE, FASTING 188 MG/DL (70-100); MAGNESIUM LEVEL 2.2 MG/DL (1.8-2.4); POTASSIUM SERUM 3.9 MEQ/L (3.5-5.1); SODIUM LEVEL 142 MEQ/L (136-145); TOTAL PROTEIN 5.2 GM/DL (6.4-8.2)
[2019-02-15] MEDS: SLF 3 ML SYR IV SCH ×3 (06:00→21:21)
[2019-02-15] MEDS: LEVOTHYROXINE 25MCG TABLET (0.025MG) PO SCH (06:23)
[2019-02-15] MEDS: SODIUM CHLORIDE 0.9% INJ 10 ML SYR IV SCH ×2 (06:25→17:53)
[2019-02-15 08:00] VITALS: BP 144/66
[2019-02-15] MEDS: ACETYLCYSTEINE 20% 4 ML VIAL (200MG/ML) INH SCH ×2 (08:00→20:00)
[2019-02-15] MEDS: PANTOPRAZOLE 40MG INJ (PROTONIX) (C9113) IV SCH (09:13)
[2019-02-15] MEDS: NORCO, ANEXSIA 5/325MG TABLET (HYDROcodone/ACETAMINOPHEN) PO PRN ×3 (09:14→19:09)
[2019-02-15] MEDS: BRINZOLAMIDE 1 % OPHTH SUSP (AZOPT) 10ML OU SCH ×2 (09:14→21:17)
--- NOTE | 2019-02-15 11:36 | IPNPDOC ---
Date Seen The patient was seen on 02/15/19. Progress Note SUBJECTIVE: Patient was seen and examined this morning. She currently states that her breathing has improved. She has continued pain/discomfort on her right side where her G-tube is placed. There appears to be some leaking from her JG-tube. Her dressings are being changed frequently. The patient denies any fevers or chills OBJECTIVE PHYSICAL EXAMINATION: VITAL SIGNS: Please see below. GENERAL: Awake, alert, and oriented. Appears in no acute distress. Lying comfortably in bed. HEENT: Atrumatic normocephalic. Eyes are non-icteric. Trachea is midline. Mucous membranes are pink and moist CARDIOVASCULAR: Normal S1, S2. Regular rate and rhythm. No clicks, rubs, or murmurs. RESPIRATORY: Improved breath sounds from previous exam. No wheezes, no crackles, no rhonchi, no rales ABDOMINAL: Soft, nondistended. JG tube in place with some leakage. No erythema. Mild tenderness in LUQ. No rebound tenderness or guarding. Positive bowel sounds EXTREMITIES: No edema. Full and equal pulses in bilateral upper and lower extremities NEUROLOGICAL: No focal neurological deficits PSYCHOLOGICAL: Mood and affect appear appropriate LABORATORY DATA, IMAGING STUDIES, MICROBIOLOGY: Please see below. DVT prophylaxis ordered?: YES ASSESSMENT AND PLAN: Patient is a 78 year old female with a PMHx of HTN, DLP, Glaucoma, GERD who presented to the [facility] ER on 01/26/19 with complaint of abdominal pain. 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 The patient had a laparoscopic reduction. The patient was unable to be weaned off ventilator after her surgery due to worsening hypoxia. She was found to have an aspiration pneumonia. Patient did improve and was extubated to BIPAP / Vapotherem. She was taken for intervention again on for replacement of G tube to GJ tube and aspiration of fluid collection. PROBLEMS: 1. s/p Hypoxic Respiratory failure -Resolved 2. Aspiration pneumonia -Patient has completed her antibiotics -Currently on Meropenem 02/08/19 followed by ID 3. Left sided pleural effusion -Patient has a left sided pleural effusion. -Chest CT demonstrating improved aeration and improved infiltrates on the right. New lobar collapse in left upper lobe likely 2/2 mucous plugging. Small bilateral pleural and pericardial effusions somewhat increased. -Chest PT and Mucomyst for mucous plugging. Patient has refused mucomyst as she feels it smells bad. Will continue with respiratory treatments 4. Large hiatal hernia and acute gastric volvulus -Currently stable. -s/p GJ tube replacement -Patient is followed by surgery -Patient has had decreased G-tube output. Likely placement of feeding tube. 5. Post-operative wound infection w/ subcutaneous abscess around the G-tube -Patient is followed by ID. -Currently on meropenem -Culture positive for yeast like organism. Patient is currently on Fluconazole -On 02/13 had replacement of G tube to GJ tube; PICC line placed on 02/14 for TPN nutrition 6. Nutrition -Patient s/p PICC line placement. -She is currently on TPN 7. GERD -Protonix 8. Hypothyroidism -Synthroid 9. DVT prophylaxis -Lovenox A-FIB/CHADSVASC A-FIB History Current/History of A-Fib/PAF?: No VS, I&O, 24H, Fishbone Vital Signs/I&O Vital Signs Date Time Temp Pulse Resp B/P (MAP) Pulse Ox O2 Delivery O2 Flow Rate FiO2 02/15/19 09:44 18 95 02/15/19 08:00 98.2 82 144/66 (92) 02/14/19 16:00 0.0 I&O- Last 24 Hours up to 6 AM 02/15/19 06:00 Intake Total 2510 ml Output Total 1300 ml Balance 1210 ml Laboratory Data 24H LABS Laboratory Tests 2 02/14/19 17:58: Bedside Glucose (Misc Panel) 89 02/15/19 00:36: Bedside Glucose (Misc Panel) 180H 02/15/19 05:04: Immature Granulocyte % (Auto) 1.4, White Blood Count 14.7H, Red Blood Count 2.95L, Hemoglobin 8.0L, Hematocrit 25.7L, Mean Corpuscular Volume 87.1, Mean Corpuscular Hemoglobin 27.1, Mean Corpuscular Hemoglobin Concent 31.1L, Red Cell Distribution Width 17.2H, Platelet Count 612H, Neutrophils (%) (Auto) 83.0H, Lymphocytes (%) (Auto) 7.3L, Monocytes (%) (Auto) 7.9H, Eosinophils (%) (Auto) 0.3, Basophils (%) (Auto) 0.1, Neutrophils # (Auto) 12.2H, Lymphocytes # (Auto) 1.1L, Monocytes # (Auto) 1.2H, Eosinophils # (Auto) 0.0, Basophils # (Auto) 0.0, Nucleated Red Blood Cells % (auto) 0.1H, Anion Gap 3L, Glomerular Filtration Rate > 60.0, Blood Urea Nitrogen 23H, Creatinine 0.75, Sodium Level 142, Potassium Level 3.9, Chloride Level 110H, Carbon Dioxide Level 29, Calcium Level 10.4H, Aspartate Amino Transf (AST/SGOT) 11, Alanine Aminotransferase (ALT/SGPT) 13, Alkaline Phosphatase 90, Total Bilirubin 0.3, Total Protein 5.2L, Albumin 1.6L, Magnesium Level 2.2, C-Reactive Protein, Quantitative 9.69H, Albumin/Globulin Ratio 0.44L CBC/BMP Laboratory Tests 02/15/19 05:04 Red Blood Count 2.95 L, Mean Corpuscular Volume 87.1, Mean Corpuscular Hemoglobin 27.1, Mean Corpuscular Hemoglobin Concent 31.1 L, Red Cell Distribution Width 17.2 H, Neutrophils (%) (Auto) 83.0 H, Lymphocytes (%) (Auto) 7.3 L, Monocytes (%) (Auto) 7.9 H, Eosinophils (%) (Auto) 0.3, Basophils (%) (Auto) 0.1, Neutrophils # (Auto) 12.2 H, Lymphocytes # (Auto) 1.1 L, Monocytes # (Auto) 1.2 H, Eosinophils # (Auto) 0.0, Basophils # (Auto) 0.0, Calcium Level 10.4 H, Aspartate Amino Transf (AST/SGOT) 11, Alanine Aminotransferase (ALT/SGPT) 13, Alkaline Phosphatase 90, Total Bilirubin 0.3, Total Protein 5.2 L, Albumin 1.6 L Microbiology Microbiology 02/07/19 Blood Culture - Final, Complete NO GROWTH AFTER 5 DAYS 02/07/19 Blood Culture - Final, Complete NO GROWTH AFTER 5 DAYS 02/13/19 Gram Stain - Final, Complete 02/13/19 Abscess Culture - Final, Complete 02/13/19 Anaerobic Culture - Final, Complete 02/07/19 Abscess Culture - Final, Complete Naima Albicans GME ATTESTATION GME ATTESTATION My faculty preceptor for this patient encounter was physically present during the encounter and was fully available. All aspects of the patient interview, examination, medical decision making process, and medical care plan development were reviewed and approved by the faculty preceptor. The faculty preceptor is aware and concurs with the plan as stated in the body of this note and will attest to such by his/her cosignature. ATTENDING NOTE I, Dariana Dee, have both independently examined this patient as well as review ed the documentation. I have discussed in detail with the resident the findings and plan of treatment as documented by the resident. I agree with their findings and treatment plan. I will continue to follow the patient and offer further guidance to the patients care as necessary during this hospital stay. MICHAEL AYON DO February 15, 2019 11:36 DARIANA DEE MD February 15, 2019 14:32
[2019-02-15 12:00] VITALS: BP 152/78
[2019-02-15 12:16] LABS: HEMATOCRIT 27.7 % (36.0-47.0); HEMOGLOBIN 8.8 g/dl (12.0-15.5)
[2019-02-15] MEDS: ENOXAPARIN 40 MG/0.4 ML SYRINGE (J1650) SC SCH (14:44)
[2019-02-15] MEDS: FLUCONAZOLE 200 MG in IV 1 EA IV SCH (14:45)
[2019-02-15 16:00] VITALS: BP 136/74
[2019-02-15] MEDS ORDERED: FAT EMULSION IV 20% 500 ML IV SCH (18:00)
[2019-02-15] MEDS ORDERED: AMINO AC/ELECTROLYTE/DEX/CALC 2,000 ML IV SCH (18:00)
[2019-02-15 18:30] LABS: HEMATOCRIT 29.2 % (36.0-47.0); HEMOGLOBIN 9.1 g/dl (12.0-15.5)
[2019-02-15 20:00] VITALS: BP 136/82
[2019-02-15] MEDS: ALBUTEROL SULFATE 2.5 MG/0.5 ML INH NEB SOLN NEB PRN (20:07)
[2019-02-15] MEDS: MORPHINE 4 MG/ML 1ML VIAL/SYRINGE (J2270) IV PRN (21:13)
[2019-02-15] MEDS: LATANOPROST 0.005% OPHTH SOLN 2.5 ML OU SCH (21:17)
[2019-02-16] VITALS (12 sets, daily range): BP systolic 77–133; BP diastolic 39–71
[2019-02-16] MEDS: HumaLOG INSULIN (NovoLOG) PER UNIT SC SCH ×2 (00:14→05:35)
[2019-02-16] MEDS: MEROPENEM INJ 1 GM in IV 1 EA IV SCH ×3 (00:19→18:19)
[2019-02-16 00:23] LABS: HEMATOCRIT 29.2 % (36.0-47.0)
[2019-02-16] MEDS: MORPHINE 4 MG/ML 1ML VIAL/SYRINGE (J2270) IV PRN (04:25)
[2019-02-16] MEDS: SLF 3 ML SYR IV PRN (04:26)
[2019-02-16] MEDS: SLF 3 ML SYR IV SCH ×3 (05:35→21:51)
[2019-02-16] MEDS: SODIUM CHLORIDE 0.9% INJ 10 ML SYR IV SCH ×2 (05:36→18:00)
[2019-02-16] MEDS: LEVOTHYROXINE 25MCG TABLET (0.025MG) PO SCH (06:00)
[2019-02-16 06:22] LABS: BASO % 0.2 % (0.0-1.0); EOS # 0.3 10^3/uL (0.0-0.50); EOS % 1.7 % (0.0-3.0); HEMATOCRIT 30.2 % (36.0-47.0); HEMOGLOBIN 9.4 g/dl (12.0-15.5); LYMPH # 0.9 10^3/uL (1.5-4.5); LYMPH % 4.9 % (24.0-44.0); MEAN CORPUSCULAR HEMOGLOBIN 26.9 pg (27.0-33.0); MEAN CORPUSCULAR HGB CONC 31.1 g/dl (32.0-36.5); MEAN CORPUSCULAR VOLUME 86.3 fl (80.0-96.0); MONO # 1.4 10^3/uL (0.0-0.8); MONO % 7.5 % (0.0-5.0); NEUTROPHILS # 15.7 10^3/uL (1.8-7.7); NEUTROPHILS % 83.7 % (36.0-66.0); PLATELET COUNT, AUTOMATED 485 10^3/uL (150-450); WHITE BLOOD COUNT 18.7 10^3/uL (4.0-10.0)
[2019-02-16 06:48] LABS: ALBUMIN 1.7 GM/DL (3.2-5.2); ALT/SGPT 16 U/L (12-78); BILIRUBIN,TOTAL 0.3 MG/DL (0.2-1.0); BLOOD UREA NITROGEN 26 MG/DL (7-18); CALCIUM LEVEL 9.7 MG/DL (8.8-10.2); CARBON DIOXIDE LEVEL 27 MEQ/L (21-32); CHLORIDE LEVEL 107 MEQ/L (98-107); CREATININE FOR GFR 0.77 MG/DL (0.55-1.30); GLOMERULAR FILTRATION RATE > 60.0 (>39); GLUCOSE, FASTING 181 MG/DL (70-100); POTASSIUM SERUM 3.8 MEQ/L (3.5-5.1); SODIUM LEVEL 139 MEQ/L (136-145); TOTAL PROTEIN 5.7 GM/DL (6.4-8.2)
[2019-02-16] MEDS: ACETYLCYSTEINE 20% 4 ML VIAL (200MG/ML) INH SCH ×2 (08:00→19:31)
[2019-02-16] MEDS: ACETAMINOPHEN 500 MG TAB PO PRN (08:02)
[2019-02-16] MEDS: BRINZOLAMIDE 1 % OPHTH SUSP (AZOPT) 10ML OU SCH ×2 (08:03→21:47)
[2019-02-16] MEDS: PANTOPRAZOLE 40MG INJ (PROTONIX) (C9113) IV SCH (08:03)
[2019-02-16 09:14] LABS: C REACTIVE PROTEIN QUANTITATIV 7.63 MG/DL (0.00-0.30)
--- NOTE | 2019-02-16 09:44 | IPNPDOC ---
Subjective General Date/Time Seen The patient was seen on 02/16/19 at 09:37. Subject Chief Complaint/History The patient is a 78-year-old female admitted with a reason for visit of Acute Gastric Volvulus. Just about the same. Patient reports not feeling hungry but does want to eat. Noted to be febrile at 102 this morning. Patient ambulating hallways yesterday, denies SOB, abdominal pain. Current Medications Current Medications Current Medications Acetaminophen (Tylenol Tab) 325 mg Q4HP PRN PO PAIN / FEVER Last administered on 02/06/19at 10:17; Start 02/04/19 at 09:15; Stop 02/06/19 at 18:26; Status DC Acetaminophen (Tylenol Tab) 650 mg Q6HP PRN PO PAIN / FEVER; Start 02/04/19 at 10:45; Status Cancel Acetaminophen (Tylenol Tab) 1,000 mg Q6HP PRN PO MILD/MODERATE PAIN (PS 1-7) Last administered on 02/16/19at 08:02; Start 02/06/19 at 18:30 Acetaminophen/ Hydrocodone Bitart (Coleman, Anexsia 5/325) 1 tab Q4HP PRN PO MODERATE/SEVERE PAIN (PS 5-10) Last administered on 02/15/19at 19:09; Start 02/06/19 at 18:30 Acetylcysteine (Mucomyst 20% (200mg/ml)) 400 mg RBID INH ; Start 02/12/19 at 08:00 Albuterol Sulfate (Proventil Neb) 2.5 mg RQ2H PRN NEB SHORTNESS OF BREATH Last administered on 02/15/19at 20:07; Start 01/28/19 at 18:30 Albuterol Sulfate (Proventil Neb) 2.5 mg RQ4H NEB Last administered on 02/10/19at 12:59; Start 01/30/19 at 16:00; Stop 02/11/19 at 09:07; Status DC Albuterol/ Ipratropium (Duoneb (Ipr 0.5mg/Alb 2.5mg)) 3 ml RQ4H NEB Last administered on 01/30/19at 12:24; Start 01/28/19 at 20:00; Stop 01/30/19 at 12:27; Status DC Amino Ac/Electrol/ Dextrose/Calcium 2,000 ml @ 65 mls/hr ONCE@1800 IV Last administered on 02/14/19at 18:43; Start 02/14/19 at 18:00; Stop 02/15/19 at 17:59; Status DC Amino Ac/Electrol/ Dextrose/Calcium 2,000 ml @ 65 mls/hr ONCE@1800 IV Last administered on 02/15/19at 17:52; Start 02/15/19 at 18:00; Stop 02/16/19 at 08:42; Status DC Amoxicillin/ Clavulanate Potassium (Augmentin) 875 mg BID PO Last administered on 02/06/19at 21:01; Start 02/03/19 at 09:00; Stop 02/06/19 at 21:01; Status DC Ampicillin Sodium/ Sulbactam Sodium 3 gm/Dextrose 100 ml @ 200 mls/hr Q6H IV Last administered on 01/28/19at 05:19; Start 01/28/19 at 00:00; Stop 01/28/19 at 07:30; Status DC Brinzolamide (Azopt) 1 drop BID OU Last administered on 02/16/19at 08:03; Start 02/03/19 at 09:00 Chlorhexidine Gluconate (Peridex Oral Rinse) SWAB/BRUSH ORAL CAVITY BID MT Last administered on 01/30/19at 10:05; Start 01/28/19 at 21:00; Stop 01/30/19 at 12:27; Status DC Cod Liver Oil/ Zinc Oxide (Desitin) APPLY TO skin aroun... QID TOP Last administered on 02/13/19at 08:58; Start 02/08/19 at 09:00; Stop 02/13/19 at 09:19; Status DC Dextrose (Dextrose 50%) 25 ml ASDIRECTED PRN IV SEE LABEL COMMENTS; Start 01/30/19 at 16:30; Stop 02/05/19 at 08:21; Status DC Diatrizoate Meglum/ Diatrizoate Sod (Gastrografin) 10 ml Q30M PO Last admin istered on 02/07/19at 06:34; Start 02/07/19 at 07:00; Stop 02/07/19 at 07:31; Status DC Enoxaparin Sodium (Lovenox) 40 mg DAILY@1400 SC Last administered on 02/15/19at 14:44; Start 01/29/19 at 14:00 Fat Emulsion Intravenous 500 ml @ 20 mls/hr ONCE@1800 IV Last administered on 02/14/19at 18:42; Start 02/14/19 at 18:00; Stop 02/15/19 at 17:59; Status DC Fat Emulsion Intravenous 500 ml @ 20 mls/hr ONCE@1800 IV Last administered on 02/15/19at 17:52; Start 02/15/19 at 18:00; Stop 02/16/19 at 08:42; Status DC Fentanyl Citrate (Sublimaze) 25 mcg Q5MP PRN IV MODERATE PAIN (PS 4-7) Last administered on 01/28/19at 16:53; Start 01/28/19 at 16:00; Stop 01/29/19 at 06:12; Status DC Fentanyl Citrate (Sublimaze) 25 mcg Q5MP PRN IV MODERATE PAIN (PS 4-7) Last administered on 02/13/19at 14:31; Start 02/13/19 at 14:30; Stop 02/13/19 at 15:30; Status DC Fluconazole (Diflucan) 200 mg DAILY PO Last administered on 02/12/19at 09:45; Start 02/11/19 at 09:00; Stop 02/13/19 at 14:02; Status DC Fluconazole 200 mg/IV Miscellaneous Supplies 100 ml @ 100 mls/hr Q24H IV Last administered on 02/15/19at 14:45; Start 02/13/19 at 15:00 Furosemide (LASIX injection) 40 mg DAILY IV Last administered on 02/01/19at 01:31; Start 02/01/19 at 09:00; Stop 02/01/19 at 09:00; Status DC Glucagon (Glucagon) 1 mg ASDIRECTED PRN SC SEE LABEL COMMENTS; Start 01/30/19 at 16:30; Stop 02/05/19 at 08:21; Status DC Glucose (Glucose) 16 GM ASDIRECTED PRN PO SEE LABEL COMMENTS; Start 01/30/19 at 16:30; Stop 02/05/19 at 08:21; Status DC Heparin Sodium (Heparin (Flush)) 200 units ASDIRECTED PRN IV SEE LABEL COMMENTS; Start 02/14/19 at 14:30 Heparin Sodium (Heparin (Flush)) 200 units PICC IV Last administered on 02/16/19at 05:34; Start 02/14/19 at 18:00 Heparin Sodium (Porcine) (Heparin) 5,000 units Q8H SQ Last administered on 01/29/19at 05:12; Start 01/28/19 at 06:00; Stop 01/29/19 at 08:46; Status DC Home Med (Med Rec Complete!) ASDIRECTED XX ; Start 01/27/19 at 05:30; Stop 01/27/19 at 05:39; Status DC Hydrochlorothiazide (Hydrodiuril) 25 mg DAILY PO Last administered on 02/09/19at 09:00; Start 02/03/19 at 09:00; Stop 02/09/19 at 11:37; Status DC Hydromorphone HCl (Dilaudid) 0.3 mg Q3HP PRN IV MILD PAIN (PS 1-4); Start 01/27/19 at 15:45; Stop 01/28/19 at 18:47; Status DC Hydromorphone HCl (Dilaudid) 0.4 mg Q3HP PRN IV MODERATE PAIN (PS 5-7) Last administered on 01/27/19at 14:08; Start 01/27/19 at 13:45; Stop 01/27/19 at 17:16; Status DC Hydromorphone HCl (Dilaudid) 0.5 mg Q30M PRN IV MODERATE PAIN (PS 5-7) Last administered on 01/27/19at 05:49; Start 01/27/19 at 02:15; Stop 01/27/19 at 05:50; Status DC Hydromorphone HCl (Dilaudid) 0.6 mg Q3HP PRN IV MODERATE PAIN (PS 5-7) Last administered on 01/28/19at 02:54; Start 01/27/19 at 15:45; Stop 01/28/19 at 18:47; Status DC Hyoscyamine/Lido/ Alumin/Mag/Simethi (Gi Cocktail) 50 ml Q6HP PRN PO GI UPSET; Start 02/07/19 at 12:30; Stop 02/13/19 at 14:02; Status DC Insulin Human Lispro (HumaLOG INSULIN) See Protocol Table Q6H SC Last administered on 02/15/19at 12:46; Start 02/14/19 at 18:00; Stop 02/15/19 at 12:01; Status DC Insulin Human Lispro (HumaLOG INSULIN) See Protocol Table Q6H SC Last administered on 02/16/19at 05:35; Start 02/15/19 at 18:00; Stop 02/16/19 at 08:42; Status DC Lactated Ringer's 1,000 ml @ 75 mls/hr [id number] IV Last administered on 02/14/19at 18:43; Start 02/13/19 at 10:00; Stop 02/14/19 at 18:49; Status DC Lactated Ringer's 1,000 ml @ 75 mls/hr [id number] IV ; Start 02/13/19 at 14:30; Stop 02/13/19 at 15:30; Status DC Lactated Ringer's 1,000 ml @ 100 mls/hr Q10H IV Last administered on 01/31/19at 20:52; Start 01/28/19 at 05:00; Stop 02/01/19 at 01:26; Status DC Lactated Ringer's 1,000 ml @ 100 mls/hr Q10H IV ; Start 01/28/19 at 16:00; Stop 01/28/19 at 17:00; Status DC Lactated Ringer's 1,000 ml @ 150 mls/hr Q6H40M IV Last administered on 01/27/19at 08:38; Start 01/27/19 at 07:15; Stop 01/27/19 at 21:14; Status DC Lactated Ringer's 1,000 ml @ 1,000 mls/hr Q1H IV Last administered on 01/27/19at 07:16; Start 01/27/19 at 06:26; Stop 01/27/19 at 07:18; Status DC Latanoprost (Xalatan 0.005% Op Soln) 1 drop QHS OU Last administered on 02/15/19at 21:17; Start 02/03/19 at 21:00 Levothyroxine Sodium (Synthroid) 12.5 mcg DAILY IV Last administered on 02/04/19at 09:54; Start 01/28/19 at 09:00; Stop 02/04/19 at 10:35; Status DC Levothyroxine Sodium (Synthroid) 25 mcg DAILY@06 PO Last administered on 02/16/19at 06:00; Start 02/05/19 at 06:00 Magnesium Hydroxide (Milk Of Magnesia) 30 ml BIDP PRN PO CONSTIPATION Last administered on 02/11/19at 18:46; Start 02/11/19 at 18:45; Stop 02/13/19 at 14:02; Status DC Meperidine HCl (Demerol) 12.5 mg Q5MP PRN IV SHIVERING; Start 01/28/19 at 16:00; Stop 01/28/19 at 17:00; Status DC Meropenem 1 gm/IV Miscellaneous Supplies 50 ml @ 100 mls/hr Q8H IV Last administered on 02/16/19at 08:02; Start 02/07/19 at 17:00 Methylprednisolone (SOLU medrol) 40 mg Q6H IV Last administered on 02/04/19at 04:15; Start 01/31/19 at 17:00; Stop 02/04/19 at 09:05; Status DC Metoclopramide HCl (REGLAN INJection) 10 mg Q6HP PRN IV NAUSEA OR VOMITING; Start 01/28/19 at 16:00; Stop 01/28/19 at 17:00; Status DC Metoclopramide HCl (REGLAN INJection) 10 mg Q6HP PRN IV NAUSEA OR VOMITING; Start 02/13/19 at 14:30; Stop 02/13/19 at 15:30; Status DC Midazolam HCl (Versed) 2 mg Q15MP PRN IV AGITATION Last administered on 01/30/19 03:51; Start 01/28/19 at 18:30; Stop 01/31/19 at 16:38; Status DC Midazolam HCl 100 mg/Dextrose 100 ml @ 2 mls/hr Q24H IV ; Start 01/28/19 at 15:45; Stop 01/28/19 at 19:45; Status DC Morphine Sulfate (Morphine Sulfate Inj) 2 mg Q2HP PRN IV MODERATE/SEVERE PAIN (PS 5-10); Start 01/27/19 at 06:30; Stop 01/27/19 at 16:00; Status DC Morphine Sulfate (Morphine Sulfate Inj) 2 mg Q2HP PRN IV PAIN Last administered on 02/02/19at 16:51; Start 01/28/19 at 18:30; Stop 02/08/19 at 10:42; Status DC Morphine Sulfate (Morphine Sulfate Inj) 2 mg Q2HP PRN IV MODERATE/SEVERE PAIN (PS 5-10) Last administered on 02/16/19at 04:25; Start 02/13/19 at 09:15 Morphine Sulfate (Morphine Sulfate Inj) 4 mg Q2HP PRN IV SEVERE PAIN (PS 8-10) Last administered on 01/27/19at 12:02; Start 01/27/19 at 06:30; Stop 01/27/19 at 16:00; Status DC Non-Formulary Medication (Refrigerator Hernandez) Q1M PRN XX SEE LABEL COMMENTS; Start 01/28/19 at 15:45; Stop 01/28/19 at 19:47; Status DC Nystatin (Mycostatin) 5 ml QID SS Last administered on 02/10/19at 12:39; Start 02/08/19 at 09:00; Stop 02/10/19 at 18:42; Status DC Ondansetron HCl (ZOFRAN INJection) 4 mg Q4HP PRN IV NAUSEA OR VOMITING; Start 01/28/19 at 16:00; Stop 01/28/19 at 17:00; Status DC Ondansetron HCl (ZOFRAN INJection) 4 mg Q4HP PRN IV NAUSEA OR VOMITING; Start 02/13/19 at 14:30; Stop 02/13/19 at 15:30; Status DC Ondansetron HCl (ZOFRAN INJection) 4 mg Q6HP PRN IV NAUSEA OR VOMITING Last administered on 01/28/19at 07:50; Start 01/27/19 at 06:30 Oxycodone/ Acetaminophen (Percocet 5mg/ 325mg Tablet) 1 tab ASDIRECTED PRN PO MILD/MODERATE PAIN (PS 1-7); Start 01/28/19 at 16:00; Stop 01/28/19 at 17:00; Status DC Oxycodone/ Acetaminophen (Percocet 5mg/ 325mg Tablet) 1 tab ASDIRECTED PRN PO MILD/MODERATE PAIN (PS 1-7); Start 02/13/19 at 14:30; Stop 02/13/19 at 15:30; Status DC Pantoprazole Sodium (Protonix) 40 mg DAILY IV Last administered on 02/04/19at 09:53; Start 01/27/19 at 09:00; Stop 02/05/19 at 08:21; Status DC Pantoprazole Sodium (Protonix) 40 mg DAILY IV Last administered on 02/16/19at 08:03; Start 02/13/19 at 09:00 Pantoprazole Sodium (Protonix) 40 mg DAILY PO Last administered on 02/12/19at 09:45; Start 02/05/19 at 09:00; Stop 02/13/19 at 14:02; Status DC Piperacillin Sod/ Tazobactam Sod 3.375 gm/Dextrose 50 ml @ 50 mls/hr Q6H IV Last administered on 02/03/19at 04:39; Start 01/28/19 at 11:00; Stop 02/03/19 at 10:16; Status DC Potassium Chloride 10 meq/ IV Miscellaneous Supplies 100 ml @ 100 mls/hr ASDIRECTED IV ; Start 01/29/19 at 08:00; Status UNV Potassium Chloride 10 meq/ IV Miscellaneous Supplies 100 ml @ 100 mls/hr Q1H IV Last administered on 01/29/19at 10:46; Start 01/29/19 at 08:00; Stop 01/29/19 at 09:59; Status DC Potassium Chloride 10 meq/ IV Miscellaneous Supplies 100 ml @ 100 mls/hr Q1H IV Last administered on 01/30/19at 11:11; Start 01/30/19 at 09:00; Stop 01/30/19 at 10:59; Status DC Potassium Chloride 10 meq/ IV Miscellaneous Supplies 100 ml @ 100 mls/hr Q1H IV Last administered on 02/01/19at 12:34; Start 02/01/19 at 09:00; Stop 02/01/19 at 11:59; Status DC Propofol 1000 mg/ IV Miscellaneous Supplies 100 ml @ 4.29 mls/hr [id number] IV Last administered on 01/30/19at 04:33; Start 01/28/19 at 18:29; Stop 01/30/19 at 12:27; Status DC Simethicone (Mylicon) 80 mg Q6HP PRN PO GAS PAIN Last administered on 02/11/19at 15:07; Start 02/07/19 at 12:30; Stop 02/13/19 at 14:02; Status DC Sodium Chloride 1,000 ml @ 500 mls/hr Q2H IV Last administered on 01/28/19at 07:51; Start 01/28/19 at 07:30; Stop 01/28/19 at 09:29; Status DC Sodium Chloride (Saline Lock Flush) 2 ml ASDIRECTED PRN IV SEE LABEL COMMENTS Last administered on 02/16/19at 04:26; Start 02/05/19 at 19:30 Sodium Chloride (Saline Lock Flush) 2 ml SLF IV Last administered on 02/16/19at 05:35; Start 02/05/19 at 22:00 Sodium Chloride (Saline Lock Flush) 10 ML PICC IV Last administered on 02/16/19at 05:36; Start 02/14/19 at 18:00 Sodium Chloride (Saline Lock Flush) 10ML ASDIRECTED PRN IV SEE LABEL COMMENTS; Start 02/14/19 at 14:30 Sodium Chloride (Sodium Chloride 3% Neb Asya) 3 ml RQ4H INH Last administered on 02/10/19at 12:59; Start 01/30/19 at 16:00; Stop 02/11/19 at 09:07; Status DC Vancomycin HCl 750 mg/IV Miscellaneous Supplies 1 each/ Dextrose 275 ml @ 275 mls/hr Q12H IV Last administered on 02/10/19at 05:32; Start 02/09/19 at 06:00; Stop 02/10/19 at 15:56; Status DC Vancomycin HCl 1000 mg/IV Miscellaneous Supplies 20 ml @ 20 mls/hr Q8H IV ; Start 02/07/19 at 15:45; Stop 02/07/19 at 18:38; Status DC Vancomycin HCl 1000 mg/IV Miscellaneous Supplies 1 each/ Dextrose 270 ml @ 270 mls/hr Q12H IV Last administered on 02/08/19at 17:51; Start 02/08/19 at 06:00; Stop 02/09/19 at 05:58; Status DC Allergies Coded Allergies: brimonidine (Verified Allergy, Unknown, 01/27/19) codeine (Verified Allergy, Unknown, 02/13/19) PT HAS RECEIVED DILAUDID, FENTANYL dorzolamide (Verified Allergy, Unknown, from cosopt, 01/27/19) erythromycin base (Verified Allergy, Unknown, 01/27/19) timolol (Verified Allergy, Unknown, 01/27/19) NSAIDS (Non-Steroidal Anti-Inflamma (Verified Adverse Reaction, Unknown, AVOID DUE TO ONE KIDNEY, 01/27/19) Objective Physical Examination Examination GENERAL APPEARANCE:relatively comfortable. SKIN: warm and dry. HEENT: mild pale palpebral conjunctiva. NECK: Supple, no thyromegaly. No obvious jugular venous distention. LUNGS: Clear to auscultation bilaterally. No wheezing appreciated. HEART: No chest wall abnormalities. Regular rate and rhythm with no murmurs appreciated. ABDOMEN: Abdomen is obese, soft, minimally distended. Peralta tube hooked to suct ion - slight less thick material getting drained but still good amoutnt fo drainage. Nontender on palpation. EXTREMITIES: mild LE, minimal UE edema. Vital Signs Vital Signs Date Time Temp Pulse Resp B/P (MAP) Pulse Ox O2 Delivery O2 Flow Rate FiO2 02/16/19 09:19 99.9 02/16/19 08:00 67 20 120/68 (85) 91 02/15/19 20:00 I&Os I&O- Last 24 Hours up to 6 AM 02/16/19 06:00 Intake Total 2030 ml Output Total 2450 ml Balance -420 ml Laboratory Data Labs 24H Laboratory Tests 2 02/15/19 12:21: Bedside Glucose (Misc Panel) 149H 02/15/19 17:17: Bedside Glucose (Misc Panel) 150H 02/16/19 00:10: Bedside Glucose (Misc Panel) 161H 02/16/19 05:33: Bedside Glucose (Misc Panel) 151H 02/16/19 05:40: Immature Granulocyte % (Auto) 2.0, White Blood Count 18.7H, Red Blood Count 3.50L, Hemoglobin 9.4L, Hematocrit 30.2L, Mean Corpuscular Volume 86.3, Mean Corpuscular Hemoglobin 26.9L, Mean Corpuscular Hemoglobin Concent 31.1L, Red Cell Distribution Width 17.4H, Platelet Count 485H, Neutrophils (%) (Auto) 83.7H, Lymphocytes (%) (Auto) 4.9L, Monocytes (%) (Auto) 7.5H, Eosinophils (%) (Auto) 1.7, Basophils (%) (Auto) 0.2, Neutrophils # (Auto) 15.7H, Lymphocytes # (Auto) 0.9L, Monocytes # (Auto) 1.4H, Eosinophils # (Auto) 0.3, Basophils # (Auto) 0.0, Nucleated Red Blood Cells % (auto) 0.2H, Anion Gap 5L, Glomerular Filtration Rate > 60.0, Blood Urea Nitrogen 26H, Creatinine 0.77, Sodium Level 139, Potassium Level 3.8, Chloride Level 107, Carbon Dioxide Level 27, Calcium Level 9.7, Aspartate Amino Transf (AST/SGOT) 12, Alanine Aminotransferase (ALT/SGPT) 16, Alkaline Phosphatase 102, Total Bilirubin 0.3, Total Protein 5.7L, Albumin 1.7L, Magnesium Level 2.0, C-Reactive Protein, Quantitative 7.63H, Albumin/Globulin Ratio 0.43L CBC/BMP Laboratory Tests 02/15/19 12:03 02/15/19 18:12 02/15/19 23:54 02/16/19 05:40 Red Blood Count 3.50 L, Mean Corpuscular Volume 86.3, Mean Corpuscular Hemoglobin 26.9 L, Mean Corpuscular Hemoglobin Concent 31.1 L, Red Cell Distribution Width 17.4 H, Neutrophils (%) (Auto) 83.7 H, Lymphocytes (%) (Auto) 4.9 L, Monocytes (%) (Auto) 7.5 H, Eosinophils (%) (Auto) 1.7, Basophils (%) (Auto) 0.2, Neutrophils # (Auto) 15.7 H, Lymphocytes # (Auto) 0.9 L, Monocytes # (Auto) 1.4 H, Eosinophils # (Auto) 0.3, Basophils # (Auto) 0.0, Calcium Level 9.7, Aspartate Amino Transf (AST/SGOT) 12, Alanine Aminotransferase (ALT/SGPT) 16, Alkaline Phosphatase 102, Total Bilirubin 0.3, Total Protein 5.7 L, Albumin 1.7 L Microbiology Microbiology 02/16/19 Blood Fungal Culture, Received Pending 02/16/19 Blood Culture, Received Pending 02/16/19 Blood Fungal Culture, Received Pending 02/16/19 Blood Culture, Received Pending 02/07/19 Blood Culture - Final, Complete NO GROWTH AFTER 5 DAYS 02/07/19 Blood Culture - Final, Complete NO GROWTH AFTER 5 DAYS 02/13/19 Gram Stain - Final, Complete 02/13/19 Abscess Culture - Final, Complete 02/13/19 Anaerobic Culture - Final, Complete 02/07/19 Abscess Culture - Final, Complete Naima Albicans Impression s/p repair of large hiatal hernia with gastric volvulus still adynamic stomach with ischemic ulcers on last look with upper GI endoscopy last week s/p replacement of gastrostomy tube to a Peratla gastojejunostomy tube. Tip of the feeding tube reverted back into the stomach Drainage tube to LIWS malnutrition on TPN new fever PLAN: Continue TPN At some point next week, Dr. Light will try to reposition/replace gastrojejunostomy feeding tube to allow for postpyloric feeding. will check CXR today re: fever ?aspiration Plan / VTE VTE Prophylaxis Ordered?: Yes MISHA RODRIGUEZ MD February 16, 2019 09:44
[2019-02-16] MEDS ORDERED: NS 1,000 ML IV ONE (10:45)
[2019-02-16] MEDS ORDERED: VANCOMYCIN HCL 750 MG, VIAL MATE ADAPTER 1 EACH in D5W 250 ML IV SCH (11:30)
[2019-02-16] MEDS ORDERED: VANCOMYCIN HCL 1,000 MG, VIAL MATE ADAPTER 1 EACH in D5W 250 ML IV ONE (12:00)
--- NOTE | 2019-02-16 14:18 | REP ---
Chest x-ray: Two views. History: Fever. Comparison chest x-ray: February 11, 2019. Findings: A right upper extremity PICC line is seen with its tip in the expected location of the superior vena cava. There are bilateral pleural effusions blunting the posterior pleural angles. The left lateral pleural angle is blunted as well. These appear unchanged from the comparison radiograph. Cardiomegaly is again observed. No acute infiltrate. Impression: PICC line in place in the right upper extremity. Cardiomegaly and bilateral pleural effusions left somewhat more so than right. Electronically Signed by Simone Holloway MD 02/16/2019 02:10 P
--- NOTE | 2019-02-16 14:19 | REP ---
KUB: Two views. History: Fever. Comparison study: February 14, 2019. Findings: There is air and stool throughout a nondistended colon. No small bowel dilation is seen. There is a feeding tube visible in the left mid abdomen and terminating in the right upper quadrant. Flank stripes are intact. There is a dextroconvex curvature in the lumbar spine. Impression: Unremarkable bowel gas pattern. Feeding tube noted in place. Electronically Signed by Simone Holloway MD 02/16/2019 02:11 P
[2019-02-16] MEDS: FLUCONAZOLE 200 MG in IV 1 EA IV SCH (14:44)
[2019-02-16] MEDS: ENOXAPARIN 40 MG/0.4 ML SYRINGE (J1650) SC SCH (14:44)
--- NOTE | 2019-02-16 15:39 | IPNPDOC ---
Text Note Date of Service The patient was seen on 02/16/19. NOTE Subjective: Patient is a 78 year old female with a PMHx of HTN, DLP, Glaucoma, GERD who presented to the [facility] ER on 01/26/19 with complaint of abdominal pain. 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 The patient had a laparoscopic reduction. The patient was unable to be weaned off ventilator after her surgery due to worsening hypoxia. She was found to have an aspiration pneumonia. Patient did improve and was extubated to BIPAP / Vapotherem. She was taken for intervention again on for replacement of G tube to GJ tube and aspiration of fluid collection. Patient was seen and examined at the bedside. This morning patient was reporting some left upper quadrant abdominal pain still noted difficulty with deep in spiration, causing pain. Denies any significant difficulty breathing. Nursing staff is reported that the patient was coughing this morning and vomited. Denies any discomfort with urination. Objective: Vitals (See below) General: Lying in bed, no acute distress, comfortable, AAOx3 HEENT: NC, AT CVS: RRR, +S1S2 Lungs: Decreased breath sounds appreciated at left lung base; no appreciable rhonchi or wheezing, no crackles can be appreciated Abdomen: Soft, ND, NT, +GJ tube in place - set to suction - draining green output; some drainage around the tube is noted Extremities: Mild LE Edema noted, - Calf tenderness Assessment and plan: Cough - possibly 2/2 recurrence of aspiration pneumonia; with Left sided pleural effusion - possibly 2/2 reactive from intra-abdominal infection, possibly 2/2 pneumonia - CXR 02/16: PICC line in place in the right upper extremity. Cardiomegaly and bilateral pleural effusions left somewhat more so than right. - CT Chest 02/13: Left pleural effusion and areas of left upper and lower lobe consolidation, and pericardial effusion are all unchanged. Moderate amount of right posterior mediastinal or pleural fluid inferiorly is unchanged with adjacent mild atelectasis/infiltrate in the right lung base. - c/w Meropenem Hypotension - This morning patient was found to have a SBP of 70s - Fever of 102 this morning - Lactic acid was normal - Repeat blood cultures / blood fungal cultures - Improved with fluid resuscitation s/p Acute Hypoxic respiratory failure Large hiatal hernia and acute gastric volvulus - XR abdomen 02/16: Unremarkable bowel gas pattern. Feeding tube noted in place. - CT abdomen / pelvis 02/13: Small amount of air and fluid surrounds the gastrostomy tube in the abdominal wall. This is stable. No acute findings in the abdomen or pelvis. - s/p GJ tube replacement with Dr. Light on 02/13 - Managed by surgery Post-operative wound infection with subcutaneous abscess around G-tube - Abscess culture 02/07: Naima albicans - c/w Meropenem and Diflucan; Added Vancomycin - Infectious disease and Surgery (Dr. Light / Seda) on consult Hypothyroidism - c/w Levothyroxine Nutrition - s/p PICC line placement - Will hold TPN for now (re: Fever / Hypotension) GI prophylaxis - c/w Protonix DVT prophylaxis - c/w Lovenox VS,Fishbone, I+O VS, Fishbone, I+O Laboratory Tests 02/15/19 18:12 02/15/19 23:54 02/16/19 05:40 Red Blood Count 3.50 L, Mean Corpuscular Volume 86.3, Mean Corpuscular Hemoglobin 26.9 L, Mean Corpuscular Hemoglobin Concent 31.1 L, Red Cell Distribution Width 17.4 H, Neutrophils (%) (Auto) 83.7 H, Lymphocytes (%) (Auto) 4.9 L, Monocytes (%) (Auto) 7.5 H, Eosinophils (%) (Auto) 1.7, Basophils (%) (Auto) 0.2, Neutrophils # (Auto) 15.7 H, Lymphocytes # (Auto) 0.9 L, Monocytes # (Auto) 1.4 H, Eosinophils # (Auto) 0.3, Basophils # (Auto) 0.0, Calcium Level 9.7, Aspartate Amino Transf (AST/SGOT) 12, Alanine Aminotransferase (ALT/SGPT) 16, Alkaline Phosphatase 102, Total Bilirubin 0.3, Total Protein 5.7 L, Albumin 1.7 L Vital Signs Date Time Temp Pulse Resp B/P (MAP) Pulse Ox O2 Delivery O2 Flow Rate FiO2 02/16/19 13:17 97.8 80 20 108/55 (72) 92 02/15/19 20:00 I&O- Last 24 Hours up to 6 AM 02/16/19 06:00 Intake Total 2030 ml Output Total 2450 ml Balance -420 ml DEE,VIJESH MD February 16, 2019 15:39
[2019-02-16] MEDS: ALBUTEROL SULFATE 2.5 MG/0.5 ML INH NEB SOLN NEB PRN (19:31)
[2019-02-16] MEDS: LATANOPROST 0.005% OPHTH SOLN 2.5 ML OU SCH (21:47)
[2019-02-17] VITALS: BP 130/69
[2019-02-17] MEDS: ACETAMINOPHEN 500 MG TAB PO PRN ×2 (00:46→10:24)
[2019-02-17] MEDS: MEROPENEM INJ 1 GM in IV 1 EA IV SCH ×3 (00:47→16:22)
[2019-02-17 04:00] VITALS: BP 129/74
[2019-02-17 04:08] LABS: BASO % 0.3 % (0.0-1.0); EOS # 0.3 10^3/uL (0.0-0.50); EOS % 2.2 % (0.0-3.0); HEMOGLOBIN 8.9 g/dl (12.0-15.5); LYMPH # 1.5 10^3/uL (1.5-4.5); LYMPH % 10.4 % (24.0-44.0); MEAN CORPUSCULAR HEMOGLOBIN 27.6 pg (27.0-33.0); MEAN CORPUSCULAR HGB CONC 31.8 g/dl (32.0-36.5); MONO # 1.3 10^3/uL (0.0-0.8); MONO % 9.1 % (0.0-5.0); NEUTROPHILS # 10.9 10^3/uL (1.8-7.7); NEUTROPHILS % 76.7 % (36.0-66.0); RED BLOOD COUNT 3.22 10^6/uL (4.00-5.40); WHITE BLOOD COUNT 14.2 10^3/uL (4.0-10.0)
[2019-02-17 04:13] LABS: PLATELET COUNT, AUTOMATED 346 10^3/uL (150-450)
[2019-02-17 04:34] LABS: ALBUMIN 1.6 GM/DL (3.2-5.2); ALT/SGPT 14 U/L (12-78); BILIRUBIN,TOTAL 0.6 MG/DL (0.2-1.0); BLOOD UREA NITROGEN 22 MG/DL (7-18); CALCIUM LEVEL 9.9 MG/DL (8.8-10.2); CARBON DIOXIDE LEVEL 26 MEQ/L (21-32); CHLORIDE LEVEL 110 MEQ/L (98-107); CREATININE FOR GFR 0.69 MG/DL (0.55-1.30); GLOMERULAR FILTRATION RATE > 60.0 (>39); GLUCOSE, FASTING 98 MG/DL (70-100); MAGNESIUM LEVEL 1.8 MG/DL (1.8-2.4); POTASSIUM SERUM 3.6 MEQ/L (3.5-5.1); SODIUM LEVEL 143 MEQ/L (136-145); TOTAL PROTEIN 5.5 GM/DL (6.4-8.2)
[2019-02-17] MEDS: LEVOTHYROXINE 25MCG TABLET (0.025MG) PO SCH (05:39)
[2019-02-17] MEDS: SODIUM CHLORIDE 0.9% INJ 10 ML SYR IV SCH ×2 (05:39→10:16)
[2019-02-17] MEDS: SLF 3 ML SYR IV SCH ×3 (05:40→20:55)
[2019-02-17] MEDS: VANCOMYCIN HCL 750 MG, VIAL MATE ADAPTER 1 EACH in D5W 250 ML IV SCH (06:40)
[2019-02-17] MEDS ORDERED: VANCOMYCIN HCL 750 MG in D5W 250 ML IV SCH (07:00)
[2019-02-17] MEDS: ACETYLCYSTEINE 20% 4 ML VIAL (200MG/ML) INH SCH ×2 (07:46→20:00)
[2019-02-17] MEDS: ALBUTEROL SULFATE 2.5 MG/0.5 ML INH NEB SOLN NEB PRN (07:47)
[2019-02-17 08:00] VITALS: BP 132/76
[2019-02-17] MEDS: VANCOMYCIN HCL 500 MG in D5W MINI-BAG PLUS 100 ML IV SCH (08:31)
[2019-02-17] MEDS: PANTOPRAZOLE 40MG INJ (PROTONIX) (C9113) IV SCH (09:38)
[2019-02-17] MEDS: BRINZOLAMIDE 1 % OPHTH SUSP (AZOPT) 10ML OU SCH ×2 (09:39→20:55)
--- NOTE | 2019-02-17 09:43 | IPNPDOC ---
Subjective General Date/Time Seen The patient was seen on 02/17/19 at 09:41. Subject Chief Complaint/History The patient is a 78-year-old female admitted with a reason for visit of Acute Gastric Volvulus. Patient seen sitting up on her bed. Reports improvement of the previously complaint abdominal discomfort. They were concerned about sepsis yesterday and after my examination she was found to be hypotensive and febrile. She so far has a negative septic workup but the TPN was held. Current Medications Current Medications Current Medications Acetaminophen (Tylenol Tab) 325 mg Q4HP PRN PO PAIN / FEVER Last administered on 02/06/19 10:17; Start 02/04/19 at 09:15; Stop 02/06/19 at 18:26; Status DC Acetaminophen (Tylenol Tab) 650 mg Q6HP PRN PO PAIN / FEVER; Start 02/04/19 at 10:45; Status Cancel Acetaminophen (Tylenol Tab) 1,000 mg Q6HP PRN PO MILD/MODERATE PAIN (PS 1-7) Last administered on 02/17/19at 00:46; Start 02/06/19 at 18:30 Acetaminophen/ Hydrocodone Bitart (Sharon, Anexsia 5/325) 1 tab Q4HP PRN PO MODERATE/SEVERE PAIN (PS 5-10) Last administered on 02/15/19at 19:09; Start 02/06/19 at 18:30 Acetylcysteine (Mucomyst 20% (200mg/ml)) 400 mg RBID INH ; Start 02/12/19 at 08:00 Albuterol Sulfate (Proventil Neb) 2.5 mg RQ2H PRN NEB SHORTNESS OF BREATH Last administered on 02/17/19at 07:47; Start 01/28/19 at 18:30 Albuterol Sulfate (Proventil Neb) 2.5 mg RQ4H NEB Last administered on 02/10/19at 12:59; Start 01/30/19 at 16:00; Stop 02/11/19 at 09:07; Status DC Albuterol/ Ipratropium (Duoneb (Ipr 0.5mg/Alb 2.5mg)) 3 ml RQ4H NEB Last administered on 01/30/19at 12:24; Start 01/28/19 at 20:00; Stop 01/30/19 at 12:27; Status DC Amino Ac/Electrol/ Dextrose/Calcium 2,000 ml @ 65 mls/hr ONCE@1800 IV Last administered on 02/14/19at 18:43; Start 02/14/19 at 18:00; Stop 02/15/19 at 17:59; Status DC Amino Ac/Electrol/ Dextrose/Calcium 2,000 ml @ 65 mls/hr ONCE@1800 IV Last administered on 02/15/19at 17:52; Start 02/15/19 at 18:00; Stop 02/16/19 at 08:42; Status DC Amoxicillin/ Clavulanate Potassium (Augmentin) 875 mg BID PO Last administered on 02/06/19at 21:01; Start 02/03/19 at 09:00; Stop 02/06/19 at 21:01; Status DC Ampicillin Sodium/ Sulbactam Sodium 3 gm/Dextrose 100 ml @ 200 mls/hr Q6H IV Last administered on 01/28/19at 05:19; Start 01/28/19 at 00:00; Stop 01/28/19 at 07:30; Status DC Brinzolamide (Azopt) 1 drop BID OU Last administered on 02/17/19at 09:39; Start 02/03/19 at 09:00 Chlorhexidine Gluconate (Peridex Oral Rinse) SWAB/BRUSH ORAL CAVITY BID MT Last administered on 01/30/19at 10:05; Start 01/28/19 at 21:00; Stop 01/30/19 at 12:27; Status DC Cod Liver Oil/ Zinc Oxide (Desitin) APPLY TO skin aroun... QID TOP Last administered on 02/13/19at 08:58; Start 02/08/19 at 09:00; Stop 02/13/19 at 09:19; Status DC Dextrose (Dextrose 50%) 25 ml ASDIRECTED PRN IV SEE LABEL COMMENTS; Start 01/30/19 at 16:30; Stop 02/05/19 at 08:21; Status DC Diatrizoate Meglum/ Diatrizoate Sod (Gastrografin) 10 ml Q30M PO Last administered on 02/07/19at 06:34; Start 02/07/19 at 07:00; Stop 02/07/19 at 07:31; Status DC Enoxaparin Sodium (Lovenox) 40 mg DAILY@1400 SC Last administered on 02/16/19at 14:44; Start 01/29/19 at 14:00 Fat Emulsion Intravenous 500 ml @ 20 mls/hr ONCE@1800 IV Last administered on 02/14/19at 18:42; Start 02/14/19 at 18:00; Stop 02/15/19 at 17:59; Status DC Fat Emulsion Intravenous 500 ml @ 20 mls/hr ONCE@1800 IV Last administered on 02/15/19at 17:52; Start 02/15/19 at 18:00; Stop 02/16/19 at 08:42; Status DC Fentanyl Citrate (Sublimaze) 25 mcg Q5MP PRN IV MODERATE PAIN (PS 4-7) Last administered on 01/28/19at 16:53; Start 01/28/19 at 16:00; Stop 01/29/19 at 06:12; Status DC Fentanyl Citrate (Sublimaze) 25 mcg Q5MP PRN IV MODERATE PAIN (PS 4-7) Last administered on 02/13/19at 14:31; Start 02/13/19 at 14:30; Stop 02/13/19 at 15:30; Status DC Fluconazole (Diflucan) 200 mg DAILY PO Last administered on 02/12/19at 09:45; Start 02/11/19 at 09:00; Stop 02/13/19 at 14:02; Status DC Fluconazole 200 mg/IV Miscellaneous Supplies 100 ml @ 100 mls/hr Q24H IV Last administered on 02/16/19at 14:44; Start 02/13/19 at 15:00 Furosemide (LASIX injection) 40 mg DAILY IV Last administered on 02/01/19at 01:31; Start 02/01/19 at 09:00; Stop 02/01/19 at 09:00; Status DC Glucagon (Glucagon) 1 mg ASDIRECTED PRN SC SEE LABEL COMMENTS; Start 01/30/19 at 16:30; Stop 02/05/19 at 08:21; Status DC Glucose (Glucose) 16 GM ASDIRECTED PRN PO SEE LABEL COMMENTS; Start 01/30/19 at 16:30; Stop 02/05/19 at 08:21; Status DC Heparin Sodium (Heparin (Flush)) 200 units ASDIRECTED PRN IV SEE LABEL COMMENTS; Start 02/14/19 at 14:30 Heparin Sodium (Heparin (Flush)) 200 units PICC IV Last administered on 02/17/19at 05:39; Start 02/14/19 at 18:00 Heparin Sodium (Porcine) (Heparin) 5,000 units Q8H SQ Last administered on 01/07 01/24at 05:12; Start 01/28/19 at 06:00; Stop 01/29/19 at 08:46; Status DC Home Med (Med Rec Complete!) ASDIRECTED XX ; Start 01/27/19 at 05:30; Stop 01/27/19 at 05:39; Status DC Hydrochlorothiazide (Hydrodiuril) 25 mg DAILY PO Last administered on 02/09/19at 09:00; Start 02/03/19 at 09:00; Stop 02/09/19 at 11:37; Status DC Hydromorphone HCl (Dilaudid) 0.3 mg Q3HP PRN IV MILD PAIN (PS 1-4); Start 01/27/19 at 15:45; Stop 01/28/19 at 18:47; Status DC Hydromorphone HCl (Dilaudid) 0.4 mg Q3HP PRN IV MODERATE PAIN (PS 5-7) Last administered on 01/27/19at 14:08; Start 01/27/19 at 13:45; Stop 01/27/19 at 17:16; Status DC Hydromorphone HCl (Dilaudid) 0.5 mg Q30M PRN IV MODERATE PAIN (PS 5-7) Last administered on 01/27/19at 05:49; Start 01/27/19 at 02:15; Stop 01/27/19 at 05:50; Status DC Hydromorphone HCl (Dilaudid) 0.6 mg Q3HP PRN IV MODERATE PAIN (PS 5-7) Last administered on 01/28/19at 02:54; Start 01/27/19 at 15:45; Stop 01/28/19 at 18:47; Status DC Hyoscyamine/Lido/ Alumin/Mag/Simethi (Gi Cocktail) 50 ml Q6HP PRN PO GI UPSET; Start 02/07/19 at 12:30; Stop 02/13/19 at 14:02; Status DC Insulin Human Lispro (HumaLOG INSULIN) See Protocol Table Q6H SC Last administered on 02/15/19at 12:46; Start 02/14/19 at 18:00; Stop 02/15/19 at 12:01; Status DC Insulin Human Lispro (HumaLOG INSULIN) See Protocol Table Q6H SC Last administered on 02/16/19at 05:35; Start 02/15/19 at 18:00; Stop 02/16/19 at 08:42; Status DC Lactated Ringer's 1,000 ml @ 75 mls/hr [id number] IV Last administered on 02/14/19at 18:43; Start 02/13/19 at 10:00; Stop 02/14/19 at 18:49; Status DC Lactated Ringer's 1,000 ml @ 75 mls/hr [id number] IV ; Start 02/13/19 at 14:30; Stop 02/13/19 at 15:30; Status DC Lactated Ringer's 1,000 ml @ 100 mls/hr Q10H IV Last administered on 01/31/19at 20:52; Start 01/28/19 at 05:00; Stop 02/01/19 at 01:26; Status DC Lactated Ringer's 1,000 ml @ 100 mls/hr Q10H IV ; Start 01/28/19 at 16:00; Stop 01/28/19 at 17:00; Status DC Lactated Ringer's 1,000 ml @ 150 mls/hr Q6H40M IV Last administered on 01/27/19at 08:38; Start 01/27/19 at 07:15; Stop 01/27/19 at 21:14; Status DC Lactated Ringer's 1,000 ml @ 1,000 mls/hr Q1H IV Last administered on 01/27/19at 07:16; Start 01/27/19 at 06:26; Stop 01/27/19 at 07:18; Status DC Latanoprost (Xalatan 0.005% Op Soln) 1 drop QHS OU Last administered on 02/16/19at 21:47; Start 02/03/19 at 21:00 Levothyroxine Sodium (Synthroid) 12.5 mcg DAILY IV Last administered on 02/04/19at 09:54; Start 01/28/19 at 09:00; Stop 02/04/19 at 10:35; Status DC Levothyroxine Sodium (Synthroid) 25 mcg DAILY@06 PO Last administered on 02/17/19at 05:39; Start 02/05/19 at 06:00 Magnesium Hydroxide (Milk Of Magnesia) 30 ml BIDP PRN PO CONSTIPATION Last administered on 02/11/19at 18:46; Start 02/11/19 at 18:45; Stop 02/13/19 at 14:02; Status DC Meperidine HCl (Demerol) 12.5 mg Q5MP PRN IV SHIVERING; Start 01/28/19 at 16:00; Stop 01/28/19 at 17:00; Status DC Meropenem 1 gm/IV Miscellaneous Supplies 50 ml @ 100 mls/hr Q8H IV Last administered on 02/17/19at 09:38; Start 02/07/19 at 17:00 Methylprednisolone (SOLU medrol) 40 mg Q6H IV Last administered on 02/04/19at 04:15; Start 01/31/19 at 17:00; Stop 02/04/19 at 09:05; Status DC Metoclopramide HCl (REGLAN INJection) 10 mg Q6HP PRN IV NAUSEA OR VOMITING; Start 01/28/19 at 16:00; Stop 01/28/19 at 17:00; Status DC Metoclopramide HCl (REGLAN INJection) 10 mg Q6HP PRN IV NAUSEA OR VOMITING; Start 02/13/19 at 14:30; Stop 02/13/19 at 15:30; Status DC Midazolam HCl (Versed) 2 mg Q15MP PRN IV AGITATION Last administered on 01/30/19at 03:51; Start 01/28/19 at 18:30; Stop 01/31/19 at 16:38; Status DC Midazolam HCl 100 mg/Dextrose 100 ml @ 2 mls/hr Q24H IV ; Start 01/28/19 at 15:45; Stop 01/28/19 at 19:45; Status DC Morphine Sulfate (Morphine Sulfate Inj) 2 mg Q2HP PRN IV MODERATE/SEVERE PAIN (PS 5-10); Start 01/27/19 at 06:30; Stop 01/27/19 at 16:00; Status DC Morphine Sulfate (Morphine Sulfate Inj) 2 mg Q2HP PRN IV PAIN Last administered on 02/02/19at 16:51; Start 01/28/19 at 18:30; Stop 02/08/19 at 10:42; Status DC Morphine Sulfate (Morphine Sulfate Inj) 2 mg Q2HP PRN IV MODERATE/SEVERE PAIN (PS 5-10) Last administered on 02/16/19at 04:25; Start 02/13/19 at 09:15 Morphine Sulfate (Morphine Sulfate Inj) 4 mg Q2HP PRN IV SEVERE PAIN (PS 8-10) Last administered on 01/27/19at 12:02; Start 01/27/19 at 06:30; Stop 01/27/19 at 16:00; Status DC Non-Formulary Medication (Refrigerator Hernandez) Q1M PRN XX SEE LABEL COMMENTS; Start 01/28/19 at 15:45; Stop 01/28/19 at 19:47; Status DC Nystatin (Mycostatin) 5 ml QID SS Last administered on 02/10/19at 12:39; Start 02/08/19 at 09:00; Stop 02/10/19 at 18:42; Status DC Ondansetron HCl (ZOFRAN INJection) 4 mg Q4HP PRN IV NAUSEA OR VOMITING; Start 01/28/19 at 16:00; Stop 01/28/19 at 17:00; Status DC Ondansetron HCl (ZOFRAN INJection) 4 mg Q4HP PRN IV NAUSEA OR VOMITING; Start 02/13/19 at 14:30; Stop 02/13/19 at 15:30; Status DC Ondansetron HCl (ZOFRAN INJection) 4 mg Q6HP PRN IV NAUSEA OR VOMITING Last administered on 01/28/19at 07:50; Start 01/27/19 at 06:30 Oxycodone/ Acetaminophen (Percocet 5mg/ 325mg Tablet) 1 tab ASDIRECTED PRN PO MILD/MODERATE PAIN (PS 1-7); Start 01/28/19 at 16:00; Stop 01/28/19 at 17:00; Status DC Oxycodone/ Acetaminophen (Percocet 5mg/ 325mg Tablet) 1 tab ASDIRECTED PRN PO MILD/MODERATE PAIN (PS 1-7); Start 02/13/19 at 14:30; Stop 02/13/19 at 15:30; Status DC Pantoprazole Sodium (Protonix) 40 mg DAILY IV Last administered on 02/04/19at 09:53; Start 01/27/19 at 09:00; Stop 02/05/19 at 08:21; Status DC Pantoprazole Sodium (Protonix) 40 mg DAILY IV Last administered on 02/17/19at 09:38; Start 02/13/19 at 09:00 Pantoprazole Sodium (Protonix) 40 mg DAILY PO Last administered on 02/12/19at 09:45; Start 02/05/19 at 09:00; Stop 02/13/19 at 14:02; Status DC Piperacillin Sod/ Tazobactam Sod 3.375 gm/Dextrose 50 ml @ 50 mls/hr Q6H IV Last administered on 02/03/19at 04:39; Start 01/28/19 at 11:00; Stop 02/03/19 at 10:16; Status DC Potassium Chloride 10 meq/ IV Miscellaneous Supplies 100 ml @ 100 mls/hr ASDIRECTED IV ; Start 01/29/19 at 08:00; Status UNV Potassium Chloride 10 meq/ IV Miscellaneous Supplies 100 ml @ 100 mls/hr Q1H IV Last administered on 01/29/19at 10:46; Start 01/29/19 at 08:00; Stop 01/29/19 at 09:59; Status DC Potassium Chloride 10 meq/ IV Miscellaneous Supplies 100 ml @ 100 mls/hr Q1H IV Last administered on 01/30/19at 11:11; Start 01/30/19 at 09:00; Stop 01/30/19 at 10:59; Status DC Potassium Chloride 10 meq/ IV Miscellaneous Supplies 100 ml @ 100 mls/hr Q1H IV Last administered on 02/01/19at 12:34; Start 02/01/19 at 09:00; Stop 02/01/19 at 11:59; Status DC Propofol 1000 mg/ IV Miscellaneous Supplies 100 ml @ 4.29 mls/hr [id number] IV Last administered on 01/30/19at 04:33; Start 01/28/19 at 18:29; Stop 01/30/19 at 12:27; Status DC Simethicone (Mylicon) 80 mg Q6HP PRN PO GAS PAIN Last administered on 02/11/19at 15:07; Start 02/07/19 at 12:30; Stop 02/13/19 at 14:02; Status DC Sodium Chloride 1,000 ml @ 500 mls/hr Q2H IV Last administered on 01/28/19at 07:51; Start 01/28/19 at 07:30; Stop 01/28/19 at 09:29; Status DC Sodium Chloride (Saline Lock Flush) 2 ml ASDIRECTED PRN IV SEE LABEL COMMENTS Last administered on 02/16/19at 04:26; Start 02/05/19 at 19:30 Sodium Chloride (Saline Lock Flush) 2 ml SLF IV Last administered on 02/17/19at 05:40; Start 02/05/19 at 22:00 Sodium Chloride (Saline Lock Flush) 10 ML PICC IV Last administered on 02/17/19at 05:39; Start 02/14/19 at 18:00 Sodium Chloride (Saline Lock Flush) 10ML ASDIRECTED PRN IV SEE LABEL COMMENTS; Start 02/14/19 at 14:30 Sodium Chloride (Sodium Chloride 3% Neb Asya) 3 ml RQ4H INH Last administered on 02/10/19at 12:59; Start 01/30/19 at 16:00; Stop 02/11/19 at 09:07; Status DC Vancomycin HCl 500 mg/Dextrose 110 ml @ 110 mls/hr Q24H IV Last administered on 02/17/19at 08:31; Start 02/17/19 at 08:00 Vancomycin HCl 750 mg/Dextrose 265 ml @ 265 mls/hr Q24H IV ; Start 02/17/19 at 07:00; Stop 02/17/19 at 07:00; Status DC Vancomycin HCl 750 mg/IV Miscellaneous Supplies 1 each/ Dextrose 275 ml @ 275 mls/hr Q12H IV ; Start 02/16/19 at 11:30; Status UNV Vancomycin HCl 750 mg/IV Miscellaneous Supplies 1 each/ Dextrose 275 ml @ 275 mls/hr Q12H IV Last administered on 02/10/19at 05:32; Start 02/09/19 at 06:00; Stop 02/10/19 at 15:56; Status DC Vancomycin HCl 750 mg/IV Miscellaneous Supplies 1 each/ Dextrose 275 ml @ 275 mls/hr Q24H IV Last administered on 02/17/19at 06:40; Start 02/17/19 at 07:00 Vancomycin HCl 1000 mg/IV Miscellaneous Supplies 20 ml @ 20 mls/hr Q8H IV ; Start 02/07/19 at 15:45; Stop 02/07/19 at 18:38; Status DC Vancomycin HCl 1000 mg/IV Miscellaneous Supplies 1 each/ Dextrose 270 ml @ 270 mls/hr Q12H IV Last administered on 02/08/19at 17:51; Start 02/08/19 at 06:00; Stop 02/09/19 at 05:58; Status DC Allergies Coded Allergies: brimonidine (Verified Allergy, Unknown, 01/27/19) codeine (Verified Allergy, Unknown, 02/13/19) PT HAS RECEIVED DILAUDID, FENTANYL dorzolamide (Verified Allergy, Unknown, from cosopt, 01/27/19) erythromycin base (Verified Allergy, Unknown, 01/27/19) timolol (Verified Allergy, Unknown, 01/27/19) NSAIDS (Non-Steroidal Anti-Inflamma (Verified Adverse Reaction, Unknown, AVOID DUE TO ONE KIDNEY, 01/27/19) Objective Physical Examination Examination GENERAL APPEARANCE: Overall looks comfortable. SKIN: Warm and dry. HEENT: Mild pale palpebral conjunctiva. Lips and mucosa are dry. NECK: Supple, no thyromegaly. No obvious jugular venous distention. LUNGS: Clear to auscultation bilaterally. No wheezing appreciated. HEART: Decreased breath sounds over the left lower posterior lobe area, no wheezing. ABDOMEN: Abdomen is minimally distended, soft,. Minimal tenderness on deep palpation without any guarding. Laparoscopic port site incisions are intact, dry. She has a gastrojejunostomy tube which I placed on gravity drainage with a catheter attached to it with small amounts of drainage of what appears to be old food. EXTREMITIES: Minimal lower extremity edema. Vital Signs Vital Signs Date Time Temp Pulse Resp B/P (MAP) Pulse Ox O2 Delivery O2 Flow Rate FiO2 02/17/19 08:00 98.1 77 18 132/76 (94) 98 2.0 I&Os I&O- Last 24 Hours up to 6 AM 02/17/19 06:00 Intake Total 490 ml Output Total 1700 ml Balance -1210 ml Laboratory Data Labs 24H Laboratory Tests 2 02/16/19 10:41: Bedside Glucose (Misc Panel) 118H 02/17/19 03:53: Immature Granulocyte % (Auto) 1.3, White Blood Count 14.2H, Red Blood Count 3.22L, Hemoglobin 8.9L, Hematocrit 28.0L, Mean Corpuscular Volume 87.0, Mean Corpuscular Hemoglobin 27.6, Mean Corpuscular Hemoglobin Concent 31.8L, Red Cell Distribution Width 17.3H, Platelet Count 346#, Neutrophils (%) (Auto) 76.7H, Lymphocytes (%) (Auto) 10.4L, Monocytes (%) (Auto) 9.1H, Eosinophils (%) (Auto) 2.2, Basophils (%) (Auto) 0.3, Neutrophils # (Auto) 10.9H, Lymphocytes # (Auto) 1.5, Monocytes # (Auto) 1.3H, Eosinophils # (Auto) 0.3, Basophils # (Auto) 0.0, Nucleated Red Blood Cells % (auto) 0.0, Anion Gap 7L, Glomerular Filtration Rate > 60.0, Blood Urea Nitrogen 22H, Creatinine 0.69, Sodium Level 143, Potassium Level 3.6, Chloride Level 110H, Carbon Dioxide Level 26, Calcium Level 9.9, Aspartate Amino Transf (AST/SGOT) 12, Alanine Aminotransferase (ALT/SGPT) 14, Alkaline Phosphatase 106, Total Bilirubin 0.6#, Total Protein 5.5L, Albumin 1.6L, Magnesium Level 1.8, Albumin/Globulin Ratio 0.41L CBC/BMP Laboratory Tests 02/17/19 03:53 Red Blood Count 3.22 L, Mean Corpuscular Volume 87.0, Mean Corpuscular Hemoglobin 27.6, Mean Corpuscular Hemoglobin Concent 31.8 L, Red Cell Dist ribution Width 17.3 H, Neutrophils (%) (Auto) 76.7 H, Lymphocytes (%) (Auto) 10.4 L, Monocytes (%) (Auto) 9.1 H, Eosinophils (%) (Auto) 2.2, Basophils (%) (Auto) 0.3, Neutrophils # (Auto) 10.9 H, Lymphocytes # (Auto) 1.5, Monocytes # (Auto) 1.3 H, Eosinophils # (Auto) 0.3, Basophils # (Auto) 0.0, Calcium Level 9.9, Aspartate Amino Transf (AST/SGOT) 12, Alanine Aminotransferase (ALT/SGPT) 14, Alkaline Phosphatase 106, Total Bilirubin 0.6 #, Total Protein 5.5 L, Albumin 1.6 L Microbiology Microbiology 02/16/19 Blood Culture, Received Pending 02/16/19 Blood Fungal Culture, Received Pending 02/16/19 Blood Culture - Preliminary, Resulted No growth after 24 hours . All specim... 02/16/19 Blood Fungal Culture, Received Pending 02/16/19 Blood Culture - Preliminary, Resulted No growth after 24 hours . All specim... 02/07/19 Blood Culture - Final, Complete NO GROWTH AFTER 5 DAYS 02/07/19 Blood Culture - Final, Complete NO GROWTH AFTER 5 DAYS 02/13/19 Gram Stain - Final, Complete 02/13/19 Abscess Culture - Final, Complete 02/13/19 Anaerobic Culture - Final, Complete 02/07/19 Abscess Culture - Final, Complete Naima Albicans Impression s/p repair of large hiatal hernia with gastric volvulus still adynamic stomach with ischemic ulcers on last look with upper GI endoscopy last week s/p replacement of gastrostomy tube to a [place] gastojejunostomy tube. Tip of the feeding tube reverted back into the stomach Drainage tube to LIWS malnutrition on TPN -TPN held yesterday due to concern for line infection as source of fever ( this is just few days old) new fever PLAN: suggest resume TPN Not much getting recorded out of gastrostomy tube the past couple of days. I will switch to gravity drainage, add reglan as scheduled dose and if not much comes out in the next 24 hours, will try trickle feeding through the gastrostomy tube. Plan / VTE VTE Prophylaxis Ordered?: Yes MISHA RODRIGUEZ MD February 17, 2019 09:43
[2019-02-17] MEDS: METOCLOPRAMIDE INJ 10MG/2ML VIAL (J2765) IV SCH ×2 (10:15→18:07)
--- NOTE | 2019-02-17 10:29 | IPNPDOC ---
Date Seen The patient was seen on 02/17/19. Progress Note SUBJECTIVE: Patient was seen and examined this morning. She currently has no new complaints. She has continued pain in her left upper quadrant where her G-tube site is. There is still some leaking from her G-tube site that is being managed with gauze pads. She does admit to improvement in her breathing although states that she is coughing up more mucous. She has remained afebrile overnight. OBJECTIVE PHYSICAL EXAMINATION: VITAL SIGNS: Please see below. GENERAL: Awake, alert, and oriented. Appears in no acute distress. Lying comfortably in bed. Nasal cannula in place HEENT: Atrumatic, normocephalic. Eyes are nonicteric. Trachea is midline. Mucous membranes are pink and moist CARDIOVASCULAR: Normal S1, S2. Regular Rate and rhythm. No clicks rubs or murmurs. RESPIRATORY: Dimished breath sounds on the left. Good respiratory effort. Slight scattered crackles in the bases bilaterally. No wheezes, rhonci or rales. ABDOMINAL: Soft, nondistended. Tenderness in upper left quadrant. No rebound tenderness or guarding. Positive bowel sounds EXTREMITIES: No edema. Full and equal pulses in bilateral upper and lower extremities NEUROLOGICAL: No focal neurological deficits noted PSYCHOLOGICAL: Mood and affect appear appropriae LABORATORY DATA, IMAGING STUDIES, MICROBIOLOGY: Please see below. DVT prophylaxis ordered?: YES ASSESSMENT AND PLAN: Patient is a 78 year old female with a PMHx of HTN, DLP, Glaucoma, GERD who presented to the [facility] ER on 01/26/19 with complaint of abdominal pain. 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 The patient had a laparoscopic reduction. The patient was unable to be weaned off ventilator after her surgery due to worsening hypoxia. She was found to have an aspiration pneumonia. Patient did improve and was extubated to BIPAP / Vapotherem. She was taken for intervention again on for replacement of G tube to GJ tube and aspiration of fluid collection. PROBLEMS: 1. s/p Hypoxic Respiratory failure -Resolved 2. Aspiration pneumonia -Currently on Meropenem 02/08/19 followed by ID -Patient was noted to have a fever yesterday. CXR demonstrated PICC line in place in the right upper extremity. Cardiomegaly and bilateral pleural effusions left more so than right -Patient has had cough with sputum production. Will continue to work with respiratory therapy 3. Left sided pleural effusion -Patient has a left sided pleural effusion. -Chest CT demonstrating improved aeration and improved infiltrates on the right. New lobar collapse in left upper lobe likely 2/2 mucous plugging. Small b ilateral pleural and pericardial effusions somewhat increased. -Chest PT and Mucomyst for mucous plugging. Patient has refused mucomyst as she feels it smells bad. Will continue with respiratory treatments 4. Large hiatal hernia and acute gastric volvulus -Currently stable. -s/p GJ tube replacement -Patient is followed by surgery -Patient has had decreased G-tube output. Likely placement of feeding tube. -Patient did have a fever yesterday. She has been started on Vancomycin 5. Post-operative wound infection w/ subcutaneous abscess around the G-tube -Patient is followed by ID. -Currently on meropenem -Culture positive for yeast like organism. Patient is currently on Fl uconazole -On 02/13 had replacement of G tube to GJ tube; PICC line placed on 02/14 for TPN nutrition 6. Nutrition -Patient s/p PICC line placement. -She is currently on TPN 7. GERD -Protonix 8. Hypothyroidism -Synthroid 9. DVT prophylaxis -Lovenox A-FIB/CHADSVASC A-FIB History Current/History of A-Fib/PAF?: No VS, I&O, [facility] Sign[facility]/I&O Vital Signs Date Time Temp Pulse Resp B/P (MAP) Pulse Ox O2 Delivery O2 Flow Rate FiO2 02/17/19 08:00 98.1 77 18 132/76 (94) 98 2.0 I&O- Last 24 Hours up to 6 AM 02/17/19 06:00 Intake Total 490 ml Output Total 1700 ml Balance -1210 ml Laboratory Data 24H LABS Laboratory Tests 2 02/16/19 10:41: Bedside Glucose (Misc Panel) 118H 02/17/19 03:53: Immature Granulocyte % (Auto) 1.3, White Blood Count 14.2H, Red Blood Count 3.22L, Hemoglobin 8.9L, Hematocrit 28.0L, Mean Corpuscular Volume 87.0, Mean Corpuscular Hemoglobin 27.6, Mean Corpuscular Hemoglobin Concent 31.8L, Red Cell Distribution Width 17.3H, Platelet Count 346#, Neutrophils (%) (Auto) 76.7H, Lymphocytes (%) (Auto) 10.4L, Monocytes (%) (Auto) 9.1H, Eosinophils (%) (Auto) 2.2, Basophils (%) (Auto) 0.3, Neutrophils # (Auto) 10.9H, Lymphocytes # (Auto) 1.5, Monocytes # (Auto) 1.3H, Eosinophils # (Auto) 0.3, Basophils # (Auto) 0.0, Nucleated Red Blood Cells % (auto) 0.0, Anion Gap 7L, Glomerular Filtration Rate > 60.0, Blood Urea Nitrogen 22H, Creatinine 0.69, Sodium Level 143, Potassium Level 3.6, Chloride Level 110H, Carbon Dioxide Level 26, Calcium Level 9.9, Aspartate Amino Transf (AST/SGOT) 12, Alanine Aminotransferase (ALT/SGPT) 14, Alkaline Phosphatase 106, Total Bilirubin 0.6#, Total Protein 5.5L, Albumin 1.6L, Magnesium Level 1.8, Albumin/Globulin Ratio 0.41L CBC/BMP Laboratory Tests 02/17/19 03:53 Red Blood Count 3.22 L, Mean Corpuscular Volume 87.0, Mean Corpuscular Hemoglobin 27.6, Mean Corpuscular Hemoglobin Concent 31.8 L, Red Cell Distribution Width 17.3 H, Neutrophils (%) (Auto) 76.7 H, Lymphocytes (%) (Auto) 10.4 L, Monocytes (%) (Auto) 9.1 H, Eosinophils (%) (Auto) 2.2, Basophils (%) (A uto) 0.3, Neutrophils # (Auto) 10.9 H, Lymphocytes # (Auto) 1.5, Monocytes # (Auto) 1.3 H, Eosinophils # (Auto) 0.3, Basophils # (Auto) 0.0, Calcium Level 9.9, Aspartate Amino Transf (AST/SGOT) 12, Alanine Aminotransferase (ALT/SGPT) 14, Alkaline Phosphatase 106, Total Bilirubin 0.6 #, Total Protein 5.5 L, Albumin 1.6 L Microbiology Microbiology 02/16/19 Blood Culture, Received Pending 02/16/19 Blood Fungal Culture, Received Pending 02/16/19 Blood Culture - Preliminary, Resulted No growth after 24 hours . All specim... 02/16/19 Blood Fungal Culture, Received Pending 02/16/19 Blood Culture - Preliminary, Resulted No growth after 24 hours . All specim... 02/07/19 Blood Culture - Final, Complete NO GROWTH AFTER 5 DAYS 02/07/19 Blood Culture - Final, Complete NO GROWTH AFTER 5 DAYS 02/13/19 Gram Stain - Final, Complete 02/13/19 Abscess Culture - Final, Complete 02/13/19 Anaerobic Culture - Final, Complete 02/07/19 Abscess Culture - Final, Complete Naima Albicans GME ATTESTATION GME ATTESTATION My faculty preceptor for this patient encounter was physically present during the encounter and was fully available. All aspects of the patient interview, examination, medical decision making process, and medical care plan development were reviewed and approved by the faculty preceptor. The faculty preceptor is aware and concurs with the plan as stated in the body of this note and will attest to such by his/her cosignature. ATTENDING NOTE I saw and evaluated the patient. I agree with the findings and plan of care as documented in the resident's note MICHAEL AYON DO February 17, 2019 10:29 EMILY NAM MD February 20, 2019 13:08
[2019-02-17 12:00] VITALS: BP 131/70
[2019-02-17] MEDS: ENOXAPARIN 40 MG/0.4 ML SYRINGE (J1650) SC SCH (14:31)
[2019-02-17] MEDS: FLUCONAZOLE 200 MG in IV 1 EA IV SCH (14:32)
[2019-02-17 16:00] VITALS: BP 129/75
--- NOTE | 2019-02-17 17:52 | IPN ---
DATE: 02/17/2019 Yari had been started on total parenteral nutrition (TPN) over the weekend. Yesterday she had a temperature of 102.4 and a systolic blood pressure of 70. The patient was having some nausea especially when she sat up. She has an increased cough, mostly when sitting up. No shortness of breath. She is not hypoxic. She has mild nausea but no vomiting. She remains nothing by mouth (n.p.o.). Her TPN has been stopped since yesterday after the fever and has not been resumed. She is not hungry. She is tolerating just clear liquid water. On physical exam, temperature was 102.4 at 8:00 a.m. yesterday, has been afebrile since then. Temperature is 98.6, pulse 82, respirations 20, blood pressure 129/75, oxygen saturation (O2 sat) 97%. Her blood pressure did drop to 77/39 with that fever, and she received 2 liters of IV fluid. Heart: Normal S1, S2. No murmurs. Lungs: Diminished breath sounds at the bases but clear. Abdomen is soft, mildly tender in the left upper quadrant. There is a gastrostomy tube. There is around the gastrostomy tube a large amount of mucous secretions from the stomach. No rebound. Extremities: No clubbing, cyanosis or edema. No calf tenderness. LABORATORY DATA: White count is 14.2, hemoglobin 8.9, hematocrit 28, platelets 346, 76% neutrophils, 10% lymphocytes, 9% monocytes. Sodium 143, potassium 3.6, chloride 110, bicarbonate 26, BUN 22, creatinine 0.7, glucose 98, calcium 9.9, magnesium 1.8, albumin 1.6, total protein 5.5, CRP 7.63, which is down from 25.5 on February 13, 2019. Mediastinal fluid culture on 02/13/2019, aerobic, anaerobic were negative. Blood cultures 02/16/2019 were negative. MEDICATIONS: Fluconazole IV 200 mg daily since 02/13/2019, vancomycin started on 02/16/2019 with a fever, currently day #2, and IV meropenem, day #10, started on 02/07/2019. X-RAYS: Abdominal x-ray shows unremarkable bowel gas pattern, a feeding tube in place. Chest x-ray: Peripherally inserted central catheter (PICC) line in right upper extremity. IMPRESSION: 1. Gastric volvulus with gastric ischemia postop and repair of hiatus hernia. The patient is status post G tube and revision with new gastrostomy tube being placed. 2. Fever up to 102.4 with hypotension. Blood cultures are negative. Chest x-ray shows only bilateral pleural effusion. Patient with increasing cough, possibly hospital-acquired pneumonia. She is on IV vancomycin, which just got started and meropenem. 3. Naima albicans on wound culture from gastrostomy site, of IV fluconazole. PLAN: Continue with current antibiotic, resume TPN to see if the fever came from TPN or was unrelated. The patient has severe hypoalbuminemia and needs to be on TPN. She remains nothing by mouth. MTDD
[2019-02-17] MEDS: SODIUM CHLORIDE 0.9% INJ 10 ML SYR IV PRN (18:08)
--- NOTE | 2019-02-17 19:13 | REP ---
PICC line insertion under ultrasound guidance. The procedure was performed by MADIHA Peacock, under the direct supervision of Dr. Holloway. The risks and benefits of the procedure were explained to the patient and informed consent was obtained the verbally and written. Directly prior to the start of the procedure, a formal timeout was completed in the procedure room. The right basilic vein was localized using ultrasound guidance. The skin was prepped and draped in the sterile fashion. 4 ml 1% lidocaine was used as a local anesthetic. Using ultrasound guidance the right basilic vein was cannulated and a 0.018 guidewire was inserted and advanced to the SVC using fluoroscopic guidance. The needle was removed and a 5.5 Uzbek dilator and peel-away sheath was inserted over the guidewire. A 5.5 Uzbek double lumen catheter was cut to the length of 37 cm. The dilator was removed and the catheter was inserted over the guide wire with the tip ending in the SVC. The peel-away sheath was removed and the catheter was flushed with heparinized saline as per hospital protocol. The catheter was affixed to the skin and a sterile dressing was applied. The patient tolerated the procedure well and there were no immediate complications. 2.7 minutes of fluoroscopy time was utilized for this procedure. Reviewed by MADIHA Benjamin 02/17/2019 12:55 P Electronically Signed by Simone Holloway MD 02/17/2019 07:04 P
[2019-02-17 20:00] VITALS: BP 168/78
[2019-02-17] MEDS: LATANOPROST 0.005% OPHTH SOLN 2.5 ML OU SCH (20:55)
[2019-02-18] MEDS: MEROPENEM INJ 1 GM in IV 1 EA IV SCH ×3 (02:10→16:40)
[2019-02-18] MEDS: METOCLOPRAMIDE INJ 10MG/2ML VIAL (J2765) IV SCH ×3 (02:10→17:54)
[2019-02-18] MEDS: ACETAMINOPHEN 500 MG TAB PO PRN ×2 (02:35→15:01)
[2019-02-18 04:00] VITALS: BP 134/65
[2019-02-18] MEDS: SLF 3 ML SYR IV SCH ×3 (06:00→22:00)
[2019-02-18] MEDS: SODIUM CHLORIDE 0.9% INJ 10 ML SYR IV SCH ×2 (06:00→16:40)
[2019-02-18] MEDS: LEVOTHYROXINE 25MCG TABLET (0.025MG) PO SCH (06:00)
[2019-02-18] MEDS: VANCOMYCIN HCL 750 MG, VIAL MATE ADAPTER 1 EACH in D5W 250 ML IV SCH (06:48)
[2019-02-18 07:14] LABS: BASO % 0.2 % (0.0-1.0); EOS # 0.3 10^3/uL (0.0-0.50); EOS % 2.4 % (0.0-3.0); HEMATOCRIT 25.8 % (36.0-47.0); LYMPH # 1.2 10^3/uL (1.5-4.5); LYMPH % 8.9 % (24.0-44.0); MEAN CORPUSCULAR HEMOGLOBIN 26.4 pg (27.0-33.0); MEAN CORPUSCULAR VOLUME 85.1 fl (80.0-96.0); MONO # 1.2 10^3/uL (0.0-0.8); MONO % 9.3 % (0.0-5.0); NEUTROPHILS # 10.2 10^3/uL (1.8-7.7); NEUTROPHILS % 77.4 % (36.0-66.0); PLATELET COUNT, AUTOMATED 342 10^3/uL (150-450); RED BLOOD COUNT 3.03 10^6/uL (4.00-5.40); WHITE BLOOD COUNT 13.2 10^3/uL (4.0-10.0)
[2019-02-18] MEDS: ACETYLCYSTEINE 20% 4 ML VIAL (200MG/ML) INH SCH ×2 (07:21→20:00)
[2019-02-18 07:33] LABS: ALBUMIN 1.7 GM/DL (3.2-5.2); ALT/SGPT 14 U/L (12-78); BILIRUBIN,TOTAL 0.6 MG/DL (0.2-1.0); BLOOD UREA NITROGEN 17 MG/DL (7-18); CALCIUM LEVEL 9.8 MG/DL (8.8-10.2); CARBON DIOXIDE LEVEL 25 MEQ/L (21-32); CHLORIDE LEVEL 113 MEQ/L (98-107); CREATININE FOR GFR 0.76 MG/DL (0.55-1.30); GLOMERULAR FILTRATION RATE > 60.0 (>39); GLUCOSE, FASTING 83 MG/DL (70-100); MAGNESIUM LEVEL 1.9 MG/DL (1.8-2.4); POTASSIUM SERUM 3.4 MEQ/L (3.5-5.1); SODIUM LEVEL 144 MEQ/L (136-145); TOTAL PROTEIN 4.7 GM/DL (6.4-8.2); VANCOMYCIN LEVEL TROUGH 13.7 UG/ML (10.0-20.0)
--- NOTE | 2019-02-18 07:49 | IPNPDOC ---
Subjective General Date/Time Seen The patient was seen on 02/18/19 at 07:45. Subject Chief Complaint/History The patient is a 78-year-old female admitted with a reason for visit of Acute Gastric Volvulus. Patient is seeing ambulating to the bathroom to her bed. She looks more comfortable today. She denies any nausea, shortness of breath, chest pain or abdominal pain. I left her gastrostomy tube to gravity drainage and only about 100 ML's is in the bag for the past 24 hours. Current Medications Current Medications Current Medications Acetaminophen (Tylenol Tab) 325 mg Q4HP PRN PO PAIN / FEVER Last administered on 02/06/19at 10:17; Start 02/04/19 at 09:15; Stop 02/06/19 at 18:26; Status DC Acetaminophen (Tylenol Tab) 650 mg Q6HP PRN PO PAIN / FEVER; Start 02/04/19 at 10:45; Status Cancel Acetaminophen (Tylenol Tab) 1,000 mg Q6HP PRN PO MILD/MODERATE PAIN (PS 1-7) Last administered on 02/18/19at 02:35; Start 02/06/19 at 18:30 Acetaminophen/ Hydrocodone Bitart (Nelson, Anexsia 5/325) 1 tab Q4HP PRN PO MODERATE/SEVERE PAIN (PS 5-10) Last administered on 02/15/19at 19:09; Start 02/06/19 at 18:30 Acetylcysteine (Mucomyst 20% (200mg/ml)) 400 mg RBID INH ; Start 02/12/19 at 08:00 Albuterol Sulfate (Proventil Neb) 2.5 mg RQ2H PRN NEB SHORTNESS OF BREATH Last administered on 02/17/19at 07:47; Start 01/28/19 at 18:30 Albuterol Sulfate (Proventil Neb) 2.5 mg RQ4H NEB Last administered on 02/10/19at 12:59; Start 01/30/19 at 16:00; Stop 02/11/19 at 09:07; Status DC Albuterol/ Ipratropium (Duoneb (Ipr 0.5mg/Alb 2.5mg)) 3 ml RQ4H NEB Last administered on 01/30/19at 12:24; Start 01/28/19 at 20:00; Stop 01/30/19 at 12:27; Status DC Amino Ac/Electrol/ Dextrose/Calcium 2,000 ml @ 65 mls/hr ONCE@1800 IV Last administered on 02/14/19at 18:43; Start 02/14/19 at 18:00; Stop 02/15/19 at 17:59; Status DC Amino Ac/Electrol/ Dextrose/Calcium 2,000 ml @ 65 mls/hr ONCE@1800 IV Last administered on 02/15/19at 17:52; Start 02/15/19 at 18:00; Stop 02/16/19 at 08:42; Status DC Amoxicillin/ Clavulanate Potassium (Augmentin) 875 mg BID PO Last administered on 02/06/19at 21:01; Start 02/03/19 at 09:00; Stop 02/06/19 at 21:01; Status DC Ampicillin Sodium/ Sulbactam Sodium 3 gm/Dextrose 100 ml @ 200 mls/hr Q6H IV Last administered on 01/28/19at 05:19; Start 01/28/19 at 00:00; Stop 01/28/19 at 07:30; Status DC Brinzolamide (Azopt) 1 drop BID OU Last administered on 02/17/19at 20:55; Start 02/03/19 at 09:00 Chlorhexidine Gluconate (Peridex Oral Rinse) SWAB/BRUSH ORAL CAVITY BID MT Last administered on 01/30/19at 10:05; Start 01/28/19 at 21:00; Stop 01/30/19 at 12:27; Status DC Cod Liver Oil/ Zinc Oxide (Desitin) APPLY TO skin aroun... QID TOP Last administered on 02/13/19at 08:58; Start 02/08/19 at 09:00; Stop 02/13/19 at 09:19; Status DC Dextrose (Dextrose 50%) 25 ml ASDIRECTED PRN IV SEE LABEL COMMENTS; Start 01/30/19 at 16:30; Stop 02/05/19 at 08:21; Status DC Diatrizoate Meglum/ Diatrizoate Sod (Gastrografin) 10 ml Q30M PO Last administered on 02/07/19at 06:34; Start 02/07/19 at 07:00; Stop 02/07/19 at 07:31; Status DC Enoxaparin Sodium (Lovenox) 40 mg DAILY@1400 SC Last administered on 02/17/19at 14:31; Start 01/29/19 at 14:00 Fat Emulsion Intravenous 500 ml @ 20 mls/hr ONCE@1800 IV Last administered on 02/14/19at 18:42; Start 02/14/19 at 18:00; Stop 02/15/19 at 17:59; Status DC Fat Emulsion Intravenous 500 ml @ 20 mls/hr ONCE@1800 IV Last administered on 02/15/19at 17:52; Start 02/15/19 at 18:00; Stop 02/16/19 at 08:42; Status DC Fentanyl Citrate (Sublimaze) 25 mcg Q5MP PRN IV MODERATE PAIN (PS 4-7) Last administered on 01/28/19at 16:53; Start 01/28/19 at 16:00; Stop 01/29/19 at 06:12; Status DC Fentanyl Citrate (Sublimaze) 25 mcg Q5MP PRN IV MODERATE PAIN (PS 4-7) Last administered on 02/13/19at 14:31; Start 02/13/19 at 14:30; Stop 02/13/19 at 15:30; Status DC Fluconazole (Diflucan) 200 mg DAILY PO Last administered on 02/12/19at 09:45; Start 02/11/19 at 09:00; Stop 02/13/19 at 14:02; Status DC Fluconazole 200 mg/IV Miscellaneous Supplies 100 ml @ 100 mls/hr Q24H IV Last administered on 02/17/19at 14:32; Start 02/13/19 at 15:00 Furosemide (LASIX injection) 40 mg DAILY IV Last administered on 02/01/19at 01:31; Start 02/01/19 at 09:00; Stop 02/01/19 at 09:00; Status DC Glucagon (Glucagon) 1 mg ASDIRECTED PRN SC SEE LABEL COMMENTS; Start 01/30/19 at 16:30; Stop 02/05/19 at 08:21; Status DC Glucose (Glucose) 16 GM ASDIRECTED PRN PO SEE LABEL COMMENTS; Start 01/30/19 at 16:30; Stop 02/05/19 at 08:21; Status DC Heparin Sodium (Heparin (Flush)) 200 units ASDIRECTED PRN IV SEE LABEL COMMENTS Last administered on 02/17/19at 18:08; Start 02/14/19 at 14:30 Heparin Sodium (Heparin (Flush)) 200 units PICC IV Last administered on 02/18/19at 06:49; Start 02/14/19 at 18:00 Heparin Sodium (Porcine) (Heparin) 5,000 units Q8H SQ Last administered on 01/29/19at 05:12; Start 01/28/19 at 06:00; Stop 01/29/19 at 08:46; Status DC Home Med (Med Rec Complete!) ASDIRECTED XX ; Start 01/27/19 at 05:30; Stop 01/27/19 at 05:39; Status DC Hydrochlorothiazide (Hydrodiuril) 25 mg DAILY PO Last administered on 02/09/19at 09:00; Start 02/03/19 at 09:00; Stop 02/09/19 at 11:37; Status DC Hydromorphone HCl (Dilaudid) 0.3 mg Q3HP PRN IV MILD PAIN (PS 1-4); Start 01/27/19 at 15:45; Stop 01/28/19 at 18:47; Status DC Hydromorphone HCl (Dilaudid) 0.4 mg Q3HP PRN IV MODERATE PAIN (PS 5-7) Last administered on 01/27/19at 14:08; Start 01/27/19 at 13:45; Stop 01/27/19 at 17:16; Status DC Hydromorphone HCl (Dilaudid) 0.5 mg Q30M PRN IV MODERATE PAIN (PS 5-7) Last administered on 01/27/19at 05:49; Start 01/27/19 at 02:15; Stop 01/27/19 at 05:50; Status DC Hydromorphone HCl (Dilaudid) 0.6 mg Q3HP PRN IV MODERATE PAIN (PS 5-7) Last administered on 01/28/19at 02:54; Start 01/27/19 at 15:45; Stop 01/28/19 at 18:47; Status DC Hyoscyamine/Lido/ Alumin/Mag/Simethi (Gi Cocktail) 50 ml Q6HP PRN PO GI UPSET; Start 02/07/19 at 12:30; Stop 02/13/19 at 14:02; Status DC Insulin Human Lispro (HumaLOG INSULIN) See Protocol Table Q6H SC Last administered on 02/15/19at 12:46; Start 02/14/19 at 18:00; Stop 02/15/19 at 12:01; Status DC Insulin Human Lispro (HumaLOG INSULIN) See Protocol Table Q6H SC Last administered on 02/16/19at 05:35; Start 02/15/19 at 18:00; Stop 02/16/19 at 08:42; Status DC Lactated Ringer's 1,000 ml @ 75 mls/hr [id number] IV Last administered on 02/14/19at 18:43; Start 02/13/19 at 10:00; Stop 02/14/19 at 18:49; Status DC Lactated Ringer's 1,000 ml @ 75 mls/hr [id number] IV ; Start 02/13/19 at 14:30; Stop 02/13/19 at 15:30; Status DC Lactated Ringer's 1,000 ml @ 100 mls/hr Q10H IV Last administered on 01/31/19at 20:52; Start 01/28/19 at 05:00; Stop 02/01/19 at 01:26; Status DC Lactated Ringer's 1,000 ml @ 100 mls/hr Q10H IV ; Start 01/28/19 at 16:00; Stop 01/28/19 at 17:00; Status DC Lactated Ringer's 1,000 ml @ 150 mls/hr Q6H40M IV Last administered on 01/27/19at 08:38; Start 01/27/19 at 07:15; Stop 01/27/19 at 21:14; Status DC Lactated Ringer's 1,000 ml @ 1,000 mls/hr Q1H IV Last administered on 01/27/19at 07:16; Start 01/27/19 at 06:26; Stop 01/27/19 at 07:18; Status DC Latanoprost (Xalatan 0.005% Op Soln) 1 drop QHS OU Last administered on 02/17/19at 20:55; Start 02/03/19 at 21:00 Levothyroxine Sodium (Synthroid) 12.5 mcg DAILY IV Last administered on 02/04/19at 09:54; Start 01/28/19 at 09:00; Stop 02/04/19 at 10:35; Status DC Levothyroxine Sodium (Synthroid) 25 mcg DAILY@06 PO Last administered on 02/18/19at 06:00; Start 02/05/19 at 06:00 Magnesium Hydroxide (Milk Of Magnesia) 30 ml BIDP PRN PO CONSTIPATION Last administered on 02/11/19at 18:46; Start 02/11/19 at 18:45; Stop 02/13/19 at 14:02; Status DC Meperidine HCl (Demerol) 12.5 mg Q5MP PRN IV SHIVERING; Start 01/28/19 at 16:00; Stop 01/28/19 at 17:00; Status DC Meropenem 1 gm/IV Miscellaneous Supplies 50 ml @ 100 mls/hr Q8H IV Last administered on 02/18/19at 02:10; Start 02/07/19 at 17:00 Methylprednisolone (SOLU medrol) 40 mg Q6H IV Last administered on 02/04/19at 04:15; Start 01/31/19 at 17:00; Stop 02/04/19 at 09:05; Status DC Metoclopramide HCl (REGLAN INJection) 10 mg Q6HP PRN IV NAUSEA OR VOMITING; S tart 01/28/19 at 16:00; Stop 01/28/19 at 17:00; Status DC Metoclopramide HCl (REGLAN INJection) 10 mg Q6HP PRN IV NAUSEA OR VOMITING; Start 02/13/19 at 14:30; Stop 02/13/19 at 15:30; Status DC Metoclopramide HCl (REGLAN INJection) 10 mg Q8H IV Last administered on 02/18/19at 02:10; Start 02/17/19 at 11:00 Midazolam HCl (Versed) 2 mg Q15MP PRN IV AGITATION Last administered on 01/30/19at 03:51; Start 01/28/19 at 18:30; Stop 01/31/19 at 16:38; Status DC Midazolam HCl 100 mg/Dextrose 100 ml @ 2 mls/hr Q24H IV ; Start 01/28/19 at 15:45; Stop 01/28/19 at 19:45; Status DC Morphine Sulfate (Morphine Sulfate Inj) 2 mg Q2HP PRN IV MODERATE/SEVERE PAIN (PS 5-10); Start 01/27/19 at 06:30; Stop 01/27/19 at 16:00; Status DC Morphine Sulfate (Morphine Sulfate Inj) 2 mg Q2HP PRN IV PAIN Last administered on 02/02/19at 16:51; Start 01/28/19 at 18:30; Stop 02/08/19 at 10:42; Status DC Morphine Sulfate (Morphine Sulfate Inj) 2 mg Q2HP PRN IV MODERATE/SEVERE PAIN (PS 5-10) Last administered on 02/16/19at 04:25; Start 02/13/19 at 09:15 Morphine Sulfate (Morphine Sulfate Inj) 4 mg Q2HP PRN IV SEVERE PAIN (PS 8-10) Last administered on 01/27/19at 12:02; Start 01/27/19 at 06:30; Stop 01/27/19 at 16:00; Status DC Non-Formulary Medication (Refrigerator Hernandez) Q1M PRN XX SEE LABEL COMMENTS; Start 01/28/19 at 15:45; Stop 01/28/19 at 19:47; Status DC Nystatin (Mycostatin) 5 ml QID SS Last administered on 02/10/19at 12:39; Start 02/08/19 at 09:00; Stop 02/10/19 at 18:42; Status DC Ondansetron HCl (ZOFRAN INJection) 4 mg Q4HP PRN IV NAUSEA OR VOMITING; Start 01/28/19 at 16:00; Stop 01/28/19 at 17:00; Status DC Ondansetron HCl (ZOFRAN INJection) 4 mg Q4HP PRN IV NAUSEA OR VOMITING; Start 02/13/19 at 14:30; Stop 02/13/19 at 15:30; Status DC Ondansetron HCl (ZOFRAN INJection) 4 mg Q6HP PRN IV NAUSEA OR VOMITING Last administered on 01/28/19at 07:50; Start 01/27/19 at 06:30 Oxycodone/ Acetaminophen (Percocet 5mg/ 325mg Tablet) 1 tab ASDIRECTED PRN PO MILD/MODERATE PAIN (PS 1-7); Start 01/28/19 at 16:00; Stop 01/28/19 at 17:00; Status DC Oxycodone/ Acetaminophen (Percocet 5mg/ 325mg Tablet) 1 tab ASDIRECTED PRN PO MILD/MODERATE PAIN (PS 1-7); Start 02/13/19 at 14:30; Stop 02/13/19 at 15:30; Status DC Pantoprazole Sodium (Protonix) 40 mg DAILY IV Last administered on 02/04/19at 09:53; Start 01/27/19 at 09:00; Stop 02/05/19 at 08:21; Status DC Pantoprazole Sodium (Protonix) 40 mg DAILY IV Last administered on 02/17/19at 09:38; Start 02/13/19 at 09:00 Pantoprazole Sodium (Protonix) 40 mg DAILY PO Last administered on 02/12/19at 09:45; Start 02/05/19 at 09:00; Stop 02/13/19 at 14:02; Status DC Piperacillin Sod/ Tazobactam Sod 3.375 gm/Dextrose 50 ml @ 50 mls/hr Q6H IV Last administered on 02/03/19at 04:39; Start 01/28/19 at 11:00; Stop 02/03/19 at 10:16; Status DC Potassium Chloride 10 meq/ IV Miscellaneous Supplies 100 ml @ 100 mls/hr ASDIRECTED IV ; Start 01/29/19 at 08:00; Status UNV Potassium Chloride 10 meq/ IV Miscellaneous Supplies 100 ml @ 100 mls/hr Q1H IV Last administered on 01/29/19at 10:46; Start 01/29/19 at 08:00; Stop 01/29/19 at 09:59; Status DC Potassium Chloride 10 meq/ IV Miscellaneous Supplies 100 ml @ 100 mls/hr Q1H IV Last administered on 01/30/19at 11:11; Start 01/30/19 at 09:00; Stop 01/30/19 at 10:59; Status DC Potassium Chloride 10 meq/ IV Miscellaneous Supplies 100 ml @ 100 mls/hr Q1H IV Last administered on 02/01/19at 12:34; Start 02/01/19 at 09:00; Stop 02/01/19 at 11:59; Status DC Propofol 1000 mg/ IV Miscellaneous Supplies 100 ml @ 4.29 mls/hr [id number] IV Last administered on 01/30/19at 04:33; Start 01/28/19 at 18:29; Stop 01/30/19 at 12:27; Status DC Simethicone (Mylicon) 80 mg Q6HP PRN PO GAS PAIN Last administered on 02/11/19at 15:07; Start 02/07/19 at 12:30; Stop 02/13/19 at 14:02; Status DC Sodium Chloride 1,000 ml @ 500 mls/hr Q2H IV Last administered on 01/28/19at 07:51; Start 01/28/19 at 07:30; Stop 01/28/19 at 09:29; Status DC Sodium Chloride (Saline Lock Flush) 2 ml ASDIRECTED PRN IV SEE LABEL COMMENTS Last administered on 02/16/19at 04:26; Start 02/05/19 at 19:30 Sodium Chloride (Saline Lock Flush) 2 ml SLF IV Last administered on 02/18/19at 06:00; Start 02/05/19 at 22:00 Sodium Chloride (Saline Lock Flush) 10 ML PICC IV Last administered on 02/18/19at 06:00; Start 02/14/19 at 18:00 Sodium Chloride (Saline Lock Flush) 10ML ASDIRECTED PRN IV SEE LABEL COMMENTS Last administered on 02/17/19at 18:08; Start 02/14/19 at 14:30 Sodium Chloride (Sodium Chloride 3% Neb Asya) 3 ml RQ4H INH Last administered on 02/10/19at 12:59; Start 01/30/19 at 16:00; Stop 02/11/19 at 09:07; Status DC Vancomycin HCl 500 mg/Dextrose 110 ml @ 110 mls/hr Q24H IV Last administered on 02/17/19at 08:31; Start 02/17/19 at 08:00 Vancomycin HCl 750 mg/Dextrose 265 ml @ 265 mls/hr Q24H IV ; Start 02/17/19 at 07:00; Stop 02/17/19 at 07:00; Status DC Vancomycin HCl 750 mg/IV Miscellaneous Supplies 1 each/ Dextrose 275 ml @ 275 mls/hr Q12H IV ; Start 02/16/19 at 11:30; Status UNV Vancomycin HCl 750 mg/IV Miscellaneous Supplies 1 each/ Dextrose 275 ml @ 275 mls/hr Q12H IV Last administered on 02/10/19at 05:32; Start 02/09/19 at 06:00; Stop 02/10/19 at 15:56; Status DC Vancomycin HCl 750 mg/IV Miscellaneous Supplies 1 each/ Dextrose 275 ml @ 275 mls/hr Q24H IV Last administered on 02/18/19at 06:48; Start 02/17/19 at 07:00 Vancomycin HCl 1000 mg/IV Miscellaneous Supplies 20 ml @ 20 mls/hr Q8H IV ; Start 02/07/19 at 15:45; Stop 02/07/19 at 18:38; Status DC Vancomycin HCl 1000 mg/IV Miscellaneous Supplies 1 each/ Dextrose 270 ml @ 270 mls/hr Q12H IV Last administered on 02/08/19at 17:51; Start 02/08/19 at 06:00; Stop 02/09/19 at 05:58; Status DC Allergies Coded Allergies: brimonidine (Verified Allergy, Unknown, 01/27/19) codeine (Verified Allergy, Unknown, 02/13/19) PT HAS RECEIVED DILAUDID, FENTANYL dorzolamide (Verified Allergy, Unknown, from cosopt, 01/27/19) erythromycin base (Verified Allergy, Unknown, 01/27/19) timolol (Verified Allergy, Unknown, 01/27/19) NSAIDS (Non-Steroidal Anti-Inflamma (Verified Adverse Reaction, Unknown, AVOID DUE TO ONE KIDNEY, 01/27/19) Objective Physical Examination Examination GENERAL APPEARANCE: Comfortable appearing. SKIN: Warm and moist. HEENT: Pale palpebral conjunctiva. Lips appear mildly dry. LUNGS: Clear to auscultation bilaterally. No wheezing appreciated. HEART: No chest wall abnormalities. Regular rate and rhythm with no murmurs appreciated. ABDOMEN: Abdomen is mild obese, soft, minimally distended. Gastrostomy site with minimal staining on the dressing in between the bumper and the tube. Laparoscopic port sites healing accordingly. Nontender on palpation. EXTREMITIES: Minimal lower extremity edema. Vital Signs Vital Signs Date Time Temp Pulse Resp B/P (MAP) Pulse Ox O2 Delivery O2 Flow Rate FiO2 02/18/19 04:00 98.7 92 18 134/65 (88) 91 02/17/19 12:00 2.0 I&Os I&O- Last 24 Hours up to 6 AM 02/18/19 06:00 Intake Total 200 ml Output Total 1100 ml Balance -900 ml Laboratory Data Labs 24H Laboratory Tests 2 02/18/19 06:51: Immature Granulocyte % (Auto) 1.8, White Blood Count 13.2H, Red Blood Count 3.03L, Hemoglobin 8.0L, Hematocrit 25.8L, Mean Corpuscular Volume 85.1, Mean Corpuscular Hemoglobin 26.4L, Mean Corpuscular Hemoglobin Concent 31.0L, Red Cell Distribution Width 17.1H, Platelet Count 342, Neutrophils (%) (Auto) 77.4H, Lymphocytes (%) (Auto) 8.9L, Monocytes (%) (Auto) 9.3H, Eosinophils (%) (Auto) 2.4, Basophils (%) (Auto) 0.2, Neutrophils # (Auto) 10.2H, Lymphocytes # (Auto) 1.2L, Monocytes # (Auto) 1.2H, Eosinophils # (Auto) 0.3, Basophils # (Auto) 0.0, Nucleated Red Blood Cells % (auto) 0.2H, Anion Gap 6L, Glomerular Filtration Rate > 60.0, Blood Urea Nitrogen 17, Creatinine 0.76, Sodium Level 144, Potassium Level 3.4L, Chloride Level 113H, Carbon Dioxide Level 25, Calcium Level 9.8, Aspartate Amino Transf (AST/SGOT) 16, Alanine Aminotransferase (ALT/SGPT) 14, Alkaline Phosphatase 103, Total Bilirubin 0.6, Total Protein 4.7L, Albumin 1.7L, Magnesium Level 1.9, Albumin/Globulin Ratio 0.57L, Vancomycin Level Trough 13.7 CBC/BMP Laboratory Tests 02/18/19 06:51 Red Blood Count 3.03 L, Mean Corpuscular Volume 85.1, Mean Corpuscular Hemoglobin 26.4 L, Mean Corpuscular Hemoglobin Concent 31.0 L, Red Cell Distribution Width 17.1 H, Neutrophils (%) (Auto) 77.4 H, Lymphocytes (%) (Auto) 8.9 L, Monocytes (%) (Auto) 9.3 H, Eosinophils (%) (Auto) 2.4, Basophils (%) (Auto) 0.2, Neutrophils # (Auto) 10.2 H, Lymphocytes # (Auto) 1.2 L, Monocytes # (Auto) 1.2 H, Eosinophils # (Auto) 0.3, Basophils # (Auto) 0.0, Calcium Level 9.8, Aspartate Amino Transf (AST/SGOT) 16, Alanine Aminotransferase (ALT/SGPT) 14, Alkaline Phosphatase 103, Total Bilirubin 0.6, Total Protein 4.7 L, Albumin 1.7 L Microbiology Microbiology 02/16/19 Blood Culture - Preliminary, Resulted No growth after 24 hours . All specim... 02/16/19 Blood Fungal Culture, Received Pending 02/16/19 Blood Culture - Preliminary, Resulted No growth after 24 hours . All specim... 02/16/19 Blood Fungal Culture, Received Pending 02/16/19 Blood Culture - Preliminary, Resulted No growth after 24 hours . All specim... 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 Tip of the feeding tube reverted back into the stomach - ffup xray prob still inside stomach. Drainage tube to LIWS malnutrition on TPN -TPN held yesterday due to concern for line infection as source of fever (this is just few days old) new fever PLAN: suggest resume TPN Not much drained out of gastrostomy tube on gravity drainage. Will give trickle feedings and observe gastrostomy output and advance gradually. will add reglan to stimulate gastric emptying. Plan / VTE VTE Prophylaxis Ordered?: Yes MISHA RODRIGUEZ MD February 18, 2019 07:49
[2019-02-18 08:00] VITALS: BP 133/78
[2019-02-18] MEDS: VANCOMYCIN HCL 500 MG in D5W MINI-BAG PLUS 100 ML IV SCH (08:58)
[2019-02-18] MEDS: PANTOPRAZOLE 40MG INJ (PROTONIX) (C9113) IV SCH (10:48)
[2019-02-18] MEDS: BRINZOLAMIDE 1 % OPHTH SUSP (AZOPT) 10ML OU SCH ×2 (10:49→21:59)
--- NOTE | 2019-02-18 11:36 | IPNPDOC ---
Date Seen The patient was seen on 02/18/19. Progress Note SUBJECTIVE: Patient was seen and examined this morning. She has had her TPN held due to an epsiode of fever and hypotension. She has remained afebrile and normotensive overnight. She does have some soreness in her back which she attributes to laying in bed. She denies shortness of breath. She continues to have a cough with sputum production. She denies any nausea or vomiting. She continues to have pain at her G-tube site although states that the pain is improving OBJECTIVE PHYSICAL EXAMINATION: VITAL SIGNS: Please see below. GENERAL: Awake, alert, and oriented. Appears in no acute distress. Lying in bed. Appears comfortable HEENT: Atrumatic, normocephalic. Eyes are nonicteric. Trachea is midline. Dentition is fair. Mucous membranes are pink and moist CARDIOVASCULAR: Normal S1, S2. Regular rate and rhythm. No clicks rubs or murmurs. RESPIRATORY: Diminished breath sounds on the left. Scattered crackles. No wheezing or rhonci. Good respiratory effort. Symmetric chest rise ABDOMINAL: Soft, nondistended. No tenderness to palpation throughout. Hypoactive bowel sounds EXTREMITIES: No edema. Full and equal pulses in bilateral upper and lower extremities NEUROLOGICAL: No focal neurological deficits noted PSYCHOLOGICAL: Mood and affect appear appropriate LABORATORY DATA, IMAGING STUDIES, MICROBIOLOGY: Please see below. DVT prophylaxis ordered?: YES ASSESSMENT AND PLAN: Patient is a 78 year old female with a PMHx of HTN, DLP, Glaucoma, GERD who presented to the [facility] ER on 01/26/19 with complaint of abdominal pain. 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 The patient had a laparoscopic reduction. The patient was unable to be weaned off ventilator after her surgery due to worsening hypoxia. She was found to have an aspiration pneumonia. Patient did improve and was extubated to BIPAP / Vapotherem. She was taken for intervention again on for replacement of G tube to GJ tube and aspiration of fluid collection. PROBLEMS: 1. Fever and Hypotension -Patient had an episode of fever and hypotension on 02/16/2019. She had her TPN held as it was felt she could have a line infection. She was started on Vancomycin in addition to her meropenem. She has remained afebrile today. -Patient is followed by Infectious Disease. Recommendations greatly appreciated 2. Aspiration pneumonia -Currently on Meropenem 02/08/19 followed by ID -Patient was noted to have a fever yesterday. CXR demonstrated PICC line in place in the right upper extremity. Cardiomegaly and bilateral pleural effusions left more so than right -Patient has had cough with sputum production. Will continue to work with respiratory therapy 3. Bilateral pleural Effusions -Patient has a left sided pleural effusion more so than right. Her left sided effusion is likely larger as her stomach was occupying space before being surgically reduced -Chest CT demonstrating improved aeration and improved infiltrates on the right. New lobar collapse in left upper lobe likely 2/2 mucous plugging. Small bilateral pleural and pericardial effusions somewhat increased. -Chest PT and Mucomyst for mucous plugging. Patient has refused mucomyst as she feels it smells bad. Will continue with respiratory treatments 4. Large hiatal hernia and acute gastric volvulus -Currently stable. -s/p GJ tube replacement -Patient is followed by surgery -Patient has had decreased G-tube output. Likely placement of feeding tube. -Patient did have a fever yesterday. She has been started on Vancomycin 5. Post-operative wound infection w/ subcutaneous abscess around the G-tube -Patient is followed by ID. -Currently on meropenem -Culture positive for yeast like organism. Patient is currently on Fluconazole -On 02/13 had replacement of G tube to GJ tube; PICC line placed on 02/14 -Patient was started on trickle tube feeds today per surgery 6. Nutrition -Patient s/p PICC line placement. -Currently getting trickle tube feeds 7. GERD -Protonix 8. Hypothyroidism -Synthroid 9. DVT prophylaxis -Lovenox A-FIB/CHADSVASC A-FIB History Current/History of A-Fib/PAF?: No VS, I&O, 24H, Fishbone Vital Signs/I&O Vital Signs Date Time Temp Pulse Resp B/P (MAP) Pulse Ox O2 Delivery O2 Flow Rate FiO2 02/18/19 08:00 98.9 85 18 133/78 (96) 93 02/17/19 12:00 2.0 I&O- Last 24 Hours up to 6 AM 02/18/19 06:00 Intake Total 200 ml Output Total 1100 ml Balance -900 ml Laboratory Data 24H LABS Laboratory Tests 2 02/18/19 06:51: Immature Granulocyte % (Auto) 1.8, White Blood Count 13.2H, Red Blood Count 3.03L, Hemoglobin 8.0L, Hematocrit 25.8L, Mean Corpuscular Volume 85.1, Mean Corpuscular Hemoglobin 26.4L, Mean Corpuscular Hemoglobin Concent 31.0L, Red Cell Distribution Width 17.1H, Platelet Count 342, Neutrophils (%) (Auto) 77.4H, Lymphocytes (%) (Auto) 8.9L, Monocytes (%) (Auto) 9.3H, Eosinophils (%) (Auto) 2.4, Basophils (%) (Auto) 0.2, Neutrophils # (Auto) 10.2H, Lymphocytes # (Auto) 1.2L, Monocytes # (Auto) 1.2H, Eosinophils # (Auto) 0.3, Basophils # (Auto) 0.0, Nucleated Red Blood Cells % (auto) 0.2H, Anion Gap 6L, Glomerular Filtration Rate > 60.0, Blood Urea Nitrogen 17, Creatinine 0.76, Sodium Level 144, Potassium Level 3.4L, Chloride Level 113H, Carbon Dioxide Level 25, Calcium Level 9.8, Aspartate Amino Transf (AST/SGOT) 16, Alanine Aminotransferase (ALT/SGPT) 14, Alkaline Phosphatase 103, Total Bilirubin 0.6, Total Protein 4.7L, Albumin 1.7L, Magnesium Level 1.9, Albumin/Globulin Ratio 0.57L, Va ncomycin Level Trough 13.7 CBC/BMP Laboratory Tests 02/18/19 06:51 Red Blood Count 3.03 L, Mean Corpuscular Volume 85.1, Mean Corpuscular Hemoglobin 26.4 L, Mean Corpuscular Hemoglobin Concent 31.0 L, Red Cell Distribution Width 17.1 H, Neutrophils (%) (Auto) 77.4 H, Lymphocytes (%) (Auto) 8.9 L, Monocytes (%) (Auto) 9.3 H, Eosinophils (%) (Auto) 2.4, Basophils (%) (Auto) 0.2, Neutrophils # (Auto) 10.2 H, Lymphocytes # (Auto) 1.2 L, Monocytes # (Auto) 1.2 H, Eosinophils # (Auto) 0.3, Basophils # (Auto) 0.0, Calcium Level 9.8, Aspartate Amino Transf (AST/SGOT) 16, Alanine Aminotransferase (ALT/SGPT) 14, Alkaline Phosphatase 103, Total Bilirubin 0.6, Total Protein 4.7 L, Albumin 1.7 L Microbiology Microbiology 02/16/19 Blood Culture - Preliminary, Resulted No growth after 24 hours . All specim... 02/16/19 Blood Fungal Culture, Received Pending 02/16/19 Blood Culture - Preliminary, Resulted No growth after 24 hours . All specim... 02/16/19 Blood Fungal Culture, Received Pending 02/16/19 Blood Culture - Preliminary, Resulted No growth after 24 hours . All specim... 02/13/19 Gram Stain - Final, Complete 02/13/19 Abscess Culture - Final, Complete 02/13/19 Anaerobic Culture - Final, Complete GME ATTESTATION GME ATTESTATION My faculty preceptor for this patient encounter was physically present during the encounter and was fully available. All aspects of the patient interview, examination, medical decision making process, and medical care plan development were reviewed and approved by the faculty preceptor. The faculty preceptor is aware and concurs with the plan as stated in the body of this note and will attest to such by his/her cosignature. ATTENDING NOTE I saw and evaluated the patient. I agree with the findings and plan of care as documented in the resident's note MICHAEL AYON DO February 18, 2019 09:30 EMILY NAM MD February 20, 2019 13:13
[2019-02-18 12:00] VITALS: BP 142/82
--- NOTE | 2019-02-18 13:55 | PHACANCOPD ---
PHARMACY VANCOMYCIN DOSING Pt Demographics Demographics Patient Age:78 , Weight:65.000 , Gender: female Adjusted Body Weight Date: 02/08/19, Adjusted Body Weight: Kg Events Past 24 Hours Events Past 24 Hours: NO: Dialysis, Diuretic Therapy, Change in CrCl, Fever, Elevation in WBC, Pending Diagnostics, Pending Procedures, Other Vancomycin Vancomycin indication: Intra-abdominal Vancomycin Target Ranges: 15-20 mcg/ml Vancomycin Load Y/N: Yes Load Dose Date Time Vancomycin Load Dose: 1000MG Date: 02/07 Time: 19:30 Vancomycin Dose Date: 02/08/19. Current Vancomycin Dose: (750MG IV q12h @06] Intermittent Dosing?: No Labs Labs Vital Signs Label Value Date Time Patient Temperature 98.7 degrees F 02/18/19 0400 Temperature Source Temporal 02/18/19 0400 Patient Temperature 98.9 degrees F 02/18/19 0800 Temperature Source Temporal 02/18/19 0800 Patient Temperature 98.1 degrees F 02/18/19 1200 Temperature Source Temporal 02/18/19 1200 Item Value Date Time White Blood Count 18.7 10^3/uL H 02/16/19 0540 White Blood Count 14.2 10^3/uL H 02/17/19 0353 White Blood Count 13.2 10^3/uL H 02/18/19 0651 C-Reactive Protein, Quantitative 9.69 MG/DL H 02/15/19 0504 C-Reactive Protein, Quantitative 7.63 MG/DL H 02/16/19 0540 Lactic Acid Level 1.7 MMOL/L 02/16/19 0940 Micro Microbiology 02/16/19 Blood Culture - Preliminary, Resulted No Growth after 48 hours. All Specime... 02/16/19 Blood Fungal Culture, Received Pending 02/16/19 Blood Culture - Preliminary, Resulted No Growth after 48 hours. All Specime... 02/16/19 Blood Fungal Culture, Received Pending 02/16/19 Blood Culture - Preliminary, Resulted No Growth after 48 hours. All Specime... 02/13/19 Gram Stain - Final, Complete 02/13/19 Abscess Culture - Final, Complete 02/13/19 Anaerobic Culture - Final, Complete Creatinine Clearance Date:02/07/19. Creatinine Clearance: [47 ml/min]. Assessment and Plan Maintaining Current Dose?: Yes Reason for dose change: No Dose Change Pharmacist Note Pharmacist Note 02/18: Patient was empirically restarted on Vancomycin on 02/16 in addition to Meropenem and Fluconazole. On the morning of 02/16 patient spiked a fever of 102.3 and her blood pressure dropped to 77/39 and it was thought it was secondary to a line infection with her TPN. Her TPN has been held since, and s he has been afebrile. Her TPN will be restarted today. On 02/16 she was loaded with 1000mg of Vancomycin at 1230 then continued on Vancomycin 1250mg q24h. Her trough today came back at 13.7. She will be continued on her current dose for now. We will continue to monitor and make adjustments as necessary. Date: 02/09/19. Pharmacist note:Vancomycin trough drawn this morning@5:06 reported as 19.0.SCR is stable,but will change dose D/T age to Vancomycin 750mg IV [id number] to begin this morning.Trough scheduled 02/10@1700-will continue to follow Date: 02/08/19. Pharmacist note: pt has been started on meropenem and vancomycin. She has not been on vancomycin at our facility in the past. Inflammatory markers have been trending up. I have started her on vancomycin 1g yesterday evening followed by 1g IV q12h @06, ~10 hours later. I have a trough scheduled for tomorrow morning. We will continue to monitor and follow up with the level in the morning. [facility] February 18, 2019 13:55
[2019-02-18] MEDS: ENOXAPARIN 40 MG/0.4 ML SYRINGE (J1650) SC SCH (14:59)
[2019-02-18] MEDS: FLUCONAZOLE 200 MG in IV 1 EA IV SCH (15:00)
[2019-02-18 16:00] VITALS: BP 132/74
[2019-02-18] MEDS: HumaLOG INSULIN (NovoLOG) PER UNIT SC SCH (16:40)
[2019-02-18] MEDS: NORCO, ANEXSIA 5/325MG TABLET (HYDROcodone/ACETAMINOPHEN) PO PRN (16:40)
[2019-02-18] MEDS ORDERED: AMINO AC/ELECTROLYTE/DEX/CALC 2,000 ML IV SCH (18:00)
[2019-02-18] MEDS ORDERED: FAT EMULSION IV 20% 500 ML IV SCH (18:00)
[2019-02-18 20:00] VITALS: BP 128/67
[2019-02-18] MEDS: LATANOPROST 0.005% OPHTH SOLN 2.5 ML OU SCH (22:00)
[2019-02-19] VITALS (7 sets, daily range): BP systolic 125–166; BP diastolic 58–77
[2019-02-19] MEDS: HumaLOG INSULIN (NovoLOG) PER UNIT SC SCH ×4 (01:15→18:39)
[2019-02-19] MEDS: MEROPENEM INJ 1 GM in IV 1 EA IV SCH ×3 (01:18→17:42)
[2019-02-19] MEDS: METOCLOPRAMIDE INJ 10MG/2ML VIAL (J2765) IV SCH ×3 (03:44→18:39)
[2019-02-19 05:47] LABS: BASO % 0.2 % (0.0-1.0); EOS # 0.3 10^3/uL (0.0-0.50); EOS % 2.4 % (0.0-3.0); HEMATOCRIT 26.9 % (36.0-47.0); HEMOGLOBIN 8.3 g/dl (12.0-15.5); LYMPH # 0.9 10^3/uL (1.5-4.5); LYMPH % 7.7 % (24.0-44.0); MEAN CORPUSCULAR HEMOGLOBIN 26.3 pg (27.0-33.0); MEAN CORPUSCULAR HGB CONC 30.9 g/dl (32.0-36.5); MEAN CORPUSCULAR VOLUME 85.4 fl (80.0-96.0); MONO % 8.6 % (0.0-5.0); NEUTROPHILS # 9.5 10^3/uL (1.8-7.7); NEUTROPHILS % 78.3 % (36.0-66.0); PLATELET COUNT, AUTOMATED 318 10^3/uL (150-450); RED BLOOD COUNT 3.15 10^6/uL (4.00-5.40); WHITE BLOOD COUNT 12.1 10^3/uL (4.0-10.0)
[2019-02-19] MEDS: SLF 3 ML SYR IV SCH ×3 (06:00→20:29)
[2019-02-19 06:11] LABS: ALBUMIN 1.6 GM/DL (3.2-5.2); ALT/SGPT 10 U/L (12-78); BILIRUBIN,TOTAL 0.4 MG/DL (0.2-1.0); BLOOD UREA NITROGEN 24 MG/DL (7-18); CALCIUM LEVEL 9.5 MG/DL (8.8-10.2); CARBON DIOXIDE LEVEL 26 MEQ/L (21-32); CHLORIDE LEVEL 109 MEQ/L (98-107); CREATININE FOR GFR 0.92 MG/DL (0.55-1.30); GLOMERULAR FILTRATION RATE > 60.0 (>39); GLUCOSE, FASTING 204 MG/DL (70-100); POTASSIUM SERUM 3.3 MEQ/L (3.5-5.1); SODIUM LEVEL 140 MEQ/L (136-145); TOTAL PROTEIN 5.5 GM/DL (6.4-8.2)
[2019-02-19] MEDS: SODIUM CHLORIDE 0.9% INJ 10 ML SYR IV SCH ×2 (06:44→18:38)
[2019-02-19] MEDS: LEVOTHYROXINE 25MCG TABLET (0.025MG) PO SCH (06:44)
[2019-02-19] MEDS: VANCOMYCIN HCL 750 MG, VIAL MATE ADAPTER 1 EACH in D5W 250 ML IV SCH (06:44)
[2019-02-19] MEDS: ACETYLCYSTEINE 20% 4 ML VIAL (200MG/ML) INH SCH ×2 (07:12→19:56)
[2019-02-19] MEDS: VANCOMYCIN HCL 500 MG in D5W MINI-BAG PLUS 100 ML IV SCH (08:14)
[2019-02-19] MEDS: PANTOPRAZOLE 40MG INJ (PROTONIX) (C9113) IV SCH (08:14)
--- NOTE | 2019-02-19 09:15 | IPNPDOC ---
Subjective General Date/Time Seen The patient was seen on 02/19/19 at 07:22. Subject Chief Complaint/History The patient is a 78-year-old female admitted with a reason for visit of Acute Gastric Volvulus. Stable. No events overnight. No further febrile episodes since last Sunday. Per nurse, participating with PT. She denies nausea, abdominal discomfort, shortness of breath. pressure on upper abdomen improved. Current Medications Current Medications Current Medications Acetaminophen (Tylenol Tab) 325 mg Q4HP PRN PO PAIN / FEVER Last administered on 02/06/19at 10:17; Start 02/04/19 at 09:15; Stop 02/06/19 at 18:26; Status DC Acetaminophen (Tylenol Tab) 650 mg Q6HP PRN PO PAIN / FEVER; Start 02/04/19 at 10:45; Status Cancel Acetaminophen (Tylenol Tab) 1,000 mg Q6HP PRN PO MILD/MODERATE PAIN (PS 1-7) Last administered on 02/18/19at 15:01; Start 02/06/19 at 18:30 Acetaminophen/ Hydrocodone Bitart ([place], Anexsia 5/325) 1 tab Q4HP PRN PO MODERATE/SEVERE PAIN (PS 5-10) Last administered on 02/18/19at 16:40; Start 02/06/19 at 18:30 Acetylcysteine (Mucomyst 20% (200mg/ml)) 400 mg RBID INH ; Start 02/12/19 at 08:00 Albuterol Sulfate (Proventil Neb) 2.5 mg RQ2H PRN NEB SHORTNESS OF BREATH Last administered on 02/17/19at 07:47; Start 01/28/19 at 18:30 Albuterol Sulfate (Proventil Neb) 2.5 mg RQ4H NEB Last administered on 02/10/19at 12:59; Start 01/30/19 at 16:00; Stop 02/11/19 at 09:07; Status DC Albuterol/ Ipratropium (Duoneb (Ipr 0.5mg/Alb 2.5mg)) 3 ml RQ4H NEB Last administered on 01/30/19at 12:24; Start 01/28/19 at 20:00; Stop 01/30/19 at 12:27; Status DC Amino Ac/Electrol/ Dextrose/Calcium 2,000 ml @ 65 mls/hr ONCE@1800 IV Last administered on 02/14/19at 18:43; Start 02/14/19 at 18:00; Stop 02/15/19 at 17:59; Status DC Amino Ac/Electrol/ Dextrose/Calcium 2,000 ml @ 65 mls/hr ONCE@1800 IV Last administered on 02/15/19at 17:52; Start 02/15/19 at 18:00; Stop 02/16/19 at 08:42; Status DC Amino Ac/Electrol/ Dextrose/Calcium 2,000 ml @ 65 mls/hr ONCE@1800 IV Last administered on 02/18/19at 17:55; Start 02/18/19 at 18:00; Stop 02/19/19 at 17:59 Amoxicillin/ Clavulanate Potassium (Augmentin) 875 mg BID PO Last administered on 02/06/19at 21:01; Start 02/03/19 at 09:00; Stop 02/06/19 at 21:01; Status DC Ampicillin Sodium/ Sulbactam Sodium 3 gm/Dextrose 100 ml @ 200 mls/hr Q6H IV Last administered on 01/28/19at 05:19; Start 01/28/19 at 00:00; Stop 01/28/19 at 07:30; Status DC Brinzolamide (Azopt) 1 drop BID OU Last administered on 02/18/19at 21:59; Start 02/03/19 at 09:00 Chlorhexidine Gluconate (Peridex Oral Rinse) SWAB/BRUSH ORAL CAVITY BID MT Last administered on 01/30/19at 10:05; Start 01/28/19 at 21:00; Stop 01/30/19 at 12:27 ; Status DC Cod Liver Oil/ Zinc Oxide (Desitin) APPLY TO skin aroun... QID TOP Last administered on 02/13/19at 08:58; Start 02/08/19 at 09:00; Stop 02/13/19 at 09:19; Status DC Dextrose (Dextrose 50%) 25 ml ASDIRECTED PRN IV SEE LABEL COMMENTS; Start 01/30/19 at 16:30; Stop 02/05/19 at 08:21; Status DC Diatrizoate Meglum/ Diatrizoate Sod (Gastrografin) 10 ml Q30M PO Last administered on 5/3/19at 06:34; Start 02/07/19 at 07:00; Stop 02/07/19 at 07:31; Status DC Enoxaparin Sodium (Lovenox) 40 mg DAILY@1400 SC Last administered on 02/18/19 14:59; Start 01/29/19 at 14:00 Fat Emulsion Intravenous 500 ml @ 20 mls/hr ONCE@1800 IV Last administered on 02/14/19at 18:42; Start 02/14/19 at 18:00; Stop 02/15/19 at 17:59; Status DC Fat Emulsion Intravenous 500 ml @ 20 mls/hr ONCE@1800 IV Last administered on 02/15/19at 17:52; Start 02/15/19 at 18:00; Stop 02/16/19 at 08:42; Status DC Fat Emulsion Intravenous 500 ml @ 20 mls/hr ONCE@1800 IV Last administered on 02/18/19at 17:55; Start 02/18/19 at 18:00; Stop 02/19/19 at 17:59 Fentanyl Citrate (Sublimaze) 25 mcg Q5MP PRN IV MODERATE PAIN (PS 4-7) Last administered on 01/28/19 16:53; Start 01/28/19 at 16:00; Stop 01/29/19 at 06:12; Status DC Fentanyl Citrate (Sublimaze) 25 mcg Q5MP PRN IV MODERATE PAIN (PS 4-7) Last administered on 02/13/19 14:31; Start 02/13/19 at 14:30; Stop 02/13/19 at 15:30; Status DC Fluconazole (Diflucan) 200 mg DAILY PO Last administered on 02/12/19at 09:45; Start 02/11/19 at 09:00; Stop 02/13/19 at 14:02; Status DC Fluconazole 200 mg/IV Miscellaneous Supplies 100 ml @ 100 mls/hr Q24H IV Last administered on 02/18/19at 15:00; Start 02/13/19 at 15:00 Furosemide (LASIX injection) 40 mg DAILY IV Last administered on 02/01/19 01:31; Start 02/01/19 at 09:00; Stop 02/01/19 at 09:00; Status DC Glucagon (Glucagon) 1 mg ASDIRECTED PRN SC SEE LABEL COMMENTS; Start 01/30/19 at 16:30; Stop 02/05/19 at 08:21; Status DC Glucose (Glucose) 16 GM ASDIRECTED PRN PO SEE LABEL COMMENTS; Start 01/30/19 at 16:30; Stop 02/05/19 at 08:21; Status DC Heparin Sodium (Heparin (Flush)) 200 units ASDIRECTED PRN IV SEE LABEL COMMENTS Last administered on 02/17/19at 18:08; Start 02/14/19 at 14:30 Heparin Sodium (Heparin (Flush)) 200 units PICC IV Last administered on 02/19/19at 06:43; Start 02/14/19 at 18:00 Heparin Sodium (Porcine) (Heparin) 5,000 units Q8H SQ Last administered on 01/29/19at 05:12; Start 01/28/19 at 06:00; Stop 01/29/19 at 08:46; Status DC Home Med (Med Rec Complete!) ASDIRECTED XX ; Start 01/27/19 at 05:30; Stop 01/27/19 at 05:39; Status DC Hydrochlorothiazide (Hydrodiuril) 25 mg DAILY PO Last administered on 02/09/19at 09:00; Start 02/03/19 at 09:00; Stop 02/09/19 at 11:37; Status DC Hydromorphone HCl (Dilaudid) 0.3 mg Q3HP PRN IV MILD PAIN (PS 1-4); Start 01/27/19 at 15:45; Stop 01/28/19 at 18:47; Status DC Hydromorphone HCl (Dilaudid) 0.4 mg Q3HP PRN IV MODERATE PAIN (PS 5-7) Last a dministered on 01/27/19at 14:08; Start 01/27/19 at 13:45; Stop 01/27/19 at 17:16; Status DC Hydromorphone HCl (Dilaudid) 0.5 mg Q30M PRN IV MODERATE PAIN (PS 5-7) Last administered on 01/27/19at 05:49; Start 01/27/19 at 02:15; Stop 01/27/19 at 05:50; Status DC Hydromorphone HCl (Dilaudid) 0.6 mg Q3HP PRN IV MODERATE PAIN (PS 5-7) Last administered on 01/28/19at 02:54; Start 01/27/19 at 15:45; Stop 01/28/19 at 18:47; Status DC Hyoscyamine/Lido/ Alumin/Mag/Simethi (Gi Cocktail) 50 ml Q6HP PRN PO GI UPSET; Start 02/07/19 at 12:30; Stop 02/13/19 at 14:02; Status DC Insulin Human Lispro (HumaLOG INSULIN) See Protocol Table Q6H SC Last administered on 02/15/19at 12:46; Start 02/14/19 at 18:00; Stop 02/15/19 at 12:01; Status DC Insulin Human Lispro (HumaLOG INSULIN) See Protocol Table Q6H SC Last administered on 02/16/19at 05:35; Start 02/15/19 at 18:00; Stop 02/16/19 at 08:42; Status DC Insulin Human Lispro (HumaLOG INSULIN) See Protocol Table Q6H SC Last administered on 02/19/19at 06:43; Start 02/18/19 at 18:00; Stop 02/19/19 at 12:01 Lactated Ringer's 1,000 ml @ 75 mls/hr [id number] IV Last administered on 02/14/19at 18:43; Start 02/13/19 at 10:00; Stop 02/14/19 at 18:49; Status DC Lactated Ringer's 1,000 ml @ 75 mls/hr [id number] IV ; Start 02/13/19 at 14:30; Stop 02/13/19 at 15:30; Status DC Lactated Ringer's 1,000 ml @ 100 mls/hr Q10H IV Last administered on 01/31/19at 20:52; Start 01/28/19 at 05:00; Stop 02/01/19 at 01:26; Status DC Lactated Ringer's 1,000 ml @ 100 mls/hr Q10H IV ; Start 01/28/19 at 16:00; Stop 01/28/19 at 17:00; Status DC Lactated Ringer's 1,000 ml @ 150 mls/hr Q6H40M IV Last administered on 01/27/19at 08:38; Start 01/27/19 at 07:15; Stop 01/27/19 at 21:14; Status DC Lactated Ringer's 1,000 ml @ 1,000 mls/hr Q1H IV Last administered on 01/27/19at 07:16; Start 01/27/19 at 06:26; Stop 01/27/19 at 07:18; Status DC Latanoprost (Xalatan 0.005% Op Soln) 1 drop QHS OU Last administered on 02/18/19at 22:00; Start 02/03/19 at 21:00 Levothyroxine Sodium (Synthroid) 12.5 mcg DAILY IV Last administered on 02/04/19at 09:54; Start 01/28/19 at 09:00; Stop 02/04/19 at 10:35; Status DC Levothyroxine Sodium (Synthroid) 25 mcg DAILY@06 PO Last administered on 02/19/19at 06:44; Start 02/05/19 at 06:00 Magnesium Hydroxide (Milk Of Magnesia) 30 ml BIDP PRN PO CONSTIPATION Last administered on 02/11/19at 18:46; Start 02/11/19 at 18:45; Stop 02/13/19 at 14:02; Status DC Meperidine HCl (Demerol) 12.5 mg Q5MP PRN IV SHIVERING; Start 01/28/19 at 16:00; Stop 01/28/19 at 17:00; Status DC Meropenem 1 gm/IV Miscellaneous Supplies 50 ml @ 100 mls/hr Q8H IV Last administered on 02/19/19at 01:18; Start 02/07/19 at 17:00 Methylprednisolone (SOLU medrol) 40 mg Q6H IV Last administered on 02/04/19at 04:15; Start 01/31/19 at 17:00; Stop 02/04/19 at 09:05; Status DC Metoclopramide HCl (REGLAN INJection) 10 mg Q6HP PRN IV NAUSEA OR VOMITING; Start 01/28/19 at 16:00; Stop 01/28/19 at 17:00; Status DC Metoclopramide HCl (REGLAN INJection) 10 mg Q6HP PRN IV NAUSEA OR VOMITING; Start 02/13/19 at 14:30; Stop 02/13/19 at 15:30; Status DC Metoclopramide HCl (REGLAN INJection) 10 mg Q8H IV Last administered on 02/19/19at 03:44; Start 02/17/19 at 11:00 Midazolam HCl (Versed) 2 mg Q15MP PRN IV AGITATION Last administered on 01/30/19at 03:51; Start 01/28/19 at 18:30; Stop 01/31/19 at 16:38; Status DC Midazolam HCl 100 mg/Dextrose 100 ml @ 2 mls/hr Q24H IV ; Start 01/28/19 at 15:45; Stop 01/28/19 at 19:45; Status DC Morphine Sulfate (Morphine Sulfate Inj) 2 mg Q2HP PRN IV MODERATE/SEVERE PAIN (PS 5-10); Start 01/27/19 at 06:30; Stop 01/27/19 at 16:00; Status DC Morphine Sulfate (Morphine Sulfate Inj) 2 mg Q2HP PRN IV PAIN Last administered on 02/02/19at 16:51; Start 01/28/19 at 18:30; Stop 02/08/19 at 10:42; Status DC Morphine Sulfate (Morphine Sulfate Inj) 2 mg Q2HP PRN IV MODERATE/SEVERE PAIN (PS 5-10) Last administered on 02/16/19at 04:25; Start 02/13/19 at 09:15 Morphine Sulfate (Morphine Sulfate Inj) 4 mg Q2HP PRN IV SEVERE PAIN (PS 8-10) Last administered on 01/27/19at 12:02; Start 01/27/19 at 06:30; Stop 01/27/19 at 16:00; Status DC Non-Formulary Medication (Refrigerator Hernandez) Q1M PRN XX SEE LABEL COMMENTS; Start 01/28/19 at 15:45; Stop 01/28/19 at 19:47; Status DC Nystatin (Mycostatin) 5 ml QID SS Last administered on 02/10/19at 12:39; Start 02/08/19 at 09:00; Stop 02/10/19 at 18:42; Status DC Ondansetron HCl (ZOFRAN INJection) 4 mg Q4HP PRN IV NAUSEA OR VOMITING; Start 01/28/19 at 16:00; Stop 01/28/19 at 17:00; Status DC Ondansetron HCl (ZOFRAN INJection) 4 mg Q4HP PRN IV NAUSEA OR VOMITING; Start 02/13/19 at 14:30; Stop 02/13/19 at 15:30; Status DC Ondansetron HCl (ZOFRAN INJection) 4 mg Q6HP PRN IV NAUSEA OR VOMITING Last administered on 01/28/19at 07:50; Start 01/27/19 at 06:30 Oxycodone/ Acetaminophen (Percocet 5mg/ 325mg Tablet) 1 tab ASDIRECTED PRN PO MILD/MODERATE PAIN (PS 1-7); Start 01/28/19 at 16:00; Stop 01/28/19 at 17:00; Status DC Oxycodone/ Acetaminophen (Percocet 5mg/ 325mg Tablet) 1 tab ASDIRECTED PRN PO MILD/MODERATE PAIN (PS 1-7); Start 02/13/19 at 14:30; Stop 02/13/19 at 15:30; Status DC Pantoprazole Sodium (Protonix) 40 mg DAILY IV Last administered on 02/04/19at 09:53; Start 01/27/19 at 09:00; Stop 02/05/19 at 08:21; Status DC Pantoprazole Sodium (Protonix) 40 mg DAILY IV Last administered on 02/18/19at 10:48; Start 02/13/19 at 09:00 Pantoprazole Sodium (Protonix) 40 mg DAILY PO Last administered on 02/12/19at 09:45; Start 02/05/19 at 09:00; Stop 02/13/19 at 14:02; Status DC Piperacillin Sod/ Tazobactam Sod 3.375 gm/Dextrose 50 ml @ 50 mls/hr Q6H IV Last administered on 02/03/19at 04:39; Start 01/28/19 at 11:00; Stop 02/03/19 at 10:16; Status DC Potassium Chloride 10 meq/ IV Miscellaneous Supplies 100 ml @ 100 mls/hr ASDIRECTED IV ; Start 01/29/19 at 08:00; Status UNV Potassium Chloride 10 meq/ IV Miscellaneous Supplies 100 ml @ 100 mls/hr Q1H IV Last administered on 01/29/19at 10:46; Start 01/29/19 at 08:00; Stop 01/29/19 at 09:59; Status DC Potassium Chloride 10 meq/ IV Miscellaneous Supplies 100 ml @ 100 mls/hr Q1H IV Last administered on 01/30/19at 11:11; Start 01/30/19 at 09:00; Stop 01/30/19 at 10:59; Status DC Potassium Chloride 10 meq/ IV Miscellaneous Supplies 100 ml @ 100 mls/hr Q1H IV Last administered on 02/01/19 12:34; Start 02/01/19 at 09:00; Stop 02/01/19 at 11:59; Status DC Propofol 1000 mg/ IV Miscellaneous Supplies 100 ml @ 4.29 mls/hr [id number] IV Last administered on 01/30/19 04:33; Start 01/28/19 at 18:29; Stop 01/30/19 at 12:27; Status DC Simethicone (Mylicon) 80 mg Q6HP PRN PO GAS PAIN Last administered on 02/11/19 15:07; Start 02/07/19 at 12:30; Stop 02/13/19 at 14:02; Status DC Sodium Chloride 1,000 ml @ 500 mls/hr Q2H IV Last administered on 01/28/19at 07:51; Start 01/28/19 at 07:30; Stop 01/28/19 at 09:29; Status DC Sodium Chloride (Saline Lock Flush) 2 ml ASDIRECTED PRN IV SEE LABEL COMMENTS Last administered on 02/16/19 04:26; Start 02/05/19 at 19:30 Sodium Chloride (Saline Lock Flush) 2 ml SLF IV Last administered on 02/18/19at 22:00; Start 02/05/19 at 22:00 Sodium Chloride (Saline Lock Flush) 10 ML PICC IV Last administered on 02/19/19at 06:44; Start 02/14/19 at 18:00 Sodium Chloride (Saline Lock Flush) 10ML ASDIRECTED PRN IV SEE LABEL COMMENTS Last administered on 02/17/19 18:08; Start 02/14/19 at 14:30 Sodium Chloride (Sodium Chloride 3% Neb Asya) 3 ml RQ4H INH Last administered on 02/10/19 12:59; Start 01/30/19 at 16:00; Stop 02/11/19 at 09:07; Status DC Vancomycin HCl 500 mg/Dextrose 110 ml @ 110 mls/hr Q24H IV Last administered on 02/18/19at 08:58; Start 02/17/19 at 08:00 Vancomycin HCl 750 mg/Dextrose 265 ml @ 265 mls/hr Q24H IV ; Start 02/17/19 at 07:00; Stop 02/17/19 at 07:00; Status DC Vancomycin HCl 750 mg/IV Miscellaneous Supplies 1 each/ Dextrose 275 ml @ 275 mls/hr Q12H IV ; Start 02/16/19 at 11:30; Status UNV Vancomycin HCl 750 mg/IV Miscellaneous Supplies 1 each/ Dextrose 275 ml @ 275 mls/hr Q12H IV Last administered on 02/10/19at 05:32; Start 02/09/19 at 06:00; Stop 02/10/19 at 15:56; Status DC Vancomycin HCl 750 mg/IV Miscellaneous Supplies 1 each/ Dextrose 275 ml @ 275 mls/hr Q24H IV Last administered on 02/19/19at 06:44; Start 02/17/19 at 07:00 Vancomycin HCl 1000 mg/IV Miscellaneous Supplies 20 ml @ 20 mls/hr Q8H IV ; Start 02/07/19 at 15:45; Stop 02/07/19 at 18:38; Status DC Vancomycin HCl 1000 mg/IV Miscellaneous Supplies 1 each/ Dextrose 270 ml @ 270 mls/hr Q12H IV Last administered on 02/08/19at 17:51; Start 02/08/19 at 06:00; Stop 02/09/19 at 05:58; Status DC Allergies Coded Allergies: brimonidine (Verified Allergy, Unknown, 01/27/19) codeine (Verified Allergy, Unknown, 02/13/19) PT HAS RECEIVED DILAUDID, FENTANYL dorzolamide (Verified Allergy, Unknown, from cosopt, 01/27/19) erythromycin base (Verified Allergy, Unknown, 01/27/19) timolol (Verified Allergy, Unknown, 01/27/19) NSAIDS (Non-Steroidal Anti-Inflamma (Verified Adverse Reaction, Unknown, AVOID DUE TO ONE KIDNEY, 01/27/19) Objective Physical Examination Examination GENERAL APPEARANCE:Sleeping when I entered, awakened easily, comfortable, AAOx3. SKIN: Warm and moist. HEENT: mild pale palpebral conjunctiva, lips moist. NECK: Supple, no thyromegaly. No obvious jugular venous distention. LUNGS: Clear to auscultation bilaterally. No wheezing appreciated. HEART: No chest wall abnormalities. Regular rate and rhythm with no murmurs appreciated. ABDOMEN: Abdomen is mild obese, soft, nondistended. gastrostomy site relatively dry (dressing dry). Nontender on palpation. Gastrostomy drain to etienne bag with small amount of tube feeds (only 100 mL past 24 hrs.). EXTREMITIES: minimal LE edema. Vital Signs Vital Signs Date Time Temp Pulse Resp B/P (MAP) Pulse Ox O2 Delivery O2 Flow Rate FiO2 02/19/19 04:00 97.2 89 18 157/72 (100) 94 02/17/19 12:00 2.0 I&Os I&O- Last 24 Hours up to 6 AM 02/19/19 06:00 Intake Total 0 ml Output Total 800 ml Balance -800 ml Laboratory Data Labs 24H Laboratory Tests 2 02/19/19 01:17: Bedside Glucose (Misc Panel) 175H 02/19/19 05:26: Immature Granulocyte % (Auto) 2.8, White Blood Count 12.1H, Red Blood Count 3.15L, Hemoglobin 8.3L, Hematocrit 26.9L, Mean Corpuscular Volume 85.4, Mean Corpuscular Hemoglobin 26.3L, Mean Corpuscular Hemoglobin Concent 30.9L, Red Cell Distribution Width 16.9H, Platelet Count 318, Neutrophils (%) (Auto) 78.3H, Lymphocytes (%) (Auto) 7.7L, Monocytes (%) (Auto) 8.6H, Eosinophils (%) (Auto) 2.4, Basophils (%) (Auto) 0.2, Neutrophils # (Auto) 9.5H, Lymphocytes # (Auto) 0.9L, Monocytes # (Auto) 1.0H, Eosinophils # (Auto) 0.3, Basophils # (Auto) 0.0, Nucleated Red Blood Cells % (auto) 0.2H, Anion Gap 5L, Glomerular Filtration Rate > 60.0, Blood Urea Nitrogen 24H, Creatinine 0.92, Sodium Level 140, Potassium Level 3.3L, Chloride Level 109H, Carbon Dioxide Level 26, Calcium Level 9.5, Aspartate Amino Transf (AST/SGOT) 10, Alanine Aminotransferase (ALT/SGPT) 10L, Alkaline Phosphatase 117, Total Bilirubin 0.4, Total Protein 5.5L, Albumin 1.6L, Magnesium Level 2.0, Albumin/Globulin Ratio 0.41L CBC/BMP Laboratory Tests 02/19/19 05:26 Red Blood Count 3.15 L, Mean Corpuscular Volume 85.4, Mean Corpuscular Hemoglobin 26.3 L, Mean Corpuscular Hemoglobin Concent 30.9 L, Red Cell Distri bution Width 16.9 H, Neutrophils (%) (Auto) 78.3 H, Lymphocytes (%) (Auto) 7.7 L, Monocytes (%) (Auto) 8.6 H, Eosinophils (%) (Auto) 2.4, Basophils (%) (Auto) 0.2, Neutrophils # (Auto) 9.5 H, Lymphocytes # (Auto) 0.9 L, Monocytes # (Auto) 1.0 H, Eosinophils # (Auto) 0.3, Basophils # (Auto) 0.0, Calcium Level 9.5, Aspartate Amino Transf (AST/SGOT) 10, Alanine Aminotransferase (ALT/SGPT) 10 L, Alkaline Phosphatase 117, Total Bilirubin 0.4, Total Protein 5.5 L, Albumin 1.6 L Microbiology Microbiology 02/16/19 Blood Culture - Preliminary, Resulted No Growth after 48 hours. All Specime... 02/16/19 Blood Fungal Culture, Received Pending 02/16/19 Blood Culture - Preliminary, Resulted No Growth after 48 hours. All Specime... 02/16/19 Blood Fungal Culture, Received Pending 02/16/19 Blood Culture - Preliminary, Resulted No Growth after 48 hours. All Specime... 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 Tip of the feeding tube reverted back into the stomach - ffup xray prob still inside stomach. Drainage tube to LIWS malnutrition on TPN -TPN held yesterday due to concern for line infection as source of fever (this is just few days old) new fever PLAN: So far tolerating small amounts of feeding. I am using 2Cal to decrease amount of feeding. will advance tube feedings slowly. target would be 35 mLs/hr advance to 20 mL/hr today and continue observing gastrostomy output/backflow, stomach retention continue TPN for now until oral feedings to goal Plan / VTE VTE Prophylaxis Ordered?: Yes MISHA RODRIGUEZ MD February 19, 2019 07:23
--- NOTE | 2019-02-19 11:01 | IPNPDOC ---
Date Seen The patient was seen on 02/19/19. Progress Note SUBJECTIVE: Patient was seen and examined this morning. She currently has no new complaints. She continues to have mild abdominal pain. She denies worsening of her breathing. She denies any chest pain or pressure OBJECTIVE PHYSICAL EXAMINATION: VITAL SIGNS: Please see below. GENERAL: Awake, alert, and oriented. She appears in no acute distress. She is lying comfortably in bed HEENT: Atrumatic, normocephalic. Eyes are nonicteric. Trachea is midline. Dentition is fair CARDIOVASCULAR: Normal S1, S2. Regular rate and rhythm. No clicks, rubs, or murmurs RESPIRATORY: Diminished breath sounds bilaterally more so on the left. Scattered crackles. No wheezing or rhonci. Good respiratory effort. ABDOMINAL: Soft, nondistended. No tenderness to palpation throughout. Hypoactive active bowel sounds EXTREMITIES: No edema. Full and equal pulses in bilateral upper and lower extremities NEUROLOGICAL: No focal neurological deficits PSYCHOLOGICAL: Mood and affect appear appropriate LABORATORY DATA, IMAGING STUDIES, MICROBIOLOGY: Please see below. DVT prophylaxis ordered?: YES ASSESSMENT AND PLAN: Patient is a 78 year old female with a PMHx of HTN, DLP, Glaucoma, GERD who presented to the [facility] ER on 01/26/19 with complaint of abdominal pain. 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 The patient had a laparoscopic reduction. The patient was unable to be weaned off ventilator after her surgery due to worsening hypoxia. She was found to have an aspiration pneumonia. Patient did improve and was extubated to BIPAP / Vapotherem. She was taken for intervention again on for replacement of G tube to GJ tube and aspiration of fluid collection. PROBLEMS: 1. Fever and Hypotension -Patient had an episode of fever and hypotension on 02/16/2019. She had her TPN held as it was felt she could have a line infection. She was started on Vancomycin in addition to her meropenem. -Patient is followed by Infectious Disease. Recommendations greatly appreciated -Patient has continued to remain afebrile today 2. Aspiration pneumonia -Currently on Meropenem 02/08/19 followed by ID -Patient was noted to have a fever yesterday. CXR demonstrated PICC line in place in the right upper extremity. Cardiomegaly and bilateral pleural effusions left more so than right -Patient has had cough with sputum production. Will continue to work with respiratory therapy 3. Bilateral pleural Effusions -Patient has a left sided pleural effusion more so than right. Her left sided effusion is likely larger as her stomach was occupying space before being surgically reduced -Chest CT demonstrating improved aeration and improved infiltrates on the r ight. New lobar collapse in left upper lobe likely 2/2 mucous plugging. Small bilateral pleural and pericardial effusions somewhat increased. -Chest PT and Mucomyst for mucous plugging. Patient has refused mucomyst as she feels it smells bad. Will continue with respiratory treatments 4. Large hiatal hernia and acute gastric volvulus -Currently stable. -s/p GJ tube replacement -Patient is followed by surgery -Patient has had decreased G-tube output. Likely placement of feeding tube. -Patient did have a fever yesterday. She has been started on Vancomycin 5. Post-operative wound infection w/ subcutaneous abscess around the G-tube -Patient is followed by ID. -Currently on meropenem -Culture positive for yeast like organism. Patient is currently on Fluconazole -On 02/13 had replacement of G tube to GJ tube; PICC line placed on 02/14 -Patient was started on trickle tube feeds today per surgery 6. Nutrition -Patient s/p PICC line placement. -Tube feedings being managed by General Surgery. Plan to advance feedings slowly with a target of 35ml/hr. -Continue TPN until oral feedings 7. GERD -Protonix 8. Hypothyroidism -Synthroid 9. DVT prophylaxis -Lovenox A-FIB/CHADSVASC A-FIB History Current/History of A-Fib/PAF?: No VS, I&O, 24H, Fishbone Vital Signs/I&O Vital Signs Date Time Temp Pulse Resp B/P (MAP) Pulse Ox O2 Delivery O2 Flow Rate FiO2 02/19/19 07:50 98.8 88 18 152/69 (96) 94 02/17/19 12:00 2.0 I&O- Last 24 Hours up to 6 AM 02/19/19 06:00 Intake Total 0 ml Output Total 800 ml Balance -800 ml Laboratory Data 24H LABS Laboratory Tests 2 02/19/19 01:17: Bedside Glucose (Misc Panel) 175H 02/19/19 05:26: Immature Granulocyte % (Auto) 2.8, White Blood Count 12.1H, Red Blood Count 3.15L, Hemoglobin 8.3L, Hematocrit 26.9L, Mean Corpuscular Volume 85.4, Mean Corpuscular Hemoglobin 26.3L, Mean Corpuscular Hemoglobin Concent 30.9L, Red Cell Distribution Width 16.9H, Platelet Count 318, Neutrophils (%) (Auto) 78.3H, Lymphocytes (%) (Auto) 7.7L, Monocytes (%) (Auto) 8.6H, Eosinophils (%) (Auto) 2.4, Basophils (%) (Auto) 0.2, Neutrophils # (Auto) 9.5H, Lymphocytes # (Auto) 0.9L, Monocytes # (Auto) 1.0H, Eosinophils # (Auto) 0.3, Basophils # (Auto) 0.0, Nucleated Red Blood Cells % (auto) 0.2H, Anion Gap 5L, Glomerular Filtration Rate > 60.0, Blood Urea Nitrogen 24H, Creatinine 0.92, Sodium Level 140, Potassium Level 3.3L, Chloride Level 109H, Carbon Dioxide Level 26, Calcium Level 9.5, Aspartate Amino Transf (AST/SGOT) 10, Alanine Aminotransferase (ALT/SGPT) 10L, Alkaline Phosphatase 117, Total Bilirubin 0.4, Total Protein 5.5L, Albumin 1.6L, Magnesium Level 2.0, Albumin/Globulin Ratio 0.41L CBC/BMP Laboratory Tests 02/19/19 05:26 Red Blood Count 3.15 L, Mean Corpuscular Volume 85.4, Mean Corpuscular Hemoglobin 26.3 L, Mean Corpuscular Hemoglobin Concent 30.9 L, Red Cell Distribution Width 16.9 H, Neutrophils (%) (Auto) 78.3 H, Lymphocytes (%) (Auto) 7.7 L, Monocytes (%) (Auto) 8.6 H, Eosinophils (%) (Auto) 2.4, Basophils (%) (Auto) 0.2, Neutrophils # (Auto) 9.5 H, Lymphocytes # (Auto) 0.9 L, Monocytes # (Auto) 1.0 H, Eosinophils # (Auto) 0.3, Basophils # (Auto) 0.0, Calcium Level 9.5, Aspartate Amino Transf (AST/SGOT) 10, Alanine Aminotransferase (ALT/SGPT) 10 L, Alkaline Phosphatase 117, Total Bilirubin 0.4, Total Protein 5.5 L, Albumin 1.6 L Microbiology Microbiology 02/16/19 Blood Culture - Preliminary, Resulted No Growth after 72 hours. All specime... 02/16/19 Blood Fungal Culture, Received Pending 02/16/19 Blood Culture - Preliminary, Resulted No Growth after 72 hours. All specime... 02/16/19 Blood Fungal Culture, Received Pending 02/16/19 Blood Culture - Preliminary, Resulted No Growth after 72 hours. All specime... 02/13/19 Gram Stain - Final, Complete 02/13/19 Abscess Culture - Final, Complete 02/13/19 Anaerobic Culture - Final, Complete GME ATTESTATION GME ATTESTATION My faculty preceptor for this patient encounter was physically present during the encounter and was fully available. All aspects of the patient interview, examination, medical decision making process, and medical care plan development were reviewed and approved by the faculty preceptor. The faculty preceptor is aware and concurs with the plan as stated in the body of this note and will attest to such by his/her cosignature. ATTENDING NOTE I saw and evaluated the patient. I agree with the findings and plan of care as documented in the resident's note MICHAEL AYON DO February 19, 2019 11:01 EMILY NAM MD February 20, 2019 13:15
[2019-02-19] MEDS: BRINZOLAMIDE 1 % OPHTH SUSP (AZOPT) 10ML OU SCH ×2 (11:04→20:29)
[2019-02-19] MEDS: ENOXAPARIN 40 MG/0.4 ML SYRINGE (J1650) SC SCH (13:18)
[2019-02-19] MEDS: FLUCONAZOLE 200 MG in IV 1 EA IV SCH (15:43)
[2019-02-19] MEDS ORDERED: FAT EMULSION IV 20% 500 ML IV SCH (18:00)
[2019-02-19] MEDS ORDERED: MULTIVITAMIN -ADULT INJECTION 10 ML, CR/CU/SE/MN/ZN INJ 1 ML, POTASSIUM CHLORIDE INJ 40... IV SCH ×4 (18:00)
[2019-02-19] MEDS: NORCO, ANEXSIA 5/325MG TABLET (HYDROcodone/ACETAMINOPHEN) PO PRN (18:07)
[2019-02-19] MEDS: LATANOPROST 0.005% OPHTH SOLN 2.5 ML OU SCH (20:29)
[2019-02-20] MEDS: HumaLOG INSULIN (NovoLOG) PER UNIT SC SCH ×5 (01:08→23:49)
[2019-02-20] MEDS: MEROPENEM INJ 1 GM in IV 1 EA IV SCH ×2 (01:08→09:47)
[2019-02-20] MEDS: METOCLOPRAMIDE INJ 10MG/2ML VIAL (J2765) IV SCH ×3 (03:17→18:47)
[2019-02-20 04:00] VITALS: BP 152/73
[2019-02-20] MEDS: SLF 3 ML SYR IV SCH ×3 (06:00→21:06)
[2019-02-20 06:09] LABS: BASO % 0.3 % (0.0-1.0); EOS # 0.4 10^3/uL (0.0-0.50); HEMATOCRIT 25.5 % (36.0-47.0); HEMOGLOBIN 7.9 g/dl (12.0-15.5); LYMPH # 1.2 10^3/uL (1.5-4.5); LYMPH % 9.5 % (24.0-44.0); MEAN CORPUSCULAR HEMOGLOBIN 26.5 pg (27.0-33.0); MEAN CORPUSCULAR VOLUME 85.6 fl (80.0-96.0); MONO # 1.2 10^3/uL (0.0-0.8); MONO % 9.3 % (0.0-5.0); NEUTROPHILS # 9.6 10^3/uL (1.8-7.7); NEUTROPHILS % 75.7 % (36.0-66.0); PLATELET COUNT, AUTOMATED 265 10^3/uL (150-450); RED BLOOD COUNT 2.98 10^6/uL (4.00-5.40); WHITE BLOOD COUNT 12.6 10^3/uL (4.0-10.0)
[2019-02-20 06:35] LABS: ALBUMIN 1.5 GM/DL (3.2-5.2); ALT/SGPT 11 U/L (12-78); BILIRUBIN,TOTAL 0.3 MG/DL (0.2-1.0); BLOOD UREA NITROGEN 28 MG/DL (7-18); CALCIUM LEVEL 8.8 MG/DL (8.8-10.2); CARBON DIOXIDE LEVEL 25 MEQ/L (21-32); CHLORIDE LEVEL 107 MEQ/L (98-107); CREATININE FOR GFR 0.78 MG/DL (0.55-1.30); GLOMERULAR FILTRATION RATE > 60.0 (>39); GLUCOSE, FASTING 160 MG/DL (70-100); MAGNESIUM LEVEL 1.9 MG/DL (1.8-2.4); POTASSIUM SERUM 3.5 MEQ/L (3.5-5.1); SODIUM LEVEL 141 MEQ/L (136-145); TOTAL PROTEIN 5.3 GM/DL (6.4-8.2); VANCOMYCIN LEVEL TROUGH 16.4 UG/ML (10.0-20.0)
--- NOTE | 2019-02-20 06:47 | PHACANCOPD ---
PHARMACY VANCOMYCIN DOSING Pt Demographics Demographics Patient Age:78 , Weight:68.100 , Gender: female Adjusted Body Weight Date: 02/08/19, Adjusted Body Weight: Kg Vancomycin Vancomycin indication: Intra-abdominal Vancomycin Target Ranges: 15-20 mcg/ml Vancomycin Load Y/N: Yes Load Dose Date Time Vancomycin Load Dose: 1000MG Date: 02/07 Time: 19:30 Vancomycin Dose Date: 02/08/19. Current Vancomycin Dose: (750MG IV q12h @06] Intermittent Dosing?: No Labs Micro Microbiology 02/16/19 Blood Culture - Preliminary, Resulted No Growth after 72 hours. All specime... 02/16/19 Blood Fungal Culture, Received Pending 02/16/19 Blood Culture - Preliminary, Resulted No Growth after 72 hours. All specime... 02/16/19 Blood Fungal Culture, Received Pending 02/16/19 Blood Culture - Preliminary, Resulted No Growth after 72 hours. All specime... 02/13/19 Gram Stain - Final, Complete 02/13/19 Abscess Culture - Final, Complete 02/13/19 Anaerobic Culture - Final, Complete Creatinine Clearance Date:02/07/19. Creatinine Clearance: [47 ml/min]. Assessment and Plan Maintaining Current Dose?: Yes Reason for dose change: No Dose Change Pharmacist Note Pharmacist Note Date: 02/20/19. Pharmacist note:Vancomycin trough drawn this morning@5:46 reported as 16.4, SCR=0.78,(trough goal=15-20)Will continue current vanco regimen of 1250mg IV [id number] continue to follow 02/18: Patient was empirically restarted on Vancomycin on 02/16 in addition to Meropenem and Fluconazole. On the morning of 02/16 patient spiked a fever of 102.3 and her blood pressure dropped to 77/39 and it was thought it was secondary to a line infection with her TPN. Her TPN has been held since, and she has been afebrile. Her TPN will be restarted today. On 02/16 she was loaded with 1000mg of Vancomycin at 1230 then continued on Vancomycin 1250mg q24h. Her trough today came back at 13.7. She will be continued on her current dose for now. We will continue to monitor and make adjustments as necessary. Date: 02/09/19. Pharmacist note:Vancomycin trough drawn this morning@5:06 reported as 19.0.SCR is stable,but will change dose D/T age to Vancomycin 750mg IV [id number] to begin this morning.Trough scheduled 02/10@1700-will continue to follow Date: 02/08/19. Pharmacist note: pt has been started on meropenem and vancomycin. She has not been on vancomycin at our facility in the past. Inflammatory markers have been trending up. I have started her on vancomycin 1g yesterday evening followed by 1g IV q12h @06, ~10 hours later. I have a trough scheduled for tomorrow morning. We will continue to monitor and follow up with the level in the morning. [facility] February 20, 2019 06:47
[2019-02-20] MEDS: VANCOMYCIN HCL 750 MG, VIAL MATE ADAPTER 1 EACH in D5W 250 ML IV SCH (06:49)
[2019-02-20] MEDS: LEVOTHYROXINE 25MCG TABLET (0.025MG) PO SCH (06:50)
[2019-02-20] MEDS: SODIUM CHLORIDE 0.9% INJ 10 ML SYR IV SCH ×2 (06:50→18:49)
[2019-02-20 08:00] VITALS: BP 148/71
[2019-02-20] MEDS: ACETYLCYSTEINE 20% 4 ML VIAL (200MG/ML) INH SCH ×2 (08:00→20:00)
[2019-02-20] MEDS: VANCOMYCIN HCL 500 MG in D5W MINI-BAG PLUS 100 ML IV SCH (08:33)
[2019-02-20] MEDS: PANTOPRAZOLE 40MG INJ (PROTONIX) (C9113) IV SCH (08:33)
[2019-02-20] MEDS: BRINZOLAMIDE 1 % OPHTH SUSP (AZOPT) 10ML OU SCH ×2 (09:48→21:03)
[2019-02-20 12:00] VITALS: BP 135/67
[2019-02-20] MEDS: ACETAMINOPHEN 500 MG TAB PO PRN ×2 (12:14→23:50)
--- NOTE | 2019-02-20 12:16 | IPNPDOC ---
Date Seen The patient was seen on 02/20/19. Progress Note SUBJECTIVE: Patient was seen and examined this morning. She currently has no new complaints. Yesterday she had some difficulty with her GJ tube and the feedings were stopped as food particles were seen leaking out from around the tube. Her tubes feeding has been restarted this morning. The patient does have some right upper extremity swelling. She does not complain of pain. OBJECTIVE PHYSICAL EXAMINATION: VITAL SIGNS: Please see below. GENERAL: Awake, alert, and oriented. Appears in no acute distress. Lying in bed. Appears comfortable HEENT: Atrumatic, normocephalic. Eyes are nonicteric. Trachea is midline. Dentition is fair. Mucous membranes are pink and moist CARDIOVASCULAR: Normal S1, S2. Regular rate and rhythm. No clicks rubs or murmurs. RESPIRATORY: Diminished breath sounds on the left. Scattered crackles. No wheezing or rhonci. Good respiratory effort. Symmetric chest rise ABDOMINAL: Soft, nondistended. No tenderness to palpation throughout. Hypoactive bowel sounds EXTREMITIES: Right upper extremity with increased edema. PICC line site looks free of erythema. No lower extremity edema. Full and equal pulses bilaterally in upper and lower extremities NEUROLOGICAL: No focal neurological deficits noted PSYCHOLOGICAL: Mood and affect appear appropriate LABORATORY DATA, IMAGING STUDIES, MICROBIOLOGY: Please see below. DVT prophylaxis ordered?: YES ASSESSMENT AND PLAN: Patient is a 78 year old female with a PMHx of HTN, DLP, Glaucoma, GERD who presented to the [facility] ER on 01/26/19 with complaint of abdominal pain. 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 The patient had a laparoscopic reduction. The patient was unable to be weaned off ventilator after her surgery due to worsening hypoxia. She was found to have an aspiration pneumonia. Patient did improve and was extubated to BIPAP / Vapotherem. She was taken for intervention again on for replacement of G tube to GJ tube and aspiration of fluid collection. PROBLEMS: 1. Fever and Hypotension -Patient had an episode of fever and hypotension on 02/16/2019. She had her TPN held as it was felt she could have a line infection. She was started on Vancomycin in addition to her meropenem. -Patient is followed by Infectious Disease. Recommendations greatly appreciated -Continues to remain afebrile 2. Right upper extremity swelling -Patient has new right upper extremity swelling. She has had a PICC line placed on her right -Duplex U/S of right upper extremity to assess PICC line for possible thrombosis 3. Anemia -Hbg has been trending down although appears stable. She has several likely etiologies of anemia including frequent blood draws and procedures. There is no current sign of bleeding -Will continue to trend Hgb. -Will get iron studies, folate and B12 4. Aspiration pneumonia -Currently on Meropenem 02/08/19 followed by ID -Patient was noted to have a fever yesterday. CXR demonstrated PICC line in place in the right upper extremity. Cardiomegaly and bilateral pleural effusions left more so than right -Patient has had cough with sputum production. Will continue to work with respiratory therapy 5. Bilateral pleural Effusions -Patient has a left sided pleural effusion more so than right. Her left sided effusion is likely larger as her stomach was occupying space before being surgically reduced -Chest CT demonstrating improved aeration and improved infiltrates on the right. New lobar collapse in left upper lobe likely 2/2 mucous plugging. Small bilateral pleural and pericardial effusions somewhat increased. -Chest PT and Mucomyst for mucous plugging. Patient has refused mucomyst as she feels it smells bad. Will continue with respiratory treatments 6. Large hiatal hernia and acute gastric volvulus -Currently stable. -s/p GJ tube replacement -Patient is followed by surgery -Patient has had decreased G-tube output. Likely placement of feeding tube. -Patient did have a fever yesterday. She has been started on Vancomycin 7. Post-operative wound infection w/ subcutaneous abscess around the G-tube -Patient is followed by ID. -Currently on meropenem -Culture positive for yeast like organism. Patient is currently on Fluconazole -On 02/13 had replacement of G tube to GJ tube; PICC line placed on 02/14 -Patient was started on trickle tube feeds today per surgery 8. Nutrition -Patient s/p PICC line placement. -Currently getting trickle tube feeds 9. GERD -Protonix 10. Hypothyroidism -Synthroid 11. DVT prophylaxis -Lovenox A-FIB/CHADSVASC A-FIB History Current/History of A-Fib/PAF?: No VS, I&O, 24H, Fishbone Vital Signs/I&O Vital Signs Date Time Temp Pulse Resp B/P (MAP) Pulse Ox O2 Delivery O2 Flow Rate FiO2 02/20/19 08:00 98.5 86 20 148/71 (96) 94 02/19/19 18:37 2.0 30 I&O- Last 24 Hours up to 6 AM 02/20/19 06:00 Intake Total 1220 ml Output Total 965 ml Balance 255 ml Laboratory Data 24H LABS Laboratory Tests 2 02/19/19 12:02: Bedside Glucose (Misc Panel) 202H 02/19/19 18:22: Bedside Glucose (Misc Panel) 140H 02/20/19 01:06: Bedside Glucose (Misc Panel) 115H 02/20/19 05:46: Immature Granulocyte % (Auto) 2.2, White Blood Count 12.6H, Red Blood Count 2.98L, Hemoglobin 7.9L, Hematocrit 25.5L, Mean Corpuscular Volume 85.6, Mean Corpuscular Hemoglobin 26.5L, Mean Corpuscular Hemoglobin Concent 31.0L, Red Cell Distribution Width 17.1H, Platelet Count 265, Neutrophils (%) (Auto) 75.7H, Lymphocytes (%) (Auto) 9.5L, Monocytes (%) (Auto) 9.3H, Eosinophils (%) (Auto) 3.0, Basophils (%) (Auto) 0.3, Neutrophils # (Auto) 9.6H, Lymphocytes # (Auto) 1.2L, Monocytes # (Auto) 1.2H, Eosinophils # (Auto) 0.4, Basophils # (Auto) 0.0, Nucleated Red Blood Cells % (auto) 0.0, Anion Gap 9, Glomerular Filtration Rate > 60.0, Blood Urea Nitrogen 28H, Creatinine 0.78, Sodium Level 141, Potassium Level 3.5, Chloride Level 107, Carbon Dioxide Level 25, Calcium Level 8.8, Aspartate Amino Transf (AST/SGOT) 9, Alanine Aminotransferase (ALT/SGPT) 11L, Alkaline Phosphatase 107, Total Bilirubin 0.3, Total Protein 5.3L, Albumin 1.5L, Magnesium Level 1.9, Albumin/Globulin Ratio 0.39L, Vancomycin Level Trough 16.4 CBC/BMP Laboratory Tests 02/20/19 05:46 Red Blood Count 2.98 L, Mean Corpuscular Volume 85.6, Mean Corpuscular Hemoglobin 26.5 L, Mean Corpuscular Hemoglobin Concent 31.0 L, Red Cell Distribution Width 17.1 H, Neutrophils (%) (Auto) 75.7 H, Lymphocytes (%) (Auto) 9.5 L, Monocytes (%) (Auto) 9.3 H, Eosinophils (%) (Auto) 3.0, Basophils (%) (Auto) 0.3, Neutrophils # (Auto) 9.6 H, Lymphocytes # (Auto) 1.2 L, Monocytes # (Auto) 1.2 H, Eosinophils # (Auto) 0.4, Basophils # (Auto) 0.0, Calcium Level 8.8, Aspartate Amino Transf (AST/SGOT) 9, Alanine Aminotransferase (ALT/SGPT) 11 L, Alkaline Phosphatase 107, Total Bilirubin 0.3, Total Protein 5.3 L, Albumin 1.5 L Microbiology Microbiology 02/16/19 Blood Culture - Preliminary, Resulted No Growth after 72 hours. All specime... 02/16/19 Blood Fungal Culture, Received Pending 02/16/19 Blood Culture - Preliminary, Resulted No Growth after 72 hours. All specime... 02/16/19 Blood Fungal Culture, Received Pending 02/16/19 Blood Culture - Preliminary, Resulted No Growth after 72 hours. All specime... 02/13/19 Gram Stain - Final, Complete 02/13/19 Abscess Culture - Final, Complete 02/13/19 Anaerobic Culture - Final, Complete GME ATTESTATION GME ATTESTATION My faculty preceptor for this patient encounter was physically present during the encounter and was fully available. All aspects of the patient interview, examination, medical decision making process, and medical care plan development were reviewed and approved by the faculty preceptor. The faculty preceptor is aware and concurs with the plan as stated in the body of this note and will attest to such by his/her cosignature. ATTENDING NOTE I saw and evaluated the patient. I agree with the findings and plan of care as documented in the resident's note MICHAEL AYON DO February 20, 2019 12:16 EMILY NAM MD February 20, 2019 13:24
[2019-02-20 13:29] LABS: PERCENT SATURATION 8.6 % (13.2-45.0)
[2019-02-20 13:35] LABS: FOLATE 9.2 NG/ML (>5.4)
[2019-02-20] MEDS: ENOXAPARIN 40 MG/0.4 ML SYRINGE (J1650) SC SCH (14:36)
[2019-02-20] MEDS: FLUCONAZOLE 200 MG in IV 1 EA IV SCH (14:36)
[2019-02-20] MEDS ORDERED: ISOVUE-300 61% 100ML VIAL (Q9967) As Ordered ONE (15:51)
[2019-02-20] MEDS ORDERED: BUPIVACAINE HCL 0.5% 10 ML VIAL As Ordered ONE (15:51)
[2019-02-20] MEDS ORDERED: LIDOCAINE 2% MDV 20 ML VIAL As Ordered ONE (15:51)
[2019-02-20] MEDS ORDERED: MIDAZOLAM INJ 2 MG/2 ML VIAL (J2250) As Ordered ONE (16:40)
[2019-02-20] MEDS ORDERED: fentaNYL 100 MCG/2 ML INJECTION (J3010) As Ordered ONE (16:40)
--- NOTE | 2019-02-20 17:04 | REP ---
Duplex upper extremity venous ultrasound right upper extremity: History: Right upper extremity swelling. Recent PICC line. A right basilic vein PICC line was inserted February 14, 2019. Findings: A PICC line is noted in the right basilic vein and coursing through the cephalic vein. There is occlusive thrombosis of the mid and proximal basilic vein as well as the axillary and cephalic vein. There is partial thrombus visible in the distal cephalic vein. Internal jugular vein is clear. Impression: Occlusive venous thrombosis right axillary and subclavian vein and proximal basilic vein. Electronically Signed by Simone Holloway MD 02/20/2019 08:25 P
--- NOTE | 2019-02-20 17:26 | IPNPDOC ---
Text Note Date of Service The patient was seen on 02/20/19. NOTE SUBJECTIVE: Patient examined at bedside she had no acute complaints. She is resting comfortably. Ceftin patient had a fever of 101.3, that resolved with medication. She admits to mild abdominal pain around the G-tube placement site OBJECTIVE: PHYSICAL EXAMINATION: GENERAL APPEARANCE: resting in bed,. SKIN: Warm, well perfused. LUNGS: Clear to auscultation bilaterally. HEART: Normal S1, S2. No murmurs, no rubs, no gallops ABDOMEN: Soft. No masses. Bowel sounds are present. G-tube place, has clear yellow mucus-like drainage. Food particles can be expressed from G-tube placeme nt site. TRUNK/SPINE:Straight. EXTREMITIES: Moves all extremities equally. No gross deformities. PULSES: 2+ upper and lower extremity . LABORATORY DATA: Please see below. IMPRESSION: 1. Postop repair of hiatal hernia, replacement of G-tube. G-tube has food particle drainage around it. Patient is on TPN 2. Fever. Blood cultures are negative. Chest x-ray shows only bilateral pleural effusion. . She is currently on vancomycin, and fluconazole. 3. Naima albicans on wound culture from gastrostomy site, of IV fluconazole. PLAN: Discontinue antibiotics as there has been no growth . Blood culture old culture. Continue to monitor patient clinically. Nothing by mouth, continue to use TPN VS,Fishbone, I+O VS, Fishbone, I+O Laboratory Tests 02/20/19 05:46 Red Blood Count 2.98 L, Mean Corpuscular Volume 85.6, Mean Corpuscular Hemoglobin 26.5 L, Mean Corpuscular Hemoglobin Concent 31.0 L, Red Cell Distribution Width 17.1 H, Neutrophils (%) (Auto) 75.7 H, Lymphocytes (%) (Auto) 9.5 L, Monocytes (%) (Auto) 9.3 H, Eosinophils (%) (Auto) 3.0, Basophils (%) (Auto) 0.3, Neutrophils # (Auto) 9.6 H, Lymphocytes # (Auto) 1.2 L, Monocytes # (Auto) 1.2 H, Eosinophils # (Auto) 0.4, Basophils # (Auto) 0.0, Calcium Level 8.8, Aspartate Amino Transf (AST/SGOT) 9, Alanine Aminotransferase (ALT/SGPT) 11 L, Alkaline Phosphatase 107, Total Bilirubin 0.3, Total Protein 5.3 L, Albumin 1.5 L Vital Signs Date Time Temp Pulse Resp B/P (MAP) Pulse Ox O2 Delivery O2 Flow Rate FiO2 02/20/19 15:07 98.2 02/20/19 12:00 87 20 135/67 (89) 93 02/19/19 18:37 2.0 30 I&O- Last 24 Hours up to 6 AM 02/20/19 06:00 Intake Total 1220 ml Output Total 965 ml Balance 255 ml GME ATTESTATION GME ATTESTATION My faculty preceptor for this patient encounter was physically present during the encounter and was fully available. All aspects of the patient interview, examination, medical decision making process, and medical care plan development were reviewed and approved by the faculty preceptor. The faculty preceptor is aware and concurs with the plan as stated in the body of this note and will attest to such by his/her cosignature. MARTY DAMIAN DO February 20, 2019 17:26
[2019-02-20] MEDS ORDERED: FAT EMULSION IV 20% 500 ML IV SCH (18:00)
[2019-02-20] MEDS ORDERED: AMINO AC/ELECTROLYTE/DEX/CALC 2,000 ML IV SCH (18:00)
[2019-02-20 18:30] VITALS: BP 148/76
[2019-02-20 20:00] VITALS: BP 159/77
--- NOTE | 2019-02-20 20:35 | IPN ---
DATE: 02/20/2019 HISTORY: The patient is now 23 days postoperative from reduction and repair of incarcerated hiatal hernia with a gastric volvulus and obstruction. She had significant aspiration pneumonitis. The patient was scoped last week and found to have some healing ischemic-appearing ulcerations in the fundus and body of the stomach. She has had very poor gastric emptying. A gastrostomy (G) tube had been placed at the time of her surgery, and this was converted to a Peralta tube at the time of her upper scope. Unfortunately, this did not remain in the pylorus. She has been continued on total parenteral nutrition (TPN). I have not seen her in [address] Seda waite during this period of time. She has reportedly had some occasional drainage of fluid from around her G tube. Dr. Stack had started her on a small amount of tube feedings, but that was discontinued this morning when she had further drainage from around her G tube. She has been on TPN and remains on meropenem, vancomycin, and fluconazole. Today shows a maximal temperature of 101.3. She had been afebrile over the last 72 hours. She is now afebrile again. Her pulse has been in the 60s to 80s. Her blood pressure is good, and her room air oxygen saturations are normal. Intake and output yesterday showed 1220 in with 965 out, although her intake should really be much more than that given the flow rate of her total parenteral nutrition. PHYSICAL EXAMINATION: The patient is alert and oriented. She was dozing when I entered her room. She was seen at approximately 10 o'clock this morning. Skin is warm and dry. Sclerae are anicteric. Heart exam shows a regular rhythm, and she is not tachycardiac. The lungs are clear bilaterally anteriorly. The abdomen is flat. Her surgical incisions are well healed. She has bowel sounds present. The G tube site is clean. The tract around the tube seems to be healing better, though there is a small amount of old food debris, which extruded next to the tube as I manipulated the tube. She has not had any oral intake in at least a week. Lower extremities are without edema or pain. She is complaining of some swelling in her right hand today. Laboratory studies today show a white count of 13, hemoglobin of 8, hematocrit of 26, platelet count of 265,000, and her differential count shows 76% neutrophils, 10% lymphocytes, and 9% monocytes. Chemistry profile shows normal electrolytes with a BUN of 28, creatinine 0.8, and a glucose of 160. Total protein is 5.3 with an albumin of 1.5. Her iron is low at 13 with TIBC of 151 and a transferrin percent saturation of 8.6. She had a trough vancomycin level today of 16.4. Blood cultures obtained on the have all been no growth. IMPRESSION: The patient remains fairly stable. Unfortunately, her jejunostomy (J ) tube is not usable for feedings at this point, and her gastric function still appears to be quite impaired. She therefore remains on TPN. PLAN: The patient has an order for a vascular ultrasound from the hospitalist to evaluate her right hand swelling. She did have a peripherally inserted central catheter (PICC) line placed on that side previously. I will see if we can get her G-J tube manipulated so that it passes into the duodenum so that we can begin tube feedings and use her gut for feeding. I will check with radiology or interventional radiology to see if we can accomplish this. I will check with infectious disease today to see if they have plans for her antibiotics. ROCIO
[2019-02-20] MEDS: SODIUM CHLORIDE 0.9% INJ 10 ML SYR IV PRN (21:03)
[2019-02-20] MEDS: LATANOPROST 0.005% OPHTH SOLN 2.5 ML OU SCH (21:03)
[2019-02-20 23:59] VITALS: BP 145/68
[2019-02-21] VITALS (7 sets, daily range): BP systolic 124–158; BP diastolic 62–73
[2019-02-21] MEDS: METOCLOPRAMIDE INJ 10MG/2ML VIAL (J2765) IV SCH ×3 (02:51→18:59)
[2019-02-21] MEDS: NORCO, ANEXSIA 5/325MG TABLET (HYDROcodone/ACETAMINOPHEN) PO PRN ×2 (02:52→09:30)
[2019-02-21] MEDS: SLF 3 ML SYR IV SCH ×3 (05:31→21:38)
[2019-02-21 05:56] LABS: BASO # 0.1 10^3/uL (0.0-0.2); BASO % 0.5 % (0.0-1.0); EOS # 0.4 10^3/uL (0.0-0.50); EOS % 3.8 % (0.0-3.0); HEMATOCRIT 23.5 % (36.0-47.0); HEMOGLOBIN 7.4 g/dl (12.0-15.5); LYMPH % 9.7 % (24.0-44.0); MEAN CORPUSCULAR HGB CONC 31.5 g/dl (32.0-36.5); MEAN CORPUSCULAR VOLUME 85.8 fl (80.0-96.0); MONO % 9.8 % (0.0-5.0); NEUTROPHILS # 7.7 10^3/uL (1.8-7.7); NEUTROPHILS % 72.9 % (36.0-66.0); PLATELET COUNT, AUTOMATED 257 10^3/uL (150-450); RED BLOOD COUNT 2.74 10^6/uL (4.00-5.40); WHITE BLOOD COUNT 10.6 10^3/uL (4.0-10.0)
[2019-02-21 06:27] LABS: ALBUMIN 1.5 GM/DL (3.2-5.2); ALT/SGPT 9 U/L (12-78); BILIRUBIN,TOTAL 0.4 MG/DL (0.2-1.0); BLOOD UREA NITROGEN 26 MG/DL (7-18); CALCIUM LEVEL 9.3 MG/DL (8.8-10.2); CARBON DIOXIDE LEVEL 24 MEQ/L (21-32); CHLORIDE LEVEL 108 MEQ/L (98-107); CREATININE FOR GFR 0.73 MG/DL (0.55-1.30); GLOMERULAR FILTRATION RATE > 60.0 (>39); GLUCOSE, FASTING 154 MG/DL (70-100); MAGNESIUM LEVEL 1.9 MG/DL (1.8-2.4); POTASSIUM SERUM 3.4 MEQ/L (3.5-5.1); SODIUM LEVEL 138 MEQ/L (136-145); TOTAL PROTEIN 4.8 GM/DL (6.4-8.2)
[2019-02-21] MEDS: LEVOTHYROXINE 25MCG TABLET (0.025MG) PO SCH (06:29)
[2019-02-21] MEDS: ACETAMINOPHEN 500 MG TAB PO PRN ×3 (06:30→23:40)
[2019-02-21] MEDS: SODIUM CHLORIDE 0.9% INJ 10 ML SYR IV SCH ×2 (06:30→19:00)
[2019-02-21] MEDS: HumaLOG INSULIN (NovoLOG) PER UNIT SC SCH ×2 (06:36→11:49)
[2019-02-21] MEDS: ACETYLCYSTEINE 20% 4 ML VIAL (200MG/ML) INH SCH (07:34)
[2019-02-21] MEDS: SODIUM CHLORIDE 0.9% INJ 10 ML SYR IV PRN ×2 (09:24→11:49)
[2019-02-21] MEDS: PANTOPRAZOLE 40MG INJ (PROTONIX) (C9113) IV SCH (09:24)
[2019-02-21] MEDS: BRINZOLAMIDE 1 % OPHTH SUSP (AZOPT) 10ML OU SCH ×2 (09:24→20:43)
--- NOTE | 2019-02-21 11:44 | CR.PDOC ---
General Date of Consultation: February 21, 2019 Consultation CONSULTATION REPORT FOR: Dr Light REASON FOR CONSULTATION: RUE DVT ATTENDING: Dr. Alaniz HPI: The patient 23 days postoperative from reduction and repair of incarcerated hiatal hernia with a gastric volvulus and obstruction. She had aspiration pneumonitis. She is S/P treatment with meropenem, vancomycin, and fluconazole completed 02/20/19. The pt has had poor gastric emptying with G tube placed. She has been continued on total parenteral nutrition (TPN) with PICC RUE. Vascular surgery was consulted for G-J tube placement. She was also found to have right upper extremity DVT. Denies any fevers, chills, Headache, Chest Pain, Shortness of breath, cough, palpitations. 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 FAMILY HISTORY: Noncontributory SOCIAL HISTORY: Lives with her daughter, denies alcohol or tobacco use ROS: As noted in HPI, otherwise 11pt ROS of systems reviewed and unremarkable. PE: GEN: 78yoF, appears stated age. No acute distress. Alert and oriented x 3. HEENT: Normocephalic, atraumatic. Sclera are nonicteric. Conjunctiva without injection. Moist mucous membranes. CHEST: Regular rate and rhythm, +S1, +S2 LUNGS: Clear to auscultation bilaterally. No wheezes, rales, or rhonchi. ABD: Round, soft, non-tender, non-distended. +Bowel sounds present. G tube intact. EXT: RUE mild edema noted. PICC in place. No lower extremity edema appreciated. SKIN: [place], dry, warm. No rashes. NEURO: Alert and oriented x 3. No focal deficits appreciated. RUE US History: Right upper extremity swelling. Recent PICC line. A right basilic vein PICC line was inserted February 14, 2019. Findings: A PICC line is noted in the right basilic vein and coursing through the cephalic vein. There is occlusive thrombosis of the mid and proximal basilic vein as well as the axillary and cephalic vein. There is partial thrombus visible in the distal cephalic vein. Internal jugular vein is clear. Impression: Occlusive venous thrombosis right axillary and subclavian vein and proximal basilic vein. Electronically Signed by Simone Holloway MD 02/20/2019 08:25 P A&P: The patient 23 days postoperative from reduction and repair of incarcerated hiatal hernia with a gastric volvulus and obstruction. She had aspiration pneumonitis. She is S/P treatment with meropenem, vancomycin, and fluconazole completed 02/20/19.The patient was scoped last week and found to have some healing ischemic-appearing ulcerations in the fundus and body of the stomach. She has had poor gastric emptying. She has been continued on total parenteral nutrition (TPN). Vascular surgery was consulted for G-J tube placement. She was also found to have right upper extremity DVT, PICC in RUE. 1. RUE DVT. The patient is reviewed and examined as per Dr. Alaniz. PICC line currently remains in place for use for TPN. Plan is to DC the PICC line after TPN is not needed and the patient is tolerating tube feedings as per GJ tube. Hopefully this will be in the near future. Currently the patient remains on Lovenox 60 mg subcutaneous every 12. Plan to initiate oral anticoagulant when cleared as per surgery. 2. S/P G-J tube placement. Await recommendations as per surgery for when she will be using this for tube feeding. Also await recommendations as per surgery as to when she will be clear for anticoagulation. DVT prophylaxis. Currently on Lovenox 60 mg subcutaneous every 12 as noted above. Thank you for your consultation. We will continue to follow along with you. Vital Signs/I&O Vital Signs Date Time Temp Pulse Resp B/P (MAP) Pulse Ox O2 Delivery O2 Flow Rate FiO2 02/21/19 09:30 18 02/21/19 08:06 99.3 77 153/70 (97) 96 02/19/19 18:37 2.0 30 I&O- Last 24 Hours up to 6 AM 02/21/19 06:00 Intake Total 1290 ml Output Total 950 ml Balance 340 ml Laboratory Data Labs 24H Laboratory Tests 2 02/20/19 11:57: Bedside Glucose (Misc Panel) 155H 02/20/19 12:42: Iron Level 13L, Total Iron Binding Capacity 151L, Transferrin % Saturation 8.6L, Ferritin 228, Vitamin B12 Level 787, Folate 9.2 02/20/19 18:38: Bedside Glucose (Misc Panel) 153H 02/20/19 23:41: Bedside Glucose (Misc Panel) 130H 02/21/19 05:25: Immature Granulocyte % (Auto) 3.3H, White Blood Count 10.6H, Red Blood Count 2.74L, Hemoglobin 7.4L, Hematocrit 23.5L, Mean Corpuscular Volume 85.8, Mean Corpuscular Hemoglobin 27.0, Mean Corpuscular Hemoglobin Concent 31.5L, Red Cell Distribution Width 17.0H, Platelet Count 257, Neutrophils (%) (Auto) 72.9H, Lymphocytes (%) (Auto) 9.7L, Monocytes (%) (Auto) 9.8H, Eosinophils (%) (Auto) 3.8H, Basophils (%) (Auto) 0.5, Neutrophils # (Auto) 7.7, Lymphocytes # (Auto) 1.0L, Monocytes # (Auto) 1.0H, Eosinophils # (Auto) 0.4, Basophils # (Auto) 0.1, Nucleated Red Blood Cells % (auto) 0.0, Anion Gap 6L, Glomerular Filtration Rate > 60.0, Blood Urea Nitrogen 26H, Creatinine 0.73, Sodium Level 138, Potassium Level 3.4L, Chloride Level 108H, Carbon Dioxide Level 24, Calcium Level 9.3, Aspartate Amino Transf (AST/SGOT) 15, Alanine Aminotransferase (ALT/SGPT) 9L, Alkaline Phosphatase 105, Total Bilirubin 0.4, Total Protein 4.8L, Albumin 1.5L, Magnesium Level 1.9, Albumin/Globulin Ratio 0.45L CBC/BMP Laboratory Tests 02/21/19 05:25 Red Blood Count 2.74 L, Mean Corpuscular Volume 85.8, Mean Corpuscular Hemoglobin 27.0, Mean Corpuscular Hemoglobin Concent 31.5 L, Red Cell Distribution Width 17.0 H, Neutrophils (%) (Auto) 72.9 H, Lymphocytes (%) (Auto) 9.7 L, Monocytes (%) (Auto) 9.8 H, Eosinophils (%) (Auto) 3.8 H, Basophils (%) (Auto) 0.5, Neutrophils # (Auto) 7.7, Lymphocytes # (Auto) 1.0 L, Monocytes # (Auto) 1.0 H, Eosinophils # (Auto) 0.4, Basophils # (Auto) 0.1, Calcium Level 9.3, Aspartate Amino Transf (AST/SGOT) 15, Alanine Aminotransferase (ALT/SGPT) 9 L, Alkaline Phosphatase 105, Total Bilirubin 0.4, Total Protein 4.8 L, Albumin 1.5 L Microbiology Microbiology 02/16/19 Blood Culture - Final, Complete NO GROWTH AFTER 5 DAYS 02/16/19 Blood Fungal Culture, Received Pending 02/16/19 Blood Culture - Final, Complete NO GROWTH AFTER 5 DAYS 02/16/19 Blood Fungal Culture, Received Pending 02/16/19 Blood Culture - Final, Complete NO GROWTH AFTER 5 DAYS 02/13/19 Gram Stain - Final, Complete 02/13/19 Abscess Culture - Final, Complete 02/13/19 Anaerobic Culture - Final, Complete Allergies Coded Allergies: brimonidine (Verified Allergy, Unknown, 01/27/19) codeine (Verified Allergy, Unknown, 02/13/19) PT HAS RECEIVED DILAUDID, FENTANYL dorzolamide (Verified Allergy, Unknown, from cosopt, 01/27/19) erythromycin base (Verified Allergy, Unknown, 01/27/19) timolol (Verified Allergy, Unknown, 01/27/19) NSAIDS (Non-Steroidal Anti-Inflamma (Verified Adverse Reaction, Unknown, AVOID DUE TO ONE KIDNEY, 01/27/19) Home Medications Scheduled Ascorbic Acid (Vitamin C) 500 Mg Tablet, 500 MG PO DAILY, (Reported) Aspirin (Aspirin EC) 81 Mg Tab, 81 MG PO DAILY, (Reported) Brinzolamide (Azopt) 200 Drop/10 Ml Susp, 1 DROP OU BID, (Reported) Cholecalciferol (Vitamin D3) (Vitamin D3) 1,000 Unit Tablet, 2,000 UNIT PO DAILY, (Reported) Latanoprost (Xalatan) 2.5 Ml Drops, 1 DROP OU QPM, (Reported) Levothyroxine Sodium (Levothyroxine Sodium) 25 Mcg Tab, 25 MCG PO DAILY, (Reported) Multivitamin (Multivitamins) 1 Each Tablet, 1 TAB PO DAILY, (Reported) [place]-3 Fatty Acids/Fish Oil (Fish Oil 1,000 mg Capsule) 1,000 Mg Cap, 1,000 MG PO BID, (Reported) Omeprazole (Omeprazole) 40 Mg Cap, 40 MG PO DAILY, (Reported) Simvastatin (Simvastatin) 40 Mg Tab, 40 MG PO QHS, (Reported) Valsartan/Hydrochlorothiazide (Valsartan-Hctz 80-12.5 mg Tab) 1 Tab Tab, 1 TAB PO DAILY, (Reported) Scheduled PRN Acetaminophen (Acetaminophen ER) 650 Mg Tablet.er, 650 MG PO TID PRN for PAIN, (Reported) Carboxymethyl/Glycerin/Poly80 (Refresh Optive Advanced Drops) 1 Asya Asya, 1 DROP OU PRN PRN for DRY EYES, (Reported) Patricia Hernandez February 21, 2019 11:44
[2019-02-21] MEDS: ENOXAPARIN 60 MG/0.6 ML SYR (J1650) SC SCH ×2 (13:48→23:41)
--- NOTE | 2019-02-21 15:52 | IPNPDOC ---
Date Seen The patient was seen on 02/21/19. Progress Note SUBJECTIVE: Patient was seen and examined this morning. She had her GJ tube repositioned yesterday by Interventional radiology. She was also found to have a right upper extremity DVT where her PICC line is inserted. The patient does complain of continued right upper quadrant pain as well as leakage from around her GJ tube. She denies fevers, chills, nausea, vomiting, chest pain, or shortness of breath OBJECTIVE PHYSICAL EXAMINATION: VITAL SIGNS: Please see below. GENERAL: Awake, alert and oriented. She is ill appearing but does not appear to be in acute distress. She is lying in bed. HEENT: Atrumatic normocephalic. Eyes are nonicteric. Trachea is midline. Mucous membranes are pink and moist. CARDIOVASCULAR: Normal S1, S2. Regular rate and rhythm. No clicks rubs or murmurs. RESPIRATORY: Diminished breath sounds on the left although improved aeration. Scattered fine crackles. No wheezing or rhonci. Symmetric chest rise ABDOMINAL: Soft, nondistended. Slight tenderness to palpation of the right upper quadrant. No rebound tenderness or guarding. Positive bowel sounds EXTREMITIES: Right upper extremity swelling. PICC line in place. No lower extremity edema. Full and equal pulses in bilateral upper and lower extremities NEUROLOGICAL: No focal neurological deficits PSYCHOLOGICAL: Mood and affect appear appropriate LABORATORY DATA, IMAGING STUDIES, MICROBIOLOGY: Please see below. DVT prophylaxis ordered?: YES ASSESSMENT AND PLAN: Patient is a 78 year old female with a PMHx of HTN, DLP, Glaucoma, GERD who presented to the [facility] ER on 01/26/19 with complaint o f abdominal pain. 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 The patient had a laparoscopic reduction. The patient was unable to be weaned off ventilator after her surgery due to worsening hypoxia. She was found to have an aspiration pneumonia. Patient did improve and was extubated to BIPAP / Vapotherem. She was taken for intervention again on for replacement of G tube to GJ tube and aspiration of fluid collection. PROBLEMS: 1. Large hiatal hernia and acute gastric volvulus -Currently stable. -s/p GJ tube replacement -Patient is followed by surgery -Patient has had decreased G-tube output. Likely placement of feeding tube. GJ tube was repositioned yesterday by IR as it was not in the pylorus. The tube feedings were planned to begin however there was difficulty with connecting the feeding tube correctly. Tube feedings have begun. Patient will remain on TPN until tube feedings are running at an adequate rate 2. Post-operative wound infection w/ subcutaneous abscess around the G-tube -Patient is followed by ID. -Infection has resolved and patient is no longer on Antibiotics. 3. Right Upper Extremity Swelling -Patient had right upper extremity swelling. She received a duplex ultrasound which demonstrated occlusive thrombosis of the right axillary and subclavian vein and proximal basilic vein -Patient is currently getting TPN through her PICC line. Plan is to remove the PICC line once she is able to tolerate tube feedings. -Therapeutic dose of Lovenox 60mg BID 4. Anemia -Patients Hgb continues to trend down. -Will transfuse 2 units PRBCs 5. Aspiration pneumonia -Patient has completed Antibiotic therapy. She is followed by ID. -She has remained afebrile without a white blood cell count. -Cough has resolved. Patient is continued on respiratory therapy 6. Bilateral pleural Effusions -Patient has a left sided pleural effusion more so than right. Her left sided effusion is likely larger as her stomach was occupying space before being surgically reduced -Chest CT demonstrating improved aeration and improved infiltrates on the right. New lobar collapse in left upper lobe likely 2/2 mucous plugging. Small bilateral pleural and pericardial effusions somewhat increased. -Chest PT and Mucomyst for mucous plugging. Patient has refused mucomyst as she feels it smells bad. Will continue with respiratory treatments 7. Nutrition -Patient is getting TPN through her PICC line. She has a right upper extremity thrombosis -GJ tube has been repositioned. Plans for tube feedings to be increased until adequate at which point TPN can be discontinued 8. Fever and Hypotension -Patient had an episode of fever and hypotension. She had just had a PICC line inserted at the time. A possible line infection was possible however, the line had only be in for a short period of time. -Patient has remained afebrile and normotensive since her one episode. 9. GERD -Protonix 10. Hypothyroidism -Synthroid 11. DVT prophylaxis -Lovenox A-FIB/CHADSVASC A-FIB History Current/History of A-Fib/PAF?: No VS, I&O, 24H, Fishbone Vital Signs/I&O Vital Signs Date Time Temp Pulse Resp B/P (MAP) Pulse Ox O2 Delivery O2 Flow Rate FiO2 02/21/19 11:41 98.9 80 20 148/68 (94) 98 02/19/19 18:37 2.0 30 I&O- Last 24 Hours up to 6 AM 02/21/19 06:00 Intake Total 1290 ml Output Total 950 ml Balance 340 ml Laboratory Data 24H LABS Laboratory Tests 2 02/20/19 18:38: Bedside Glucose (Misc Panel) 153H 02/20/19 23:41: Bedside Glucose (Misc Panel) 130H 02/21/19 05:25: Immature Granulocyte % (Auto) 3.3H, White Blood Count 10.6H, Red Blood Count 2.74L, Hemoglobin 7.4L, Hematocrit 23.5L, Mean Corpuscular Volume 85.8, Mean Corpuscular Hemoglobin 27.0, Mean Corpuscular Hemoglobin Concent 31.5L, Red Cell Distribution Width 17.0H, Platelet Count 257, Neutrophils (%) (Auto) 72.9H, Lymphocytes (%) (Auto) 9.7L, Monocytes (%) (Auto) 9.8H, Eosinophils (%) (Auto) 3.8H, Basophils (%) (Auto) 0.5, Neutrophils # (Auto) 7.7, Lymphocytes # (Auto) 1.0L, Monocytes # (Auto) 1.0H, Eosinophils # (Auto) 0.4, Basophils # (Auto) 0.1, Nucleated Red Blood Cells % (auto) 0.0, Anion Gap 6L, Glomerular Filtration Rate > 60.0, Blood Urea Nitrogen 26H, Creatinine 0.73, Sodium Level 138, Potassium Level 3.4L, Chloride Level 108H, Carbon Dioxide Level 24, Calcium Level 9.3, Aspartate Amino Transf (AST/SGOT) 15, Alanine Aminotransferase (ALT/SGPT) 9L, Alkaline Phosphatase 105, Total Bilirubin 0.4, Total Protein 4.8L, Albumin 1.5L, Magnesium Level 1.9, Albumin/Globulin Ratio 0.45L 02/21/19 11:31: Bedside Glucose (Misc Panel) 156H CBC/BMP Laboratory Tests 02/21/19 05:25 Red Blood Count 2.74 L, Mean Corpuscular Volume 85.8, Mean Corpuscular Hemoglobin 27.0, Mean Corpuscular Hemoglobin Concent 31.5 L, Red Cell Distribution Width 17.0 H, Neutrophils (%) (Auto) 72.9 H, Lymphocytes (%) (Auto) 9.7 L, Monocytes (%) (Auto) 9.8 H, Eosinophils (%) (Auto) 3.8 H, Basophils (%) (Auto) 0.5, Neutrophils # (Auto) 7.7, Lymphocytes # (Auto) 1.0 L, Monocytes # (Auto) 1.0 H, Eosinophils # (Auto) 0.4, Basophils # (Auto) 0.1, Calcium Level 9. 3, Aspartate Amino Transf (AST/SGOT) 15, Alanine Aminotransferase (ALT/SGPT) 9 L, Alkaline Phosphatase 105, Total Bilirubin 0.4, Total Protein 4.8 L, Albumin 1.5 L Microbiology Microbiology 02/16/19 Blood Culture - Final, Complete NO GROWTH AFTER 5 DAYS 02/16/19 Blood Fungal Culture, Received Pending 02/16/19 Blood Culture - Final, Complete NO GROWTH AFTER 5 DAYS 02/16/19 Blood Fungal Culture, Received Pending 02/16/19 Blood Culture - Final, Complete NO GROWTH AFTER 5 DAYS 02/13/19 Gram Stain - Final, Complete 02/13/19 Abscess Culture - Final, Complete 02/13/19 Anaerobic Culture - Final, Complete GME ATTESTATION GME ATTESTATION My faculty preceptor for this patient encounter was physically present during the encounter and was fully available. All aspects of the patient interview, examination, medical decision making process, and medical care plan development were reviewed and approved by the faculty preceptor. The faculty preceptor is aware and concurs with the plan as stated in the body of this note and will attest to such by his/her cosignature. ATTENDING NOTE I saw and evaluated the patient. I agree with the findings and plan of care as documented in the resident's note MICHAEL AYON DO February 21, 2019 15:52 EMILY NAM MD February 23, 2019 09:09
[2019-02-21] MEDS: LATANOPROST 0.005% OPHTH SOLN 2.5 ML OU SCH (20:43)
--- NOTE | 2019-02-22 00:11 | IPN ---
DATE: 02/21/2019 HISTORY: The patient is now postop day #24 from her surgery for a gastric volvulus. Yesterday, her Peralta gastrostomy tube was removed and Dr. Alaniz inserted a longer tube with a longer jejunal feeding tube clearly past the pylorus and into the jejunum. She is receiving two units of packed red blood cells ordered by the hospitalist today. The patient's total parenteral nutrition (TPN) was not renewed, and this is slated to end this evening. She was started on some tube feedings, though the start was quite delayed from when it was ordered. Vital signs: Show that the patient has been afebrile over the past 24 hours. Pulse is in the 80s and her blood pressure is good. Intake and output show that yesterday she had 570 mL recorded, though clearly this must be an error if she received her TPN as ordered and she had an output recorded of 800 mL. PHYSICAL EXAMINATION: The patient still appears quite tired but not really in pain. She was resting in bed when I saw her. Heart exam shows a regular rhythm. The lungs are clear to auscultation. The abdomen is soft and without significant tenderness. There is an occlusive dressing over her G-J tube site from yesterday. Calves are without tenderness. There is some mild edema in her right upper extremity. Laboratory studies from today show a sodium of 138, potassium 3.4, chloride 108, CO2 of 24, BUN of 26, creatinine 0.7 and a glucose of 154. Her CBC showed a white count of 11, hemoglobin of 7, hematocrit of 24, and platelet count of 257,000. A duplex scan of the right upper extremity yesterday showed a deep vein thrombosis (DVT) in the right upper extremity involving the axillary and subclavian veins. The peripherally inserted central catheter (PICC) line is in place through this area. IMPRESSION: Patient is overall stable. She showed no signs of infection after her antibiotics were discontinued. Her new J-tube is in place and tube feedings have been started, though there was a great delay in their institution today after they were ordered. Her hematocrit has drifted down slowly, and this is being addressed by the hospitalists with a transfusion. She has a new DVT in the right upper extremity in the vein where her PICC line is in place. PLAN: I have started the patient on Lovenox 60 mg subcu twice daily for her DVT. There is a consultation in the chart from vascular surgery, though I did not submit a request for a consultation and I do not know if anyone did. Her tube feedings will be increased over the next day or two and once her tube feedings are adequate, then we can discontinue her TPN and her PICC line. She will be monitored closely for any signs of infection. ROCIO
[2019-02-22] MEDS: METOCLOPRAMIDE INJ 10MG/2ML VIAL (J2765) IV SCH ×3 (03:32→18:48)
[2019-02-22] MEDS: NORCO, ANEXSIA 5/325MG TABLET (HYDROcodone/ACETAMINOPHEN) PO PRN ×4 (03:45→21:17)
[2019-02-22 04:00] VITALS: BP 146/59
[2019-02-22] MEDS: SODIUM CHLORIDE 0.9% INJ 10 ML SYR IV SCH ×2 (05:22→16:45)
[2019-02-22] MEDS: SLF 3 ML SYR IV SCH ×3 (05:22→19:28)
[2019-02-22] MEDS: LEVOTHYROXINE 25MCG TABLET (0.025MG) PO SCH (05:22)
[2019-02-22 05:33] LABS: BASO # 0.1 10^3/uL (0.0-0.2); BASO % 0.8 % (0.0-1.0); EOS # 0.4 10^3/uL (0.0-0.50); EOS % 3.9 % (0.0-3.0); HEMATOCRIT 30.2 % (36.0-47.0); LYMPH # 1.3 10^3/uL (1.5-4.5); LYMPH % 11.1 % (24.0-44.0); MEAN CORPUSCULAR HEMOGLOBIN 27.4 pg (27.0-33.0); MEAN CORPUSCULAR HGB CONC 33.1 g/dl (32.0-36.5); MEAN CORPUSCULAR VOLUME 82.7 fl (80.0-96.0); MONO # 1.2 10^3/uL (0.0-0.8); MONO % 10.2 % (0.0-5.0); NEUTROPHILS # 7.9 10^3/uL (1.8-7.7); NEUTROPHILS % 69.7 % (36.0-66.0); PLATELET COUNT, AUTOMATED 260 10^3/uL (150-450); RED BLOOD COUNT 3.65 10^6/uL (4.00-5.40); WHITE BLOOD COUNT 11.3 10^3/uL (4.0-10.0)
[2019-02-22 05:56] LABS: ALBUMIN 1.5 GM/DL (3.2-5.2); ALT/SGPT 15 U/L (12-78); BILIRUBIN,DIRECT 0.2 MG/DL (0.0-0.2); BILIRUBIN,TOTAL 0.6 MG/DL (0.2-1.0); BLOOD UREA NITROGEN 27 MG/DL (7-18); CALCIUM LEVEL 8.9 MG/DL (8.8-10.2); CARBON DIOXIDE LEVEL 24 MEQ/L (21-32); CHLORIDE LEVEL 109 MEQ/L (98-107); CREATININE FOR GFR 0.78 MG/DL (0.55-1.30); GLOMERULAR FILTRATION RATE > 60.0 (>39); GLUCOSE, FASTING 103 MG/DL (70-100); MAGNESIUM LEVEL 2.1 MG/DL (1.8-2.4); POTASSIUM SERUM 3.8 MEQ/L (3.5-5.1); SODIUM LEVEL 140 MEQ/L (136-145); TOTAL PROTEIN 5.3 GM/DL (6.4-8.2)
[2019-02-22 08:00] VITALS: BP 128/66
[2019-02-22] MEDS: PANTOPRAZOLE 40MG INJ (PROTONIX) (C9113) IV SCH (08:12)
[2019-02-22] MEDS: BRINZOLAMIDE 1 % OPHTH SUSP (AZOPT) 10ML OU SCH ×2 (08:12→20:46)
--- NOTE | 2019-02-22 09:14 | IPNPDOC ---
Text Note Date of Service The patient was seen on 02/22/19. NOTE No acute events overnight. Denies abd pains, nausea, or emesis. She is tolera ting TF at 50 with minimal output in the g-tube. TPN is already cancelled. VSSAF NAD abd - soft, nt, nd, g-j tube in place in the LUQ. labs - below A) 78y/o female s/p hiatal hernia repair for gastric volvulus. P) advance TF to goal ambulate PT plan on d/c early this week once TF are set up for home. Andrey Hinojosa DO A-FIB/CHADSVASC A-FIB History Current/History of A-Fib/PAF?: No VS,Fishbone, I+O VS, Fishbone, I+O Laboratory Tests 02/22/19 05:21 Red Blood Count 3.65 L, Mean Corpuscular Volume 82.7, Mean Corpuscular Hemoglobin 27.4, Mean Corpuscular Hemoglobin Concent 33.1, Red Cell Distribution Width 16.8 H, Neutrophils (%) (Auto) 69.7 H, Lymphocytes (%) (Auto) 11.1 L, Monocytes (%) (Auto) 10.2 H, Eosinophils (%) (Auto) 3.9 H, Basophils (%) (Auto) 0.8, Neutrophils # (Auto) 7.9 H, Lymphocytes # (Auto) 1.3 L, Monocytes # (Auto) 1.2 H, Eosinophils # (Auto) 0.4, Basophils # (Auto) 0.1, Calcium Level 8.9, Aspartate Amino Transf (AST/SGOT) 24, Alanine Aminotransferase (ALT/SGPT) 15, Alkaline Phosphatase 143 H, Total Bilirubin 0.6, Direct Bilirubin 0.2, Total Protein 5.3 L, Albumin 1.5 L Vital Signs Date Time Temp Pulse Resp B/P (MAP) Pulse Ox O2 Delivery O2 Flow Rate FiO2 02/22/19 08:00 98.0 72 18 128/66 (86) 93 02/19/19 18:37 2.0 30 I&O- Last 24 Hours up to 6 AM 02/22/19 06:00 Intake Total 2415 ml Output Total 1550 ml Balance 865 ml VELMA HINOJOSA DO February 22, 2019 09:14
--- NOTE | 2019-02-22 11:13 | IPNPDOC ---
Date Seen The patient was seen on 02/22/19. Progress Note SUBJECTIVE: Patient was seen and examined this morning. She currently has no new complaints. Her tube feedings have been advanced to 50cc/hr. There have been no adverse events reported overnight. She denies shortness of breath. She states that her abdominal pain has stayed the same or maybe even a little better OBJECTIVE PHYSICAL EXAMINATION: VITAL SIGNS: Please see below. GENERAL: Awake, alert, and oriented. Lying in bed comfortably. Appears in no acute distress. HEENT: Atruamtic, normocephalic. Eyes are nonicteric. Trachea is midline CARDIOVASCULAR: Normal S1, S2. Regular rate and rhythm. No clicks rubs or murmurs RESPIRATORY: Continued diminished breath sounds on the left. Clear vesicular lung sounds with fine crackles in the bases. No wheezes or rhonci ABDOMINAL: Soft, nondistended. Nontender to palpation. GJ tube in place. No drainage. Positive bowel sounds EXTREMITIES: Right upper extremity swelling decreased from previous exam. PICC line in place. No lower extremity edema. Full and equal pulses in bilateral upper and lower extremities NEUROLOGICAL: No focal neurological deficits PSYCHOLOGICAL: Mood and affect appear appropriate LABORATORY DATA, IMAGING STUDIES, MICROBIOLOGY: Please see below. DVT prophylaxis ordered?: YES ASSESSMENT AND PLAN: Patient is a 78 year old female with a PMHx of HTN, DLP, Glaucoma, GERD who presented to [facility] on 01/[facility] with complaint of abdominal pain. 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 The patient had a laparoscopic reduction. The patient was unable to be weaned off ventilator after her surgery due to worsening hypoxia. She was found to have an aspiration pneumonia. Patient did improve and was extubated to BIPAP / Vapotherem. She was taken for intervention again on for replacement of G tube to GJ tube and aspiration of fluid collection. PROBLEMS: 1. Large hiatal hernia and acute gastric volvulus -Currently stable. -s/p GJ tube replacement -Patient is followed by surgery -Tube feedings have been advanced to 50cc/hr. Goal is to transition to bolus feeds. Once tolerated PICC line can be removed likely tomorrow 2. Post-operative wound infection w/ subcutaneous abscess around the G-tube -Patient is followed by ID. -Infection has resolved and patient is no longer on Antibiotics. 3. Right Upper Extremity Swelling -Patient had right upper extremity swelling. She received a duplex ultrasound which demonstrated occlusive thrombosis of the right axillary and subclavian vein and proximal basilic vein -Therapeutic dose of Lovenox 60mg BID -Once patient is tolerating tube feeds PICC line will be removed. 4. Anemia -Patients Hgb continues to trend down. -Patient is s/p transfusion of 2 units PRBCs. Her Hbg today is 10.0 -Will continue to monitor 5. Aspiration pneumonia -Patient has completed Antibiotic therapy. She is followed by ID. -She has remained afebrile without a white blood cell count. -Cough has resolved. Patient is continued on respiratory therapy 6. Bilateral pleural Effusions -Patient has a left sided pleural effusion more so than right. Her left sided effusion is likely larger as her stomach was occupying space before being surgically reduced -Chest CT demonstrating improved aeration and improved infiltrates on the right. New lobar collapse in left upper lobe likely 2/2 mucous plugging. Small bilateral pleural and pericardial effusions somewhat increased. -Chest PT and Mucomyst for mucous plugging. Patient has refused mucomyst as she feels it smells bad. Will continue with respiratory treatments 7. Nutrition -Patient is off of TPN -Continuing to advance tube feedings. Currently running at a rate of 50cc/hr. Plan to advance to bolus feeds and remove PICC line 8. Fever and Hypotension -Patient had an episode of fever and hypotension. She had just had a PICC line inserted at the time. A possible line infection was possible however, the line had only be in for a short period of time. -Patient has remained afebrile and normotensive since her one episode. 9. GERD -Protonix 10. Hypothyroidism -Synthroid 11. DVT prophylaxis -Lovenox A-FIB/CHADSVASC A-FIB History Current/History of A-Fib/PAF?: No VS, I&O, 24H, Fishbone Vital Signs/I&O Vital Signs Date Time Temp Pulse Resp B/P (MAP) Pulse Ox O2 Delivery O2 Flow Rate FiO2 02/22/19 08:00 98.0 72 18 128/66 (86) 93 02/19/19 18:37 2.0 30 I&O- Last 24 Hours up to 6 AM0 02/22/19 06:00 Intake Total 2415 ml Output Total 1550 ml Balance 865 ml Laboratory Data 24H LABS Laboratory Tests 2 5/17/19 11:31: Bedside Glucose (Misc Panel) 156H 02/21/19 16:42: Bedside Glucose (Misc Panel) 148H 02/22/19 01:31: Bedside Glucose (Misc Panel) 111H 02/22/19 05:21: Immature Granulocyte % (Auto) 4.3H, White Blood Count 11.3H, Red Blood Count 3. 65L, Hemoglobin 10.0#L, Hematocrit 30.2L, Mean Corpuscular Volume 82.7, Mean Corpuscular Hemoglobin 27.4, Mean Corpuscular Hemoglobin Concent 33.1, Red Cell Distribution Width 16.8H, Platelet Count 260, Neutrophils (%) (Auto) 69.7H, Lymphocytes (%) (Auto) 11.1L, Monocytes (%) (Auto) 10.2H, Eosinophils (%) (Auto) 3.9H, Basophils (%) (Auto) 0.8, Neutrophils # (Auto) 7.9H, Lymphocytes # (Auto) 1.3L, Monocytes # (Auto) 1.2H, Eosinophils # (Auto) 0.4, Basophils # (Auto) 0.1, Nucleated Red Blood Cells % (auto) 0.0, Anion Gap 7L, Glomerular Filtration Rate > 60.0, Blood Urea Nitrogen 27H, Creatinine 0.78, Sodium Level 140, Potassium Level 3.8, Chloride Level 109H, Carbon Dioxide Level 24, Calcium Level 8.9, Aspartate Amino Transf (AST/SGOT) 24, Alanine Aminotransferase (ALT/SGPT) 15, Alkaline Phosphatase 143H, Total Bilirubin 0.6, Direct Bilirubin 0.2, Total Protein 5.3L, Albumin 1.5L, Magnesium Level 2.1, Albumin/Globulin Ratio 0.39L CBC/BMP Laboratory Tests 02/22/19 05:21 Red Blood Count 3.65 L, Mean Corpuscular Volume 82.7, Mean Corpuscular Hemoglobin 27.4, Mean Corpuscular Hemoglobin Concent 33.1, Red Cell Distribution Width 16.8 H, Neutrophils (%) (Auto) 69.7 H, Lymphocytes (%) (Auto) 11.1 L, Monocytes (%) (Auto) 10.2 H, Eosinophils (%) (Auto) 3.9 H, Basophils (%) (Auto) 0.8, Neutrophils # (Auto) 7.9 H, Lymphocytes # (Auto) 1.3 L, Monocytes # (Auto) 1.2 H, Eosinophils # (Auto) 0.4, Basophils # (Auto) 0.1, Calcium Level 8.9, Aspartate Amino Transf (AST/SGOT) 24, Alanine Aminotransferase (ALT/SGPT) 15, Alkaline Phosphatase 143 H, Total Bilirubin 0.6, Direct Bilirubin 0.2, Total Protein 5.3 L, Albumin 1.5 L Microbiology Microbiology 02/16/19 Blood Culture - Final, Complete NO GROWTH AFTER 5 DAYS 02/16/19 Blood Fungal Culture, Received Pending 02/16/19 Blood Culture - Final, Complete NO GROWTH AFTER 5 DAYS 02/16/19 Blood Fungal Culture, Received Pending 02/16/19 Blood Culture - Final, Complete NO GROWTH AFTER 5 DAYS 02/13/19 Gram Stain - Final, Complete 02/13/19 Abscess Culture - Final, Complete 02/13/19 Anaerobic Culture - Final, Complete GME ATTESTATION GME ATTESTATION My faculty preceptor for this patient encounter was physically present during the encounter and was fully available. All aspects of the patient interview, examination, medical decision making process, and medical care plan development were reviewed and approved by the faculty preceptor. The faculty preceptor is aware and concurs with the plan as stated in the body of this note and will attest to such by his/her cosignature. ATTENDING NOTE I saw and evaluated the patient. I agree with the findings and plan of care as documented in the resident's note MICHAEL AYON DO February 22, 2019 11:13 EMILY NAM MD February 23, 2019 09:12
[2019-02-22 12:00] VITALS: BP 124/82
[2019-02-22] MEDS: ENOXAPARIN 60 MG/0.6 ML SYR (J1650) SC SCH (12:04)
[2019-02-22 16:00] VITALS: BP 158/83
[2019-02-22 20:00] VITALS: BP 134/64
[2019-02-22] MEDS: LATANOPROST 0.005% OPHTH SOLN 2.5 ML OU SCH (20:46)
[2019-02-22 23:59] VITALS: BP 148/69
[2019-02-23] MEDS: ENOXAPARIN 60 MG/0.6 ML SYR (J1650) SC SCH ×3 (00:44→23:36)
[2019-02-23] MEDS: METOCLOPRAMIDE INJ 10MG/2ML VIAL (J2765) IV SCH ×3 (03:43→18:18)
[2019-02-23] MEDS: SODIUM CHLORIDE 0.9% INJ 10 ML SYR IV SCH (03:43)
[2019-02-23 04:00] VITALS: BP 152/76
[2019-02-23] MEDS: SLF 3 ML SYR IV SCH ×3 (04:38→20:25)
[2019-02-23] MEDS: LEVOTHYROXINE 25MCG TABLET (0.025MG) PO SCH (05:09)
[2019-02-23 06:00] LABS: BASO # 0.1 10^3/uL (0.0-0.2); EOS # 0.3 10^3/uL (0.0-0.50); EOS % 2.8 % (0.0-3.0); HEMATOCRIT 33.5 % (36.0-47.0); HEMOGLOBIN 10.7 g/dl (12.0-15.5); LYMPH % 9.3 % (24.0-44.0); MEAN CORPUSCULAR HEMOGLOBIN 27.2 pg (27.0-33.0); MEAN CORPUSCULAR HGB CONC 31.9 g/dl (32.0-36.5); MEAN CORPUSCULAR VOLUME 85.2 fl (80.0-96.0); MONO % 9.4 % (0.0-5.0); NEUTROPHILS % 74.3 % (36.0-66.0); PLATELET COUNT, AUTOMATED 254 10^3/uL (150-450); RED BLOOD COUNT 3.93 10^6/uL (4.00-5.40); WHITE BLOOD COUNT 10.8 10^3/uL (4.0-10.0)
[2019-02-23 06:20] LABS: ALBUMIN 1.6 GM/DL (3.2-5.2); ALT/SGPT 17 U/L (12-78); BILIRUBIN,TOTAL 0.5 MG/DL (0.2-1.0); BLOOD UREA NITROGEN 21 MG/DL (7-18); CALCIUM LEVEL 9.7 MG/DL (8.8-10.2); CARBON DIOXIDE LEVEL 27 MEQ/L (21-32); CHLORIDE LEVEL 107 MEQ/L (98-107); CREATININE FOR GFR 0.85 MG/DL (0.55-1.30); GLOMERULAR FILTRATION RATE > 60.0 (>39); GLUCOSE, FASTING 112 MG/DL (70-100); MAGNESIUM LEVEL 2.1 MG/DL (1.8-2.4); SODIUM LEVEL 140 MEQ/L (136-145); TOTAL PROTEIN 5.7 GM/DL (6.4-8.2)
[2019-02-23 08:00] VITALS: BP 144/73
[2019-02-23] MEDS: BRINZOLAMIDE 1 % OPHTH SUSP (AZOPT) 10ML OU SCH ×2 (09:19→20:28)
[2019-02-23] MEDS: PANTOPRAZOLE 40MG INJ (PROTONIX) (C9113) IV SCH (09:19)
--- NOTE | 2019-02-23 09:21 | IPNPDOC ---
Text Note Date of Service The patient was seen on 02/23/19. NOTE No acute events overnight. Denies abd pains, nausea, or emesis. She is tolera ting TF at 50 with minimal output in the g-tube. She was also able to walk in the halls yesterday. VSSAF NAD abd - soft, nt, nd, g-j tube in place in the LUQ. labs - below A) 78y/o female s/p hiatal hernia repair for gastric volvulus. gastroparesis P) TF to goal ambulate PT plan on d/c early this week once TF are set up for home, and she is cleared by PT Andrey Hinojosa DO A-FIB/CHADSVASC A-FIB History Current/History of A-Fib/PAF?: No VS,Fishbone, I+O VS, Fishbone, I+O Laboratory Tests 02/23/19 05:11 Red Blood Count 3.93 L, Mean Corpuscular Volume 85.2, Mean Corpuscular Hemoglobin 27.2, Mean Corpuscular Hemoglobin Concent 31.9 L, Red Cell Distribution Width 17.2 H, Neutrophils (%) (Auto) 74.3 H, Lymphocytes (%) (Auto) 9.3 L, Monocytes (%) (Auto) 9.4 H, Eosinophils (%) (Auto) 2.8, Basophils (%) (Auto) 1.0, Neutrophils # (Auto) 8.0 H, Lymphocytes # (Auto) 1.0 L, Monocytes # (Auto) 1.0 H, Eosinophils # (Auto) 0.3, Basophils # (Auto) 0.1, Calcium Level 9.7, Aspartate Amino Transf (AST/SGOT) 19, Alanine Aminotransferase (ALT/SGPT) 17, Alkaline Phosphatase 175 H, Total Bilirubin 0.5, Total Protein 5.7 L, Albumin 1.6 L Vital Signs Date Time Temp Pulse Resp B/P (MAP) Pulse Ox O2 Delivery O2 Flow Rate FiO2 02/23/19 08:00 98.9 89 20 144/73 (96) 94 02/19/19 18:37 2.0 30 I&O- Last 24 Hours up to 6 AM 02/23/19 06:00 Intake Total 600 ml Output Total 1100 ml Balance -500 ml VELMA HINOJOSA DO February 23, 2019 09:21
[2019-02-23 12:00] VITALS: BP 142/67
--- NOTE | 2019-02-23 12:25 | IPNPDOC ---
Date Seen The patient was seen on 02/23/19. Progress Note SUBJECTIVE: Patient reports feeling well she has not had any issues with her tube she denies any significant pain in her right upper extremity. She denies any abdominal pain nausea vomiting diarrhea pressure shortness of breath OBJECTIVE PHYSICAL EXAMINATION: VITAL SIGNS: Please see below. GENERAL: Awake, alert, and oriented. Lying in bed comfortably. Appears in no acute distress. HEENT: normocephalic. Eyes are nonicteric. Trachea is midline , no elevation CVP CARDIOVASCULAR: Normal S1, S2. Regular rate and rhythm. No clicks rubs or murmurs RESPIRATORY: Continued diminished breath sounds on the left. Clear vesicular lung sounds with fine crackles in the bases. No wheezes or rhonci ABDOMINAL: Soft, nondistended. Nontender to palpation. GJ tube in place. No drainage. Positive bowel sounds , tube feeds running at goal EXTREMITIES: Right upper extremity swelling decreased from previous exam. PICC line in place. No lower extremity edema. Full and equal pulses in bilateral upper and lower extremities NEUROLOGICAL: No gross focal neurological deficits , cranial nerves grossly inta ct PSYCHOLOGICAL: Mood and affect appear appropriate LABORATORY DATA, IMAGING STUDIES, MICROBIOLOGY: Please see below. DVT prophylaxis ordered?: YES ASSESSMENT AND PLAN: Patient is a 78 year old female who presented initially with acute gastric volvulus Hospital course complicated by aspiration pneumonia difficulty to wean from ventilator now doing well who recently underwent placement of G tube to GJ tube. PROBLEMS: 1. Large hiatal hernia and acute gastric volvulus: Resolved she is status post GJ tube placement she is tolerating tube feeds at goal, Gen. surgery help is greatly appreciated. At this time he completely discontinue TPN and her right arm PICC after establishment of a peripheral IV access 2. Post-operative wound infection w/ subcutaneous abscess around the G-tube : Resolved she is not currently on any antibiotics infectious disease also greatly appreciated she has completed her course 3. Right Upper Extremity DVT: Associated with her PICC line as she is tolerating tube feeds we can discontinue this today the foreign body in the vessel is likely predisposed her to this. She is on therapeutic Lovenox once a PICC line has been removed as we can transition her to per tube Eliquis in the near future. Her case was discussed with vascular surgery Dr. Alaniz who recommended this plan and I agree with the 4. Anemia : Stable status post 2 units during the stay, she has had recent procedures and has had poor nutritional status for the duration of her stay, she did have a positive response to the blood there is no evidence of any ongoing bleeding hemoglobin is remained stable following transfusion continue to monitor while hospitalized - 5. Aspiration pneumonia: Resolved she's completed her course of antibiotics once infection is also greatly appreciated. I have encouraged her to use incentive spirometer today 6. Bilateral pleural Effusions : We'll recheck a chest x-ray, her respiratory status appears to be quite stable she is not requiring any O2 and was up ambulating. Respiratory status has improved significantly from when she was in the medical intensive care unit 7. GERD :Protonix 8. Hypothyroidism : Synthroid 9. DVT prophylaxis : Therapeutic Lovenox Disposition: I did discuss with Dr. Hinojosa plan is to set her up for tube feeds at home this coming week and have her work with physical therapy occupational therapy and sure she is able to return home. VS, I&O, 24H, Fishbone Vital Signs/I&O Vital Signs Date Time Temp Pulse Resp B/P (MAP) Pulse Ox O2 Delivery O2 Flow Rate FiO2 02/23/19 08:00 98.9 89 20 144/73 (96) 94 02/19/19 18:37 2.0 30 I&O- Last 24 Hours up to 6 AM 02/23/19 06:00 Intake Total 600 ml Output Total 1100 ml Balance -500 ml Laboratory Data 24H LABS Laboratory Tests 2 02/23/19 05:11: Immature Granulocyte % (Auto) 3.2H, White Blood Count 10.8H, Red Blood Count 3.93L, Hemoglobin 10.7L, Hematocrit 33.5L, Mean Corpuscular Volume 85.2, Mean Corpuscular Hemoglobin 27.2, Mean Corpuscular Hemoglobin Concent 31.9L, Red Cell Distribution Width 17.2H, Platelet Count 254, Neutrophils (%) (Auto) 74.3H, Lymphocytes (%) (Auto) 9.3L, Monocytes (%) (Auto) 9.4H, Eosinophils (%) (Auto) 2.8, Basophils (%) (Auto) 1.0, Neutrophils # (Auto) 8.0H, Lymphocytes # (Auto) 1.0L, Monocytes # (Auto) 1.0H, Eosinophils # (Auto) 0.3, Basophils # (Auto) 0.1, Nucleated Red Blood Cells % (auto) 0.0, Anion Gap 6L, Glomerular Filtration Rate > 60.0, Blood Urea Nitrogen 21H, Creatinine 0.85, Sodium Level 140, Potassium Level 4.0, Chloride Level 107, Carbon Dioxide Level 27, Calcium Level 9.7, Aspartate Amino Transf (AST/SGOT) 19, Alanine Aminotransferase (ALT/SGPT) 17, Al kaline Phosphatase 175H, Total Bilirubin 0.5, Total Protein 5.7L, Albumin 1.6L, Magnesium Level 2.1, Albumin/Globulin Ratio 0.39L CBC/BMP Laboratory Tests 02/23/19 05:11 Red Blood Count 3.93 L, Mean Corpuscular Volume 85.2, Mean Corpuscular Hemoglobin 27.2, Mean Corpuscular Hemoglobin Concent 31.9 L, Red Cell Distribution Width 17.2 H, Neutrophils (%) (Auto) 74.3 H, Lymphocytes (%) (Auto) 9.3 L, Monocytes (%) (Auto) 9.4 H, Eosinophils (%) (Auto) 2.8, Basophils (%) (Auto) 1.0, Neutrophils # (Auto) 8.0 H, Lymphocytes # (Auto) 1.0 L, Monocytes # (Auto) 1.0 H, Eosinophils # (Auto) 0.3, Basophils # (Auto) 0.1, Calcium Level 9.7, Aspartate Amino Transf (AST/SGOT) 19, Alanine Aminotransferase (ALT/SGPT) 17, Alkaline Phosphatase 175 H, Total Bilirubin 0.5, Total Protein 5.7 L, Albumin 1.6 L Microbiology Microbiology 02/16/19 Blood Culture - Final, Complete NO GROWTH AFTER 5 DAYS 02/16/19 Blood Fungal Culture, Received Pending 02/16/19 Blood Culture - Final, Complete NO GROWTH AFTER 5 DAYS 02/16/19 Blood Fungal Culture, Received Pending 02/16/19 Blood Culture - Final, Complete NO GROWTH AFTER 5 DAYS 02/13/19 Gram Stain - Final, Complete 02/13/19 Abscess Culture - Final, Complete 02/13/19 Anaerobic Culture - Final, Complete EMILY NAM MD February 23, 2019 12:25
[2019-02-23 16:00] VITALS: BP 139/65
[2019-02-23 20:00] VITALS: BP 164/73
[2019-02-23] MEDS: SLF 3 ML SYR IV PRN (20:25)
[2019-02-23] MEDS: LATANOPROST 0.005% OPHTH SOLN 2.5 ML OU SCH (20:28)
[2019-02-23] MEDS: ACETAMINOPHEN 500 MG TAB PO PRN (20:46)
[2019-02-23 23:59] VITALS: BP 138/66
[2019-02-24 04:00] VITALS: BP 131/75
[2019-02-24] MEDS: SLF 3 ML SYR IV SCH ×3 (04:22→21:19)
[2019-02-24] MEDS: METOCLOPRAMIDE INJ 10MG/2ML VIAL (J2765) IV SCH ×3 (04:22→18:33)
[2019-02-24 05:42] LABS: BASO % 0.4 % (0.0-1.0); EOS # 0.5 10^3/uL (0.0-0.50); EOS % 4.6 % (0.0-3.0); HEMATOCRIT 31.9 % (36.0-47.0); HEMOGLOBIN 10.1 g/dl (12.0-15.5); LYMPH # 1.1 10^3/uL (1.5-4.5); LYMPH % 10.9 % (24.0-44.0); MEAN CORPUSCULAR HEMOGLOBIN 26.9 pg (27.0-33.0); MEAN CORPUSCULAR HGB CONC 31.7 g/dl (32.0-36.5); MEAN CORPUSCULAR VOLUME 84.8 fl (80.0-96.0); MONO # 0.9 10^3/uL (0.0-0.8); MONO % 9.5 % (0.0-5.0); NEUTROPHILS # 7.2 10^3/uL (1.8-7.7); NEUTROPHILS % 72.7 % (36.0-66.0); PLATELET COUNT, AUTOMATED 298 10^3/uL (150-450); RED BLOOD COUNT 3.76 10^6/uL (4.00-5.40); WHITE BLOOD COUNT 9.9 10^3/uL (4.0-10.0)
[2019-02-24 05:45] LABS: ALBUMIN 1.7 GM/DL (3.2-5.2); ALT/SGPT 21 U/L (12-78); BILIRUBIN,TOTAL 0.3 MG/DL (0.2-1.0); BLOOD UREA NITROGEN 18 MG/DL (7-18); CALCIUM LEVEL 9.8 MG/DL (8.8-10.2); CARBON DIOXIDE LEVEL 26 MEQ/L (21-32); CHLORIDE LEVEL 110 MEQ/L (98-107); CREATININE FOR GFR 0.83 MG/DL (0.55-1.30); GLOMERULAR FILTRATION RATE > 60.0 (>39); GLUCOSE, FASTING 145 MG/DL (70-100); MAGNESIUM LEVEL 1.9 MG/DL (1.8-2.4); POTASSIUM SERUM 3.5 MEQ/L (3.5-5.1); SODIUM LEVEL 142 MEQ/L (136-145); TOTAL PROTEIN 5.4 GM/DL (6.4-8.2)
[2019-02-24] MEDS: LEVOTHYROXINE 25MCG TABLET (0.025MG) PO SCH (06:38)
[2019-02-24 08:00] VITALS: BP 149/70
[2019-02-24] MEDS: PANTOPRAZOLE 40MG INJ (PROTONIX) (C9113) IV SCH (08:12)
[2019-02-24] MEDS: BRINZOLAMIDE 1 % OPHTH SUSP (AZOPT) 10ML OU SCH ×2 (08:12→20:39)
--- NOTE | 2019-02-24 09:42 | IPNPDOC ---
Text Note Date of Service The patient was seen on 02/24/19. NOTE No acute events overnight. Denies abd pains, nausea, or emesis. She is tolera ting TF at 56 with minimal output in the g-tube. She was able to walk in the halls again yesterday. Still not cleared by PT yet. She thinks that she can tolerate PO meds, so we will likely start eliquis PO today. VSSAF NAD abd - soft, nt, nd, g-j tube in place in the LUQ. labs - below A) 78y/o female s/p hiatal hernia repair for gastric volvulus. gastroparesis UE DVT P) TF to goal ambulate PT plan on d/c early this week once TF are set up for home, and she is cleared by PT Andrey Hinojosa DO A-FIB/CHADSVASC A-FIB History Current/History of A-Fib/PAF?: No VS,Fishbone, I+O VS, Fishbone, I+O Laboratory Tests 02/24/19 04:51 Red Blood Count 3.76 L, Mean Corpuscular Volume 84.8, Mean Corpuscular Hem oglobin 26.9 L, Mean Corpuscular Hemoglobin Concent 31.7 L, Red Cell Distribution Width 17.1 H, Neutrophils (%) (Auto) 72.7 H, Lymphocytes (%) (Auto) 10.9 L, Monocytes (%) (Auto) 9.5 H, Eosinophils (%) (Auto) 4.6 H, Basophils (%) (Auto) 0.4, Neutrophils # (Auto) 7.2, Lymphocytes # (Auto) 1.1 L, Monocytes # (Auto) 0.9 H, Eosinophils # (Auto) 0.5, Basophils # (Auto) 0.0, Calcium Level 9.8, Aspartate Amino Transf (AST/SGOT) 22, Alanine Aminotransferase (ALT/SGPT) 21, Alkaline Phosphatase 201 H, Total Bilirubin 0.3, Total Protein 5.4 L, Albumin 1.7 L Vital Signs Date Time Temp Pulse Resp B/P (MAP) Pulse Ox O2 Delivery O2 Flow Rate FiO2 02/24/19 08:00 97.9 83 18 149/70 (96) 90 02/19/19 18:37 2.0 30 I&O- Last 24 Hours up to 6 AM 02/24/19 06:00 Intake Total 1315 ml Output Total 0 ml Balance 1315 ml VELMA HINOJOSA DO February 24, 2019 09:42
--- NOTE | 2019-02-24 10:01 | IPNPDOC ---
Date Seen The patient was seen on 02/24/19. Progress Note ATTENDING: Dr. Alaniz HPI: The patient is a 78yo F found to have right upper extremity DVT. PICC RUE has been removed. The pt denies right upper extremity pain, erythema. Swelling has decreased. Denies any fevers, chills, Headache, Chest Pain, Shortness of breath, cough, palpitations. 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 PE: GEN: 78yoF, appears stated age. No acute distress. Alert and oriented x 3. HEENT: Normocephalic, atraumatic. Moist mucous membranes. CHEST: Regular rate and rhythm, +S1, +S2 LUNGS: Clear to auscultation bilaterally. No wheezes, rales, or rhonchi. ABD: Round, soft, non-tender, non-distended. +Bowel sounds present. G tube intact. EXT: RUE edema is decreased, no erythema or TTP. PICC is removed. No lower extremity edema appreciated. SKIN: [place], dry, warm. No rashes. NEURO: Alert and oriented x 3. No focal deficits appreciated. RUE US History: Right upper extremity swelling. Recent PICC line. A right basilic vein PICC line was inserted February 14, 2019. Findings: A PICC line is noted in the right basilic vein and coursing through the cephalic vein. There is occlusive thrombosis of the mid and proximal basilic vein as well as the axillary and cephalic vein. There is partial thrombus visible in the distal cephalic vein. Internal jugular vein is clear. Impression: Occlusive venous thrombosis right axillary and subclavian vein and proximal basilic vein. Electronically Signed by Simone Holloway MD 02/20/2019 08:25 P A&P: The patient is a 78yo F found to have right upper extremity DVT. 1. RUE DVT. The patient is reviewed with Dr. Alaniz. PICC line removed from RUE. Currently the patient remains on Lovenox 60 mg subcutaneous every 12. Plan to initiate oral anticoagulant, Eliquis, when cleared as per surgery. Plan to obtain follow-up right upper extremity ultrasound prior to discharge. Plan for follow-up as outpt with Dr. Alaniz in 2-3 months following discharge with follow-up right upper extremity ultrasound to be arranged at that time. Would recommend 6 months of anticoagulation. A-FIB/CHADSVASC A-FIB History Current/History of A-Fib/PAF?: No VS, I&O, 24H, Fishbone Vital Signs/I&O Vital Signs Date Time Temp Pulse Resp B/P (MAP) Pulse Ox O2 Delivery O2 Flow Rate FiO2 02/24/19 08:00 97.9 83 18 149/70 (96) 90 02/19/19 18:37 2.0 30 I&O- Last 24 Hours up to 6 AM 02/24/19 06:00 Intake Total 1315 ml Output Total 0 ml Balance 1315 ml Laboratory Data 24H LABS Laboratory Tests 2 02/24/19 04:51: Immature Granulocyte % (Auto) 1.9, White Blood Count 9.9, Red Blood Count 3.76L, Hemoglobin 10.1L, Hematocrit 31.9L, Mean Corpuscular Volume 84.8, Mean Corpuscular Hemoglobin 26.9L, Mean Corpuscular Hemoglobin Concent 31.7L, Red Cell Distribution Width 17.1H, Platelet Count 298, Neutrophils (%) (Auto) 72.7H, Lymphocytes (%) (Auto) 10.9L, Monocytes (%) (Auto) 9.5H, Eosinophils (%) (Auto) 4.6H, Basophils (%) (Auto) 0.4, Neutrophils # (Auto) 7.2, Lymphocytes # (Auto) 1.1L, Monocytes # (Auto) 0.9H, Eosinophils # (Auto) 0.5, Basophils # (Auto) 0.0, Nucleated Red Blood Cells % (auto) 0.0, Anion Gap 6L, Glomerular Filtration Rate > 60.0, Blood Urea Nitrogen 18, Creatinine 0.83, Sodium Level 142, Potassium Level 3.5, Chloride Level 110H, Carbon Dioxide Level 26, Calcium Level 9.8, Aspartate Amino Transf (AST/SGOT) 22, Alanine Aminotransferase (ALT/SGPT) 21, Alkaline Phosphatase 201H, Total Bilirubin 0.3, Total Protein 5.4L, Albumin 1.7L, Magnesium Level 1.9, Albumin/Globulin Ratio 0.46L CBC/BMP Laboratory Tests 02/24/19 04:51 Red Blood Count 3.76 L, Mean Corpuscular Volume 84.8, Mean Corpuscular Hemoglob in 26.9 L, Mean Corpuscular Hemoglobin Concent 31.7 L, Red Cell Distribution Width 17.1 H, Neutrophils (%) (Auto) 72.7 H, Lymphocytes (%) (Auto) 10.9 L, Monocytes (%) (Auto) 9.5 H, Eosinophils (%) (Auto) 4.6 H, Basophils (%) (Auto) 0.4, Neutrophils # (Auto) 7.2, Lymphocytes # (Auto) 1.1 L, Monocytes # (Auto) 0.9 H, Eosinophils # (Auto) 0.5, Basophils # (Auto) 0.0, Calcium Level 9.8, Aspartate Amino Transf (AST/SGOT) 22, Alanine Aminotransferase (ALT/SGPT) 21, Alkaline Phosphatase 201 H, Total Bilirubin 0.3, Total Protein 5.4 L, Albumin 1.7 L Microbiology Microbiology 02/16/19 Blood Culture - Final, Complete NO GROWTH AFTER 5 DAYS 02/16/19 Blood Fungal Culture, Received Pending 02/16/19 Blood Culture - Final, Complete NO GROWTH AFTER 5 DAYS 02/16/19 Blood Fungal Culture, Received Pending 02/16/19 Blood Culture - Final, Complete NO GROWTH AFTER 5 DAYS Patricia Hernandez February 24, 2019 09:35
--- NOTE | 2019-02-24 11:16 | REP ---
RIGHT UPPER EXTREMITY DUPLEX DOPPLER VENOUS ULTRASOUND: Real-time ultrasound evaluation and duplex Doppler interrogation of the right upper extremity deep vein system is performed. There is history of PICC line removal 1 day ago. There is partial thrombosis of the right subclavian vein. There is occlusive thrombus in the right axillary and basilic veins. There is partial thrombosis of the peripheral right cephalic vein. Right brachial vein demonstrates no thrombus. Electronically Signed by Edwin Magana MD 02/24/2019 07:46 P
[2019-02-24] MEDS: APIXABAN 5 MG TAB (ELIQUIS) PO SCH ×2 (11:42→20:38)
[2019-02-24 12:00] VITALS: BP 138/70
--- NOTE | 2019-02-24 13:43 | IPNPDOC ---
Date Seen The patient was seen on 02/24/19. Progress Note SUBJECTIVE: Patient was seen and examined this morning. She currently reports no new complaints. She does have a recorded fever of 100.6 last night at 2000 h. She has remained afebrile since then. She continues on tube feeding at a rate of 55 ml/hr and appears to be tolerating well. She denies shortness of breath, chest pain, or increased abdominal pain. OBJECTIVE PHYSICAL EXAMINATION: VITAL SIGNS: Please see below. GENERAL: Awake, alert ,and oriented. Appears in no acute distress. Lying in bed comfortably. HEENT: Atraumatic, normocephalic. Eyes are nonicteric. Trachea is midline. Den tition is fair CARDIOVASCULAR: Normal S1, S2. Regular rate and rhythm. No clicks, rubs, or murmurs. No JVD RESPIRATORY: Diminished breath sounds although improved from previous exams. Clear vesicular lung sounds. No wheezes or rhonchi ABDOMINAL: Soft, nondistended. Nontender to palpation throughout. No rebound tenderness or guarding. GJ tube in place and bandaged. Minimal drainage from around tube site. No erythema EXTREMITIES: Right upper extremity swelling present although decreased since pr evious exam. No lower extremity edema. Pulses are full and equal in bilateral upper and lower extremities NEUROLOGICAL: No focal neurological deficits PSYCHOLOGICAL: Mood and affect appear appropriate LABORATORY DATA, IMAGING STUDIES, MICROBIOLOGY: Please see below. DVT prophylaxis ordered?: YES ASSESSMENT AND PLAN: Patient is a 78 year old female with a PMHx of HTN, DLP, Glaucoma, GERD who presented to the [facility] ER on 01/26/19 with complaint of abdominal pain. 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 The patient had a laparoscopic reduction. The patient was unable to be weaned off ventilator after her surgery due to worsening hypoxia. She was found to have an aspiration pneumonia. Patient did improve and was extubated to BIPAP / Vapotherem. She was taken for intervention again on for replacement of G tube to GJ tube and aspiration of fluid collection. PROBLEMS: 1. Large hiatal hernia and acute gastric volvulus -Currently stable. -s/p GJ tube replacement -Patient is followed by surgery -Tube feedings have been advanced to 55cc/hr. -Plan is for consideration for discharge this week once patient is cleared by physical therapy. Tube feeding will be continued outpatient 2. Post-operative wound infection w/ subcutaneous abscess around the G-tube -Patient is followed by ID. -Infection has resolved and patient is no longer on Antibiotics. -Patient did have a fever last night. Will continue to monitor 3. Right Upper Extremity Swelling -Patient had right upper extremity swelling. 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 Will transition patient to Eliquis today -Start Eliquis 10mg BID for 7 days as loading dose. Patient will then continue on Eliquis 5mg BID for at least 3 months. 4. Anemia -Patient had developed anemia. She was transfused 2 units of PRBC's. Her Hbg has remained stable since her transfusion. Will continue to monitor. 5. Aspiration pneumonia -Patient has completed Antibiotic therapy. She is followed by ID. -She has remained afebrile without a white blood cell count. -Cough has resolved. Patient is continued on respiratory therapy 6. Bilateral pleural Effusions -Patient has a left sided pleural effusion more so than right. Her left sided effusion is likely larger as her stomach was occupying space before being surgically reduced -Chest CT demonstrating improved aeration and improved infiltrates on the right. New lobar collapse in left upper lobe likely 2/2 mucous plugging. Small bilateral pleural and pericardial effusions somewhat increased. -Chest PT and Mucomyst for mucous plugging. Patient has refused mucomyst as she feels it smells bad. Will continue with respiratory treatments 7. Nutrition -Patient is off of TPN -Tube feedings have been advanced to 55cc/hr. Plan is to discharge with tube feedings at home once patient is cleared by physical therapy 8. Fever and Hypotension -Patient had an episode of fever and hypotension. She had just had a PICC line inserted at the time. A possible line infection was possible however, the line had only be in for a short period of time. -Patient has had an elevated temperature last night of 100.6. She has not had a fever since then. Will continue to monitor. Her temperature may have been secondary to her right upper extremity DVT 9. GERD -Protonix 10. Hypothyroidism -Synthroid 11. DVT prophylaxis -Lovenox A-FIB/CHADSVASC A-FIB History Current/History of A-Fib/PAF?: No VS, I&O, 24H, [facility] Vital Signs/I&O Vital Signs Date Time Temp Pulse Resp B/P (MAP) Pulse Ox O2 Delivery O2 Flow Rate FiO2 02/24/19 12:00 97.8 97 18 138/70 (92) 97 02/19/19 18:37 2.0 30 I&O- Last 24 Hours up to 6 AM 02/24/19 06:00 Intake Total 1315 ml Output Total 0 ml Balance 1315 ml Laboratory Data 24H LABS Laboratory Tests 2 02/24/19 04:51: Immature Granulocyte % (Auto) 1.9, White Blood Count 9.9, Red Blood Count 3.76L, Hemoglobin 10.1L, Hematocrit 31.9L, Mean Corpuscular Volume 84.8, Mean Corpuscular Hemoglobin 26.9L, Mean Corpuscular Hemoglobin Concent 31.7L, Red Cell Distribution Width 17.1H, Platelet Count 298, Neutrophils (%) (Auto) 72.7H, Lymphocytes (%) (Auto) 10.9L, Monocytes (%) (Auto) 9.5H, Eosinophils (%) (Auto) 4.6H, Basophils (%) (Auto) 0.4, Neutrophils # (Auto) 7.2, Lymphocytes # (Auto) 1.1L, Monocytes # (Auto) 0.9H, Eosinophils # (Auto) 0.5, Basophils # (Auto) 0.0, Nucleated Red Blood Cells % (auto) 0.0, Anion Gap 6L, Glomerular Filtration Rate > 60.0, Blood Urea Nitrogen 18, Creatinine 0.83, Sodium Level 142, Potassium Level 3.5, Chloride Level 110H, Carbon Dioxide Level 26, Calcium Level 9.8, As partate Amino Transf (AST/SGOT) 22, Alanine Aminotransferase (ALT/SGPT) 21, Alkaline Phosphatase 201H, Total Bilirubin 0.3, Total Protein 5.4L, Albumin 1.7L, Magnesium Level 1.9, Albumin/Globulin Ratio 0.46L CBC/BMP Laboratory Tests 02/24/19 04:51 Red Blood Count 3.76 L, Mean Corpuscular Volume 84.8, Mean Corpuscular Hemoglobin 26.9 L, Mean Corpuscular Hemoglobin Concent 31.7 L, Red Cell Distribution Width 17.1 H, Neutrophils (%) (Auto) 72.7 H, Lymphocytes (%) (Auto) 10.9 L, Monocytes (%) (Auto) 9.5 H, Eosinophils (%) (Auto) 4.6 H, Basophils (%) (Auto) 0.4, Neutrophils # (Auto) 7.2, Lymphocytes # (Auto) 1.1 L, Monocytes # (Auto) 0.9 H, Eosinophils # (Auto) 0.5, Basophils # (Auto) 0.0, Calcium Level 9.8, Aspartate Amino Transf (AST/SGOT) 22, Alanine Aminotransferase (ALT/SGPT) 21, Alkaline Phosphatase 201 H, Total Bilirubin 0.3, Total Protein 5.4 L, Albumin 1.7 L Microbiology Microbiology 02/16/19 Blood Culture - Final, Complete NO GROWTH AFTER 5 DAYS 02/16/19 Blood Fungal Culture, Received Pending 02/16/19 Blood Culture - Final, Complete NO GROWTH AFTER 5 DAYS 02/16/19 Blood Fungal Culture, Received Pending 02/16/19 Blood Culture - Final, Complete NO GROWTH AFTER 5 DAYS GME ATTESTATION GME ATTESTATION My faculty preceptor for this patient encounter was physically present during the encounter and was fully available. All aspects of the patient interview, examination, medical decision making process, and medical care plan development were reviewed and approved by the faculty preceptor. The faculty preceptor is aware and concurs with the plan as stated in the body of this note and will attest to such by his/her cosignature. ATTENDING NOTE I saw and evaluated the patient. I agree with the findings and plan of care as documented in the resident's note MICHAEL AYON DO February 24, 2019 13:43 EMILY NAM MD March 01, 2019 17:07
[2019-02-24 16:00] VITALS: BP 141/67
[2019-02-24 20:00] VITALS: BP 140/76
[2019-02-24] MEDS: LATANOPROST 0.005% OPHTH SOLN 2.5 ML OU SCH (20:39)
[2019-02-24] MEDS: ONDANSETRON 4MG/2ML VIAL (J2405) IV PRN (20:54)
[2019-02-25] VITALS: BP 146/79
[2019-02-25 02:00] VITALS: BP 146/79
[2019-02-25] MEDS: METOCLOPRAMIDE INJ 10MG/2ML VIAL (J2765) IV SCH ×3 (04:18→18:30)
[2019-02-25] MEDS: SLF 3 ML SYR IV SCH ×3 (05:17→21:22)
[2019-02-25] MEDS: LEVOTHYROXINE 25MCG TABLET (0.025MG) PO SCH (05:26)
[2019-02-25 06:08] LABS: BASO % 0.3 % (0.0-1.0); EOS # 0.3 10^3/uL (0.0-0.50); EOS % 3.5 % (0.0-3.0); HEMATOCRIT 30.9 % (36.0-47.0); HEMOGLOBIN 9.7 g/dl (12.0-15.5); LYMPH # 0.8 10^3/uL (1.5-4.5); LYMPH % 8.7 % (24.0-44.0); MEAN CORPUSCULAR HEMOGLOBIN 26.9 pg (27.0-33.0); MEAN CORPUSCULAR HGB CONC 31.4 g/dl (32.0-36.5); MEAN CORPUSCULAR VOLUME 85.8 fl (80.0-96.0); MONO # 0.8 10^3/uL (0.0-0.8); MONO % 8.1 % (0.0-5.0); NEUTROPHILS # 7.4 10^3/uL (1.8-7.7); PLATELET COUNT, AUTOMATED 295 10^3/uL (150-450); WHITE BLOOD COUNT 9.5 10^3/uL (4.0-10.0)
[2019-02-25 06:39] LABS: ALBUMIN 1.7 GM/DL (3.2-5.2); ALT/SGPT 26 U/L (12-78); BILIRUBIN,TOTAL 0.3 MG/DL (0.2-1.0); BLOOD UREA NITROGEN 18 MG/DL (7-18); C REACTIVE PROTEIN QUANTITATIV 7.23 MG/DL (0.00-0.30); CALCIUM LEVEL 9.7 MG/DL (8.8-10.2); CARBON DIOXIDE LEVEL 27 MEQ/L (21-32); CHLORIDE LEVEL 109 MEQ/L (98-107); CREATININE FOR GFR 0.86 MG/DL (0.55-1.30); GLOMERULAR FILTRATION RATE > 60.0 (>39); GLUCOSE, FASTING 176 MG/DL (70-100); MAGNESIUM LEVEL 1.9 MG/DL (1.8-2.4); POTASSIUM SERUM 3.7 MEQ/L (3.5-5.1); SODIUM LEVEL 144 MEQ/L (136-145); TOTAL PROTEIN 5.5 GM/DL (6.4-8.2)
[2019-02-25 08:00] VITALS: BP 152/82
[2019-02-25] MEDS: PANTOPRAZOLE 40MG INJ (PROTONIX) (C9113) IV SCH (08:38)
[2019-02-25] MEDS: APIXABAN 5 MG TAB (ELIQUIS) PO SCH ×2 (08:39→21:22)
[2019-02-25] MEDS: BRINZOLAMIDE 1 % OPHTH SUSP (AZOPT) 10ML OU SCH ×2 (08:39→21:22)
--- NOTE | 2019-02-25 09:08 | IPNPDOC ---
Date Seen The patient was seen on 02/25/19. Progress Note SUBJECTIVE: Patient was seen and examined this morning. She states that she continues to feel better overall. She had worked with physical therapy yesterday and stated that she has been tired from that. She denies any cough, fever, chills, chest pain or shortness of breath. She noted improvement in her abdominal pain. She denies any pain in her right arm. She does admit to continued swelling in her right arm OBJECTIVE PHYSICAL EXAMINATION: VITAL SIGNS: Please see below. GENERAL: Awake, alert, and oriented. Appears in no acute distress. Lying comfortably in bed. HEENT: Atrumatic, normocephalic. Eyes are nonicteric. Trachea is midline. CARDIOVASCULAR: Normal S1, S2. Regular rate and rhythm. No clicks, rubs, or murmurs. RESPIRATORY: Clear vesicular breath sounds bilaterally. Improved aeration compared to previous examinations. No wheezes, rhonchi, or rales ABDOMINAL: soft, nondistended. Nontender to palpation throughout. No rebound tenderness or guarding. GJ tube in place and bandaged. Minimal drainage from around tube site. No erythema EXTREMITIES: Right upper extremity swelling present continuing to decrease. No lower extremity edema. Pulses are full and equal in bilateral upper and lower extremities NEUROLOGICAL: No focal neurological deficits PSYCHOLOGICAL: Mood and affect appear appropriate LABORATORY DATA, IMAGING STUDIES, MICROBIOLOGY: Please see below. DVT prophylaxis ordered?: YES ASSESSMENT AND PLAN: Patient is a 78 year old female with a PMHx of HTN, DLP, Glaucoma, GERD who presented to the [facility] ER on 01/26/19 with complaint of abdominal pain. 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 The patient had a laparoscopic reduction. The patient was unable to be weaned off ventilator after her surgery due to worsening hypoxia. She was found to have an aspiration pneumonia. Patient did improve and was extu bated to BIPAP / Vapotherem. She was taken for intervention again on for replacement of G tube to GJ tube and aspiration of fluid collection. PROBLEMS: 1. Large hiatal hernia and acute gastric volvulus -Currently stable. -s/p GJ tube replacement -Patient is followed by surgery -Tube feedings have been advanced to 55cc/hr. -Patient had worked with physical therapy and has shown improvement. Working towards discharge. Patient will need home tube feedings. 2. Post-operative wound infection w/ subcutaneous abscess around the G-tube -Patient is followed by ID. -Infection has resolved and patient is no longer on Antibiotics. -Patient had a fever two nights ago. She has remained afebrile since. Will continue to monitor 3. Right Upper Extremity Swelling -Patient had right upper extremity swelling. 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 Will transition patient to Eliquis today -Start Eliquis 10mg BID for 7 days as loading dose. Patient will then continue on Eliquis 5mg BID for at least 3 months. -She is currently on day 2 of 7 for her loading dose of Eliquis 4. Anemia -Patient had developed anemia. She was transfused 2 units of PRBC's. Her Hbg has remained stable since her transfusion. Will continue to monitor. 5. Aspiration pneumonia -Patient has completed Antibiotic therapy. She is followed by ID. -She has remained afebrile without a white blood cell count. -Cough has resolved. Patient is continued on respiratory therapy 6. Bilateral pleural Effusions -Patient has a left sided pleural effusion more so than right. Her left sided effusion is likely larger as her stomach was occupying space before being surgically reduced -Chest CT demonstrating improved aeration and improved infiltrates on the right. New lobar collapse in left upper lobe likely 2/2 mucous plugging. Small b ilateral pleural and pericardial effusions somewhat increased. -Patient had been receiving chest PT. Her symptoms seem to have resolved. 7. Nutrition -Patient is off of TPN -Tube feedings have been advanced to Jevity 1.5 shae @ 55cc/hr. Plan is to discharge with tube feedings at home 8. Fever and Hypotension -Patient had an episode of fever and hypotension. She had just had a PICC line inserted at the time. A possible line infection was possible however, the line had only be in for a short period of time. -Patient has had an elevated temperature last night of 100.6. She has not had a fever since then. Will continue to monitor. Her temperature may have been secondary to her right upper extremity DVT 9. GERD -Protonix 10. Hypothyroidism -Synthroid 11. DVT prophylaxis -Eliquis A-FIB/CHADSVASC A-FIB History Current/History of A-Fib/PAF?: No VS, I&O, 24H, Fishbone Vital Signs/I&O Vital Signs Date Time Temp Pulse Resp B/P (MAP) Pulse Ox O2 Delivery O2 Flow Rate FiO2 02/25/19 02:00 99.9 87 18 146/79 (101) 93 02/19/19 18:37 2.0 30 I&O- Last 24 Hours up to 6 AM 02/25/19 06:00 Intake Total 1265 ml Output Total 0 ml Balance 1265 ml Laboratory Data 24H LABS Laboratory Tests 2 02/25/19 05:33: Immature Granulocyte % (Auto) 1.4, White Blood Count 9.5, Red Blood Count 3.60L, Hemoglobin 9.7L, Hematocrit 30.9L, Mean Corpuscular Volume 85.8, Mean Corpuscular Hemoglobin 26.9L, Mean Corpuscular Hemoglobin Concent 31.4L, Red Cell Distribution Width 17.2H, Platelet Count 295, Neutrophils (%) (Auto) 78.0H, Lymphocytes (%) (Auto) 8.7L, Monocytes (%) (Auto) 8.1H, Eosinophils (%) (Auto) 3.5H, Basophils (%) (Auto) 0.3, Neutrophils # (Auto) 7.4, Lymphocytes # (Auto) 0.8L, Monocytes # (Auto) 0.8, Eosinophils # (Auto) 0.3, Basophils # (Auto) 0.0, Nucleated Red Blood Cells % (auto) 0.0, Anion Gap 8, Glomerular Filtration Rate > 60.0, Blood Urea Nitrogen 18, Creatinine 0.86, Sodium Level 144, Potassium Level 3.7, Chloride Level 109H, Carbon Dioxide Level 27, Calcium Level 9.7, Aspartate Amino Transf (AST/SGOT) 24, Alanine Aminotransferase (ALT/SGPT) 26, Alkaline Phosphatase 190H, Total Bilirubin 0.3, Total Protein 5.5L, Albumin 1.7L, Magnesium Level 1.9, C-Reactive Protein, Quantitative 7.23H, Albumin/Globulin Ratio 0.45L CBC/BMP Laboratory Tests 02/25/19 05:33 Red Blood Count 3.60 L, Mean Corpuscular Volume 85.8, Mean Corpuscular Hemoglobin 26.9 L, Mean Corpuscular Hemoglobin Concent 31.4 L, Red Cell Distribution Width 17.2 H, Neutrophils (%) (Auto) 78.0 H, Lymphocytes (%) (Auto) 8.7 L, Monocytes (%) (Auto) 8.1 H, Eosinophils (%) (Auto) 3.5 H, Basophils (%) (Auto) 0.3, Neutrophils # (Auto) 7.4, Lymphocytes # (Auto) 0.8 L, Monocytes # (Auto) 0.8, Eosinophils # (Auto) 0.3, Basophils # (Auto) 0.0, Calcium Level 9.7, Aspartate Amino Transf (AST/SGOT) 24, Alanine Aminotransferase (ALT/SGPT) 26, Alkaline Phosphatase 190 H, Total Bilirubin 0.3, Total Protein 5.5 L, Albumin 1.7 L Microbiology Microbiology 02/25/19 Blood Culture, Received Pending 02/16/19 Blood Culture - Final, Complete NO GROWTH AFTER 5 DAYS 02/16/19 Blood Fungal Culture, Received Pending 02/16/19 Blood Culture - Final, Complete NO GROWTH AFTER 5 DAYS 02/16/19 Blood Fungal Culture, Received Pending 02/16/19 Blood Culture - Final, Complete NO GROWTH AFTER 5 DAYS GME ATTESTATION GME ATTESTATION My faculty preceptor for this patient encounter was physically present during the encounter and was fully available. All aspects of the patient interview, examination, medical decision making process, and medical care plan development were reviewed and approved by the faculty preceptor. The faculty preceptor is aware and concurs with the plan as stated in the body of this note and will attest to such by his/her cosignature. MICHAEL AYON DO February 25, 2019 09:08
--- NOTE | 2019-02-25 09:08 | IPNPDOC ---
Date Seen The patient was seen on 02/25/19. Progress Note ATTENDING: Dr. Alaniz HPI: The patient is a 78yo F found to have right upper extremity DVT. PICC RUE has been removed. The pt denies right upper extremity pain, erythema. Swelling has decreased. Denies any fevers, chills, Headache, Chest Pain, Shortness of breath, cough, palpitations. 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 PE: GEN: 78yoF, appears stated age. No acute distress. Alert and oriented x 3. HEENT: Normocephalic, atraumatic. Moist mucous membranes. CHEST: Regular rate and rhythm, +S1, +S2 LUNGS: Clear to auscultation bilaterally. No wheezes, rales, or rhonchi. ABD: Round, soft, non-tender, non-distended. +Bowel sounds present. G tube intact. EXT: RUE edema is decreased, no erythema or TTP. No lower extremity edema appreciated. SKIN: [place], dry, warm. No rashes. NEURO: Alert and oriented x 3. No focal deficits appreciated. RUE US History: Right upper extremity swelling. Recent PICC line. A right basilic vein PICC line was inserted February 14, 2019. Findings: A PICC line is noted in the right basilic vein and coursing through the cephalic vein. There is occlusive thrombosis of the mid and proximal basilic vein as well as the axillary and cephalic vein. There is partial thrombus visible in the distal cephalic vein. Internal jugular vein is clear. Impression: Occlusive venous thrombosis right axillary and subclavian vein and proximal basilic vein. Electronically Signed by Simone Holloway MD 02/20/2019 08:25 P RIGHT UPPER EXTREMITY DUPLEX DOPPLER VENOUS ULTRASOUND: Real-time ultrasound evaluation and duplex Doppler interrogation of the right upper extremity deep vein system is performed. There is history of PICC line removal 1 day ago. There is partial thrombosis of the right subclavian vein. There is occlusive thrombus in the right axillary and basilic veins. There is partial thrombosis of the peripheral right cephalic vein. Right brachial vein demonstrates no thrombus. Electronically Signed by Edwin Magana MD 02/24/2019 07:46 P A&P: The patient is a 78yo F found to have right upper extremity DVT. 1. RUE DVT. The patient is reviewed with Dr. Alaniz. PICC line removed from RUE. Eliquis 10 mg BID. Plan for follow-up as outpt with Dr. Alaniz in 2-3 months following discharge with follow-up right upper extremity ultrasound to be arranged at that time. Would recommend 6 months of anticoagulation. A-FIB/CHADSVASC A-FIB History Current/History of A-Fib/PAF?: No VS, I&O, 24H, Fishbone Vital Signs/I&O Vital Signs Date Time Temp Pulse Resp B/P (MAP) Pulse Ox O2 Delivery O2 Flow Rate FiO2 02/25/19 02:00 99.9 87 18 146/79 (101) 93 02/19/19 18:37 2.0 30 I&O- Last 24 Hours up to 6 AM 02/25/19 06:00 Intake Total 1265 ml Output Total 0 ml Balance 1265 ml Laboratory Data 24H LABS Laboratory Tests 2 02/25/19 05:33: Immature Granulocyte % (Auto) 1.4, White Blood Count 9.5, Red Blood Count 3.60L, Hemoglobin 9.7L, Hematocrit 30.9L, Mean Corpuscular Volume 85.8, Mean Corpuscular Hemoglobin 26.9L, Mean Corpuscular Hemoglobin Concent 31.4L, Red Cell Distribution Width 17.2H, Platelet Count 295, Neutrophils (%) (Auto) 78.0H, Lymphocytes (%) (Auto) 8.7L, Monocytes (%) (Auto) 8.1H, Eosinophils (%) (Auto) 3.5H, Basophils (%) (Auto) 0.3, Neutrophils # (Auto) 7.4, Lymphocytes # (Auto) 0.8L, Monocytes # (Auto) 0.8, Eosinophils # (Auto) 0.3, Basophils # (Auto) 0.0, Nucleated Red Blood Cells % (auto) 0.0, Anion Gap 8, Glomerular Filtration Rate > 60.0, Blood Urea Nitrogen 18, Creatinine 0.86, Sodium Level 144, Potassium Level 3.7, Chloride Level 109H, Carbon Dioxide Level 27, Calcium Level 9.7, Aspartate Amino Transf (AST/SGOT) 24, Alanine Aminotransferase (ALT/SGPT) 26, Alkaline Phosphatase 190H, Total Bilirubin 0.3, Total Protein 5.5L, Albumin 1.7L, Magnesium Level 1.9, C-Reactive Protein, Quantitative 7.23H, Albumin/Globulin Ratio 0.45L CBC/BMP Laboratory Tests 02/25/19 05:33 Red Blood Count 3.60 L, Mean Corpuscular Volume 85.8, Mean Corpuscular Hemoglobin 26.9 L, Mean Corpuscular Hemoglobin Concent 31.4 L, Red Cell Distribution Width 17.2 H, Neutrophils (%) (Auto) 78.0 H, Lymphocytes (%) (Auto) 8.7 L, Monocytes (%) (Auto) 8.1 H, Eosinophils (%) (Auto) 3.5 H, Basophils (%) (Auto) 0.3, Neutrophils # (Auto) 7.4, Lymphocytes # (Auto) 0.8 L, Monocytes # (Auto) 0.8, Eosinophils # (Auto) 0.3, Basophils # (Auto) 0.0, Calcium Level 9.7, Aspartate Amino Transf (AST/SGOT) 24, Alanine Aminotransferase (ALT/SGPT) 26, Alkaline Phosphatase 190 H, Total Bilirubin 0.3, Total Protein 5.5 L, Albumin 1.7 L Microbiology Microbiology 02/25/19 Blood Culture, Received Pending 02/16/19 Blood Culture - Final, Complete NO GROWTH AFTER 5 DAYS 02/16/19 Blood Fungal Culture, Received Pending 02/16/19 Blood Culture - Final, Complete NO GROWTH AFTER 5 DAYS 02/16/19 Blood Fungal Culture, Received Pending 02/16/19 Blood Culture - Final, Complete NO GROWTH AFTER 5 DAYS Patricia Hernandez February 25, 2019 09:08
--- NOTE | 2019-02-25 10:30 | IPNPDOC ---
Subjective Date Seen The patient was seen on 02/25/19. Subjective Chief Complaint/HPI Kajal comfortable of normal. Complains wishes to go home with a feeding General: Denies: ROS Unobtainable, Chills, Night Sweats, Fatigue, Malaise, Normal Appetite, Other Symptoms Constitutional: Denies: Chills, Fever, Malaise, Night Sweats, Weakness, Fatigue, Weight Loss, Lethargy, Other Eyes: Denies: Pain, Vision change, Conjunctivae inflammation, Eyelid inflammation, Redness, Other ENT: Denies: Head Aches, Ear Pain, Dysphagia, Sinus Congestion, Post Nasal Drip, Sore Throat, Epistaxis, Other Symptoms Skin: Denies: Rash, Lesions, Jaundice, Bruising, Itching, Dry, Breakdown, Nail Changes, Other Pulmonary: Denies: Dyspnea, Cough, Pleuritic Chest Pain, Other Symptoms Cardiovascular: Denies: Chest Pain, Palpitations, Orthopnea, Paroxysmal Noc. Dyspnea, Edema, Lt Headedness, Other Symptoms Gastrointestinal: Denies: Nausea, Vomiting, Abdominal Pain, Diarrhea, C onstipation, Melena, Hematochezia, Other Symptoms Genitourinary: Denies: Dysuria, Frequency, Incontinence, Hematuria, Retention, Other Symptoms Hematologic: Denies: Bruising, Bleeding Excessively, Petecchia, Purpura, Enlarged Lymph Nodes, Other Hematologic Endocrine: Denies: Polydipsia, Polyphagia, Polyuria, Heat Intolerance, Cold I ntolerance, Other Endocrine Sx Musculoskeletal: Denies: Neck Pain, Back Pain, Shoulder Pain, Arm Pain, Hand Pain, Leg Pain, Foot Pain, Joint Pain, Muscle Pain, Spasms, Other Symptoms Neurological: Denies: Weakness, Numbness, Incoordination, Change in speech, Confusion, Seizures, Other Symptoms Psych: Denies: Mood Normal, Anxiety, Depression, Memory Issues, Thoughts of Self Harm, Anger, Thoughts of Harming Other, Other Psych Objective Physical Examination General Exam: Negative: Alert, Cooperative, No Acute Distress, Mild Distress, Moderate Distress, Severe Distress, Other Eye Exam: Negative: PERRLA, Conjunctiva & lids normal, EOMI, Sclera icteric, Ptosis, Other Eye Symptoms ENT Exam: Negative: Atraumatic, Mucous membr. moist/pink, Pharynx Normal, Tongue Midline, Pharyngeal Edema, Nares Patent, Tympanic Membranes Normal, Ext Auditory Canal Nml, Pinna Normal, Other ENT Neck Exam: Negative: Supple, JVD, thyromegaly, +2 carotid pulse wo bruit, Lymphadenopathy, Other Chest Exam: Negative: Clear to auscultation, Normal air movement, Rales, Rhonchi, Wheezing, Diminished, Other Heart Exam: Negative: Rate Normal, Tachycardic, Bradycardic, Regular Rhythm, Irregular Rhythm, Normal S1, Normal S2, Gallops, Murmurs, Rubs, Other Telemetry: Positive: No significant arrhythmia Abdomen Exam: Negative: Normal bowel sounds, BS Hyperactive, BS Hypoactive, Soft, Tenderness, Hepatospenomegaly, Mass, Hernia, Other Female Exam: Negative: Nl Ext Genitalia, Normal Cervical Exam, Lesions, Discharge, Odor, Tenderness, Nl Rectal Sphincter Tone Extremity Exam: Negative: Clubbing, Cyanosis, Edema, Normal pulses, Tenderness, Swelling, Other Skin Exam: Negative: Nl turgor and temperature, Rash, Breakdown, Lesion, Pruritus, Other skin issue Neuro Exam: Negative: Normal Gait, Normal Speech, Strength at 5/5 X4 ext, Normal Tone, Sensation Intact, Cranial Nerves 3-12 NL, Reflexes 2+, Other Psych Exam: Negative: Mental status NL, Mood NL, Anxiety, Memory Intact, Oriented x 3, Other A-FIB/CHADSVASC A-FIB History Current/History of A-Fib/PAF?: No Assessment /Plan Problems (1) Acute gastric volvulus Plan/VTE VTE Prophylaxis Ordered?: Yes VS, I&O, 24H, [facility] Vital Signs/I&O Vital Signs Date Time Temp Pulse Resp B/P (MAP) Pulse Ox O2 Delivery O2 Flow Rate FiO2 02/25/19 08:00 99.5 92 16 152/82 (105) 93 02/19/19 18:37 2.0 30 I&O- Last 24 Hours up to 6 AM 02/25/19 06:00 Intake Total 1265 ml Output Total 0 ml Balance 1265 ml Laboratory Data 24H LABS Laboratory Tests 2 02/25/19 05:33: Immature Granulocyte % (Auto) 1.4, White Blood Count 9.5, Red Blood Count 3.60L, Hemoglobin 9.7L, Hematocrit 30.9L, Mean Corpuscular Volume 85.8, Mean Corpuscular Hemoglobin 26.9L, Mean Corpuscular Hemoglobin Concent 31.4L, Red Cell Distribution Width 17.2H, Platelet Count 295, Neutrophils (%) (Auto) 78.0H, Lymphocytes (%) (Auto) 8.7L, Monocytes (%) (Auto) 8.1H, Eosinophils (%) (Auto) 3.5H, Basophils (%) (Auto) 0.3, Neutrophils # (Auto) 7.4, Lymphocytes # (Auto) 0.8L, Monocytes # (Auto) 0.8, Eosinophils # (Auto) 0.3, Basophils # (Auto) 0.0, Nucleated Red Blood Cells % (auto) 0.0, Anion Gap 8, Glomerular Filtration Rate > 60.0, Blood Urea Nitrogen 18, Creatinine 0.86, Sodium Level 144, Potassium Level 3.7, Chloride Level 109H, Carbon Dioxide Level 27, Calcium Level 9.7, Aspartate Amino Transf (AST/SGOT) 24, Alanine Aminotransferase (ALT/SGPT) 26, Alkaline Phosphatase 190H, Total Bilirubin 0.3, Total Protein 5.5L, Albumin 1.7L, Magnesium Level 1.9, C-Reactive Protein, Quantitative 7.23H, Albumin/Globulin Ratio 0.45L CBC/BMP Laboratory Tests 02/25/19 05:33 Red Blood Count 3.60 L, Mean Corpuscular Volume 85.8, Mean Corpuscular Hemoglobin 26.9 L, Mean Corpuscular Hemoglobin Concent 31.4 L, Red Cell Distribution Width 17.2 H, Neutrophils (%) (Auto) 78.0 H, Lymphocytes (%) (Auto) 8.7 L, Monocytes (%) (Auto) 8.1 H, Eosinophils (%) (Auto) 3.5 H, Basophils (%) (Auto) 0.3, Neutrophils # (Auto) 7.4, Lymphocytes # (Auto) 0.8 L, Monocytes # (Auto) 0.8, Eosinophils # (Auto) 0.3, Basophils # (Auto) 0.0, Calcium Level 9.7, Aspartate Amino Transf (AST/SGOT) 24, Alanine Aminotransferase (ALT/SGPT) 26, Alkaline Phosphatase 190 H, Total Bilirubin 0.3, Total Protein 5.5 L, Albumin 1.7 L Microbiology Microbiology 02/25/19 Blood Culture, Received Pending 5/12/19 Blood Culture - Final, Complete NO GROWTH AFTER 5 DAYS 02/16/19 Blood Fungal Culture, Received Pending 02/16/19 Blood Culture - Final, Complete NO GROWTH AFTER 5 DAYS 02/16/19 Blood Fungal Culture, Received Pending 02/16/19 Blood Culture - Final, Complete NO GROWTH AFTER 5 DAYS GRACIE TINOCO MD February 25, 2019 10:30
[2019-02-25 12:00] VITALS: BP 144/79
--- NOTE | 2019-02-25 15:16 | IPNPDOC ---
Text Note Date of Service The patient was seen on 02/25/19. NOTE No acute events overnight. Denies abd pains, nausea, or emesis. She is tolera ting TF at 55 with minimal output in the g-tube. She was able to walk in the halls again yesterday, and is cleared by PT. She is tolerating the PO meds as well. VSSAF NAD abd - soft, nt, nd, g-j tube in place in the LUQ. labs - below A) 78y/o female s/p hiatal hernia repair for gastric volvulus. gastroparesis UE DVT P) TF to goal ambulate PT plan on d/c once TF are set up for home Andrey Hinojosa DO A-FIB/CHADSVASC A-FIB History Current/History of A-Fib/PAF?: No VS,Fishbone, I+O VS, Fishbone, I+O Laboratory Tests 02/25/19 05:33 Red Blood Count 3.60 L, Mean Corpuscular Volume 85.8, Mean Corpuscular Hemoglobin 26.9 L, Mean Corpuscular Hemoglobin Concent 31.4 L, Red Cell Distribution Width 17.2 H, Neutrophils (%) (Auto) 78.0 H, Lymphocytes (%) (Auto) 8.7 L, Monocytes (%) (Auto) 8.1 H, Eosinophils (%) (Auto) 3.5 H, Basophils (%) (Auto) 0.3, Neutrophils # (Auto) 7.4, Lymphocytes # (Auto) 0.8 L, Monocytes # (Auto) 0.8, Eosinophils # (Auto) 0.3, Basophils # (Auto) 0.0, Calcium Level 9.7, Aspartate Amino Transf (AST/SGOT) 24, Alanine Aminotransferase (ALT/SGPT) 26, Alkaline Phosphatase 190 H, Total Bilirubin 0.3, Total Protein 5.5 L, Albumin 1.7 L Vital Signs Date Time Temp Pulse Resp B/P (MAP) Pulse Ox O2 Delivery O2 Flow Rate FiO2 02/25/19 12:00 98.7 84 16 144/79 (100) 94 02/19/19 18:37 2.0 30 I&O- Last 24 Hours up to 6 AM 02/25/19 06:00 Intake Total 1265 ml Output Total 0 ml Balance 1265 ml VELMA HINOJOSA DO February 25, 2019 15:16
[2019-02-25 16:00] VITALS: BP 158/72
[2019-02-25] MEDS: ACETAMINOPHEN 500 MG TAB PO PRN (16:12)
[2019-02-25 20:00] VITALS: BP 150/89
[2019-02-25] MEDS: LATANOPROST 0.005% OPHTH SOLN 2.5 ML OU SCH (21:22)
[2019-02-26] VITALS: BP 151/83
[2019-02-26] MEDS: METOCLOPRAMIDE INJ 10MG/2ML VIAL (J2765) IV SCH ×2 (03:50→12:12)
[2019-02-26 04:00] VITALS: BP 161/80
[2019-02-26 06:03] LABS: BASO # 0.1 10^3/uL (0.0-0.2); BASO % 0.5 % (0.0-1.0); EOS # 0.3 10^3/uL (0.0-0.50); EOS % 2.8 % (0.0-3.0); HEMATOCRIT 32.1 % (36.0-47.0); LYMPH # 0.8 10^3/uL (1.5-4.5); LYMPH % 7.6 % (24.0-44.0); MEAN CORPUSCULAR HEMOGLOBIN 26.8 pg (27.0-33.0); MEAN CORPUSCULAR HGB CONC 31.2 g/dl (32.0-36.5); MEAN CORPUSCULAR VOLUME 86.1 fl (80.0-96.0); MONO # 0.8 10^3/uL (0.0-0.8); MONO % 7.7 % (0.0-5.0); NEUTROPHILS # 8.4 10^3/uL (1.8-7.7); NEUTROPHILS % 80.3 % (36.0-66.0); PLATELET COUNT, AUTOMATED 283 10^3/uL (150-450); RED BLOOD COUNT 3.73 10^6/uL (4.00-5.40); WHITE BLOOD COUNT 10.5 10^3/uL (4.0-10.0)
[2019-02-26] MEDS: SLF 3 ML SYR IV SCH ×3 (06:28→20:36)
[2019-02-26] MEDS: LEVOTHYROXINE 25MCG TABLET (0.025MG) PO SCH (06:28)
[2019-02-26 06:29] LABS: ALBUMIN 1.8 GM/DL (3.2-5.2); ALT/SGPT 28 U/L (12-78); BILIRUBIN,TOTAL 0.4 MG/DL (0.2-1.0); BLOOD UREA NITROGEN 21 MG/DL (7-18); CARBON DIOXIDE LEVEL 28 MEQ/L (21-32); CHLORIDE LEVEL 113 MEQ/L (98-107); CREATININE FOR GFR 0.84 MG/DL (0.55-1.30); GLOMERULAR FILTRATION RATE > 60.0 (>39); GLUCOSE, FASTING 135 MG/DL (70-100); MAGNESIUM LEVEL 2.1 MG/DL (1.8-2.4); POTASSIUM SERUM 3.9 MEQ/L (3.5-5.1); SODIUM LEVEL 146 MEQ/L (136-145); TOTAL PROTEIN 5.8 GM/DL (6.4-8.2)
[2019-02-26 08:00] VITALS: BP 165/79
[2019-02-26] MEDS: APIXABAN 5 MG TAB (ELIQUIS) PO SCH ×2 (09:10→20:35)
[2019-02-26] MEDS: PANTOPRAZOLE 40MG INJ (PROTONIX) (C9113) IV SCH (09:10)
[2019-02-26] MEDS: BRINZOLAMIDE 1 % OPHTH SUSP (AZOPT) 10ML OU SCH ×2 (09:10→20:36)
--- NOTE | 2019-02-26 10:19 | IPNPDOC ---
Date Seen The patient was seen on 02/26/19. Progress Note SUBJECTIVE: Patient was seen and examined this morning. She currently has no new complaints. She has passed physical therapy. She is currently awaiting approval for feeding tube supplies by her insurance. She did have a temperature of 100.2 last night. She denies any chills, nausea, vomiting, diarrhea, or constipation OBJECTIVE PHYSICAL EXAMINATION: VITAL SIGNS: Please see below. GENERAL: Awake, alert, and oriented. Appears in no acute distress. Lying comfortably in bed. HEENT: Atrumatic, normocephalic. Eyes are nonicteric. Trachea is midline. CARDIOVASCULAR: Normal S1, S2. Regular rate and rhythm. No clicks, rubs, or murmurs. RESPIRATORY: Clear vesicular breath sounds bilaterally. No wheezes, rhonchi, or rales ABDOMINAL: soft, nondistended. Nontender to palpation throughout. No rebound tenderness or guarding. GJ tube in place and bandaged. Minimal drainage from around tube site. No erythema EXTREMITIES: Right upper extremity swelling present continuing to decrease. No lower extremity edema. Pulses are full and equal in bilateral upper and lower extremities NEUROLOGICAL: No focal neurological deficits PSYCHOLOGICAL: Mood and affect appear appropriate LABORATORY DATA, IMAGING STUDIES, MICROBIOLOGY: Please see below. DVT prophylaxis ordered?: YES ASSESSMENT AND PLAN: Patient is a 78 year old female with a PMHx of HTN, DLP, Glaucoma, GERD who presented to the [facility] ER on 01/26/19 with complaint of abdominal pain. 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 The patient had a laparoscopic reduction. The patient was denice ble to be weaned off ventilator after her surgery due to worsening hypoxia. She was found to have an aspiration pneumonia. Patient did improve and was extubated to BIPAP / Vapotherem. She was taken for intervention again on for replacement of G tube to GJ tube and aspiration of fluid collection. PROBLEMS: 1. Large hiatal hernia and acute gastric volvulus -Currently stable. -s/p GJ tube replacement -Patient is followed by surgery -Tube feedings have been advanced to 55cc/hr. -Patient has cleared PT -Plan to discharge with continuous tube feeding. Awaiting insurance authorization for supplies 2. Post-operative wound infection w/ subcutaneous abscess around the G-tube -Patient is followed by ID. -Infection has resolved and patient is no longer on Antibiotics. -Patient had a temperature of 100.2 last night. She does have an upper extremity DVT which could transiently cause an elevated temperature. Does not appear infectious at this point will continue to monitor 3. Right Upper Extremity Swelling -Patient had right upper extremity swelling. 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 Will transition patient to Eliquis today -Start Eliquis 10mg BID for 7 days as loading dose. Patient will then continue on Eliquis 5mg BID for at least 3 months. -She is currently on day 3 of 7 for her loading dose of Eliquis 4. Anemia -Patient had developed anemia. She was transfused 2 units of PRBC's. Her Hbg has remained stable since her transfusion. Will continue to monitor. 5. Aspiration pneumonia -Patient has completed Antibiotic therapy. She is followed by ID. -She has remained afebrile without a white blood cell count. -Cough has resolved. Patient is continued on respiratory therapy 6. Bilateral pleural Effusions -Patient has a left sided pleural effusion more so than right. Her left sided effusion is likely larger as her stomach was occupying space before being surgically reduced -Chest CT demonstrating improved aeration and improved infiltrates on the right. New lobar collapse in left upper lobe likely 2/2 mucous plugging. Small bilateral pleural and pericardial effusions somewhat increased. -Patient had been receiving chest PT. Her symptoms seem to have resolved. 7. Nutrition -Patient is off of TPN -Tube feedings have been advanced to Jevity 1.5 shae @ 55cc/hr. Plan is to discharge with tube feedings at home 8. Fever and Hypotension -Patient had an episode of fever and hypotension. She had just had a PICC line inserted at the time. A possible line infection was possible however, the line had only be in for a short period of time. -Patient has had an elevated temperature last night of 100.6. She has not had a fever since then. Will continue to monitor. Her temperature may have been secondary to her right upper extremity DVT 9. GERD -Protonix 10. Hypothyroidism -Synthroid 11. DVT prophylaxis -Eliquis DISPOSITION: Patient has passed Physical therapy. Awaiting tube feeding supplies for discharge A-FIB/CHADSVASC A-FIB History Current/History of A-Fib/PAF?: No VS, I&O, 24H, Fishbone Vital Signs/I&O Vital Signs Date Time Temp Pulse Resp B/P (MAP) Pulse Ox O2 Delivery O2 Flow Rate FiO2 02/26/19 08:00 98.0 94 18 165/79 (107) 93 I&O- Last 24 Hours up to 6 AM 02/26/19 06:00 Intake Total 660 ml Output Total 200 ml Balance 460 ml Laboratory Data 24H LABS Laboratory Tests 2 02/26/19 05:45: Immature Granulocyte % (Auto) 1.1, White Blood Count 10.5H, Red Blood Count 3.73L, Hemoglobin 10.0L, Hematocrit 32.1L, Mean Corpuscular Volume 86.1, Mean Corpuscular Hemoglobin 26.8L, Mean Corpuscular Hemoglobin Concent 31.2L, Red Cell Distribution Width 17.2H, Platelet Count 283, Neutrophils (%) (Auto) 80.3H, Lymphocytes (%) (Auto) 7.6L, Monocytes (%) (Auto) 7.7H, Eosinophils (%) (Auto) 2.8, Basophils (%) (Auto) 0.5, Neutrophils # (Auto) 8.4H, Lymphocytes # (Auto) 0.8L, Monocytes # (Auto) 0.8, Eosinophils # (Auto) 0.3, Basophils # (Auto) 0.1, Nucleated Red Blood Cells % (auto) 0.0, Anion Gap 5L, Glomerular Filtration Rate > 60.0, Blood Urea Nitrogen 21H, Creatinine 0.84, Sodium Level 146H, Potassium Level 3.9, Chloride Level 113H, Carbon Dioxide Level 28, Calcium Level 10.0, Aspartate Amino Transf (AST/SGOT) 25, Alanine Aminotransferase (ALT/SGPT) 28, Alkaline Phosphatase 176H, Total Bilirubin 0.4, Total Protein 5.8L, Albumin 1. 8L, Magnesium Level 2.1, Albumin/Globulin Ratio 0.45L CBC/BMP Laboratory Tests 02/26/19 05:45 Red Blood Count 3.73 L, Mean Corpuscular Volume 86.1, Mean Corpuscular Hemoglobin 26.8 L, Mean Corpuscular Hemoglobin Concent 31.2 L, Red Cell Distribution Width 17.2 H, Neutrophils (%) (Auto) 80.3 H, Lymphocytes (%) (Auto) 7.6 L, Monocytes (%) (Auto) 7.7 H, Eosinophils (%) (Auto) 2.8, Basophils (%) (Auto) 0.5, Neutrophils # (Auto) 8.4 H, Lymphocytes # (Auto) 0.8 L, Monocytes # (Auto) 0.8, Eosinophils # (Auto) 0.3, Basophils # (Auto) 0.1, Calcium Level 10.0, Aspartate Amino Transf (AST/SGOT) 25, Alanine Aminotransferase (ALT/SGPT) 28, Alkaline Phosphatase 176 H, Total Bilirubin 0.4, Total Protein 5.8 L, Albumin 1.8 L Microbiology Microbiology 02/25/19 Blood Culture - Preliminary, Resulted No growth after 24 hours . All specim... 02/16/19 Blood Culture - Final, Complete NO GROWTH AFTER 5 DAYS 02/16/19 Blood Fungal Culture, Received Pending 02/16/19 Blood Culture - Final, Complete NO GROWTH AFTER 5 DAYS 02/16/19 Blood Fungal Culture, Received Pending 02/16/19 Blood Culture - Final, Complete NO GROWTH AFTER 5 DAYS GME ATTESTATION GME ATTESTATION My faculty preceptor for this patient encounter was physically present during the encounter and was fully available. All aspects of the patient interview, examination, medical decision making process, and medical care plan development were reviewed and approved by the faculty preceptor. The faculty preceptor is aware and concurs with the plan as stated in the body of this note and will att est to such by his/her cosignature. ATTENDING NOTE Patient seen and examined at bedside Guest discussed with resident physician Continue present meds and care A.m. laboratory work has been ordered MICHAEL AYON DO February 26, 2019 10:19 GRACIE TINOCO MD February 27, 2019 07:42
[2019-02-26 12:00] VITALS: BP_SYST 123; BP_SYST 143; BP_DIAS 65; BP_DIAS 79
[2019-02-26] MEDS ORDERED: ONDANSETRON 4 MG ORAL DISINTEGRATING TAB (Q0162 PER 1MG) PO PRN (18:15)
[2019-02-26 20:00] VITALS: BP 167/90
[2019-02-26] MEDS: METOCLOPRAMIDE 10 MG TAB PO SCH (20:35)
[2019-02-26] MEDS: LATANOPROST 0.005% OPHTH SOLN 2.5 ML OU SCH (20:35)
[2019-02-27] VITALS (7 sets, daily range): BP systolic 138–168; BP diastolic 69–93
[2019-02-27] MEDS: SLF 3 ML SYR IV SCH ×3 (05:39→22:00)
[2019-02-27] MEDS: LEVOTHYROXINE 25MCG TABLET (0.025MG) PO SCH (05:39)
[2019-02-27] MEDS: METOCLOPRAMIDE 10 MG TAB PO SCH ×3 (05:39→22:09)
[2019-02-27 05:43] LABS: BASO % 0.3 % (0.0-1.0); EOS # 0.4 10^3/uL (0.0-0.50); EOS % 3.5 % (0.0-3.0); HEMATOCRIT 31.3 % (36.0-47.0); HEMOGLOBIN 9.6 g/dl (12.0-15.5); LYMPH # 1.1 10^3/uL (1.5-4.5); MEAN CORPUSCULAR HGB CONC 30.7 g/dl (32.0-36.5); MEAN CORPUSCULAR VOLUME 84.8 fl (80.0-96.0); MONO # 0.9 10^3/uL (0.0-0.8); MONO % 8.7 % (0.0-5.0); NEUTROPHILS # 8.2 10^3/uL (1.8-7.7); NEUTROPHILS % 76.2 % (36.0-66.0); PLATELET COUNT, AUTOMATED 288 10^3/uL (150-450); RED BLOOD COUNT 3.69 10^6/uL (4.00-5.40); WHITE BLOOD COUNT 10.8 10^3/uL (4.0-10.0)
[2019-02-27 06:14] LABS: ALBUMIN 1.8 GM/DL (3.2-5.2); ALT/SGPT 28 U/L (12-78); BILIRUBIN,TOTAL 0.2 MG/DL (0.2-1.0); BLOOD UREA NITROGEN 22 MG/DL (7-18); CALCIUM LEVEL 9.7 MG/DL (8.8-10.2); CARBON DIOXIDE LEVEL 29 MEQ/L (21-32); CHLORIDE LEVEL 115 MEQ/L (98-107); GLOMERULAR FILTRATION RATE > 60.0 (>39); GLUCOSE, FASTING 190 MG/DL (70-100); MAGNESIUM LEVEL 2.2 MG/DL (1.8-2.4); SODIUM LEVEL 148 MEQ/L (136-145)
[2019-02-27] MEDS: PANTOPRAZOLE 40MG TAB (PROTONIX) PO SCH (09:05)
[2019-02-27] MEDS: APIXABAN 5 MG TAB (ELIQUIS) PO SCH ×2 (09:05→22:09)
[2019-02-27] MEDS: BRINZOLAMIDE 1 % OPHTH SUSP (AZOPT) 10ML OU SCH ×2 (09:06→22:08)
--- NOTE | 2019-02-27 09:18 | IPNPDOC ---
Text Note Date of Service The patient was seen on 02/26/19. NOTE No acute events overnight. Denies abd pains, nausea, or emesis. She is tolera ting TF at 55, and tolerating PO meds, but still has a little regurgitation of water occasionally. VSSAF NAD abd - soft, nt, nd, g-j tube in place in the LUQ. labs - below A) 78y/o female s/p hiatal hernia repair for gastric volvulus. gastroparesis UE DVT P) TF to goal ambulate PT plan on d/c once TF are set up for home Andrey Hinojosa DO A-FIB/CHADSVASC A-FIB History Current/History of A-Fib/PAF?: No VS,Fishbone, I+O VS, Fishbone, I+O Laboratory Tests 02/27/19 05:30 Red Blood Count 3.69 L, Mean Corpuscular Volume 84.8, Mean Corpuscular Hemoglobin 26.0 L, Mean Corpuscular Hemoglobin Concent 30.7 L, Red Cell Distribution Width 17.4 H, Neutrophils (%) (Auto) 76.2 H, Lymphocytes (%) (Auto) 10.0 L, Monocytes (%) (Auto) 8.7 H, Eosinophils (%) (Auto) 3.5 H, Basophils (%) (Auto) 0.3, Neutrophils # (Auto) 8.2 H, Lymphocytes # (Auto) 1.1 L, Monocytes # (Auto) 0.9 H, Eosinophils # (Auto) 0.4, Basophils # (Auto) 0.0, Calcium Level 9.7, Aspartate Amino Transf (AST/SGOT) 22, Alanine Aminotransferase (ALT/SGPT) 28, Alkaline Phosphatase 168 H, Total Bilirubin 0.2, Total Protein 6.0 L, Albumin 1.8 L Vital Signs Date Time Temp Pulse Resp B/P (MAP) Pulse Ox O2 Delivery O2 Flow Rate FiO2 02/27/19 04:00 98.1 84 18 147/69 (95) 93 I&O- Last 24 Hours up to 6 AM 02/27/19 06:00 Intake Total 0 ml Output Total 700 ml Balance -700 ml VELMA HINOJOSA DO February 27, 2019 09:18
--- NOTE | 2019-02-27 11:04 | IPNPDOC ---
Date Seen The patient was seen on 02/27/19. Progress Note SUBJECTIVE: Patient was seen and examined this morning. She continues to improve. She currently has no new complaints. She has passed Physical therapy and currently awaiting supplies for continuous tube feeds at home. OBJECTIVE PHYSICAL EXAMINATION: VITAL SIGNS: Please see below. GENERAL: Awake, alert, and oriented. Appears in no acute distress. Lying comfortably in bed. HEENT: Atrumatic, normocephalic. Eyes are nonicteric. Trachea is midline. CARDIOVASCULAR: Normal S1, S2. Regular rate and rhythm. No clicks, rubs, or murmurs. RESPIRATORY: Clear vesicular breath sounds bilaterally. No wheezes, rhonchi, or rales ABDOMINAL: soft, nondistended. Nontender to palpation throughout. No rebound tenderness or guarding. GJ tube in place and bandaged. Minimal drainage from around tube site. No erythema EXTREMITIES: Right upper extremity swelling present continuing to decrease. No lower extremity edema. Pulses are full and equal in bilateral upper and lower extremities NEUROLOGICAL: No focal neurological deficits PSYCHOLOGICAL: Mood and affect appear appropriate LABORATORY DATA, IMAGING STUDIES, MICROBIOLOGY: Please see below. DVT prophylaxis ordered?: YES ASSESSMENT AND PLAN: Patient is a 78 year old female with a PMHx of HTN, DLP, Glaucoma, GERD who presented to the [facility] ER on 01/26/19 with complaint of abdominal pain. 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 The patient had a laparoscopic reduction. The patient was unable to be weaned off ventilator after her surgery due to worsening hypoxia. She was found to have an aspiration pneumonia. Patient did improve and was extubated to BIPAP / Vapotherem. She was taken for intervention again on for replacement of G tube to GJ tube and aspiration of fluid collection. PROBLEMS: 1. Large hiatal hernia and acute gastric volvulus -Currently stable. -s/p GJ tube replacement -Patient is followed by surgery -Tube feedings have been advanced to 55cc/hr. -Patient has cleared PT -Plan to discharge with continuous tube feeding. -Supplies have been approved. Currently awaiting coverage for Jevity 1.5 shae 2. Post-operative wound infection w/ subcutaneous abscess around the G-tube -Patient is followed by ID. -Infection has resolved and patient is no longer on Antibiotics. -Patient had a temperature of 100.2 last night. She does have an upper extremity DVT which could transiently cause an elevated temperature. Does not appear infectious at this point will continue to monitor 3. Right Upper Extremity Swelling -Patient had right upper extremity swelling. 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 Will transition patient to Eliquis today -Start Eliquis 10mg BID for 7 days as loading dose. Patient will then continue on Eliquis 5mg BID for at least 3 months. -She is currently on day 4 of 7 for her loading dose of Eliquis 4. Anemia -Patient had developed anemia. She was transfused 2 units of PRBC's. Her Hbg has remained stable since her transfusion. Will continue to monitor. 5. Aspiration pneumonia -Patient has completed Antibiotic therapy. She is followed by ID. -She has remained afebrile without a white blood cell count. -Cough has resolved. Patient is continued on respiratory therapy 6. Bilateral pleural Effusions -Patient has a left sided pleural effusion more so than right. Her left sided effusion is likely larger as her stomach was occupying space before being surgically reduced -Chest CT demonstrating improved aeration and improved infiltrates on the right. New lobar collapse in left upper lobe likely 2/2 mucous plugging. Small bilateral pleural and pericardial effusions somewhat increased. -Patient had been receiving chest PT. Her symptoms seem to have resolved. 7. Nutrition -Patient is off of TPN -Tube feedings have been advanced to Jevity 1.5 shae @ 55cc/hr. Plan is to discharge with tube feedings at home 8. Fever and Hypotension -Patient had an episode of fever and hypotension. She had just had a PICC line inserted at the time. A possible line infection was possible however, the line had only be in for a short period of time. -Patient has remained afebrile overnight. Will continue to monitor 9. GERD -Protonix 10. Hypothyroidism -Synthroid 11. DVT prophylaxis -Eliquis DISPOSITION: Patient has passed Physical therapy. Currently awaiting Jevity 1.5 shae approval. Anticipated 48 hours. A-FIB/CHADSVASC A-FIB History Current/History of A-Fib/PAF?: No VS, I&O, 24H, Fishbone Vital Signs/I&O Vital Signs Date Time Temp Pulse Resp B/P (MAP) Pulse Ox O2 Delivery O2 Flow Rate FiO2 02/27/19 08:00 98.1 86 18 153/83 (106) 95 I&O- Last 24 Hours up to 6 AM 02/27/19 06:00 Intake Total 0 ml Output Total 700 ml Balance -700 ml Laboratory Data 24H LABS Laboratory Tests 2 02/27/19 05:30: Immature Granulocyte % (Auto) 1.3, White Blood Count 10.8H, Red Blood Count 3.69L, Hemoglobin 9.6L, Hematocrit 31.3L, Mean Corpuscular Volume 84.8, Mean Corpuscular Hemoglobin 26.0L, Mean Corpuscular Hemoglobin Concent 30.7L, Red Cell Distribution Width 17.4H, Platelet Count 288, Neutrophils (%) (Auto) 76.2H, Lymphocytes (%) (Auto) 10.0L, Monocytes (%) (Auto) 8.7H, Eosinophils (%) (Auto) 3.5H, Basophils (%) (Auto) 0.3, Neutrophils # (Auto) 8.2H, Lymphocytes # (Auto) 1.1L, Monocytes # (Auto) 0.9H, Eosinophils # (Auto) 0.4, Basophils # (Auto) 0.0, Nucleated Red Blood Cells % (auto) 0.0, Anion Gap 4L, Glomerular Filtration Rate > 60.0, Blood Urea Nitrogen 22H, Creatinine 0.90, Sodium Level 148H, Potassium Level 4.0, Chloride Level 115H, Carbon Dioxide Level 29, Calcium Level 9.7, Aspartate Amino Transf (AST/SGOT) 22, Alanine Aminotransferase (ALT/SGPT) 28, Alkaline Phosphatase 168H, Total Bilirubin 0.2, Total Protein 6.0L, Albumin 1.8L, Magnesium Level 2.2, Albumin/Globulin Ratio 0.43L CBC/BMP Laboratory Tests 02/27/19 05:30 Red Blood Count 3.69 L, Mean Corpuscular Volume 84.8, Mean Corpuscular Hemoglobin 26.0 L, Mean Corpuscular Hemoglobin Concent 30.7 L, Red Cell Distribution Width 17.4 H, Neutrophils (%) (Auto) 76.2 H, Lymphocytes (%) (Auto) 10.0 L, Monocytes (%) (Auto) 8.7 H, Eosinophils (%) (Auto) 3.5 H, Basophils (%) (Auto) 0.3, Neutrophils # (Auto) 8.2 H, Lymphocytes # (Auto) 1.1 L, Monocytes # (Auto) 0.9 H, Eosinophils # (Auto) 0.4, Basophils # (Auto) 0.0, Calcium Level 9.7, Aspartate Amino Transf (AST/SGOT) 22, Alanine Aminotransferase (ALT/SGPT) 28, Alkaline Phosphatase 168 H, Total Bilirubin 0.2, Total Protein 6.0 L, Albumin 1.8 L Microbiology Microbiology 02/25/19 Blood Culture - Preliminary, Resulted No Growth after 48 hours. All Specime... GME ATTESTATION GME ATTESTATION My faculty preceptor for this patient encounter was physically present during the encounter and was fully available. All aspects of the patient interview, examination, medical decision making process, and medical care plan development were reviewed and approved by the faculty preceptor. The faculty preceptor is aware and concurs with the plan as stated in the body of this note and will attest to such by his/her cosignature. ATTENDING NOTE Patient seen and examined at bedside, Guest discussed with resident Awaiting G/J-tube feeding from insurance [employer] before she is discharged home with feeding Continue present care MICHAEL AYON DO February 27, 2019 11:04 GRACIE TINOCO MD February 27, 2019 13:57
[2019-02-27] MEDS: LATANOPROST 0.005% OPHTH SOLN 2.5 ML OU SCH (22:08)
[2019-02-28] MEDS: LEVOTHYROXINE 25MCG TABLET (0.025MG) PO SCH (05:57)
[2019-02-28] MEDS: SLF 3 ML SYR IV SCH ×2 (05:57→13:01)
[2019-02-28] MEDS: METOCLOPRAMIDE 10 MG TAB PO SCH ×2 (05:57→13:01)
[2019-02-28 06:00] VITALS: BP 146/62
[2019-02-28 07:17] LABS: BASO # 0.1 10^3/uL (0.0-0.2); BASO % 0.6 % (0.0-1.0); EOS # 0.7 10^3/uL (0.0-0.50); EOS % 6.2 % (0.0-3.0); HEMATOCRIT 33.3 % (36.0-47.0); HEMOGLOBIN 10.2 g/dl (12.0-15.5); LYMPH # 1.2 10^3/uL (1.5-4.5); LYMPH % 11.3 % (24.0-44.0); MEAN CORPUSCULAR HEMOGLOBIN 26.6 pg (27.0-33.0); MEAN CORPUSCULAR HGB CONC 30.6 g/dl (32.0-36.5); MEAN CORPUSCULAR VOLUME 86.9 fl (80.0-96.0); MONO # 0.9 10^3/uL (0.0-0.8); MONO % 8.4 % (0.0-5.0); NEUTROPHILS # 7.8 10^3/uL (1.8-7.7); NEUTROPHILS % 72.7 % (36.0-66.0); PLATELET COUNT, AUTOMATED 291 10^3/uL (150-450); RED BLOOD COUNT 3.83 10^6/uL (4.00-5.40); WHITE BLOOD COUNT 10.7 10^3/uL (4.0-10.0)
[2019-02-28 07:51] LABS: ALBUMIN 2.2 GM/DL (3.2-5.2); ALT/SGPT 26 U/L (12-78); BILIRUBIN,TOTAL 0.4 MG/DL (0.2-1.0); BLOOD UREA NITROGEN 27 MG/DL (7-18); CALCIUM LEVEL 10.4 MG/DL (8.8-10.2); CARBON DIOXIDE LEVEL 29 MEQ/L (21-32); CHLORIDE LEVEL 114 MEQ/L (98-107); GLOMERULAR FILTRATION RATE > 60.0 (>39); GLUCOSE, FASTING 185 MG/DL (70-100); MAGNESIUM LEVEL 2.1 MG/DL (1.8-2.4); POTASSIUM SERUM 3.6 MEQ/L (3.5-5.1); SODIUM LEVEL 149 MEQ/L (136-145); TOTAL PROTEIN 6.1 GM/DL (6.4-8.2)
[2019-02-28] MEDS: BRINZOLAMIDE 1 % OPHTH SUSP (AZOPT) 10ML OU SCH (08:57)
[2019-02-28] MEDS: PANTOPRAZOLE 40MG TAB (PROTONIX) PO SCH (08:57)
[2019-02-28] MEDS: APIXABAN 5 MG TAB (ELIQUIS) PO SCH (08:57)
[2019-02-28] MEDS ORDERED: PANT40TA3 PO (09:34)
[2019-02-28] MEDS ORDERED: ELIQ5TAB PO (09:34)
[2019-02-28] MEDS ORDERED: STERSOL2 IR (09:34)
--- NOTE | 2019-02-28 10:25 | IPNPDOC ---
Text Note Date of Service The patient was seen on 02/27/19. NOTE No acute events overnight. Denies abd pains, nausea, or emesis. She is tolera ting TF at 55, and tolerating PO meds. The only thing keeping her in the hospital is getting the tube feeds set up for home. VSSAF NAD abd - soft, nt, nd, g-j tube in place in the LUQ. labs - below A) 78y/o female s/p hiatal hernia repair for gastric volvulus. gastroparesis UE DVT P) TF at goal ambulate PT plan on d/c once TF are set up for home Andrey Hinojosa DO A-FIB/CHADSVASC A-FIB History Current/History of A-Fib/PAF?: No VS,Fishbone, I+O VS, Fishbone, I+O Laboratory Tests 02/28/19 07:02 Red Blood Count 3.83 L, Mean Corpuscular Volume 86.9, Mean Corpuscular Hemoglobin 26.6 L, Mean Corpuscular Hemoglobin Concent 30.6 L, Red Cell Distribution Width 17.6 H, Neutrophils (%) (Auto) 72.7 H, Lymphocytes (%) (Auto) 11.3 L, Monocytes (%) (Auto) 8.4 H, Eosinophils (%) (Auto) 6.2 H, Basophils (%) (Auto) 0.6, Neutrophils # (Auto) 7.8 H, Lymphocytes # (Auto) 1.2 L, Monocytes # (Auto) 0.9 H, Eosinophils # (Auto) 0.7 H, Basophils # (Auto) 0.1, Calcium Level 10.4 H, Aspartate Amino Transf (AST/SGOT) 18, Alanine Aminotransferase (ALT/SGPT) 26, Alkaline Phosphatase 162 H, Total Bilirubin 0.4 #, Total Protein 6.1 L, Albumin 2.2 #L Vital Signs Date Time Temp Pulse Resp B/P (MAP) Pulse Ox O2 Delivery O2 Flow Rate FiO2 02/28/19 06:00 96.7 82 16 146/62 (90) 93 I&O- Last 24 Hours up to 6 AM 02/28/19 05:59 Intake Total 90 ml Output Total 300 ml Balance -210 ml VELMA HINOJOSA DO February 28, 2019 10:25
--- NOTE | 2019-02-28 10:27 | IPNPDOC ---
Text Note Date of Service The patient was seen on 02/28/19. NOTE No acute events overnight. Denies abd pains, nausea, or emesis. She is getting anxious to go home. No changes. Tube feed supplies were delivered to her house yesterday. VSSAF NAD abd - soft, nt, nd, g-j tube in place in the LUQ. labs - below A) 78y/o female s/p hiatal hernia repair for gastric volvulus. gastroparesis UE DVT P) TF to goal ambulate PT Anticipate d/c home today once nursing checks with the [employer]. Andrey Hinojosa DO A-FIB/CHADSVASC A-FIB History Current/History of A-Fib/PAF?: No VS,Fishbone, I+O VS, Fishbone, I+O Laboratory Tests 02/28/19 07:02 Red Blood Count 3.83 L, Mean Corpuscular Volume 86.9, Mean Corpuscular Hemoglobin 26.6 L, Mean Corpuscular Hemoglobin Concent 30.6 L, Red Cell Distribution Width 17.6 H, Neutrophils (%) (Auto) 72.7 H, Lymphocytes (%) (Auto) 11.3 L, Monocytes (%) (Auto) 8.4 H, Eosinophils (%) (Auto) 6.2 H, Basophils (%) (Auto) 0.6, Neutrophils # (Auto) 7.8 H, Lymphocytes # (Auto) 1.2 L, Monocytes # (Auto) 0.9 H, Eosinophils # (Auto) 0.7 H, Basophils # (Auto) 0.1, Calcium Level 10.4 H, Aspartate Amino Transf (AST/SGOT) 18, Alanine Aminotransferase (ALT/SGPT) 26, Alkaline Phosphatase 162 H, Total Bilirubin 0.4 #, Total Protein 6.1 L, Albumin 2.2 #L Vital Signs Date Time Temp Pulse Resp B/P (MAP) Pulse Ox O2 Delivery O2 Flow Rate FiO2 02/28/19 06:00 96.7 82 16 146/62 (90) 93 I&O- Last 24 Hours up to 6 AM 02/28/19 05:59 Intake Total 90 ml Output Total 300 ml Balance -210 ml VELMA HINOJOSA DO February 28, 2019 10:27
--- NOTE | 2019-02-28 13:16 | IPNPDOC ---
Date Seen The patient was seen on 02/28/19. Progress Note SUBJECTIVE: Patient was seen and examined this morning. She currently has no complaints. Discharge is anticipated for later today. OBJECTIVE PHYSICAL EXAMINATION: VITAL SIGNS: Please see below. GENERAL: Awake, alert, and oriented. Appears in no acute distress. Lying comfortably in bed. HEENT: Atrumatic, normocephalic. Eyes are nonicteric. Trachea is midline. CARDIOVASCULAR: Normal S1, S2. Regular rate and rhythm. No clicks, rubs, or murmurs. RESPIRATORY: Clear vesicular breath sounds bilaterally. No wheezes, rhonchi, or rales ABDOMINAL: soft, nondistended. Nontender to palpation throughout. No rebound tenderness or guarding. GJ tube in place and bandaged. Minimal drainage from mariam und tube site. No erythema EXTREMITIES: Right upper extremity swelling present continuing to decrease. No lower extremity edema. Pulses are full and equal in bilateral upper and lower extremities NEUROLOGICAL: No focal neurological deficits PSYCHOLOGICAL: Mood and affect appear appropriate LABORATORY DATA, IMAGING STUDIES, MICROBIOLOGY: Please see below. DVT prophylaxis ordered?: YES ASSESSMENT AND PLAN: Patient is a 78 year old female with a PMHx of HTN, DLP, Glaucoma, GERD who presented to the [facility] ER on 01/26/19 with complaint of abdominal pain. 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 The patient had a laparoscopic reduction. The patient was unable to be weaned off ventilator after her surgery due to worsening hypoxia. She was found to have an aspiration pneumonia. Patient did improve and was extubated to BIPAP / Vapotherem. She was taken for intervention again on for replacement of G tube to GJ tube and aspiration of fluid collection. PROBLEMS: 1. Large hiatal hernia and acute gastric volvulus -Currently stable. -s/p GJ tube replacement -Patient is followed by surgery -Tube feedings have been advanced to 55cc/hr. -Patient has cleared PT -Plan to discharge with continuous tube feeding. -Patient has had supplies delivered to her residence. Anticipating discharge today 2. Post-operative wound infection w/ subcutaneous abscess around the G-tube -Patient is followed by ID. -Infection has resolved and patient is no longer on Antibiotics. -Resolved. 3. Right Upper Extremity Swelling -Patient had right upper extremity swelling. 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 Will transition patient to Eliquis today -Start Eliquis 10mg BID for 7 days as loading dose. Patient will then continue on Eliquis 5mg BID for at least 3 months. -Patient will be discharged on Eliquis 5mg BID for 3 months. She will follow- up with her primary care provider for further management 4. Anemia -Patient had developed anemia. She was transfused 2 units of PRBC's. Her Hbg has remained stable since her transfusion -Stable/Resolved 5. Aspiration pneumonia -Patient has completed Antibiotic therapy. She is followed by ID. -She has remained afebrile without a white blood cell count. -Resolved 6. Bilateral pleural Effusions -Patient has a left sided pleural effusion more so than right. Her left sided effusion is likely larger as her stomach was occupying space before being surgically reduced -Chest CT demonstrating improved aeration and improved infiltrates on the right. New lobar collapse in left upper lobe likely 2/2 mucous plugging. Small bilateral pleural and pericardial effusions somewhat increased. -Patient had been receiving chest PT. Her symptoms seem to have resolved. 7. Nutrition -Patient is off of TPN -Tube feedings have been advanced to Jevity 1.5 shae @ 55cc/hr. Plan is to discharge with tube feedings at home 8. Fever and Hypotension -Patient had an episode of fever and hypotension. She had just had a PICC line inserted at the time. A possible line infection was possible however, the line had only be in for a short period of time. -Patient has remained afebrile overnight. 9. GERD -Protonix 10. Hypothyroidism -Synthroid 11. DVT prophylaxis -Eliquis DISPOSITION: Patient has passed Physical therapy. She has received all of her necessary equipment for continuous tube feeding at home. She will be discharged today. Medications have been reviewed and continued as appropriate. On discharge patient will start Eliquis 5mg BID for 3 months for her upper extremity DVT. She will follow-up with Dr. Aldana her primary care provider for further management of her anticoagulation and upper extremity DVT. VS, I&O, 24H, Fishbone Vital Signs/I&O Vital Signs Date Time Temp Pulse Resp B/P (MAP) Pulse Ox O2 Delivery O2 Flow Rate FiO2 02/28/19 06:00 96.7 82 16 146/62 (19) 93 I&O- Last 24 Hours up to 6 AM 02/28/19 06:00 Intake Total 750 ml Output Total 300 ml Balance 450 ml Laboratory Data 24H LABS Laboratory Tests 2 02/28/19 07:02: Immature Granulocyte % (Auto) 0.8, White Blood Count 10.7H, Red Blood Count 3.83L, Hemoglobin 10.2L, Hematocrit 33.3L, Mean Corpuscular Volume 86.9, Mean Corpuscular Hemoglobin 26.6L, Mean Corpuscular Hemoglobin Concent 30.6L, Red Cell Distribution Width 17.6H, Platelet Count 291, Neutrophils (%) (Auto) 72.7H, Lymphocytes (%) (Auto) 11.3L, Monocytes (%) (Auto) 8.4H, Eosinophils (%) (Auto) 6.2H, Basophils (%) (Auto) 0.6, Neutrophils # (Auto) 7.8H, Lymphocytes # (Auto) 1.2L, Monocytes # (Auto) 0.9H, Eosinophils # (Auto) 0.7H, Basophils # (Auto) 0.1, Nucleated Red Blood Cells % (auto) 0.0, Anion Gap 6L, Glomerular Filtration Rate > 60.0, Blood Urea Nitrogen 27H, Creatinine 0.90, Sodium Level 149H, Potassium Level 3.6, Chloride Level 114H, Carbon Dioxide Level 29, Calcium Level 10.4H, Aspartate Amino Transf (AST/SGOT) 18, Alanine Aminotransferase (ALT/SGPT) 26, Alkaline Phosphatase 162H, Total Bilirubin 0.4#, Total Protein 6.1L, Albumin 2.2#L, Magnesium Level 2.1, Albumin/Globulin Ratio 0.56L CBC/BMP Laboratory Tests 02/28/19 07:02 Red Blood Count 3.83 L, Mean Corpuscular Volume 86.9, Mean Corpuscular Hemoglobin 26.6 L, Mean Corpuscular Hemoglobin Concent 30.6 L, Red Cell Distribution Width 17.6 H, Neutrophils (%) (Auto) 72.7 H, Lymphocytes (%) (Auto) 11.3 L, Monocytes (%) (Auto) 8.4 H, Eosinophils (%) (Auto) 6.2 H, Basophils (%) (Auto) 0.6, Neutrophils # (Auto) 7.8 H, Lymphocytes # (Auto) 1.2 L, Monocytes # (Auto) 0.9 H, Eosinophils # (Auto) 0.7 H, Basophils # (Auto) 0.1, Calcium Level 10.4 H, Aspartate Amino Transf (AST/SGOT) 18, Alanine Aminotransferase (ALT/SGPT) 26, Alkaline Phosphatase 162 H, Total Bilirubin 0.4 #, Total Protein 6.1 L, Albumin 2.2 #L Microbiology Microbiology 02/25/19 Blood Culture - Preliminary, Resulted No Growth after 72 hours. All specime... GME ATTESTATION GME ATTESTATION My faculty preceptor for this patient encounter was physically present during the encounter and was fully available. All aspects of the patient interview, ex amination, medical decision making process, and medical care plan development were reviewed and approved by the faculty preceptor. The faculty preceptor is aware and concurs with the plan as stated in the body of this note and will attest to such by his/her cosignature. ATTENDING NOTE Patient seen and examined at bedside Family present at bedside Guest discussed with patient, family, and resident physician Patient will probably be discharged home today if arrangements are done already Continue present care MICHAEL AYON DO February 28, 2019 13:16 GRACIE TINOCO MD February 28, 2019 15:46
[2019-03-01] MEDS ORDERED: REGL10TA6 PO (10:33)
[2019-03-11] MEDS ORDERED: ECOT81TA5 PO (15:16)
[2019-03-11] MEDS ORDERED: ACET-683 PO (15:59)
[2019-03-11] MEDS ORDERED: ELIQ5TAB PO (15:59)
[2019-03-11] MEDS ORDERED: METO10TA2 PO (16:04)
[2019-03-11] MEDS ORDERED: PANT40TA3 PO (16:04)
[2019-03-11] MEDS ORDERED: COLA100C5 PO (16:04)
[2019-03-11] MEDS ORDERED: AZOP0.2S OU (16:04)
--- NOTE | 2019-03-13 19:02 | DSES ---
DATE OF ADMISSION: 01/27/2019 DATE OF DISCHARGE: 02/28/2019 ADMITTING DIAGNOSIS: Gastric volvulus. HISTORY OF PRESENT ILLNESS: The patient is a 78-year-old who presented to the emergency department late in the evening of 01/26/2019 complaining of severe epigastric and chest pain with some nausea. She described the pain coming on with fairly sudden onset shortly after dinner at about 05:30 in the evening. She had some significant nausea, but had only some nonproductive episodes of dry heaves. She reports having a previous diagnosis of a hiatal hernia, but has not apparently had any problems from it. In the emergency room (ER), she was found to have a markedly elevated white blood cell count. Her electrolytes were largely normal with a slight elevation of the BUN and creatinine. CT scan of the abdomen and pelvis revealed a very large hiatal hernia with much of the stomach up in the left lower chest. There was a suggestion of significant component of volvulus to the stomach. Stomach was quite fluid-filled and distended. She had no evidence of free fluid or free air. A nasogastric tube was placed. She was admitted for management of her large hiatal hernia with possible gastric volvulus. HOSPITAL COURSE: The patient was kept nothing by mouth. It was hoped that her nasogastric tube would decompress her stomach and prevent any further problems or ischemia. She received intravenous (IV) fluid. She was not started on antibiotics. Overnight on the night of admission, she required some increased oxygenation. Followup chest x-ray suggested pulmonary infiltrates from possible aspiration and she was started on Zosyn. She is having persistent episodes of some emesis at times. Her epigastric pain continued. Her picture was consistent with gastric obstruction, possible infarction with aspiration. She was taken urgently to the operating room. In the operating room (OR), she may have had some additional aspiration at the time of intubation. A laparoscopic reduction and repair of her hiatal hernia and gastric volvulus were performed. Her stomach appeared. A gastrostomy was placed using a simple gastrostomy tube to maintain decompression of the stomach and to allow some enteral feedings while she was monitored for healing. The patient was left intubated at the conclusion of her procedure and the pulmonary and critical care medicine specialist was consulted for assistance in managing her respiratory issues from her serious aspiration. She was kept intubated for several days and then was weaned through high concentrations of oxygen and ultimately did not require additional pulmonary support. Her gastrostomy (G) tube had issues with leakage around the tube. The jejunal (J) tube portion of the tube for had slipped out of the jejunum and into the stomach and so was not available for feeding. She received some total parenteral nutrition for a time. Her diet was advanced, but the patient still had persistent leakage around the gastrostomy tube. On 02/13/2019, she was taken to the OR and underwent upper endoscopy and her G-tube was removed and a gastrojejunal tube was inserted. It seemed that this went well with passage of the tube into the duodenum, but subsequent x-ray showed that the tube had slipped back into the stomach. She was also noted to have some ischemic-appearing ulcers in the fundus and body of the stomach, which did appear to be healing. She had evidence of an infection around the G-tube at one point and this actually grew yeast, and so she was treated with Diflucan and additional antibiotics. Subsequent consultation from Dr. Alaniz led to him placing a new jejunal tube through the G-tube site so that enteral feedings could be begun. She developed a deep vein thrombosis in the right upper extremity involving the axillary and subclavian veins through which her peripherally inserted central catheter (PICC) line had been placed for total parenteral nutrition (TPN). She was treated with Lovenox, which was subsequently converted to Eliquis. With her enteral feedings and nothing by mouth status, she began to make better progress. Her pulmonary function remained excellent. She had diminished leakage around the G-tube and tolerated her enteral feeds. Physical therapy was begun and continued. She appeared to have significant gastroparesis associated with her gastric volvulus, so the enteral feeds were continued and she remained nothing by mouth. She made good progress and was ultimately discharged on 02/28/2019. FINAL DIAGNOSES: 1. 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 2. Severe bilateral pulmonary aspiration with respiratory failure requiring ventilatory support. 3. Right upper extremity deep vein thrombosis. 4. 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 5. Glaucoma. 6. Hypertension. 7. Hypercholesterolemia. 8. History of hyperparathyroidism. 9. Postoperative infection of the G-tube site with yeast. SURGICAL PROCEDURES: 1. Laparoscopy with reduction and repair of large incarcerated paraesophageal hernia with gastric volvulus and placement of gastrostomy tube. 2. Esophagogastroduodenoscopy with conversion of G-tube to gastrojejunal feeding tube. 3. Fluoroscopic placement of gastroenteric feeding tube in interventional radiology by Dr. Alaniz. DISPOSITION: The patient was discharged home on 02/28/2019. She was to follow up in her primary physician's office on 03/14/2019 at 11:20. She was to follow up with me in the office in approximately two weeks. She could pursue light activity as tolerated, but was to avoid any strenuous activity. She was advised not to take anything orally other than her medications with small sips of water. She was taking Jevity 1.5 calories per mL at 55 mL/hour with 50 mL of free water flush every 6 hours. She was to return to the emergency department or call for problems. She was provided new prescriptions for: - apixaban 5 mg twice daily - Protonix 40 mg by mouth daily. She was to continue: - Tylenol - vitamin C - brinzolamide eye drops - Refresh eye drops - vitamin D - Xalatan eye drops - levothyroxine - multivitamin - omega 3 fatty acids - simvastatin - valsartan/hydrochlorothiazide pill.
--- NOTE | 2019-03-15 09:11 | RO ---
DATE OF PROCEDURE: 02/20/2019 ATTENDING SURGEON: Collette Alaniz MD ASSISTANTS: Mary Alves, Madelyn Viera, and Jani Light PREOPERATIVE DIAGNOSES: Dislodged gastrojejunal feeding tube, hiatal hernia with volvulus. POSTOPERATIVE DIAGNOSES: Dislodged gastrojejunal feeding tube, hiatal hernia with volvulus. PROCEDURE: Gastrojejunal feeding tube exchange. INDICATION: The patient is a 78-year-old female with a volvulus that was treated surgically with placement of a gastrojejunal tube, which has now migrated proximally, and the tip of the tube is no longer distal to the ligament of Treitz. The patient will undergo removal of the old tube and placement of a new longer tube. ANESTHESIA: Local. ESTIMATED BLOOD LOSS: Minimal. FLUORO TIME: 21.8 minutes. CONTRAST: 4 mL of Isovue-300. HEPARIN: None. COMPLICATIONS: None. DRAINS: None. SPECIMENS: None. DESCRIPTION OF PROCEDURE: The patient was taken to the angiography suite, placed on the angiography room table, and then prepped and draped in a standard surgical fashion. The gastrostomy tube (G-tube) was cannulated with a Shoefitrson wire, which was advanced through the tube and into the distal jejunum. The old catheter was then removed, and a new catheter was cut to length and then placed with the tip distal to the ligament of Treitz with good position noted fluoroscopically. Dressings were then applied. The patient tolerated the procedure well. All instrument, sponge, and needle counts were correct at the end of case. There were no complications. Dr. Alaniz was present for and directed the entire case.
[2019-03-20] MEDS ORDERED: ONDA4TAB6 SL (11:37)
[2019-03-20] MEDS ORDERED: METO10TA2 PO (11:37)
[2019-03-20] MEDS ORDERED: SUCR10SS PO (11:37)
[2019-03-20] MEDS ORDERED: DIOV80TA3 PO (11:37)
[2019-04-08] MEDS ORDERED: SIMV40TA20 PO (09:32)
--- NOTE | 2019-04-15 19:56 | ROOR ---
Patient Name: Yari Humphrey Procedure Date: 02/13/2019 9:37 AM Date of : 1940 Age: 78 Gender: Female Note Status: Finalized Procedure: Upper GI endoscopy Indications: Change PEG tube to PEG-J tube, Postoperative assessment, Suspected gastroparesis Providers: Jani Light MD, Dylon White (1st Assisting Doctor) Referring MD: 1. No Referring Physician 1. No Referring Physician, Admin. Requesting Provider: Medicines: Monitored Anesthesia Care Complications: No immediate complications. Procedure: Pre-Anesthesia Assessment: - Prior to the procedure, a History and Physical was performed, and patient medications and allergies were reviewed. The patient is competent. The risks and benefits of the procedure and the sedation options and risks were discussed with the patient. All questions were answered and informed consent was obtained. Patient identification and proposed procedure were verified by the physician, the nurse and the plant ecologist in the procedure room. Mental Status Examination: alert and oriented. CV Examination: regular rate and rhythm. Prophylactic Antibiotics: The patient does not require prophylactic antibiotics. Prior Anticoagulants: The patient has taken no previous anticoagulant or antiplatelet agents. ASA Grade Assessment: III - A patient with severe systemic disease. After reviewing the risks and benefits, the patient was deemed in satisfactory condition to undergo the procedure. The anesthesia plan was to use monitored anesthesia care (MAC). Immediately prior to administration of medications, the patient was re-assessed for adequacy to receive sedatives. The heart rate, respiratory rate, oxygen saturations, blood pressure, adequacy of pulmonary ventilation, and response to care were monitored throughout the procedure. The physical status of the patient was re-assessed after the procedure. The Endoscope was introduced through the mouth, and advanced to the second part of duodenum. The upper GI endoscopy was accomplished without difficulty. The patient tolerated the procedure well. Findings: The examined esophagus was normal. A medium amount of food (residue) was found in the gastric body. There was evidence of an eroding gastrostomy tube present on the anterior wall of the stomach. This was characterized by erosion. Few non-bleeding superficial gastric ulcers were found in the gastric fundus and in the gastric body. The largest lesion was 10 mm in largest dimension. Patient had several ulcers in the fundus and body of the stomach which appeared consistent with ischemic ulcers from her recent gastric volvulus. These appeared to be healing. The PEG required removal because it was to be replaced with a g/J tube. The PEG was removed under endoscopic vision. Removal was easily accomplished. A gastrostomy tube was lubricated. A Peralta gastrostomy/Jejunostomy tube was inserted . The bumper was attached to the gastrostomy tube. Tube was guided through the pylorus with the scope. Skin marking noted to be 3 cm at the external bumper. The final tension and compression of the abdominal wall by the PEG tube and external bumper were checked and revealed that the bumper was loose and lightly touching the skin and that the PEG balloon was loose and lightly touching the stomach. The tube was capped, and the tube site was cleaned and dressed. Impression: - Normal esophagus. - A medium amount of food (residue) in the stomach. - Eroding gastrostomy tube present characterized by erosion. - Non-bleeding gastric ulcers. - The PEG was removed because it was to be replaced with a g/J tube, and replaced with a PEG. - No specimens collected. Recommendation: - Return patient to [facility] for [facility] care. Attending Participation: I personally performed the entire procedure. Jani Light MD Jani Light MD 04/15/2019 7:56:24 PM Electronically signed by Jani Light MD Number of Addenda: 0 Note Initiated On: 02/13/2019 9:37 AM Estimated Blood Loss: Estimated blood loss: none.
[2019-07-14] MEDS ORDERED: ESCI5SOL3 PO (15:23)
[2019-07-30] MEDS ORDERED: ESCI10TA2 PO (08:52)
[2019-07-30] MEDS ORDERED: JEVILIQ7 PO (08:54)
[2019-08-15] MEDS ORDERED: ALLO100T PO (12:03)
[2019-08-15] MEDS ORDERED: HYDR500C3 PO (12:05)
[2019-10-20] MEDS ORDERED: HYDR500C3 PO (10:49)
== END 2019-02-28 13:20 | disposition home health service (06) | DRG 326 ==
LOC: M ED 23:13 → M ED INP 01-27 06:26 → M PED 01-27 10:25 → M MSPAV 01-27 18:02 → M PCU 01-27 23:36 → M ICU 01-28 14:01 → M PCU 02-06 19:21 → M MS4PR 02-27 11:10 → M MSPAV 02-27 15:36
PROVIDERS: ADMIT Surgery; ATTEND Surgery
PROC: 0DS64ZZ Reposition Stomach, Percutaneous Endoscopic Approach (ICD-10-PCS; 2019-01-28)
PROC: 0DH64UZ Insertion of Feeding Device into Stomach, Percutaneous Endoscopic Approach (ICD-10-PCS; 2019-01-28)
PROC: 5A1945Z Respiratory Ventilation, 24-96 Consecutive Hours (ICD-10-PCS; 2019-01-28)
PROC: 30233J1 Transfusion of Nonautologous Serum Albumin into Peripheral Vein, Percutaneous Approach (ICD-10-PCS; 2019-01-28)
PROC: 0BQT4ZZ Repair Diaphragm, Percutaneous Endoscopic Approach (ICD-10-PCS; principal; 2019-01-28 09:38)
PROC: 0W993ZZ Drainage of Right Pleural Cavity, Percutaneous Approach (ICD-10-PCS; 2019-02-13)
PROC: 0DP68UZ Removal of Feeding Device from Stomach, Via Natural or Artificial Opening Endoscopic (ICD-10-PCS; 2019-02-13)
PROC: 0DH68UZ Insertion of Feeding Device into Stomach, Via Natural or Artificial Opening Endoscopic (ICD-10-PCS; 2019-02-13)
PROC: 02HV33Z Insertion of Infusion Device into Superior Vena Cava, Percutaneous Approach (ICD-10-PCS; 2019-02-14)
PROC: 0DPD4UZ Removal of Feeding Device from Lower Intestinal Tract, Percutaneous Endoscopic Approach (ICD-10-PCS; 2019-02-20)
PROC: 30233N1 Transfusion of Nonautologous Red Blood Cells into Peripheral Vein, Percutaneous Approach (ICD-10-PCS; 2019-02-21)
PROC: 0DHA4UZ Insertion of Feeding Device into Jejunum, Percutaneous Endoscopic Approach (ICD-10-PCS; 2019-02-28)
DX: K44.0 Diaphragmatic hernia with obstruction, without gangrene (principal); J69.0 Pneumonitis due to inhalation of food and vomit; J96.01 Acute respiratory failure with hypoxia; J98.11 Atelectasis; J90 Pleural effusion, not elsewhere classified; I31.3 Pericardial effusion (noninflammatory); T81.41XA Infection following a procedure, superficial incisional surgical site, initial encounter; T82.868A Thrombosis due to vascular prosthetic devices, implants and grafts, initial encounter; E46 Unspecified protein-calorie malnutrition; K94.23 Gastrostomy malfunction; K31.89 Other diseases of stomach and duodenum; H40.9 Unspecified glaucoma; E21.0 Primary hyperparathyroidism; I10 Essential (primary) hypertension; E78.00 Pure hypercholesterolemia, unspecified; K21.9 Gastro-esophageal reflux disease without esophagitis; E87.5 Hyperkalemia; D64.9 Anemia, unspecified; K25.9 Gastric ulcer, unspecified as acute or chronic, without hemorrhage or perforation; E03.9 Hypothyroidism, unspecified; Z79.82 Long term (current) use of aspirin; Z79.899 Other long term (current) drug therapy; Z98.41 Cataract extraction status, right eye; Z98.42 Cataract extraction status, left eye; Z90.5 Acquired absence of kidney; Z85.528 Personal history of other malignant neoplasm of kidney; Z88.1 Allergy status to other antibiotic agents; Z88.5 Allergy status to narcotic agent; Z88.6 Allergy status to analgesic agent; Z88.8 Allergy status to other drugs, medicaments and biological substances; Y83.8 Other surgical procedures as the cause of abnormal reaction of the patient, or of later complication, without mention of misadventure at the time of the procedure; Y83.1 Surgical operation with implant of artificial internal device as the cause of abnormal reaction of the patient, or of later complication, without mention of misadventure at the time of the procedure

== ENCOUNTER 2019-03-22 15:04 | Emergency (ER) | payer MEDICARE ==
[~2019-03-22] VITALS: Ht 157.5 cm; Wt 63.6 kg
[2019-03-22 15:04] VITALS: BP 149/70
[~2019-03-22 15:04] MED LIST changes: +ACE65ERTAB PO; +ACET-683 PO; +AZOP0.2S OU; +C 50TAB PO; +COLA100C5 PO; +DIOV80TA3 PO; +ECOT81TA5 PO; +ELIQ5TAB PO; +METO10TA2 PO; +MULT-40 PO; +OMEP40CA2 PO; -OMEP40CA97 PO; +ONDA4TAB6 SL; +PANT40TA3 PO; +REGL10TA6 PO; +SIMV40TA2 PO; -SIMV40TA20 PO; +STERSOL2 IR; +SUCR10SS PO; +VITA100016 PO; +XALA0.007 OU
--- NOTE | 2019-03-22 18:38 | CR ---
DATE OF CONSULTATION: 03/22/2019 REASON FOR CONSULTATION: Plugged jejunostomy catheter. HISTORY: Patient is a 78-year-old woman who is now approaching two months postoperatively from laparoscopic reduction and repair of a gastric volvulus into a very large hiatal hernia. She had suffered from significant aspiration in the perioperative period and required significant ventilatory support. She apparently had some ischemic changes in the gastric lining and developed some gastroparesis postoperatively. She has been supported with a gastrojejunal tube with feedings through the jejunal portion of the tube. She was just discharged from the hospital two days ago. I was contacted by the visiting nurse that her jejunal tube was no longer functioning for her tube feedings and she presented to the emergency department. The emergency room (ER) nurse had tried to flush the catheter as well without success. ALLERGIES AND MEDICATIONS: Are as noted in the medical chart. MEDICAL HISTORY: Includes: 1. Glaucoma. 2. Hypertension. 3. Hypercholesterolemia. 4. Hyperparathyroidism. 5. Hypothyroidism. 6. Recent deep vein thrombosis in a right upper extremity, for which she is receiving Eliquis. 7. Recent aspiration pneumonitis. 8. Postoperative gastroparesis. SURGICAL HISTORY: Significant for: 1. Cataract extractions. 2. Several endoscopic exams. 3. Hysterectomy. 4. Appendectomy. 5. Left nephrectomy for renal cell carcinoma and 2013. 6. Laparoscopic reduction and repair of her incarcerated hernia in January. PHYSICAL EXAMINATION: The patient is lying quietly on the ER stretcher. She is alert and oriented. Examination shows that her tube enters the left upper quadrant, as noted previously. The site appears clean. The abdomen is soft and without any significant tenderness. Her tube was flushed using a Luer-García syringe and after some moderate pressure on the syringe, there was a release of this pressure and flow of some saline through the feeding tube. This was subsequently flushed through this tube with some cola. The patient tolerated this well. With auscultation over the abdomen. I could hear some bubbling slightly below the tube entry site in the left side of the abdomen. IMPRESSION: Clogged jejunal feeding tube, now successfully flushed. PLAN: The patient and her daughter and I discussed her continued need for the feedings. This is a relatively small bore catheter and it will not surprise me if this clogs again. I advised her that if it does clog up, she should return. If this clogs again, I think I would just plan on removing this tube and putting a simple gastrostomy tube through the G-tube site. I would then consider having her do a trial of oral feedings. If she is not able to tolerate these, then we could proceed with an endoscopic replacement of a new tube through the same site. Certainly, this plan can be adjusted as needed. For now, I have encouraged her to try some small sips of liquids and to increase this as tolerated. She does report that she has noted that if she drinks while sitting up that she tolerates this better with less nausea. She should have an appointment to follow up with me in about a week to 10 days in the office anyway. Again, if the tube clogs, she will return to the ER and we will probably admit her to proceed with the next steps.
== END 2019-03-22 17:12 | disposition home or self-care (01) ==
LOC: M ED 15:04
DX: K94.29 Other complications of gastrostomy (principal); I10 Essential (primary) hypertension; E78.9 Disorder of lipoprotein metabolism, unspecified; K21.9 Gastro-esophageal reflux disease without esophagitis; E21.3 Hyperparathyroidism, unspecified; H40.9 Unspecified glaucoma; Z86.718 Personal history of other venous thrombosis and embolism; Z79.899 Other long term (current) drug therapy; Z79.890 Hormone replacement therapy; Z79.01 Long term (current) use of anticoagulants; Z88.1 Allergy status to other antibiotic agents; Z88.5 Allergy status to narcotic agent; Z88.8 Allergy status to other drugs, medicaments and biological substances

== ENCOUNTER 2019-04-09 07:15 | Day surgery (SDC) | payer MEDICARE ==
[~2019-04-09] VITALS: Ht 157.5 cm; Wt 64.0 kg
[2019-04-09] MEDS ORDERED: NS 1,000 ML IV ONE (08:00)
[2019-04-09] MEDS ORDERED: PROPOFOL 200 MG/20 ML VIAL As Ordered ONE (09:02)
[2019-04-09] MEDS ORDERED: LIDOCAINE 2% INJ 100 MG/5 ML SDV (FOR ANES.) As Ordered ONE (09:02)
[2019-04-09] MEDS ORDERED: ePHEDrine SULFATE 25 MG/5 ML(5MG/ML) SYRINGE As Ordered ONE (09:25)
[2019-04-09] MEDS ORDERED: PHENYLephrine HCL 500 MCG/5 ML (100MCG/ML) SYRINGE (J2370) As Ordered ONE (09:32)
[2019-04-09 10:30] VITALS: BP 141/85
--- NOTE | 2019-04-09 10:31 | REP ---
Clinical: Check percutaneous jejunostomy tube placement Technique: Portable supine abdominal radiograph. Findings: A percutaneous jejunostomy tube is identified overlying the abdomen. Its exact placement cannot be confirmed. The bowel gas pattern is nonspecific. Impression: Percutaneous jejunostomy tube overlies the mid abdomen. Bowel gas pattern is nonspecific. Electronically Signed by Schuyler Dangelo MD 04/09/2019 10:22 A
--- NOTE | 2019-04-09 10:53 | ROOR ---
Patient Name: Yari Humphrey Procedure Date: 04/09/2019 9:00 AM Date of : 1940 Age: 78 Room: [facility] Gender: Female Note Status: Finalized Procedure: Upper GI endoscopy Indications: Replace PEG-J tube Providers: Jani Light MD, Juvenal Stack MD (1st Assisting Doctor) Referring MD: ONEAL STARK JR, MD Requesting Provider: Medicines: Monitored Anesthesia Care Complications: No immediate complications. Procedure: Pre-Anesthesia Assessment: - Prior to the procedure, a History and Physical was performed, and patient medications and allergies were reviewed. The patient is competent. The risks and benefits of the procedure and the sedation options and risks were discussed with the patient. All questions were answered and informed consent was obtained. Patient identification and proposed procedure were verified by the physician, the nurse and the anesthesiologist in the procedure room. Mental Status Examination: alert and oriented. CV Examination: regular rate and rhythm. Prophylactic Antibiotics: The patient does not require prophylactic antibiotics. Prior Anticoagulants: The patient has taken Eliquis (apixaban), last dose was 2 days prior to procedure. ASA Grade Assessment: III - A patient with severe systemic disease. After reviewing the risks and benefits, the patient was deemed in satisfactory condition to undergo the procedure. The anesthesia plan was to use monitored anesthesia care (MAC). Immediately prior to administration of medications, the patient was re-assessed for adequacy to receive sedatives. The heart rate, respiratory rate, oxygen saturations, blood pressure, adequacy of pulmonary ventilation, and response to care were monitored throughout the procedure. The physical status of the patient was re-assessed after the procedure. The Endoscope was introduced through the mouth, and advanced to the third part of duodenum. The upper GI endoscopy was accomplished without difficulty. The patient tolerated the procedure well. Findings: Non-severe esophagitis with no bleeding was found distal esophagus. Patient's esophagitis was clearly much improved from her prior EGD done several weeks ago. There was evidence of a Gastrostomy/Jejunostomy tube present on the anterior wall of the stomach. The first portion of the duodenum and second portion of the duodenum were normal. There was evidence of a gastrostomy present on the anterior wall of the stomach. The existing G-J tube required removal because it developed complications of site leakage and partial occlusion. The tube was removed percutaneously. Removal was easily accomplished. An 18Fr single lumen J tube was inserted through the extablished tract and advanced into the stomach. Dr Stack managed the tube endoscopically to advance this through the pylorus and into the distal duodenum. The balloon was inflated and the external retention disc adjusted. The tube was capped, and the tube site was cleaned and dressed. Impression: - Non-severe reflux esophagitis. - Gastrostomy/Jejunostomy tube present. - Normal first portion of the duodenum and second portion of the duodenum. - Gastrostomy present. Existing G-J tube was removed and a single lumen 18Fr Jejunostomy tube was inserted. OTHER - No specimens collected. Recommendation: - Discharge patient to home. - Tube feeds. - Continue present medications. - Return to my office as previously scheduled. Attending Participation: This operation could not have been safely performed (without compromising the technical results or length of the procedure) without the assistance of a skilled certified ophthalmic surgical assistant. A certified ophthalmic surgical assistant was medically necessary for positioning, retraction, and instrumentation. Jani Light MD Jani Light MD 04/09/2019 10:53:30 AM Electronically signed by Jani Light MD Number of Addenda: 0 Note Initiated On: 04/09/2019 9:00 AM Estimated Blood Loss: Estimated blood loss: none.
== END 2019-04-09 10:38 | disposition home or self-care (01) ==
LOC: M OPP 07:15
PROVIDERS: ATTEND Surgery
DX: Z43.1 Encounter for attention to gastrostomy (principal); K21.0 Gastro-esophageal reflux disease with esophagitis
CPT/HCPCS: 43246; 74018; J2370

== ENCOUNTER 2019-04-25 23:07 | Emergency (ER) | payer MEDICARE ==
[~2019-04-25] VITALS: Ht 157.5 cm; Wt 63.6 kg
[~2019-04-25 23:07] MED LIST changes: -E-Z-GAS II EFFERVESCENT PACKET (SODIUM BICARB./CITRIC ACID/SIMETHICONE) As Ordered ONE; -E-Z-HD 98% w/w 340GM SUSP BTL As Ordered ONE; -E-Z-PAQUE 96% w/w SUSP 176GM BTL As Ordered ONE
[2019-04-26 00:54] VITALS: BP 136/66
== END 2019-04-26 01:04 | disposition home or self-care (01) ==
LOC: M ED 23:07
DX: K94.19 Other complications of enterostomy (principal); K31.84 Gastroparesis; I10 Essential (primary) hypertension; Z79.899 Other long term (current) drug therapy; Z79.01 Long term (current) use of anticoagulants; Z88.1 Allergy status to other antibiotic agents; Z88.5 Allergy status to narcotic agent; Z88.8 Allergy status to other drugs, medicaments and biological substances

== ENCOUNTER → 2019-04-25 | Outpatient (CLI) | payer MEDICARE ==
[~2019-04-25] MED LIST changes: +E-Z-GAS II EFFERVESCENT PACKET (SODIUM BICARB./CITRIC ACID/SIMETHICONE) As Ordered ONE; +E-Z-HD 98% w/w 340GM SUSP BTL As Ordered ONE; +E-Z-PAQUE 96% w/w SUSP 176GM BTL As Ordered ONE
== END ==
LOC: M RAD 09:36
PROVIDERS: ATTEND Surgery
DX: K31.84 Gastroparesis (principal)

== ENCOUNTER → 2019-06-06 | Outpatient (REF) | payer MEDICARE ==
[~2019-06-06] MED LIST changes: +ALLO100T PO; +ESCI10TA2 PO; +ESCI5SOL3 PO; +HYDR500C3 PO; +JEVILIQ7 PO; -OMEP40CA2 PO; +OMEP40CA97 PO; -SIMV40TA2 PO; +SIMV40TA20 PO
[2019-06-06 19:33] LABS: ANISOCYTOSIS 1+; EOSINOPHILS 2 % (0-3); LYMPHOCYTES 10 % (16-44); MONOCYTES 6 % (0-5); NEUTROPHILS 82 % (28-66); OVALOCYTES 1+; POIKILOCYTOSIS 1+; POLYCHROMASIA 1+
[2019-06-06 19:34] LABS: PLATELET ESTIMATE INCREASED (NORMAL)
== END ==
LOC: M LAB REF 16:32
PROVIDERS: ATTEND Internal Medicine
DX: E21.3 Hyperparathyroidism, unspecified (principal); D72.829 Elevated white blood cell count, unspecified

== ENCOUNTER → 2019-06-18 | Outpatient (REF) | payer MEDICARE ==
[~2019-06-18] MED LIST changes: -ALLO100T PO; -ESCI10TA2 PO; -ESCI5SOL3 PO; -HYDR500C3 PO; -JEVILIQ7 PO; +OMEP40CA2 PO; -OMEP40CA97 PO; +SIMV40TA2 PO; -SIMV40TA20 PO
[2019-06-18 17:41] LABS: TOTAL PROTEIN 7.5 GM/DL (6.4-8.2)
[2019-06-24 10:52] LABS: ALBUMIN 4.14 GM/DL (3.29-5.55); ALBUMIN % 55.2 % (55.8-66.1); ALPHA-1-GLOBULINS 0.45 GM/DL (0.17-0.41); ALPHA-2-GLOBULINS 0.84 GM/DL (0.42-0.99); ALPHA-2-GLOBULINS % 11.2 % (7.1-11.8); BETA-1-GLOBULINS 0.64 GM/DL (0.28-0.60); BETA-1-GLOBULINS % 8.5 % (4.7-7.2); BETA-2-GLOBULINS 0.36 GM/DL (0.19-0.55); BETA-2-GLOBULINS % 4.8 % (3.2-6.5); GAMMA GLOBULIN % 14.3 % (11.1-18.8); GAMMA GLOBULINS 1.07 GM/DL (0.65-1.58)
[2019-06-24 11:16] LABS: IMMUNOTYPING SERUM IGG ABNORMAL (NORMAL)
== END ==
LOC: M LAB REF 16:39
PROVIDERS: ATTEND Internal Medicine
DX: E21.3 Hyperparathyroidism, unspecified (principal); D72.828 Other elevated white blood cell count

== ENCOUNTER → 2019-07-16 | Outpatient (CLI) | payer MEDICARE ==
[~2019-07-16] MED LIST changes: +ALLO100T PO; +ESCI10TA2 PO; +ESCI5SOL3 PO; +HYDR500C3 PO; +ISOVUE-300 61% 50ML VIAL (Q9967) As Ordered ONE; +JEVILIQ7 PO; +LIDOCAINE 1% MDV 20ML VIAL As Ordered ONE; +MIDAZOLAM INJ 2 MG/2 ML VIAL (J2250) As Ordered ONE; -OMEP40CA2 PO; +OMEP40CA97 PO; -SIMV40TA2 PO; +SIMV40TA20 PO; +diphenhydrAMINE INJ 50MG/ML VIAL (J1200) As Ordered ONE; +fentaNYL 100 MCG/2 ML INJECTION (J3010) As Ordered ONE
--- NOTE | 2019-07-16 08:30 | IRMSE ---
[facility] IR Moderate Sedation Eval. Date and Time Date: Jul 16, 2019 Time: 08:29 ASA Classification ASA Classification: II-Mild systemic disease Mallampati Score: II NPO: Yes Obstructive Sleep Apnea: No Interval Plan: moderate sedation JOSE NEGRO MD Jul 16, 2019 08:30
--- NOTE | 2019-07-16 10:00 | POST-OPPD ---
Postoperative Procedure Note Date Of Procedure: Jul 16, 2019 Time Of Procedure: 09:22 PREOPERATIVE DIAGNOSIS: j tube dislodged. malnourised POSTOPERATIVE DIAGNOSIS: j tube dislodged. malnourised FINDINGS: balloon deflated. j tube tip in jejunum PROCEDURE: J tube replaced with same kind of tube. SURGEON: gissel ANESTHESIA: mod sed ESTIMATED BLOOD LOSS: < 5 ml COMPLICATIONS: none POSTOPERATIVE CONDITION: stable JOSE NEGRO MD Jul 16, 2019 10:00
[2019-07-16 10:21] VITALS: BP 120/64
--- NOTE | 2019-07-16 14:01 | REP ---
IR Jejunostomy catheter exchange. Jejunostomy catheter exchange under fluoroscopy guidance. Clinical information: Jejunostomy dependent. Malnourished. Retention balloon ruptured. Physician: Dr. Law. Procedure: The patient was advised of the benefits, risks and alternatives of the procedure and informed consent was obtained. The time-out was performed with verification of the patient's name, MRN, site of procedure and type of procedure to be performed. The patient was positioned in the supine position on the angiographic table. The site was prepped and draped in the usual sterile fashion. Moderate sedation was performed by the physician including the presence of an independent trained observer who assisted in monitoring the patient's level of consciousness and physiologic status. Following the administration of Fentanyl and Versed, the physician spent 45 minutes of continuous face to face time with the patient. A scout leaser radiograph reveals a jejunostomy catheter in expected location. The jejunal port of the catheter was injected with contrast demonstrating contrast within the jejunum. The catheter is patent. A stiff guidewire was advanced through the catheter into the mid jejunum under fluoroscopy guidance. The old jejunostomy catheter was removed over the wire without difficulty. A 5-[place]izen [place] catheter was advanced over the glide wire. A new 18-[place]izen [place] JAMIE jejunostomy catheter was advanced over the wire and kumpe catheter, into the jejunum, under fluoroscopy guidance. The retention balloon was inflated and the catheter retracted against the anterior stomach wall. The wire and kumpe catheter were removed. Appropriate positioning of the catheter was confirmed with injection of contrast through the jejunal port. The retention disc was approximated to the skin of the abdominal wall and secured. A sterile dressing was applied. The patient tolerated the procedure well and was returned to the PRU in stable condition. EBL: Less than 5 ml. Complications: None. Conclusion: 1. Jejunostomy catheter check demonstrates ruptured retention balloon but catheter is still in the jejunum. 2. Successful exchange of single-lumen 18 F JAMIE jejunostomy catheter. The catheter is ready for immediate use. Thank you this referral. Electronically Signed by Leona Law MD 07/16/2019 01:59 P
== END ==
LOC: M IRPRO 08:04
PROVIDERS: ATTEND Surgery
DX: K94.23 Gastrostomy malfunction (principal); E46 Unspecified protein-calorie malnutrition
CPT/HCPCS: 49452; 99152; 99153; C1729; C1769; C1887; J1200; J2250; J3010; Q9967

== ENCOUNTER → 2019-07-29 | Outpatient (CLI) | payer MEDICARE ==
[~2019-07-29] MED LIST changes: -ISOVUE-300 61% 50ML VIAL (Q9967) As Ordered ONE; -LIDOCAINE 1% MDV 20ML VIAL As Ordered ONE; -MIDAZOLAM INJ 2 MG/2 ML VIAL (J2250) As Ordered ONE; -diphenhydrAMINE INJ 50MG/ML VIAL (J1200) As Ordered ONE; -fentaNYL 100 MCG/2 ML INJECTION (J3010) As Ordered ONE
--- NOTE | 2019-08-04 09:59 | REP ---
PET/CT: History: Diagnosing left lung mass. Previous history of left renal cell carcinoma status post nephrectomy. History of hysterectomy, hiatal hernia and esophagitis. Leukocytosis. Comparisons: Comparison PET/CT study February 27, 2017. Comparison chest CT study [facility] June 25, 2019. TECHNIQUE: 47 minutes following the intravenous injection of a 8.31 mCi dose of F-18 FDG, three-dimensional PET scintigraphy is acquired from the skull base to the proximal thighs. Triplanar noncontrast CT scanning is acquired through the same anatomic range for attenuation correction, and image registration with scan parameters optimized to minimize radiation exposure to the patient. PET scintigraphy and CT datasets were fused and displayed on a workstation with multiplanar and projection display capability. PET/CT Findings: The recently identified linear and nodular opacity in the left upper lobe adjacent to the superior portion of the major fissure is not hypermetabolic. Maximum standard uptake value in this is 2.21. There is a 1 cm nodular opacity in the right upper lobe which is also not hypermetabolic. Maximum standard uptake value 1.26. There is a new 13 mm nodule in the right lower lobe posteriorly, pleural-based. This shows some FDG accumulation although it is not in the hypermetabolic range, maximum SUV 2.44. There is persistent dilation of the thoracic esophagus with air and fluid within it. A hiatal hernia is seen. This in combination with the patient's recent history of gastric volvulus, raises a question of inflammatory changes in the lungs, possibly related to aspiration. There is no evidence of hypermetabolic hilar or mediastinal lymphadenopathy. Head and neck soft tissues are unremarkable. In the abdomen and pelvis, there is normal distribution of radiotracer to the liver, spleen, gastrointestinal, and genitourinary system. The patient is status post left nephrectomy. There is a gastrojejunostomy feeding tube noted in place. There is some hypermetabolic uptake along the gastrostomy feeding tube entry site in the anterior abdominal wall. Maximum standard uptake value 7.28. No suspicious hypermetabolic uptake is seen in the abdomen or pelvis. No abnormal skeletal hypermetabolic uptake is appreciated. Impression: No frankly hypermetabolic intrathoracic uptake is seen. There are nodular opacities in the left upper lobe, right upper lobe, and right lower lobe. Question inflammatory disease or recurrent aspiration. Hiatal hernia with evidence of reflux. Gastric jejunostomy feeding tube. Prior left nephrectomy. Electronically Signed by Simone Holloway MD 08/04/2019 10:05 A
== END ==
LOC: M PLARAD 12:39
PROVIDERS: ATTEND Internal Medicine
DX: R91.8 Other nonspecific abnormal finding of lung field (principal); K44.9 Diaphragmatic hernia without obstruction or gangrene; Z93.1 Gastrostomy status; Z90.5 Acquired absence of kidney
CPT/HCPCS: 78815; A9552

== ENCOUNTER → 2019-10-29 | Outpatient (REF) | payer MEDICARE ==
[~2019-10-29] MED LIST changes: +BAYE325T12 PO
== END ==
LOC: M LAB REF 16:40
PROVIDERS: ATTEND Internal Medicine
DX: E83.52 Hypercalcemia (principal)

== ENCOUNTER → 2020-01-30 | Outpatient (CLI) | payer MEDICARE ==
[~2020-01-30] MED LIST changes: +ISOVUE-370 76% 100ML VIAL As Ordered ONE; -SUCR10SS PO; +SUCR1ORA2 PO; +VITA-243 PO; -VITA500T PO
--- NOTE | 2020-01-31 08:01 | REP ---
REASON FOR EXAM: Followup. All prior chest CTs were reviewed, the latest of which is dated 06/25/2019. CONTRAST: 100 mL of Isovue 370. The mediastinum and pulmonary vannessa are unchanged. No mass or adenopathy has developed. There are no pleural or pericardial effusions. Once again, the esophagus is fluid-filled for the most part with a subtle air fluid level seen upper aspect, essentially unchanged from the prior exam and possibly slightly more dilated. The imaged upper abdomen and imaged osseous structures are unchanged. Evaluation of the lung olivarez shows the mass density seen previously within the left major fissure to have gotten smaller. That measures approximately 3 x 1 x 4 cm, previously 3.5 x 1.7 x 5.4 cm. The asymmetric density seen previously in the right upper lobe is completely unchanged. No new abnormal nodules, masses, or opacities are present. IMPRESSION: Improvement as described above. Electronically Signed by Cortes Morgan DO 02/02/2020 07:50 A
== END ==
LOC: M RAD 13:46
PROVIDERS: ATTEND Internal Medicine
DX: R91.1 Solitary pulmonary nodule (principal)
CPT/HCPCS: 71260; Q9967

== ENCOUNTER → 2020-02-26 | Outpatient (REF) | payer MEDICARE ==
[~2020-02-26] MED LIST changes: +BETI1SOL OU; -ISOVUE-370 76% 100ML VIAL As Ordered ONE; +MIRA3350 PO
== END ==
LOC: M LAB REF 16:20
PROVIDERS: ATTEND Internal Medicine
DX: E83.52 Hypercalcemia (principal)

== ENCOUNTER → 2020-04-05 | Outpatient (CLI) | payer MEDICARE ==
[2020-04-05 12:54] LABS: BASO # 0.1 10^3/uL (0.0-0.2); BASO % 0.9 % (0.0-1.0); EOS # 0.1 10^3/uL (0.0-0.5); EOS % 1.6 % (0.0-3.0); HEMATOCRIT 35.3 % (36.0-47.0); HEMOGLOBIN 10.3 g/dl (12.0-15.5); LYMPH # 1.6 10^3/uL (1.5-5.0); MEAN CORPUSCULAR HEMOGLOBIN 29.1 pg (27.0-33.0); MEAN CORPUSCULAR HGB CONC 29.2 g/dl (32.0-36.5); MEAN CORPUSCULAR VOLUME 99.7 fl (80.0-96.0); MONO # 0.7 10^3/uL (0.0-0.8); MONO % 10.2 % (0.0-5.0); NEUTROPHILS # 4.3 10^3/uL (1.5-8.5); NEUTROPHILS % 63.9 % (36.0-66.0); PLATELET COUNT, AUTOMATED 394 10^3/uL (150-450); RED BLOOD COUNT 3.54 10^6/uL (4.00-5.40); WHITE BLOOD COUNT 6.8 10^3/uL (4.0-10.0)
[2020-04-05 12:56] LABS: ALBUMIN 4.1 GM/DL (3.2-5.2); BILIRUBIN,TOTAL 0.6 MG/DL (0.2-1.0); CALCIUM LEVEL 10.4 MG/DL (8.8-10.2); CREATININE FOR GFR 1.17 MG/DL (0.55-1.30); GLOMERULAR FILTRATION RATE 47.6 (>39); POTASSIUM SERUM 5.5 MEQ/L (3.5-5.1)
== END ==
LOC: M WUC 10:50
PROVIDERS: ATTEND Specialist
DX: D64.9 Anemia, unspecified (principal); D72.829 Elevated white blood cell count, unspecified

== ENCOUNTER → 2020-08-27 | Outpatient (CLI) | payer MEDICARE ==
[~2020-08-27] MED LIST changes: +IRON240T PO; +IRON27TA2 PO; +PANT40TA29 PO; -PANT40TA3 PO; +SENN-80 PO
--- NOTE | 2020-08-27 13:39 | REPMRS ---
Patient History The patient states she has not had a clinical breast exam in over a year. Family history of prostate cancer at age 88 in father. 3D TOMOSYNTHESIS WAS PERFORMED. [facility] lifetime risk for breast cancer is 1.9%. Volpara breast density b. Digital Woman Screen Mammo: August 27, 2020 - Exam #: [id number] Bilateral CC and MLO view(s) were taken. Technologist: Gina Gibson, Technologist Prior study comparison: May 16, 2018, bilateral digital woman screen mammo performed at [facility]. March 21, 2017, digital woman screen mammo performed at [facility]. FINDINGS: There are scattered fibroglandular densities. There has been no change in the appearance of the mammogram from the prior studies. There is a mild amount of residual fibroglandular tissue which is fairly symmetric. There is no interval development of dominant mass, architectural distortion, or clustered microcalcification suggestive of malignancy. Assessment: BI-RADS/ACR category 1 mammogram. Negative Mammogram. Recommendation Routine screening mammogram in 1 year (for women over age 40). This mammogram was interpreted with the aid of an FDA-approved computer-aided dectection system. Electronically Signed By: Edwin Magana MD 08/27/20 [id number]
== END ==
LOC: M WHC 12:20
PROVIDERS: ATTEND Internal Medicine
DX: Z12.31 Encounter for screening mammogram for malignant neoplasm of breast (principal)

== ENCOUNTER → 2021-02-08 | Outpatient (REF) | payer MEDICARE ==
[~2021-02-08] MED LIST changes: +ESCI10TA16 PO; -ESCI10TA2 PO
== END ==
LOC: M LAB REF 16:26
PROVIDERS: ATTEND Internal Medicine
DX: E83.52 Hypercalcemia (principal)

== ENCOUNTER → 2021-02-28 | Outpatient (CLI) | payer MEDICARE ==
[~2021-02-28] MED LIST changes: +ISOVUE-370 76% 100ML VIAL As Ordered ONE
--- NOTE | 2021-02-28 14:22 | REPVR ---
PROCEDURE INFORMATION: Exam: CT Chest With Contrast; Diagnostic Exam date and time: 02/28/2021 1:16 PM Age: 80 years old Clinical indication: Abnormal findings; Lung mass or nodule; Not specified; Additional info: Lt lung nodule; previous history of left renal cell carcinoma TECHNIQUE: Imaging protocol: Diagnostic computed tomography of the chest with contrast. 3D rendering (Not supervised by radiologist): MIP and/or 3D reconstructed images were created by the technologist. Radiation optimization: All CT scans at this facility use at least one of these dose optimization techniques: automated exposure control; mA and/or kV adjustment per patient size (includes targeted exams where dose is matched to clinical indication); or iterative reconstruction. Contrast material: ISOVUE 370; Contrast volume: 75 ml; Contrast route: INTRAVENOUS (IV); COMPARISON: CT Chest with contrast 01/30/2020 2:08 PM FINDINGS: Lungs: There is a fairly stable masslike density along the left major fissure which measures approximately 5.4 x 1.0 x 3.4 cm (images 205:70, 202:30). There is similar irregular peribronchial lower opacity in the perihilar right upper lobe. A calcified granuloma is again present in the right middle lobe, and there is again a 2 mm noncalcified nodule in this lobe as well (image 202:60). Additional nodules measuring 5 mm posteriorly in the right lower lobe (image 202:70) and 4 mm laterally in the left lower lobe (image 202:70) appears stable as well. Mild dependent atelectasis and scattered scarring is present, without new nodule or other significant new opacity. The central airways appear patent. Pleural spaces: Unremarkable. No pneumothorax. No pleural effusion. Heart: Coronary artery calcifications are again present. No significant pericardial effusion. Mediastinal space: A moderate hiatal hernia is again present. There again appears to be irregular wall thickening at the gastroesophageal junction proximal to this, and the esophagus again contains fluid and debris. Aorta: The thoracic aorta is nonaneurysmal. Atherosclerotic vascular calcifications are again present. Lymph nodes: Unremarkable. No enlarged lymph nodes. Kidneys and ureters: There has again been left nephrectomy. Bones/joints: Degenerative changes again involve the spine and shoulders. The bones again appear osteopenic. Soft tissues: Unremarkable. IMPRESSION: 1. Stable appearance of the lungs as compared with 01/30/20, including of a masslike density along the left major fissure, irregular peribronchial opacity in the right upper lobe, and nodules measuring up to 5 mm. Fleischner follow up recommendations for incidental nodules are not indicated. Follow up per patient's medical condition. 2. Persistent moderate hiatal hernia, again with irregular wall thickening of the gastroesophageal junction proximal to it, with the esophagus again containing fluid and debris. Correlate as to any possible esophagitis or neoplasm and consider dedicated evaluation. 3. Persistent apparent osteopenia. Electronically signed by: Rc Molina On 02/28/2021 14:22:17 PM
== END ==
LOC: M RAD 12:33
PROVIDERS: ATTEND Internal Medicine
DX: R91.1 Solitary pulmonary nodule (principal); K44.9 Diaphragmatic hernia without obstruction or gangrene; M85.80 Other specified disorders of bone density and structure, unspecified site
CPT/HCPCS: 71260; Q9967

== ENCOUNTER → 2021-08-10 | Outpatient (REF) | payer MEDICARE ==
[~2021-08-10] MED LIST changes: -ISOVUE-370 76% 100ML VIAL As Ordered ONE; +JAKA10TA PO; +OMEP40CA4 PO; -OMEP40CA97 PO
== END ==
LOC: M LAB REF 16:59
PROVIDERS: ATTEND Internal Medicine
DX: M81.0 Age-related osteoporosis without current pathological fracture (principal); E21.0 Primary hyperparathyroidism

== ENCOUNTER → 2021-09-09 | Outpatient (CLI) | payer MEDICARE ==
[~2021-09-09] MED LIST changes: +ISOVUE-370 76% 100ML VIAL ONE
--- NOTE | 2021-09-11 06:40 | REP ---
INDICATION: PULMONARY NODULE COMPARISON: 02/28/2021, 01/30/2020, 02/13/2019 TECHNIQUE: Axial contrast enhanced images from the thoracic inlet to the upper abdomen with coronal and sagittal reformations using 75 ml Isovue 370 intravenous contrast material. [address] examination was performed using the following dose reduction techniques: Automated exposure control, adjustment of mA and/or kv according to the patient's size, and use of iterative reconstruction technique. FINDINGS: The somewhat nodular and linear area of scarring beginning at the apical aspect of the left major fissure and extending towards the mid lung zone remains unchanged through 01/30/2020, and the somewhat multinodular changes with subtle surrounding ground-glass opacity in the infrahilar aspect of the right upper lobe also remains stable through 02/13/2019. Remainder of lung olivarez are well aerated and relatively stable/clear. No further acute consolidation, new suspicious nodule or mass lesion. No effusion. No pneumothorax. Tracheobronchial tree is patent. Mediastinum demonstrates moderate hiatal hernia. Thoracic aorta, pulmonary vasculature, and heart/pericardium are essentially stable/normal. No obvious adenopathy. Limited upper abdomen demonstrates prior left nephrectomy. Surrounding musculoskeletal structures are intact. IMPRESSION: 1. Stable chronic appearing changes as noted above. 2. No acute mediastinal or pleuroparenchymal process. 3. Moderate hiatal hernia. <Electronically signed by Schuyler Dangelo > 09/11/21 [id number]
== END ==
LOC: M PLAIMG 14:23
PROVIDERS: ATTEND Internal Medicine
DX: R91.1 Solitary pulmonary nodule (principal)
CPT/HCPCS: 71260; Q9967

== ENCOUNTER → 2022-02-17 | Outpatient (REF) | payer MEDICARE ==
[~2022-02-17] MED LIST changes: -ISOVUE-370 76% 100ML VIAL ONE; +VITA400C53 PO; +VITAD400CA FT
[2022-02-17 13:31] LABS: C REACTIVE PROTEIN QUANTITATIV 1.3 MG/DL (0.00-0.30)
[2022-02-17 13:43] LABS: PTH INTACT 126.1 PG/ML (18.5-88.0)
== END ==
LOC: M LAB REF 12:14
PROVIDERS: ATTEND Internal Medicine
DX: M25.50 Pain in unspecified joint (principal); E03.9 Hypothyroidism, unspecified

== ENCOUNTER → 2022-03-08 | Outpatient (REF) | payer MEDICARE ==
[~2022-03-08] MED LIST changes: +PRED20TA PO
== END ==
LOC: M LAB REF 12:17
PROVIDERS: ATTEND Internal Medicine
DX: M25.519 Pain in unspecified shoulder (principal); M25.561 Pain in right knee

== ENCOUNTER → 2022-04-05 | Outpatient (REF) | payer MEDICARE | LOC: M LAB REF 12:13 | PROVIDERS: ATTEND Internal Medicine | DX: M25.519 Pain in unspecified shoulder (principal) ==

== ENCOUNTER → 2022-05-18 | Outpatient (CLI) | payer MEDICARE ==
[~2022-05-18] MED LIST changes: +VITA400T26 PO; -VITAD400CA FT; +VITAD400CA PO; +VITMTA PO
== END ==
LOC: M LABSMTC 09:01
PROVIDERS: ATTEND Anesthesiology
DX: Z01.812 Encounter for preprocedural laboratory examination (principal); Z20.822 Contact with and (suspected) exposure to COVID-19

== ENCOUNTER 2022-05-23 12:51 | Day surgery (SDC) | payer MEDICARE ==
[~2022-05-23] VITALS: Ht 154.9 cm; Wt 66.0 kg
[~2022-05-23 12:51] MED LIST changes: +LR 1,000 ML IV SCH; +NS 1,000 ML IV ONE
[2022-05-23] MEDS ORDERED: LR 1,000 ML IV SCH (13:05)
[2022-05-23] MEDS ORDERED: LIDOCAINE 2% 100MG/5ML SDV (FOR ANES.) As Ordered ONE (14:44)
[2022-05-23] MEDS ORDERED: ONDANSETRON 4MG 2ML VIAL As Ordered ONE (14:44)
[2022-05-23] MEDS ORDERED: fentaNYL 100 MCG/2 ML INJECTION As Ordered ONE (14:44)
[2022-05-23] MEDS ORDERED: propofoL 200 MG/20 ML VIAL As Ordered ONE (14:44)
[2022-05-23] MEDS ORDERED: MIDAZOLAM INJ 2MG/2ML VIAL (J2250 PER 1MG) As Ordered ONE (14:44)
[2022-05-23] MEDS ORDERED: BUPIVACAINE HCL 0.25% 30ML VIAL As Ordered ONE (15:43)
[2022-05-23] MEDS ORDERED: ACETAMINOPHEN 1000MG 100ML IV BTL (OFIRMEV) (J0131 PER 10MG) As Ordered ONE (17:09)
[2022-05-23 17:36] VITALS: BP 149/71
== END 2022-05-23 17:46 | disposition home or self-care (01) ==
LOC: M SDC 12:51
PROVIDERS: ATTEND Surgery
DX: D17.22 Benign lipomatous neoplasm of skin and subcutaneous tissue of left arm (principal); I10 Essential (primary) hypertension; E78.00 Pure hypercholesterolemia, unspecified; K21.9 Gastro-esophageal reflux disease without esophagitis; D45 Polycythemia vera; E03.9 Hypothyroidism, unspecified; E21.0 Primary hyperparathyroidism; Z85.520 Personal history of malignant carcinoid tumor of kidney; Z90.5 Acquired absence of kidney; I73.9 Peripheral vascular disease, unspecified; F32.A Depression, unspecified; Z79.82 Long term (current) use of aspirin; Z79.899 Other long term (current) drug therapy; R91.1 Solitary pulmonary nodule; Z88.5 Allergy status to narcotic agent; Z88.1 Allergy status to other antibiotic agents; Z88.8 Allergy status to other drugs, medicaments and biological substances
CPT/HCPCS: 11406; 88307; J0131; J2250; J2405; J3010

== ENCOUNTER → 2022-08-29 | Outpatient (REF) | payer MEDICARE ==
[~2022-08-29] MED LIST changes: -LR 1,000 ML IV SCH; -NS 1,000 ML IV ONE
== END ==
LOC: M LAB REF 16:38
PROVIDERS: ATTEND Internal Medicine
DX: E20.9 Hypoparathyroidism, unspecified (principal)

== ENCOUNTER → 2022-10-13 | Outpatient (REF) | payer MEDICARE ==
[2022-10-13 17:44] LABS: RSV AMPLIFICATION NEGATIVE (NEGATIVE)
== END ==
LOC: M LAB REF 16:06
PROVIDERS: ATTEND Internal Medicine
DX: J20.9 Acute bronchitis, unspecified (principal)

== ENCOUNTER → 2023-01-24 | Outpatient (REF) | payer MEDICARE ==
[~2023-01-24] MED LIST changes: -BETI1SOL OU; +FAMO40TA3; +MM S100C PO; +SENN-186 PO; -SENN-80 PO; +TIMO5DRO5 OU; +XARE20TA
== END ==
LOC: M LAB REF 16:33
PROVIDERS: ATTEND Internal Medicine
DX: E20.9 Hypoparathyroidism, unspecified (principal)

== ENCOUNTER → 2023-02-05 | Outpatient (CLI) | payer MEDICARE ==
[2023-02-05 11:51] LABS: APPEARANCE, URINE CLEAR (CLEAR); BACTERIA, URINE AUTO NEGATIVE (NEGATIVE); BILIRUBIN, URINE AUTO NEGATIVE (NEGATIVE); BLOOD, URINE BLOOD NEGATIVE (NEGATIVE); COLOR, URINE YELLOW (YELLOW); GLUCOSE, URINE (UA) AUTO NEGATIVE (NEGATIVE); KETONE, URINE AUTO NEGATIVE (NEGATIVE); LEUKOCYTE ESTERASE, URINE AUTO NEGATIVE (NEGATIVE); NITRITE, URINE AUTO NEGATIVE (NEGATIVE); PROTEIN, URINE AUTO NEGATIVE (NEGATIVE); RBC, URINE AUTO 0 /HPF (0-3); SPECIFIC GRAVITY URINE AUTO 1.006 (1.002-1.035); SQUAMOUS EPITHELIAL CELL UR AU 0 /HPF (0-6); UROBILINOGEN, URINE AUTO 0.2 mg/dL (0.0-2.0); WBC, URINE AUTO 0 /HPF (0-3)
[2023-02-05 11:59] LABS: BASO % 0.5 % (0.0-1.0); EOS # 0.1 10^3/uL (0.0-0.5); EOS % 1.4 % (0.0-3.0); HEMATOCRIT 41.5 % (36.0-47.0); HEMOGLOBIN 13.5 g/dl (12.0-15.5); LYMPH # 1.5 10^3/uL (1.5-5.0); LYMPH % 18.7 % (24.0-44.0); MEAN CORPUSCULAR HEMOGLOBIN 38.1 pg (27.0-33.0); MEAN CORPUSCULAR HGB CONC 32.5 g/dl (32.0-36.5); MONO # 0.6 10^3/uL (0.0-0.8); MONO % 7.4 % (2.0-8.0); NEUTROPHILS # 5.6 10^3/uL (1.5-8.5); NEUTROPHILS % 71.6 % (36.0-66.0); PLATELET COUNT, AUTOMATED 258 10^3/uL (150-450); RED BLOOD COUNT 3.54 10^6/uL (4.00-5.40); WHITE BLOOD COUNT 7.8 10^3/uL (4.0-10.0)
[2023-02-05 12:10] LABS: MEAN CORPUSCULAR VOLUME 117.2 fl (80.0-96.0)
[2023-02-05 12:19] LABS: INR 2.53; PROTHROMBIN TIME 27.7 SECONDS (12.5-14.5)
[2023-02-05 12:33] LABS: ALBUMIN 4.3 G/DL (3.2-5.2); ALKALINE PHOSPHATASE 97 U/L (46-116); ALT/SGPT 23 U/L (7.0-40); AST/SGOT 22 U/L (<34); BILIRUBIN,TOTAL 1.2 MG/DL (0.3-1.2); BLOOD UREA NITROGEN 26 MG/DL (9-23); CALCIUM LEVEL 10.4 MG/DL (8.3-10.6); CARBON DIOXIDE LEVEL 28 MMOL/L (20-31); CHLORIDE LEVEL 105 MMOL/L (98-107); CREATININE FOR GFR 0.93 MG/DL (0.55-1.30); GLOMERULAR FILTRATION RATE > 60.0 (>32); GLUCOSE, FASTING 91 MG/DL (74-106); POTASSIUM SERUM 4.4 MMOL/L (3.5-5.1); SODIUM LEVEL 139 MMOL/L (136-145); TOTAL 25(OH) VITAMIN D 38.1 NG/ML (20.0-100.0)
[2023-02-05 12:50] LABS: ANISOCYTOSIS 1+; PLATELET ESTIMATE NORMAL (NORMAL)
== END ==
LOC: M RAD 10:17
PROVIDERS: ATTEND Orthopaedic Surgery
DX: M19.011 Primary osteoarthritis, right shoulder (principal)

== ENCOUNTER → 2023-06-26 | Outpatient (REF) | payer MEDICARE | LOC: M LAB REF 12:15 | PROVIDERS: ATTEND Internal Medicine | DX: E21.0 Primary hyperparathyroidism (principal) ==

== ENCOUNTER → 2023-07-18 | Outpatient (REF) | payer MEDICARE | LOC: M LAB REF 10:39 | PROVIDERS: ATTEND Nurse Practitioner Family | DX: R19.7 Diarrhea, unspecified (principal) ==

== ENCOUNTER → 2023-07-25 | Outpatient (CLI) | payer MEDICARE ==
[2023-07-25 13:02] LABS: BASO % 0.4 % (0.0-1.0); EOS # 0.2 10^3/uL (0.0-0.5); EOS % 2.5 % (0.0-3.0); HEMATOCRIT 38.6 % (36.0-47.0); HEMOGLOBIN 12.6 g/dl (12.0-15.5); LYMPH # 1.4 10^3/uL (1.5-5.0); LYMPH % 19.8 % (24.0-44.0); MEAN CORPUSCULAR HEMOGLOBIN 36.6 pg (27.0-33.0); MEAN CORPUSCULAR HGB CONC 32.6 g/dl (32.0-36.5); MEAN CORPUSCULAR VOLUME 112.2 fl (80.0-96.0); MONO # 0.4 10^3/uL (0.0-0.8); MONO % 6.4 % (2.0-8.0); NEUTROPHILS # 4.8 10^3/uL (1.5-8.5); NEUTROPHILS % 70.3 % (36.0-66.0); PLATELET COUNT, AUTOMATED 260 10^3/uL (150-450); RED BLOOD COUNT 3.44 10^6/uL (4.00-5.40); WHITE BLOOD COUNT 6.8 10^3/uL (4.0-10.0)
[2023-07-25 13:35] LABS: ALBUMIN 3.9 G/DL (3.2-5.2); ALKALINE PHOSPHATASE 80 U/L (46-116); ALT/SGPT 14 U/L (7.0-40); AST/SGOT 20 U/L (<34); BILIRUBIN,TOTAL 0.8 MG/DL (0.3-1.2); BLOOD UREA NITROGEN 14 MG/DL (9-23); CALCIUM LEVEL 10.5 MG/DL (8.3-10.6); CARBON DIOXIDE LEVEL 28 MMOL/L (20-31); CHLORIDE LEVEL 106 MMOL/L (98-107); CREATININE FOR GFR 0.89 MG/DL (0.55-1.30); GLOMERULAR FILTRATION RATE > 60.0 (>32); GLUCOSE, FASTING 126 MG/DL (74-106); POTASSIUM SERUM 4.7 MMOL/L (3.5-5.1); SODIUM LEVEL 142 MMOL/L (136-145); TOTAL PROTEIN 6.3 G/DL (5.7-8.2)
== END ==
LOC: M LAB 11:33
PROVIDERS: ATTEND Specialist
DX: D47.1 Chronic myeloproliferative disease (principal)

== ENCOUNTER → 2023-08-08 | Outpatient (REF) | payer MEDICARE | LOC: M LAB REF 12:02 | PROVIDERS: ATTEND Internal Medicine Gastroenterology | DX: R19.7 Diarrhea, unspecified (principal); R10.13 Epigastric pain ==

== ENCOUNTER → 2023-09-27 | Outpatient (CLI) | payer MEDICARE ==
[2023-09-27 11:33] LABS: BASO % 0.7 % (0.0-1.0); EOS # 0.2 10^3/uL (0.0-0.5); EOS % 2.9 % (0.0-3.0); HEMOGLOBIN 12.7 g/dl (12.0-15.5); LYMPH # 1.3 10^3/uL (1.5-5.0); LYMPH % 22.7 % (24.0-44.0); MEAN CORPUSCULAR HEMOGLOBIN 38.5 pg (27.0-33.0); MEAN CORPUSCULAR HGB CONC 32.6 g/dl (32.0-36.5); MONO # 0.5 10^3/uL (0.0-0.8); MONO % 8.6 % (2.0-8.0); NEUTROPHILS # 3.6 10^3/uL (1.5-8.5); NEUTROPHILS % 64.7 % (36.0-66.0); PLATELET COUNT, AUTOMATED 216 10^3/uL (150-450); WHITE BLOOD COUNT 5.6 10^3/uL (4.0-10.0)
[2023-09-27 11:36] LABS: MEAN CORPUSCULAR VOLUME 118.2 fl (80.0-96.0)
[2023-09-27 12:06] LABS: ALBUMIN 4.4 G/DL (3.2-5.2); BILIRUBIN,TOTAL 1.5 MG/DL (0.3-1.2); CALCIUM LEVEL 10.4 MG/DL (8.3-10.6); CREATININE FOR GFR 1.04 MG/DL (0.55-1.30); POTASSIUM SERUM 4.5 MMOL/L (3.5-5.1); TOTAL PROTEIN 6.8 G/DL (5.7-8.2)
== END ==
LOC: M LAB 11:05
PROVIDERS: ATTEND Nurse Practitioner
DX: D45 Polycythemia vera (principal)

== ENCOUNTER → 2023-10-26 | Outpatient (REF) | payer MEDICARE ==
[~2023-10-26] MED LIST changes: +VANC125C10
== END ==
LOC: M LAB REF 17:30
PROVIDERS: ATTEND Internal Medicine
DX: E21.0 Primary hyperparathyroidism (principal)

== ENCOUNTER → 2023-11-02 | Outpatient (CLI) | payer MEDICARE | LOC: M WHC 11:09 | PROVIDERS: ATTEND Nurse Practitioner | DX: Z12.31 Encounter for screening mammogram for malignant neoplasm of breast (principal); M85.80 Other specified disorders of bone density and structure, unspecified site; M81.0 Age-related osteoporosis without current pathological fracture ==

== ENCOUNTER → 2023-11-13 | Outpatient (REF) | payer MEDICARE | LOC: M LAB REF 15:34 | PROVIDERS: ATTEND Internal Medicine Gastroenterology | DX: R19.7 Diarrhea, unspecified (principal) ==

== ENCOUNTER 2023-11-27 15:30 | Outpatient (CLI) | payer MEDICARE ==
[~2023-11-27] VITALS: Ht 154.9 cm; Wt 67.0 kg
[~2023-11-27 15:30] MED LIST changes: -VANC125C10; +VANC125C12
[2023-11-27 15:55] VITALS: BP 142/88; O2SAT 100
[2023-11-27] MEDS: BEZLOTOXUMAB 700 MG in NS 100 ML IV ONE (16:04)
== END 2023-11-27 17:10 ==
LOC: M INFU 15:30
PROVIDERS: ATTEND Internal Medicine Gastroenterology
DX: A04.72 Enterocolitis due to Clostridium difficile, not specified as recurrent (principal); Z88.1 Allergy status to other antibiotic agents; Z88.5 Allergy status to narcotic agent; Z88.6 Allergy status to analgesic agent; Z88.8 Allergy status to other drugs, medicaments and biological substances

== ENCOUNTER → 2024-03-14 | Outpatient (CLI) | payer MEDICARE ==
[~2024-03-14] MED LIST changes: +CALC500C16 PO; +NOXI1TAB PO; +ONDA-282 SL; -ONDA4TAB6 SL
== END ==
LOC: M RAD 07:47
PROVIDERS: ATTEND Nurse Practitioner
DX: R74.01 Elevation of levels of liver transaminase levels (principal)

== ENCOUNTER → 2024-07-03 | Outpatient (CLI) | payer MEDICARE ==
[2024-07-03 15:27] LABS: CALCIUM LEVEL 10.1 MG/DL (8.3-10.6); CREATININE FOR GFR 1.16 MG/DL (0.55-1.30); GLOMERULAR FILTRATION RATE 47.6 (>32); POTASSIUM SERUM 4.4 MMOL/L (3.5-5.1)
== END ==
LOC: M LAB 14:23
PROVIDERS: ATTEND Internal Medicine Endocrinology, Diabetes & Metabolism
DX: M81.0 Age-related osteoporosis without current pathological fracture (principal)

== ENCOUNTER → 2024-09-27 | Outpatient (CLI) | payer MEDICARE | LOC: M RAD 10:51 | PROVIDERS: ATTEND Physician Assistant | DX: M47.816 Spondylosis without myelopathy or radiculopathy, lumbar region (principal); M41.9 Scoliosis, unspecified ==

== ENCOUNTER → 2024-10-07 | Outpatient (CLI) | payer MEDICARE ==
[2024-10-07 12:45] LABS: BLOOD UREA NITROGEN 33 MG/DL (9-23); CALCIUM LEVEL 10.1 MG/DL (8.3-10.6); CARBON DIOXIDE LEVEL 27 MMOL/L (20-31); CHLORIDE LEVEL 108 MMOL/L (98-107); CREATININE FOR GFR 1.13 MG/DL (0.55-1.30); GLUCOSE, FASTING 101 MG/DL (74-106); POTASSIUM SERUM 4.3 MMOL/L (3.5-5.1); SODIUM LEVEL 143 MMOL/L (136-145)
[2024-10-07 12:47] LABS: RHEUMATOID FACTOR QUANT < 3.5 IU/ML (<14)
[2024-10-07 12:48] LABS: TOTAL 25(OH) VITAMIN D 71.2 NG/ML (20.0-100.0)
== END ==
LOC: M LAB 11:46
PROVIDERS: ATTEND Internal Medicine Endocrinology, Diabetes & Metabolism
DX: M81.0 Age-related osteoporosis without current pathological fracture (principal)

== ENCOUNTER → 2024-12-01 | Outpatient (CLI) | payer MEDICARE ==
[~2024-12-01] MED LIST changes: -BAYE325T12 PO; +BAYE325T2 PO
== END ==
LOC: M RAD 11:53
PROVIDERS: ATTEND Internal Medicine
DX: N20.0 Calculus of kidney (principal)

== ENCOUNTER → 2025-07-08 | Outpatient (CLI) | payer MEDICARE ==
[~2025-07-08] MED LIST changes: -ACE65ERTAB PO; +ACET-1593 PO; +AMLO1TAB24; -SUCR1ORA2 PO; +SUCR1ORA20 PO; +VALS1TAB67
[2025-07-08 12:39] LABS: CALCIUM LEVEL 9.4 MG/DL (8.3-10.6); CARBON DIOXIDE LEVEL 28.0 MMOL/L (20-31); CHLORIDE LEVEL 106.0 MMOL/L (98-107); CREATININE FOR GFR 1.03 MG/DL (0.55-1.30); GLOMERULAR FILTRATION RATE 54.0 (>32); POTASSIUM SERUM 4.3 MMOL/L (3.5-5.1); SODIUM LEVEL 140.0 MMOL/L (136-145)
[2025-07-08 12:42] LABS: TOTAL 25(OH) VITAMIN D 64.6 NG/ML (20.0-100.0)
== END ==
LOC: M LAB 11:15
PROVIDERS: ATTEND Nurse Practitioner Family
DX: M81.0 Age-related osteoporosis without current pathological fracture (principal)

== ENCOUNTER → 2025-08-03 | Outpatient (CLI) | payer MEDICARE ==
[2025-08-03 13:03] LABS: CALCIUM LEVEL 9.7 MG/DL (8.3-10.6); CARBON DIOXIDE LEVEL 28.0 MMOL/L (20-31); CHLORIDE LEVEL 104.0 MMOL/L (98-107); CREATININE FOR GFR 1.14 MG/DL (0.55-1.30); GLOMERULAR FILTRATION RATE 47.8 (>32); POTASSIUM SERUM 4.2 MMOL/L (3.5-5.1); SODIUM LEVEL 143.0 MMOL/L (136-145)
== END ==
LOC: M LAB 11:51
PROVIDERS: ATTEND Nurse Practitioner Family
DX: M81.0 Age-related osteoporosis without current pathological fracture (principal)

== ENCOUNTER → 2025-09-07 | Outpatient (REF) | payer MEDICARE ==
[~2025-09-07] MED LIST changes: +ACET-1387 PO; -ACET-1593 PO
[2025-09-07 14:48] LABS: CALCIUM LEVEL 8.3 MG/DL (8.3-10.6); CARBON DIOXIDE LEVEL 26.0 MMOL/L (20-31); CHLORIDE LEVEL 106.0 MMOL/L (98-107); CREATININE FOR GFR 1.34 MG/DL (0.55-1.30); GLOMERULAR FILTRATION RATE 39.3 (>32); POTASSIUM SERUM 3.9 MMOL/L (3.5-5.1); SODIUM LEVEL 145.0 MMOL/L (136-145)
== END ==
LOC: M LAB REF 13:38
PROVIDERS: ATTEND Nurse Practitioner Family
DX: M81.0 Age-related osteoporosis without current pathological fracture (principal)